=== PATIENT | female | born 1975 | race Caucasian/White ===

== ENCOUNTER 2016-06-14 20:30 | Emergency (ER) | payer OTHER ==
[~2016-06-14 20:30] MED LIST: DOCU10CA PO; DRIS50002 PO; MULTCAP PO; PERC5TAB6 PO
[2016-06-14] MEDS ORDERED: BACTRIM 160MG/800MG DS TAB As Ordered ONE (21:19)
--- NOTE | 2016-06-14 21:28 | EDDOCDS ---
Physician Documentation [facility] Name: Maria Alejandra Herr Age: 41 yrs Sex: Female : 1975 Arrival Date: 06/14/2016 Time: 20:30 Bed TR7 Private MD: Beverley Kulkarni NP Disposition: 06/14/16 21:19 Discharged to Home/Self Care. Impression: Cellulitis of right lower limb - right third toe . - Condition is Stable. - Discharge Instructions: Cellulitis, Wound Care, [id number]. - Prescriptions for Bactrim DS 800- 160 mg Oral Tablet - take 1 tablet by ORAL route every 12 hours for 10 days; 20 tablet. - Medication Reconciliation, Local Pharmacy Hours form. - Follow up: Beverley Kulkarni; When: 2 - 3 days; Reason: Recheck today's complaints, Continuance of care. - Problem is new. - Symptoms are unchanged. Historical: - Allergies: No known drug Allergies; - Home Meds: 1. ibuprofen 800 mg Oral tab 1 tab 3 times per day (Last dose: 06/14/2016 18:00) 2. Tylenol 500 mg Oral 2 tabs every 4-6 hours (Last dose: 06/14/2016 17:00) - PMHx: melenoma; - PSHx: Hysterectomy; Tonsillectomy; - Social history: Smoking status: Patient states former smoker of tobacco. No barriers to communication noted, The patient speaks fluent [place]an, Speaks appropriately for age. - Family history: Not pertinent. - : The pt / caregiver states he / she is not on anticoagulants. Home medication list is obtained from the patient. - Exposure Risk Screening:: None identified. 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 10 in. (177.80 cm); Pain 10/10; 20:34 Body Mass Index 37.31 (117.93 kg, 177.80 cm) dd6 MDM: 21:15 Trimethoprim-Sulfamethoxazole 160 mg-800 mg (DS) 1 tabs PO once ordered. mo1 21:[address] Ordered. EDMS Administered Medications: 21:25 Drug: Trimethoprim-Sulfamethoxazole 1 tabs [sulfamethoxazole 800 mg-trimethoprim 160 mg cz tablet (1 tabs)] Route: PO; Signatures: Dispatcher [employer] EDMS Ana Sandhu RN RN kmg1 Shilo Seals RN RN cz Bandar Kumar PA PA mo1 The chart was reviewed and I authenticate all verbal orders and agree with the evaluation and treatment provided.Corrections: (The following items were deleted from the chart) 21:18 21:16 Wound Culture & GS - Extremity+ATTILA ordered. EDMS EDMS MTDD
--- NOTE | 2016-06-14 21:29 | EDDOCDS ---
Nurse's Notes [facility] Name: Maria Alejandra Herr Age: 41 yrs Sex: Female : 1975 Arrival Date: 06/14/2016 Time: 20:30 Bed TR7 Private MD: Beverley Kulkarni NP Diagnosis: Cellulitis of right lower limb-right third toe Presentation: 06/14 20:38 Presenting complaint: Patient states: had a procedure to remove a suspicious area [place] [facility] [place] right foot. Foot is "turning black.". Adult Sepsis Screening: The patient does not have new or worsening altered mentation. Patient's respiratory rate is less than 22. Systolic blood pressure is greater than 100. Patient has a qSOFA score of 0- Negative Sepsis Screen. Suicide/Homicide risk assessment- the patient denies having any suicidal and/or homicidal ideations and does not present with any other emotional, behavioral or mental health complaints. Status: Patient is not a library services dean or dependent. Transition of care: patient was not received from another setting of care. 20:38 Acuity: ARJUN Level 4 [facility] [place]:38 Method Of Arrival: Walkin/Carried/Asstd km Triage Assessment: 20:43 General: Appears uncomfortable, Behavior is appropriate for age, cooperative, pleasant. [facility] Pain: Location: right foot Pain currently is 10 out of 10 on a pain scale. Quality of pain is described as stabbing, throbbing. Pt Declines HIV testing. 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 ibuprofen 800 mg Oral tab 1 tab 3 times per day (Last dose: 06/14/2016 18:00) 2. Tylenol 500 mg Oral 2 tabs every 4-6 hours (Last dose: 06/14/2016 17:00) - PMHx: melenoma; - PSHx: Hysterectomy; Tonsillectomy; - Social history: Smoking status: Patient states former smoker of tobacco. No barriers to communication noted, The patient speaks fluent Kyrgyz, Speaks appropriately for age. - Family history: Not pertinent. - : The pt / caregiver states he / she is not on anticoagulants. Home medication list is obtained from the patient. - Exposure Risk Screening:: None identified. Screenin:34 Infection Control. dd6 21:25 Screening information is obtained from the patient. Fall risk: No risks identified. cz Assistance ADL's: requires no assistance with activities of daily living. Abuse/DV Screen: The patient / caregiver reports he/she is: not in a situation that causes fear, pain or injury. Nutritional screening: No deficits noted. home support is adequate. Assessment: 21:25 General: alert female with right foot pain exam deferred. cz Vital Signs: 20:34 BP 138 / 61; Pulse 83; Resp 18; Temp 97.1; Pulse Ox 99% ; Weight 117.93 kg; Height 5 dd6 ft. 10 in. (177.80 cm); Pain 10/10; 20:34 Body Mass Index 37.31 (117.93 kg, 177.80 cm) dd6 Vitals: 20:34 Log In Time: June 14, 2016 at 20:34. dd6 ED Course: 20:33 Patient visited by Torin Bridges PCA. dd6 20:33 Beverley Kulkarni is Private Physician. dd6 20:33 Patient moved to Waiting dd6 20:36 Patient visited by Torin Bridges PCA. dd6 20:38 Patient moved to Pre RCE elp 20:41 Triage Initiated kmg1 21:00 Bandar Kumar PA is PHCP. mo1 21:00 Marin Sal DO is Attending Physician. mo1 21:00 Patient moved to Triage 1 cz 21:08 Patient visited by Bandar Kumar PA. mo1 21:18 Beverley Kulkarni is Referral Physician. mo1 21:22 W[address] GRAM [address] Sent. ar3 21:24 Patient moved to TR7 ar3 21:25 The patient / caregiver is instructed regarding the plan of care and ED course. cz 21:25 No IV's were initiated during this patient's visit. No procedures done that require cz assistance. Administered Medications: 21:25 Drug: Trimethoprim-Sulfamethoxazole 1 tabs [sulfamethoxazole 800 mg-trimethoprim 160 mg cz tablet (1 tabs)] Route: PO; Order Results: There are currently no results for this order. Outcome: 21:19 Discharge ordered by Provider. mo1 21:25 Discharge Assessment: Patient awake, alert and oriented x 3. No cognitive and/or cz functional deficits noted. Patient verbalized understanding of disposition instructions. patient administered narcotics - no. The following High Risk Discharge criteria are identified: None. Discharged to home ambulatory. Condition: stable. Discharge instructions given to patient, Instructed on discharge instructions, follow up and referral plans. medication usage, Demonstrated understanding of instructions, medications, Pt was receptive of discharge instructions/ teaching. Prescriptions given X 1. No special radiology studies were completed. Property :Personal belongings accompany Pt. 21:27 Patient left the ED. cz Signatures: Ana Sandhu RN RN kmg1 Shilo Seals RN RN cz Torin Bridges, AUTOMOTIVE MACHINIST AUTOMOTIVE MACHINIST dd6 Denise Schaefer, AUTOMOTIVE MACHINIST AUTOMOTIVE MACHINIST ar3 Bandar Kumar PA PA mo1 Mikki Bailey, AUTOMOTIVE MACHINIST AUTOMOTIVE MACHINIST elp MTDD
--- NOTE | 2016-06-16 22:28 | EDDOCDS ---
Physician Documentation [facility] Name: Maria Alejandra Herr Age: 41 yrs Sex: Female : 1975 Arrival Date: 06/14/2016 Time: 20:30 Bed TR7 Private MD: Beverley Kulkarni NP Disposition: 06/14/16 21:19 Discharged to Home/Self Care. Impression: Cellulitis of right lower limb - right third toe . - Condition is Stable. - Discharge Instructions: Cellulitis, Wound Care, [id number]. - Prescriptions for Bactrim DS 800- 160 mg Oral Tablet - take 1 tablet by ORAL route every 12 hours for 10 days; 20 tablet. - Medication Reconciliation, Local Pharmacy Hours form. - Follow up: Beverley Kulkarni; When: 2 - 3 days; Reason: Recheck today's complaints, Continuance of care. - Problem is new. - Symptoms are unchanged. Historical: - Allergies: No known drug Allergies; - Home Meds: 1. ibuprofen 800 mg Oral tab 1 tab 3 times per day (Last dose: 06/14/2016 18:00) 2. Tylenol 500 mg Oral 2 tabs every 4-6 hours (Last dose: 06/14/2016 17:00) - PMHx: melenoma; - PSHx: Hysterectomy; Tonsillectomy; - Social history: Smoking status: Patient states former smoker of tobacco. No barriers to communication noted, The patient speaks fluent Mozambican, Speaks appropriately for age. - Family history: Not pertinent. - : The pt / caregiver states he / she is not on anticoagulants. Home medication list is obtained from the patient. - Exposure Risk Screening:: None identified. 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 10 in. (177.80 cm); Pain 10/10; 20:34 Body Mass Index 37.31 (117.93 kg, 177.80 cm) dd6 MDM: 21:15 Trimethoprim-Sulfamethoxazole 160 mg-800 mg (DS) 1 tabs PO once ordered. mo1 21:[address] Ordered. EDMS 21:28 Financial registration complete. kf3 21:34 [facility] Payment Agreement was scanned into [employer] and attached to record. kf3 22:28 T-Sheet-- Draft Copy was scanned into [employer] and attached to record. klr Administered Medications: 21:25 Drug: Trimethoprim-Sulfamethoxazole 1 tabs [sulfamethoxazole 800 mg-trimethoprim 160 mg cz tablet (1 tabs)] Route: PO; Signatures: Dispatcher [employer] EDMS Ana Sandhu RN RN km Shilo Seals RN RN cz Jose Rondon, Reg Reg kf3 Bandar Kumar PA PA Candi Parmar The chart was reviewed and I authenticate all verbal orders and agree with the evaluation and treatment provided.Corrections: (The following items were deleted from the chart) 21:18 21:16 Wound Culture & GS - Extremity+ATTILA ordered. EDMS EDMS Attachments: 21:34 [facility] Payment Agreement kf3 22:28 T-Sheet-- Draft Copy klr Chart Complete MTDD
--- NOTE | 2016-06-16 22:28 | EDDOCDS ---
Physician Documentation Name: Maria Alejandra Herr Age: 41 yrs Sex: Female : 1975 Arrival Date: 06/14/2016 Time: 20:30 Bed TR7 Private MD: Beverley Kulkarni NP Disposition: 06/14/16 21:19 Discharged to Home/Self Care. Impression: Cellulitis of right lower limb - right third toe . - Condition is Stable. - Discharge Instructions: Cellulitis, Wound Care, [id number]. - Prescriptions for Bactrim DS 800- 160 mg Oral Tablet - take 1 tablet by ORAL route every 12 hours for 10 days; 20 tablet. - Medication Reconciliation, Local Pharmacy Hours form. - Follow up: Beverley Kulkarni; When: 2 - 3 days; Reason: Recheck today's complaints, Continuance of care. - Problem is new. - Symptoms are unchanged. Historical: - Allergies: No known drug Allergies; - Home Meds: 1. ibuprofen 800 mg Oral tab 1 tab 3 times per day (Last dose: 06/14/2016 18:00) 2. Tylenol 500 mg Oral 2 tabs every 4-6 hours (Last dose: 06/14/2016 17:00) - PMHx: melenoma; - PSHx: Hysterectomy; Tonsillectomy; - Social history: Smoking status: Patient states former smoker of tobacco. No barriers to communication noted, The patient speaks fluent Afghan, Speaks appropriately for age. - Family history: Not pertinent. - : The pt / caregiver states he / she is not on anticoagulants. Home medication list is obtained from the patient. - Exposure Risk Screening:: None identified. 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 10 in. (177.80 cm); Pain 10/10; 20:34 Body Mass Index 37.31 (117.93 kg, 177.80 cm) dd6 MDM: 21:15 Trimethoprim-Sulfamethoxazole 160 mg-800 mg (DS) 1 tabs PO once ordered. mo1 21:[address] Ordered. EDMS 21:28 Financial registration complete. kf3 21:34 [facility] Payment Agreement was scanned into [employer] and attached to record. kf3 22:28 T-Sheet-- Draft Copy was scanned into [employer] and attached to record. klr Administered Medications: 21:25 Drug: Trimethoprim-Sulfamethoxazole 1 tabs [sulfamethoxazole 800 mg-trimethoprim 160 mg cz tablet (1 tabs)] Route: PO; Signatures: Dispatcher [employer] EDMS Ana Sandhu RN RN km Shilo Seals RN RN cz Jose Rondon, Reg Reg kf3 Bandar Kumar PA PA Candi Parmar The chart was reviewed and I authenticate all verbal orders and agree with the evaluation and treatment provided.Corrections: (The following items were deleted from the chart) 21:18 21:16 Wound Culture & GS - Extremity+ATTILA ordered. EDMS EDMS Attachments: 21:34 [facility] Payment Agreement kf3 22:28 T-Sheet-- Draft Copy klr Chart Complete MTDD
--- NOTE | 2016-06-16 22:29 | EDDOCDS ---
Nurse's Notes [facility] Name: Maria Alejandra Herr Age: 41 yrs Sex: Female : 1975 Arrival Date: 06/14/2016 Time: 20:30 Bed TR7 Private MD: Beverley Kulkarni NP Diagnosis: Cellulitis of right lower limb-right third toe Presentation: 06/14 20:38 Presenting complaint: Patient states: had a procedure to remove a suspicious area from [facility] [place] between the toes of right foot. Foot is "turning black.". Adult Sepsis Screening: The patient does not have new or worsening altered mentation. Patient's respiratory rate is less than 22. Systolic blood pressure is greater than 100. Patient has a qSOFA score of 0- Negative Sepsis Screen. Suicide/Homicide risk assessment- the patient denies having any suicidal and/or homicidal ideations and does not present with any other emotional, behavioral or mental health complaints. Status: Patient is not a guest service agent or dependent. Transition of care: patient was not received from another setting of care. 20:38 Acuity: ARJUN Level 4 [facility] [place] 20:38 Method Of Arrival: Walkin/Carried/Asstd km Triage Assessment: 20:43 General: Appears uncomfortable, Behavior is appropriate for age, cooperative, pleasant. [facility] [place] Pain: Location: right foot Pain currently is 10 out of 10 on a pain scale. Quality of pain is described as stabbing, throbbing. Pt Declines HIV testing. 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 ibuprofen 800 mg Oral tab 1 tab 3 times per day (Last dose: 06/14/2016 18:00) 2. Tylenol 500 mg Oral 2 tabs every 4-6 hours (Last dose: 06/14/2016 17:00) - PMHx: melenoma; - PSHx: Hysterectomy; Tonsillectomy; - Social history: Smoking status: Patient states former smoker of tobacco. No barriers to communication noted, The patient speaks fluent Slovenian, Speaks appropriately for age. - Family history: Not pertinent. - : The pt / caregiver states he / she is not on anticoagulants. Home medication list is obtained from the patient. - Exposure Risk Screening:: None identified. Screenin:34 Infection Control. dd6 21:25 Screening information is obtained from the patient. Fall risk: No risks identified. cz Assistance ADL's: requires no assistance with activities of daily living. Abuse/DV Screen: The patient / caregiver reports he/she is: not in a situation that causes fear, pain or injury. Nutritional screening: No deficits noted. home support is adequate. Assessment: 21:25 General: alert female with right foot pain exam deferred. cz Vital Signs: 20:34 BP 138 / 61; Pulse 83; Resp 18; Temp 97.1; Pulse Ox 99% ; Weight 117.93 kg; Height 5 dd6 ft. 10 in. (177.80 cm); Pain 10/10; 20:34 Body Mass Index 37.31 (117.93 kg, 177.80 cm) dd6 Vitals: 20:34 Log In Time: June 14, 2016 at 20:34. dd6 ED Course: 20:33 Patient visited by Torin Bridges PCA. dd6 20:33 Beverley Kulkarni is Private Physician. dd6 20:33 Patient moved to Waiting dd6 20:36 Patient visited by Torin Bridges PCA. dd6 20:38 Patient moved to Pre RCE elp 20:41 Triage Initiated kmg1 21:00 Bandar Kumar PA is PHCP. mo1 21:00 Marin Sal DO is Attending Physician. mo1 21:00 Patient moved to Triage 1 cz 21:08 Patient visited by Bandar Kumar PA. mo1 21:18 Beverley Kulkarni is Referral Physician. mo1 21:22 W[address] GRAM [address] Sent. ar3 21:24 Patient moved to TR7 ar3 21:25 The patient / caregiver is instructed regarding the plan of care and ED course. cz 21:25 No IV's were initiated during this patient's visit. No procedures done that require cz assistance. 21:34 [facility] Payment Agreement was scanned into [employer] and attached to record. kf3 22:28 T-Sheet-- Draft Copy was scanned into [employer] and attached to record. klr Administered Medications: 21:25 Drug: Trimethoprim-Sulfamethoxazole 1 tabs [sulfamethoxazole 800 mg-trimethoprim 160 mg cz tablet (1 tabs)] Route: PO; Order Results: Lab Order: WOUND CULTURE AND GRAM ST; SPEC'M 06/14/16 21:22 Test: GRAM STAIN; Value: GRAM STAIN RESULT; Status: F Test: GRAM STAIN; Value: FEW WBCS; Status: F Test: GRAM STAIN; Value: FEW EPITHELIAL CELLS; Status: F Test: GRAM STAIN; Value: MODERATE GRAM POSITIVE COCCI IN CLUSTERS; Status: F Test: WOUND CULTURE; Value: ORGANISM 1: STAPHYLOCOCCUS AUREUS; Status: F Test: WOUND CULTURE; Value: STAPHYLOCOCCUS AUREUS; Status: F Test: WOUND CULTURE; Value: QUANTITY OF GROWTH HEAVY; Status: F Test: WOUND CULTURE; Value: GRAM POS SENSI - VITEK 67; Status: F Test: WOUND CULTURE; Value: Method: VIT2; Status: F Test: WOUND CULTURE; Value: TETRACYCLINE <=1 S; Status: F Test: WOUND CULTURE; Value: PENICILLIN G >=0.5 R; Status: F Test: WOUND CULTURE; Value: TRIMETHOPRIM/SULFAMETHOXAZOLE <=10 S; Status: F Test: WOUND CULTURE; Value: ERYTHROMYCIN <=0.25 S; Status: F Test: WOUND CULTURE; Value: GENTAMICIN <=0.5 S; Status: F Test: WOUND CULTURE; Value: CLINDAMYCIN <=0.25 S; Status: F Test: WOUND CULTURE; Value: OXACILLIN >=4 R; Status: F Test: WOUND CULTURE; Value: VANCOMYCIN 1 S; Status: F Test: WOUND CULTURE; Value: LINEZOLID (ZYVOX) 2 S; Status: F Outcome: 21:19 Discharge ordered by Provider. mo1 21:25 Discharge Assessment: Patient awake, alert and oriented x 3. No cognitive and/or cz functional deficits noted. Patient verbalized understanding of disposition instructions. patient administered narcotics - no. The following High Risk Discharge criteria are identified: None. Discharged to home ambulatory. Condition: stable. Discharge instructions given to patient, Instructed on discharge instructions, follow up and referral plans. medication usage, Demonstrated understanding of instructions, medications, Pt was receptive of discharge instructions/ teaching. Prescriptions given X 1. No special radiology studies were completed. Property :Personal belongings accompany Pt. 21:27 Patient left the ED. cz Signatures: Ana Sandhu RN RN kmg1 Shilo Seals RN RN cz Jose Rondon, Reg Reg kf3 Torin Bridges, BUILDING CONSTRUCTION IRONWORKER BUILDING CONSTRUCTION IRONWORKER dd6 Denise Schaefer, BUILDING CONSTRUCTION IRONWORKER BUILDING CONSTRUCTION IRONWORKER ar3 Bandar Kumar PA PA mo1 Mikki Bailey, BUILDING CONSTRUCTION IRONWORKER BUILDING CONSTRUCTION IRONWORKER elp Candi Conway Chart Complete MTDD
--- NOTE | 2016-06-17 08:10 | EDDOCDS ---
Physician Documentation [facility] Name: Maria Alejandra Herr Age: 41 yrs Sex: Female : 1975 Arrival Date: 06/14/2016 Time: 20:30 Bed TR7 Private MD: Beverley Kulkarni NP Disposition: 06/14/16 21:19 Discharged to Home/Self Care. Impression: Cellulitis of right lower limb - right third toe . - Condition is Stable. - Discharge Instructions: Cellulitis, Wound Care, [id number]. - Prescriptions for Bactrim DS 800- 160 mg Oral Tablet - take 1 tablet by ORAL route every 12 hours for 10 days; 20 tablet. - Medication Reconciliation, Local Pharmacy Hours form. - Follow up: Beverley Kulkarni; When: 2 - 3 days; Reason: Recheck today's complaints, Continuance of care. - Problem is new. - Symptoms are unchanged. Historical: - Allergies: No known drug Allergies; - Home Meds: 1. ibuprofen 800 mg Oral tab 1 tab 3 times per day (Last dose: 06/14/2016 18:00) 2. Tylenol 500 mg Oral 2 tabs every 4-6 hours (Last dose: 06/14/2016 17:00) - PMHx: melenoma; - PSHx: Hysterectomy; Tonsillectomy; - Social history: Smoking status: Patient states former smoker of tobacco. No barriers to communication noted, The patient speaks fluent [place], Speaks appropriately for age. - Family history: Not pertinent. - : The pt / caregiver states he / she is not on anticoagulants. Home medication list is obtained from the patient. - Exposure Risk Screening:: None identified. 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 10 in. (177.80 cm); Pain 10/10; 20:34 Body Mass Index 37.31 (117.93 kg, 177.80 cm) dd6 MDM: 21:15 Trimethoprim-Sulfamethoxazole 160 mg-800 mg (DS) 1 tabs PO once ordered. mo1 21:[address]AM [address] Ordered. EDMS 21:28 Financial registration complete. kf3 21:34 [facility] Payment Agreement was scanned into [employer] and attached to record. kf3 22:28 T-Sheet-- Draft Copy was scanned into [employer] and attached to record. klr Administered Medications: 21:25 Drug: Trimethoprim-Sulfamethoxazole 1 tabs [sulfamethoxazole 800 mg-trimethoprim 160 mg cz tablet (1 tabs)] Route: PO; Signatures: Dispatcher [employer] EDMS Ana Sandhu RN RN km Shilo Seals RN RN cz Jose Rondon, Reg Reg kf3 Bandar Kumar PA PA Candi Parmar The chart was reviewed and I authenticate all verbal orders and agree with the evaluation and treatment provided.Corrections: (The following items were deleted from the chart) 21:18 21:16 Wound Culture & GS - Extremity+ATTILA ordered. EDMS EDMS Attachments: 21:34 [facility] Payment Agreement kf3 22:28 T-Sheet-- Draft Copy klr MTDD
--- NOTE | 2016-06-17 08:10 | EDDOCDS ---
Physician Documentation [facility] Name: Maria Alejandra Herr Age: 41 yrs Sex: Female : 1975 Arrival Date: 06/14/2016 Time: 20:30 Bed TR7 Private MD: Beverley Kulkarni NP Disposition: 06/14/16 21:19 Discharged to Home/Self Care. Impression: Cellulitis of right lower limb - right third toe . - Condition is Stable. - Discharge Instructions: Cellulitis, Wound Care, [id number]. - Prescriptions for Bactrim DS 800- 160 mg Oral Tablet - take 1 tablet by ORAL route every 12 hours for 10 days; 20 tablet. - Medication Reconciliation, Local Pharmacy Hours form. - Follow up: Beverley Kulkarni; When: 2 - 3 days; Reason: Recheck today's complaints, Continuance of care. - Problem is new. - Symptoms are unchanged. Historical: - Allergies: No known drug Allergies; - Home Meds: 1. ibuprofen 800 mg Oral tab 1 tab 3 times per day (Last dose: 06/14/2016 18:00) 2. Tylenol 500 mg Oral 2 tabs every 4-6 hours (Last dose: 06/14/2016 17:00) - PMHx: melenoma; - PSHx: Hysterectomy; Tonsillectomy; - Social history: Smoking status: Patient states former smoker of tobacco. No barriers to communication noted, The patient speaks fluent Northern Irish, Speaks appropriately for age. - Family history: Not pertinent. - : The pt / caregiver states he / she is not on anticoagulants. Home medication list is obtained from the patient. - Exposure Risk Screening:: None identified. 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 10 in. (177.80 cm); Pain 10/10; 20:34 Body Mass Index 37.31 (117.93 kg, 177.80 cm) dd6 MDM: 21:15 Trimethoprim-Sulfamethoxazole 160 mg-800 mg (DS) 1 tabs PO once ordered. mo1 21:[address] Ordered. EDMS 21:28 Financial registration complete. kf3 21:34 [facility] Payment Agreement was scanned into [employer] and attached to record. kf3 22:28 T-Sheet-- Draft Copy was scanned into [employer] and attached to record. klr Administered Medications: 21:25 Drug: Trimethoprim-Sulfamethoxazole 1 tabs [sulfamethoxazole 800 mg-trimethoprim 160 mg cz tablet (1 tabs)] Route: PO; Signatures: Dispatcher [employer] EDMS Ana Sandhu RN RN km Shilo Seals RN RN cz Jose Rondon, Reg Reg kf3 Bandar Kumar PA PA Candi Parmar The chart was reviewed and I authenticate all verbal orders and agree with the evaluation and treatment provided.Corrections: (The following items were deleted from the chart) 21:18 21:16 Wound Culture & GS - Extremity+ATTILA ordered. EDMS EDMS Attachments: 21:34 [facility] Payment Agreement kf3 22:28 T-Sheet-- Draft Copy klr MTDD
--- NOTE | 2016-06-17 08:10 | EDDOCDS ---
Nurse's Notes [facility] Name: Maria Alejandra Herr Age: 41 yrs Sex: Female : 1975 Arrival Date: 06/14/2016 Time: 20:30 Bed TR7 Private MD: Beverley Kulkarni NP Diagnosis: Cellulitis of right lower limb-right third toe Presentation: 06/14 20:38 Presenting complaint: Patient states: had a procedure to remove a suspicious area from [facility] between the toes of right foot. Foot is "turning black.". Adult Sepsis Screening: The patient does not have new or worsening altered mentation. Patient's respiratory rate is less than 22. Systolic blood pressure is greater than 100. Patient has a qSOFA score of 0- Negative Sepsis Screen. Suicide/Homicide risk assessment- the patient denies having any suicidal and/or homicidal ideations and does not present with any other emotional, behavioral or mental health complaints. Status: Patient is not a office service coordinator or dependent. Transition of care: patient was not received from another setting of care. 20:38 Acuity: ARJUN Level 4 [facility] 20:38 Method Of Arrival: Walkin/Carried/Asstd km Triage Assessment: 20:43 General: Appears uncomfortable, Behavior is appropriate for age, cooperative, pleasant. [facility] Pain: Location: right foot Pain currently is 10 out of 10 on a pain scale. Quality of pain is described as stabbing, throbbing. Pt Declines HIV testing. 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 ibuprofen 800 mg Oral tab 1 tab 3 times per day (Last dose: 06/14/2016 18:00) 2. Tylenol 500 mg Oral 2 tabs every 4-6 hours (Last dose: 06/14/2016 17:00) - PMHx: melenoma; - PSHx: Hysterectomy; Tonsillectomy; - Social history: Smoking status: Patient states former smoker of tobacco. No barriers to communication noted, The patient speaks fluent Hungarian, Speaks appropriately for age. - Family history: Not pertinent. - : The pt / caregiver states he / she is not on anticoagulants. Home medication list is obtained from the patient. - Exposure Risk Screening:: None identified. Screenin:34 Infection Control. dd6 21:25 Screening information is obtained from the patient. Fall risk: No risks identified. cz Assistance ADL's: requires no assistance with activities of daily living. Abuse/DV Screen: The patient / caregiver reports he/she is: not in a situation that causes fear, pain or injury. Nutritional screening: No deficits noted. home support is adequate. Assessment: 21:25 General: alert female with right foot pain exam deferred. cz Vital Signs: 20:34 BP 138 / 61; Pulse 83; Resp 18; Temp 97.1; Pulse Ox 99% ; Weight 117.93 kg; Height 5 dd6 ft. 10 in. (177.80 cm); Pain 10/10; 20:34 Body Mass Index 37.31 (117.93 kg, 177.80 cm) dd6 Vitals: 20:34 Log In Time: June 14, 2016 at 20:34. dd6 ED Course: 20:33 Patient visited by Torin Bridges PCA. dd6 20:33 Beverley Kulkarni is Private Physician. dd6 20:33 Patient moved to Waiting dd6 20:36 Patient visited by Torin Bridges PCA. dd6 20:38 Patient moved to Pre RCE elp 20:41 Triage Initiated kmg1 21:00 Bandar Kumar PA is PHCP. mo1 21:00 Marin Sal DO is Attending Physician. mo1 21:00 Patient moved to Triage 1 cz 21:08 Patient visited by Bandar Kumar PA. mo1 21:18 Beverley Kulkarni is Referral Physician. mo1 21:22 W[address] C[address] GRAM [address] Sent. ar3 21:24 Patient moved to TR7 ar3 21:25 The patient / caregiver is instructed regarding the plan of care and ED course. cz 21:25 No IV's were initiated during this patient's visit. No procedures done that require cz assistance. 21:34 [facility] Payment Agreement was scanned into [employer] and attached to record. kf3 22:28 T-Sheet-- Draft Copy was scanned into [employer] and attached to record. klr Administered Medications: 21:25 Drug: Trimethoprim-Sulfamethoxazole 1 tabs [sulfamethoxazole 800 mg-trimethoprim 160 mg cz tablet (1 tabs)] Route: PO; Order Results: Lab Order: WOUND CULTURE AND GRAM ST; SPEC'M 06/14/16 21:22 Test: GRAM STAIN; Value: GRAM STAIN RESULT; Status: F Test: GRAM STAIN; Value: FEW WBCS; Status: F Test: GRAM STAIN; Value: FEW EPITHELIAL CELLS; Status: F Test: GRAM STAIN; Value: MODERATE GRAM POSITIVE COCCI IN CLUSTERS; Status: F Test: WOUND CULTURE; Value: ORGANISM 1: STAPHYLOCOCCUS AUREUS; Status: F Test: WOUND CULTURE; Value: STAPHYLOCOCCUS AUREUS; Status: F Test: WOUND CULTURE; Value: QUANTITY OF GROWTH HEAVY; Status: F Test: WOUND CULTURE; Value: GRAM POS SENSI - VITEK 67; Status: F Test: WOUND CULTURE; Value: Method: VIT2; Status: F Test: WOUND CULTURE; Value: TETRACYCLINE <=1 S; Status: F Test: WOUND CULTURE; Value: PENICILLIN G >=0.5 R; Status: F Test: WOUND CULTURE; Value: TRIMETHOPRIM/SULFAMETHOXAZOLE <=10 S; Status: F Test: WOUND CULTURE; Value: ERYTHROMYCIN <=0.25 S; Status: F Test: WOUND CULTURE; Value: GENTAMICIN <=0.5 S; Status: F Test: WOUND CULTURE; Value: CLINDAMYCIN <=0.25 S; Status: F Test: WOUND CULTURE; Value: OXACILLIN >=4 R; Status: F Test: WOUND CULTURE; Value: VANCOMYCIN 1 S; Status: F Test: WOUND CULTURE; Value: LINEZOLID (ZYVOX) 2 S; Status: F Outcome: 21:19 Discharge ordered by Provider. mo1 21:25 Discharge Assessment: Patient awake, alert and oriented x 3. No cognitive and/or cz functional deficits noted. Patient verbalized understanding of disposition instructions. patient administered narcotics - no. The following High Risk Discharge criteria are identified: None. Discharged to home ambulatory. Condition: stable. Discharge instructions given to patient, Instructed on discharge instructions, follow up and referral plans. medication usage, Demonstrated understanding of instructions, medications, Pt was receptive of discharge instructions/ teaching. Prescriptions given X 1. No special radiology studies were completed. Property :Personal belongings accompany Pt. 21:27 Patient left the ED. cz Addendum: 06/17/2016 08:09 Narrative: Wound culture results reviewed by Dr Lau and no changes made. [facility] Signatures: Ana Sandhu RN RN kmg1 Candice Hummel RN RN mcp Zecher, Shilo, SHAISTA RN cz Nela, Jose, Reg Reg kf3 Desphillip, Torin, EVENT MARKETING MANAGER EVENT MARKETING MANAGER dd6 Denise Schaefer, EVENT MARKETING MANAGER EVENT MARKETING MANAGER ar3 Bandar Kumar PA PA mo1 Mikki Bailey, EVENT MARKETING MANAGER EVENT MARKETING MANAGER elp Candi Conway MTDD
--- NOTE | 2016-06-17 08:11 | EDDOCDS ---
Physician Documentation [facility] Name: Maria Alejandra Herr Age: 41 yrs Sex: Female : 1975 Arrival Date: 06/14/2016 Time: 20:30 Bed TR7 Private MD: Beverley Kulkarni NP Disposition: 06/14/16 21:19 Discharged to Home/Self Care. Impression: Cellulitis of right lower limb - right third toe . - Condition is Stable. - Discharge Instructions: Cellulitis, Wound Care, [id number]. - Prescriptions for Bactrim DS 800- 160 mg Oral Tablet - take 1 tablet by ORAL route every 12 hours for 10 days; 20 tablet. - Medication Reconciliation, Local Pharmacy Hours form. - Follow up: Beverley Kulkarni; When: 2 - 3 days; Reason: Recheck today's complaints, Continuance of care. - Problem is new. - Symptoms are unchanged. Historical: - Allergies: No known drug Allergies; - Home Meds: 1. ibuprofen 800 mg Oral tab 1 tab 3 times per day (Last dose: 06/14/2016 18:00) 2. Tylenol 500 mg Oral 2 tabs every 4-6 hours (Last dose: 06/14/2016 17:00) - PMHx: melenoma; - PSHx: Hysterectomy; Tonsillectomy; - Social history: Smoking status: Patient states former smoker of tobacco. No barriers to communication noted, The patient speaks fluent Malagasy, Speaks appropriately for age. - Family history: Not pertinent. - : The pt / caregiver states he / she is not on anticoagulants. Home medication list is obtained from the patient. - Exposure Risk Screening:: None identified. 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 10 in. (177.80 cm); Pain 10/10; 20:34 Body Mass Index 37.31 (117.93 kg, 177.80 cm) dd6 MDM: 21:15 Trimethoprim-Sulfamethoxazole 160 mg-800 mg (DS) 1 tabs PO once ordered. mo1 21:22 W[address] GRAM ST Ordered. EDMS 21:28 Financial registration complete. kf3 21:34 [facility] Payment Agreement was scanned into [employer] and attached to record. kf3 22:28 T-Sheet-- Draft Copy was scanned into [employer] and attached to record. klr Administered Medications: 21:25 Drug: Trimethoprim-Sulfamethoxazole 1 tabs [sulfamethoxazole 800 mg-trimethoprim 160 mg cz tablet (1 tabs)] Route: PO; Signatures: Dispatcher MedHost EDMS Ana Sandhu RN RN km Shilo Seals RN RN cz Jose Rondon, Reg Reg kf3 Bandar Kumar PA PA Candi Parmar The chart was reviewed and I authenticate all verbal orders and agree with the evaluation and treatment provided.Corrections: (The following items were deleted from the chart) 21:18 21:16 Wound Culture & GS - Extremity+ATTILA ordered. EDMS EDMS Attachments: 21:34 [facility] Payment Agreement kf3 22:28 T-Sheet-- Draft Copy klr Chart Complete MTDD
--- NOTE | 2016-06-17 08:11 | EDDOCDS ---
Physician Documentation [facility] Name: Maria Alejandra Herr Age: 41 yrs Sex: Female : 1975 Arrival Date: 06/14/2016 Time: 20:30 Bed TR7 Private MD: Beverley Kulkarni NP Disposition: 06/14/16 21:19 Discharged to Home/Self Care. Impression: Cellulitis of right lower limb - right third toe . - Condition is Stable. - Discharge Instructions: Cellulitis, Wound Care, [id number]. - Prescriptions for Bactrim DS 800- 160 mg Oral Tablet - take 1 tablet by ORAL route every 12 hours for 10 days; 20 tablet. - Medication Reconciliation, Local Pharmacy Hours form. - Follow up: Beverley Kulkarni; When: 2 - 3 days; Reason: Recheck today's complaints, Continuance of care. - Problem is new. - Symptoms are unchanged. Historical: - Allergies: No known drug Allergies; - Home Meds: 1. ibuprofen 800 mg Oral tab 1 tab 3 times per day (Last dose: 06/14/2016 18:00) 2. Tylenol 500 mg Oral 2 tabs every 4-6 hours (Last dose: 06/14/2016 17:00) - PMHx: melenoma; - PSHx: Hysterectomy; Tonsillectomy; - Social history: Smoking status: Patient states former smoker of tobacco. No barriers to communication noted, The patient speaks fluent Thai, Speaks appropriately for age. - Family history: Not pertinent. - : The pt / caregiver states he / she is not on anticoagulants. Home medication list is obtained from the patient. - Exposure Risk Screening:: None identified. 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 10 in. (177.80 cm); Pain 10/10; 20:34 Body Mass Index 37.31 (117.93 kg, 177.80 cm) dd6 MDM: 21:15 Trimethoprim-Sulfamethoxazole 160 mg-800 mg (DS) 1 tabs PO once ordered. mo1 21:22 [address] GRAM [address] Ordered. EDMS 21:28 Financial registration complete. kf3 21:34 [facility] Payment Agreement was scanned into [employer] and attached to record. kf3 22:28 T-Sheet-- Draft Copy was scanned into [employer] and attached to record. klr Administered Medications: 21:25 Drug: Trimethoprim-Sulfamethoxazole 1 tabs [sulfamethoxazole 800 mg-trimethoprim 160 mg cz tablet (1 tabs)] Route: PO; Signatures: Dispatcher MedHost EDMS Ana Sandhu RN RN km Shilo Seals RN RN cz Jose Rondon, Reg Reg kf3 Bandar Kumar PA PA Candi Parmar The chart was reviewed and I authenticate all verbal orders and agree with the evaluation and treatment provided.Corrections: (The following items were deleted from the chart) 21:18 21:16 Wound Culture & GS - Extremity+ATTILA ordered. EDMS EDMS Attachments: 21:34 [facility] Payment Agreement kf3 22:28 T-Sheet-- Draft Copy klr Chart Complete MTDD
--- NOTE | 2016-06-17 08:12 | EDDOCDS ---
Nurse's Notes [facility] Name: Maria Alejandra Herr Age: 41 yrs Sex: Female : 1975 Arrival Date: 06/14/2016 Time: 20:30 Bed TR7 Private MD: Beverley Kulkarni NP Diagnosis: Cellulitis of right lower limb-right third toe Presentation: 06/14 20:38 Presenting complaint: Patient states: had a procedure to remove a suspicious area from [place] between the toes of right foot. Foot is "turning black.". Adult Sepsis Screening: The patient does not have new or worsening altered mentation. Patient's respiratory rate is less than 22. Systolic blood pressure is greater than 100. Patient has a qSOFA score of 0- Negative Sepsis Screen. Suicide/Homicide risk assessment- the patient denies having any suicidal and/or homicidal ideations and does not present with any other emotional, behavioral or mental health complaints. Status: Patient is not a cashier self service gasoline or dependent. Transition of care: patient was not received from another setting of care. 20:38 Acuity: ARJUN Level 4 [place] 20:38 Method Of Arrival: Walkin/Carried/Asstd km Triage Assessment: 20:43 General: Appears uncomfortable, Behavior is appropriate for age, cooperative, pleasant. [place] Pain: Location: right foot Pain currently is 10 out of 10 on a pain scale. Quality of pain is described as stabbing, throbbing. Pt Declines HIV testing. 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 ibuprofen 800 mg Oral tab 1 tab 3 times per day (Last dose: 06/14/2016 18:00) 2. Tylenol 500 mg Oral 2 tabs every 4-6 hours (Last dose: 06/14/2016 17:00) - PMHx: melenoma; - PSHx: Hysterectomy; Tonsillectomy; - Social history: Smoking status: Patient states former smoker of tobacco. No barriers to communication noted, The patient speaks fluent Malay, Speaks appropriately for age. - Family history: Not pertinent. - : The pt / caregiver states he / she is not on anticoagulants. Home medication list is obtained from the patient. - Exposure Risk Screening:: None identified. Screenin:34 Infection Control. dd6 21:25 Screening information is obtained from the patient. Fall risk: No risks identified. cz Assistance ADL's: requires no assistance with activities of daily living. Abuse/DV Screen: The patient / caregiver reports he/she is: not in a situation that causes fear, pain or injury. Nutritional screening: No deficits noted. home support is adequate. Assessment: 21:25 General: alert female with right foot pain exam deferred. cz Vital Signs: 20:34 BP 138 / 61; Pulse 83; Resp 18; Temp 97.1; Pulse Ox 99% ; Weight 117.93 kg; Height 5 dd6 ft. 10 in. (177.80 cm); Pain 10/10; 20:34 Body Mass Index 37.31 (117.93 kg, 177.80 cm) dd6 Vitals: 20:34 Log In Time: June 14, 2016 at 20:34. dd6 ED Course: 20:33 Patient visited by Torin Bridges PCA. dd6 20:33 Beverley Kulkarni is Private Physician. dd6 20:33 Patient moved to Waiting dd6 20:36 Patient visited by Torin Bridges PCA. dd6 20:38 Patient moved to Pre RCE elp 20:41 Triage Initiated kmg1 21:00 Bandar Kumar PA is PHCP. mo1 21:00 Marin Sal DO is Attending Physician. mo1 21:00 Patient moved to Triage 1 cz 21:08 Patient visited by Bandar Kumar PA. mo1 21:18 Beverley Kulkarni is Referral Physician. mo1 21:22 WOUND CULTURE [address] GRAM ST Sent. ar3 21:24 Patient moved to TR7 ar3 21:25 The patient / caregiver is instructed regarding the plan of care and ED course. cz 21:25 No IV's were initiated during this patient's visit. No procedures done that require cz assistance. 21:34 [facility] [place] Agreement was scanned into [employer] and attached to record. kf3 22:28 T-Sheet-- Draft Copy was scanned into [employer] and attached to record. klr Administered Medications: 21:25 Drug: Trimethoprim-Sulfamethoxazole 1 tabs [sulfamethoxazole 800 mg-trimethoprim 160 mg cz tablet (1 tabs)] Route: PO; Order Results: Lab Order: WOUND CULTURE AND GRAM ST; SPEC'M 06/14/16 21:22 Test: GRAM STAIN; Value: GRAM STAIN RESULT; Status: F Test: GRAM STAIN; Value: FEW WBCS; Status: F Test: GRAM STAIN; Value: FEW EPITHELIAL CELLS; Status: F Test: GRAM STAIN; Value: MODERATE GRAM POSITIVE COCCI IN CLUSTERS; Status: F Test: WOUND CULTURE; Value: ORGANISM 1: STAPHYLOCOCCUS AUREUS; Status: F Test: WOUND CULTURE; Value: STAPHYLOCOCCUS AUREUS; Status: F Test: WOUND CULTURE; Value: QUANTITY OF GROWTH HEAVY; Status: F Test: WOUND CULTURE; Value: GRAM POS SENSI - VITEK 67; Status: F Test: WOUND CULTURE; Value: Method: VIT2; Status: F Test: WOUND CULTURE; Value: TETRACYCLINE <=1 S; Status: F Test: WOUND CULTURE; Value: PENICILLIN G >=0.5 R; Status: F Test: WOUND CULTURE; Value: TRIMETHOPRIM/SULFAMETHOXAZOLE <=10 S; Status: F Test: WOUND CULTURE; Value: ERYTHROMYCIN <=0.25 S; Status: F Test: WOUND CULTURE; Value: GENTAMICIN <=0.5 S; Status: F Test: WOUND CULTURE; Value: CLINDAMYCIN <=0.25 S; Status: F Test: WOUND CULTURE; Value: OXACILLIN >=4 R; Status: F Test: WOUND CULTURE; Value: VANCOMYCIN 1 S; Status: F Test: WOUND CULTURE; Value: LINEZOLID (ZYVOX) 2 S; Status: F Outcome: 21:19 Discharge ordered by Provider. mo1 21:25 Discharge Assessment: Patient awake, alert and oriented x 3. No cognitive and/or cz functional deficits noted. Patient verbalized understanding of disposition instructions. patient administered narcotics - no. The following High Risk Discharge criteria are identified: None. Discharged to home ambulatory. Condition: stable. Discharge instructions given to patient, Instructed on discharge instructions, follow up and referral plans. medication usage, Demonstrated understanding of instructions, medications, Pt was receptive of discharge instructions/ teaching. Prescriptions given X 1. No special radiology studies were completed. Property :Personal belongings accompany Pt. 21:27 Patient left the ED. cz Addendum: 06/17/2016 08:09 Narrative: Wound culture results reviewed by Dr Lau and no changes made. [facility] Signatures: Ana Sandhu RN RN kmg1 Candice Hummel RN RN mcp Zecher, Shilo, SHAISTA RN cz Nela, Jose, Reg Reg kf3 Desphillip, Torin, POCKET CUTTER POCKET CUTTER dd6 Denise Schaefer, POCKET CUTTER POCKET CUTTER ar3 Bandar Kumar PA PA mo1 Mikki Bailey, POCKET CUTTER POCKET CUTTER elp Man, Candi charles Chart Complete MTDD
--- NOTE | 2016-06-17 09:28 | EDDOCDS ---
Physician Documentation [facility] Name: Maria Alejandra Herr Age: 41 yrs Sex: Female : 1975 Arrival Date: 06/14/2016 Time: 20:30 Bed TR7 Private MD: Beverley Kulkarni NP Disposition: 06/14/16 21:19 Discharged to Home/Self Care. Impression: Cellulitis of right lower limb - right third toe . - Condition is Stable. - Discharge Instructions: Cellulitis, Wound Care, [id number]. - Prescriptions for Bactrim DS 800- 160 mg Oral Tablet - take 1 tablet by ORAL route every 12 hours for 10 days; 20 tablet. - Medication Reconciliation, Local Pharmacy Hours form. - Follow up: Beverley Kulkarni; When: 2 - 3 days; Reason: Recheck today's complaints, Continuance of care. - Problem is new. - Symptoms are unchanged. Historical: - Allergies: No known drug Allergies; - Home Meds: 1. ibuprofen 800 mg Oral tab 1 tab 3 times per day (Last dose: 06/14/2016 18:00) 2. Tylenol 500 mg Oral 2 tabs every 4-6 hours (Last dose: 06/14/2016 17:00) - PMHx: melenoma; - PSHx: Hysterectomy; Tonsillectomy; - Social history: Smoking status: Patient states former smoker of tobacco. No barriers to communication noted, The patient speaks fluent [place], Speaks appropriately for age. - Family history: Not pertinent. - : The pt / caregiver states he / she is not on anticoagulants. Home medication list is obtained from the patient. - Exposure Risk Screening:: None identified. 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 10 in. (177.80 cm); Pain 10/10; 20:34 Body Mass Index 37.31 (117.93 kg, 177.80 cm) dd6 MDM: 21:15 Trimethoprim-Sulfamethoxazole 160 mg-800 mg (DS) 1 tabs PO once ordered. mo1 21:[address]AM [address] Ordered. EDMS 21:28 Financial registration complete. kf3 21:34 [facility] Payment Agreement was scanned into [employer] and attached to record. kf3 22:28 T-Sheet-- Draft Copy was scanned into [employer] and attached to record. klr Administered Medications: 21:25 Drug: Trimethoprim-Sulfamethoxazole 1 tabs [sulfamethoxazole 800 mg-trimethoprim 160 mg cz tablet (1 tabs)] Route: PO; Signatures: Dispatcher Med[employer] EDMS Ana Sandhu RN RN km Shilo Seals RN RN cz Jose Rondon, Reg Reg kf3 Bandar Kumar PA PA Candi Parmar The chart was reviewed and I authenticate all verbal orders and agree with the evaluation and treatment provided.Corrections: (The following items were deleted from the chart) 21:18 21:16 Wound Culture & GS - Extremity+ATTILA ordered. EDMS EDMS Attachments: 21:34 [facility] Payment Agreement kf3 22:28 T-Sheet-- Draft Copy klr Chart Complete MTDD
--- NOTE | 2016-06-17 09:28 | EDDOCDS ---
Physician Documentation [facility] Name: Maria Alejandra Herr Age: 41 yrs Sex: Female : 1975 Arrival Date: 06/14/2016 Time: 20:30 Bed TR7 Private MD: Beverley Kulkarni NP Disposition: 06/14/16 21:19 Discharged to Home/Self Care. Impression: Cellulitis of right lower limb - right third toe . - Condition is Stable. - Discharge Instructions: Cellulitis, Wound Care, [id number]. - Prescriptions for Bactrim DS 800- 160 mg Oral Tablet - take 1 tablet by ORAL route every 12 hours for 10 days; 20 tablet. - Medication Reconciliation, Local Pharmacy Hours form. - Follow up: Beverley Kulkarni; When: 2 - 3 days; Reason: Recheck today's complaints, Continuance of care. - Problem is new. - Symptoms are unchanged. Historical: - Allergies: No known drug Allergies; - Home Meds: 1. ibuprofen 800 mg Oral tab 1 tab 3 times per day (Last dose: 06/14/2016 18:00) 2. Tylenol 500 mg Oral 2 tabs every 4-6 hours (Last dose: 06/14/2016 17:00) - PMHx: melenoma; - PSHx: Hysterectomy; Tonsillectomy; - Social history: Smoking status: Patient states former smoker of tobacco. No barriers to communication noted, The patient speaks fluent Botswanan, Speaks appropriately for age. - Family history: Not pertinent. - : The pt / caregiver states he / she is not on anticoagulants. Home medication list is obtained from the patient. - Exposure Risk Screening:: None identified. 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 10 in. (177.80 cm); Pain 10/10; 20:34 Body Mass Index 37.31 (117.93 kg, 177.80 cm) dd6 MDM: 21:15 Trimethoprim-Sulfamethoxazole 160 mg-800 mg (DS) 1 tabs PO once ordered. mo1 21:[address] Ordered. EDMS 21:28 Financial registration complete. kf3 21:34 [facility] Payment Agreement was scanned into meets and attached to record. kf3 22:28 T-Sheet-- Draft Copy was scanned into meets and attached to record. klr Administered Medications: 21:25 Drug: Trimethoprim-Sulfamethoxazole 1 tabs [sulfamethoxazole 800 mg-trimethoprim 160 mg cz tablet (1 tabs)] Route: PO; Signatures: Dispatcher [employer] EDMS Ana Sandhu RN RN km Shilo Seals RN RN cz Jose Rondon, Reg Reg kf3 Bandar Kumar PA PA Candi Parmar The chart was reviewed and I authenticate all verbal orders and agree with the evaluation and treatment provided.Corrections: (The following items were deleted from the chart) 21:18 21:16 Wound Culture & GS - Extremity+ATTILA ordered. EDMS EDMS Attachments: 21:34 [facility] Payment Agreement kf3 22:28 T-Sheet-- Draft Copy klr Chart Complete MTDD
--- NOTE | 2016-06-17 09:28 | EDDOCDS ---
Nurse's Notes [facility] Name: Maria Alejandra Herr Age: 41 yrs Sex: Female : 1975 Arrival Date: 06/14/2016 Time: 20:30 Bed TR7 Private MD: Beverley Kulkarni NP Diagnosis: Cellulitis of right lower limb-right third toe Presentation: 06/14 20:38 Presenting complaint: Patient states: had a procedure to remove a suspicious area from [facility] between the toes of right foot. Foot is "turning black.". Adult Sepsis Screening: The patient does not have new or worsening altered mentation. Patient's respiratory rate is less than 22. Systolic blood pressure is greater than 100. Patient has a qSOFA score of 0- Negative Sepsis Screen. Suicide/Homicide risk assessment- the patient denies having any suicidal and/or homicidal ideations and does not present with any other emotional, behavioral or mental health complaints. Status: Patient is not a nursing services manager or dependent. Transition of care: patient was not received from another setting of care. 20:38 Acuity: ARJUN Level 4 [facility] 20:38 Method Of Arrival: Walkin/Carried/Asstd km Triage Assessment: 20:43 General: Appears uncomfortable, Behavior is appropriate for age, cooperative, pleasant. [facility] Pain: Location: right foot Pain currently is 10 out of 10 on a pain scale. Quality of pain is described as stabbing, throbbing. Pt Declines HIV testing. 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 ibuprofen 800 mg Oral tab 1 tab 3 times per day (Last dose: 06/14/2016 18:00) 2. Tylenol 500 mg Oral 2 tabs every 4-6 hours (Last dose: 06/14/2016 17:00) - PMHx: melenoma; - PSHx: Hysterectomy; Tonsillectomy; - Social history: Smoking status: Patient states former smoker of tobacco. No barriers to communication noted, The patient speaks fluent Tajik, Speaks appropriately for age. - Family history: Not pertinent. - : The pt / caregiver states he / she is not on anticoagulants. Home medication list is obtained from the patient. - Exposure Risk Screening:: None identified. Screenin:34 Infection Control. dd6 21:25 Screening information is obtained from the patient. Fall risk: No risks identified. cz Assistance ADL's: requires no assistance with activities of daily living. Abuse/DV Screen: The patient / caregiver reports he/she is: not in a situation that causes fear, pain or injury. Nutritional screening: No deficits noted. home support is adequate. Assessment: 21:25 General: alert female with right foot pain exam deferred. cz Vital Signs: 20:34 BP 138 / 61; Pulse 83; Resp 18; Temp 97.1; Pulse Ox 99% ; Weight 117.93 kg; Height 5 dd6 ft. 10 in. (177.80 cm); Pain 10/10; 20:34 Body Mass Index 37.31 (117.93 kg, 177.80 cm) dd6 Vitals: 20:34 Log In Time: June 14, 2016 at 20:34. dd6 ED Course: 20:33 Patient visited by Torin Bridges PCA. dd6 20:33 Beverley Kulkarni is Private Physician. dd6 20:33 Patient moved to Waiting dd6 20:36 Patient visited by Torin Bridges PCA. dd6 20:38 Patient moved to Pre RCE elp 20:41 Triage Initiated kmg1 21:00 Bandar Kumar PA is PHCP. mo1 21:00 Marin Sal DO is Attending Physician. mo1 21:00 Patient moved to Triage 1 cz 21:08 Patient visited by Bandar Kumar PA. mo1 21:18 Beverley Kulkarni is Referral Physician. mo1 21:22 W[address] GRAM [address] Sent. ar3 21:24 Patient moved to TR7 ar3 21:25 The patient / caregiver is instructed regarding the plan of care and ED course. cz 21:25 No IV's were initiated during this patient's visit. No procedures done that require cz assistance. 21:34 [facility] Payment Agreement was scanned into [employer] and attached to record. kf3 22:28 T-Sheet-- Draft Copy was scanned into [employer] and attached to record. klr Administered Medications: 21:25 Drug: Trimethoprim-Sulfamethoxazole 1 tabs [sulfamethoxazole 800 mg-trimethoprim 160 mg cz tablet (1 tabs)] Route: PO; Order Results: Lab Order: WOUND CULTURE AND GRAM ST; SPEC'M 06/14/16 21:22 Test: GRAM STAIN; Value: GRAM STAIN RESULT; Status: F Test: GRAM STAIN; Value: FEW WBCS; Status: F Test: GRAM STAIN; Value: FEW EPITHELIAL CELLS; Status: F Test: GRAM STAIN; Value: MODERATE GRAM POSITIVE COCCI IN CLUSTERS; Status: F Test: WOUND CULTURE; Value: ORGANISM 1: STAPHYLOCOCCUS AUREUS; Status: F Test: WOUND CULTURE; Value: STAPHYLOCOCCUS AUREUS; Status: F Test: WOUND CULTURE; Value: QUANTITY OF GROWTH HEAVY; Status: F Test: WOUND CULTURE; Value: GRAM POS SENSI - VITEK 67; Status: F Test: WOUND CULTURE; Value: Method: VIT2; Status: F Test: WOUND CULTURE; Value: TETRACYCLINE <=1 S; Status: F Test: WOUND CULTURE; Value: PENICILLIN G >=0.5 R; Status: F Test: WOUND CULTURE; Value: TRIMETHOPRIM/SULFAMETHOXAZOLE <=10 S; Status: F Test: WOUND CULTURE; Value: ERYTHROMYCIN <=0.25 S; Status: F Test: WOUND CULTURE; Value: GENTAMICIN <=0.5 S; Status: F Test: WOUND CULTURE; Value: CLINDAMYCIN <=0.25 S; Status: F Test: WOUND CULTURE; Value: OXACILLIN >=4 R; Status: F Test: WOUND CULTURE; Value: VANCOMYCIN 1 S; Status: F Test: WOUND CULTURE; Value: LINEZOLID (ZYVOX) 2 S; Status: F Outcome: 21:19 Discharge ordered by Provider. mo1 21:25 Discharge Assessment: Patient awake, alert and oriented x 3. No cognitive and/or cz functional deficits noted. Patient verbalized understanding of disposition instructions. patient administered narcotics - no. The following High Risk Discharge criteria are identified: None. Discharged to home ambulatory. Condition: stable. Discharge instructions given to patient, Instructed on discharge instructions, follow up and referral plans. medication usage, Demonstrated understanding of instructions, medications, Pt was receptive of discharge instructions/ teaching. Prescriptions given X 1. No special radiology studies were completed. Property :Personal belongings accompany Pt. 21:27 Patient left the ED. cz Addendum: 06/17/2016 08:09 Narrative: Wound culture results reviewed by Dr Lau and no changes made. [facility] Signatures: Ana Sandhu RN RN kmg1 Candice Hummel RN RN mcp Zecher, Shilo, SHAISTA RN cz Nela, Jose, Reg Reg kf3 Desphillip, Torin, CYLINDER WORKER CYLINDER WORKER dd6 Denise Schaefer, CYLINDER WORKER CYLINDER WORKER ar3 Bandar Kumar PA PA mo1 Mikki Bailey, CYLINDER WORKER CYLINDER WORKER elp Man, Candi charles Chart Complete MTDD
== END 2016-06-14 21:27 | disposition home or self-care (01) ==
LOC: M ED 20:30
DX: L03.031 Cellulitis of right toe (principal); Z85.820 Personal history of malignant melanoma of skin; Z87.891 Personal history of nicotine dependence

== ENCOUNTER → 2016-06-29 | Outpatient (REF) | payer OTHER | LOC: M SFHCWAGY 16:55 | PROVIDERS: ATTEND Nurse Practitioner Family | DX: Z11.3 Encounter for screening for infections with a predominantly sexual mode of transmission (principal) ==

== ENCOUNTER → 2016-07-14 | Outpatient (REF) | payer OTHER ==
[2016-07-14 18:07] LABS: BASO % 0.4 % (0.0-1.0); EOS # 0.3 K/mm3 (0.0-0.50); EOS % 4.1 % (0.0-3.0); LARGE UNSTAINED CELL # 0.1 K/mm3 (0.0-0.4); LARGE UNSTAINED CELL % 1.2 % (0.0-4.0); LYMPH % 28.6 % (24.0-44.0); MEAN CORPUSCULAR HEMOGLOBIN 29.8 pg (27.0-33.0); MEAN CORPUSCULAR HGB CONC 33.8 g/dl (32.0-36.5); MEAN CORPUSCULAR VOLUME 88.3 fl (80.0-96.0); MONO # 0.4 K/mm3 (0.0-0.8); MONO % 5.4 % (0.0-5.0); NEUTROPHILS % 60.2 % (36.0-66.0); PLATELET COUNT, AUTOMATED 264 k/mm3 (150-450); WHITE BLOOD COUNT 6.6 K/mm3 (4.0-10.0)
[2016-07-14 20:18] LABS: ALBUMIN/GLOBULIN RATIO 1.29 (1.00-1.93); ALKALINE PHOSPHATASE 85 U/L (45-117); ALT/SGPT 32 U/L (12-78); ANION GAP 8 MEQ/L (8-16); AST/SGOT 20 U/L (15-37); BILIRUBIN,TOTAL 0.5 MG/DL (0.2-1.0); BLOOD UREA NITROGEN 10 MG/DL (7-18); CALCIUM LEVEL 8.5 MG/DL (8.5-10.1); CARBON DIOXIDE LEVEL 27 MEQ/L (21-32); CHLORIDE LEVEL 105 MEQ/L (98-107); CREATININE FOR GFR 0.88 MG/DL (0.55-1.02); FREE T4 1.06 NG/DL (0.76-1.46); GLOMERULAR FILTRATION RATE > 60.0 (>60); GLUCOSE, FASTING 89 MG/DL (70-105); POTASSIUM SERUM 4.1 MEQ/L (3.5-5.1); SODIUM LEVEL 140 MEQ/L (136-145); TOTAL PROTEIN 7.1 GM/DL (6.4-8.2)
[2016-07-15 14:16] LABS: CONTROL LINE INT CTR LINE PRESENT; HIV SCRN NEGATIVE (NEGATIVE); HIV SCRN1 NEGATIVE (NEGATIVE)
== END ==
LOC: M SFHCPLAZ 14:56
PROVIDERS: ATTEND Nurse Practitioner Family
DX: L29.9 Pruritus, unspecified (principal); E55.9 Vitamin D deficiency, unspecified; Z11.3 Encounter for screening for infections with a predominantly sexual mode of transmission

== ENCOUNTER → 2016-10-05 | Outpatient (REF) | payer OTHER | LOC: M SFHCPLAZ 15:31 | PROVIDERS: ATTEND Nurse Practitioner Family | DX: E55.9 Vitamin D deficiency, unspecified (principal) ==

== ENCOUNTER → 2016-11-17 | Outpatient (REF) | LOC: M LAB REF 08:41 | PROVIDERS: ATTEND Physician Assistant | DX: Z00.00 Encounter for general adult medical examination without abnormal findings (principal) ==

== ENCOUNTER → 2016-11-26 | Outpatient (CLI) | payer OTHER ==
[~2016-11-26] MED LIST changes: +PERC5TAB12 PO; -PERC5TAB6 PO
[2016-11-26 13:27] LABS: MEAN CORPUSCULAR HEMOGLOBIN 31.3 pg (27.0-33.0); MEAN CORPUSCULAR HGB CONC 36.2 g/dl (32.0-36.5); MEAN CORPUSCULAR VOLUME 86.4 fl (80.0-96.0); RED CELL DISTRIBUTION WIDTH 12.9 % (11.5-14.5); WHITE BLOOD COUNT 6.6 K/mm3 (4.0-10.0)
--- NOTE | 2016-11-26 13:46 | REP ---
Clinical: Syncope . Comparison: 02/11/2016 . Technique: PA and lateral. Findings: The mediastinum and cardiac silhouette are normal. The lung whitfield are clear and without acute consolidation, effusion, or pneumothorax. The skeletal structures are intact and normal. Impression: 1. No acute cardiopulmonary process. Signed by Lucian Gardner MD 11/26/2016 01:39 P
[2016-11-26 14:13] LABS: ALBUMIN 3.9 GM/DL (3.2-5.2); ALBUMIN/GLOBULIN RATIO 1.15 (1.00-1.93); ALKALINE PHOSPHATASE 75 U/L (45-117); ALT/SGPT 31 U/L (12-78); ANION GAP 5 MEQ/L (8-16); AST/SGOT 15 U/L (15-37); BILIRUBIN,TOTAL 0.9 MG/DL (0.2-1.0); BLOOD UREA NITROGEN 10 MG/DL (7-18); CALCIUM LEVEL 9.1 MG/DL (8.5-10.1); CARBON DIOXIDE LEVEL 26 MEQ/L (21-32); CHLORIDE LEVEL 107 MEQ/L (98-107); CREATININE FOR GFR 0.91 MG/DL (0.55-1.02); GLOMERULAR FILTRATION RATE > 60.0 (>60); GLUCOSE, FASTING 136 MG/DL (70-105); POTASSIUM SERUM 3.7 MEQ/L (3.5-5.1); SODIUM LEVEL 138 MEQ/L (136-145); TOTAL PROTEIN 7.3 GM/DL (6.4-8.2)
== END ==
LOC: M LAB 12:43
PROVIDERS: ATTEND Nurse Practitioner Adult Health
DX: R55 Syncope and collapse (principal)

== ENCOUNTER → 2017-01-05 | Outpatient (CLI) | payer OTHER | LOC: M WHC 13:19 | PROVIDERS: ATTEND Nurse Practitioner Family | DX: Z11.3 Encounter for screening for infections with a predominantly sexual mode of transmission (principal) ==

== ENCOUNTER → 2017-03-06 | Outpatient (CLI) | payer OTHER ==
--- NOTE | 2017-03-07 11:39 | REP ---
REASON: Cough and chills. COMPARISON: 11/26/2016 Discoid opacities are seen, one in the right upper lobe and two in the left lower lobe representing a change from the prior exam. The pleural angles are sharp and the heart is not enlarged. IMPRESSION: Subsegmental atelectatic changes are suspected in the right upper and left lower lobes. This should be correlated clinically as I cannot rule out the possibility of developing pneumonia. Signed by Andrew House DO 03/07/2017 09:45 A
== END ==
LOC: M RAD 13:28
PROVIDERS: ATTEND Physician Assistant Surgical
DX: R05 Cough (principal)

== ENCOUNTER → 2017-06-08 | Outpatient (REF) | payer OTHER ==
[2017-06-08 12:16] LABS: HEMATOCRIT 41.3 % (36.0-47.0); MEAN CORPUSCULAR HEMOGLOBIN 29.8 pg (27.0-33.0); MEAN CORPUSCULAR HGB CONC 33.9 g/dl (32.0-36.5); MEAN CORPUSCULAR VOLUME 87.9 fl (80.0-96.0); PLATELET COUNT, AUTOMATED 290 10^3/uL (150-450); RED CELL DISTRIBUTION WIDTH 12.6 % (11.5-14.5); WHITE BLOOD COUNT 7.3 10^3/uL (4.0-10.0)
[2017-06-08 12:36] LABS: ALBUMIN/GLOBULIN RATIO 1.21 (1.00-1.93); ALKALINE PHOSPHATASE 73 U/L (45-117); ALT/SGPT 30 U/L (12-78); ANION GAP 6 MEQ/L (8-16); AST/SGOT 15 U/L (7-37); BILIRUBIN,TOTAL 0.5 MG/DL (0.2-1.0); BLOOD UREA NITROGEN 12 MG/DL (7-18); CALCIUM LEVEL 9.3 MG/DL (8.5-10.1); CARBON DIOXIDE LEVEL 27 MEQ/L (21-32); CHLORIDE LEVEL 108 MEQ/L (98-107); CREATININE FOR GFR 0.86 MG/DL (0.55-1.02); GLOMERULAR FILTRATION RATE > 60.0 (>58); GLUCOSE, FASTING 88 MG/DL (70-105); MAGNESIUM LEVEL 2.1 MG/DL (1.8-2.4); POTASSIUM SERUM 4.1 MEQ/L (3.5-5.1); SODIUM LEVEL 141 MEQ/L (136-145); TOTAL PROTEIN 7.3 GM/DL (6.4-8.2)
[2017-06-08 12:44] LABS: TOTAL 25(OH) VITAMIN D 46.8 NG/ML (30.0-100.0)
== END ==
LOC: M SFHCPLAZ 09:11
DX: J30.89 Other allergic rhinitis (principal); R10.13 Epigastric pain; E55.9 Vitamin D deficiency, unspecified
CPT/HCPCS: 82306

== ENCOUNTER 2017-10-30 21:00 | Emergency (ER) | payer OTHER ==
[2017-10-30 22:06] LABS: BASO % 0.3 % (0.0-1.0); EOS # 0.2 10^3/uL (0.0-0.50); EOS % 2.6 % (0.0-3.0); HEMATOCRIT 40.7 % (36.0-47.0); HEMOGLOBIN 13.9 g/dl (12.0-15.5); IMMATURE GRANULOCYTE % 0.3 % (0-3.0); LYMPH # 2.2 10^3/uL (1.5-4.5); MEAN CORPUSCULAR HEMOGLOBIN 29.8 pg (27.0-33.0); MEAN CORPUSCULAR HGB CONC 34.2 g/dl (32.0-36.5); MEAN CORPUSCULAR VOLUME 87.2 fl (80.0-96.0); MONO # 0.6 10^3/uL (0.0-0.8); MONO % 6.2 % (0.0-5.0); NEUTROPHILS # 6.2 10^3/uL (1.8-7.7); NEUTROPHILS % 66.6 % (36.0-66.0); PLATELET COUNT, AUTOMATED 288 10^3/uL (150-450); RED BLOOD COUNT 4.67 10^6/uL (4.00-5.40); RED CELL DISTRIBUTION WIDTH 12.7 % (11.5-14.5); WHITE BLOOD COUNT 9.2 10^3/uL (4.0-10.0)
[2017-10-30] MEDS: KETOROLAC 30 MG/ML VIAL (J1885) IV (22:07)
[2017-10-30] MEDS: NS 1,000 ML IV (22:07)
[2017-10-30 22:10] LABS: KETONE, URINE AUTO RFX NEGATIVE (NEGATIVE); LEUKOCYTE ESTERASE UR AUTO RFX NEGATIVE (NEGATIVE); NITRITE, URINE AUTO RFX NEGATIVE (NEGATIVE); RBC, URINE AUTO RFX 3 /HPF (0-3); SPECIFIC GRAVITY UR AUTO RFX 1.008 (1.002-1.035); SQUAM EPITHELIAL CELL UR AURFX 0 /HPF (0-6); WBC, URINE AUTO RFX 0 /HPF (0-3)
[2017-10-30 22:28] LABS: AMPHETAMINES LEVEL URINE NEGATIVE (NEGATIVE); BARBITURATES URINE NEGATIVE (NEGATIVE); BENZODIAZEPINES URINE NEGATIVE (NEGATIVE); CANNABINOIDS URINE NEGATIVE (NEGATIVE); COCAINE METABOLITE URINE NEGATIVE (NEGATIVE); METHADONE URINE NEGATIVE (NEGATIVE); OPIATES URINE NEGATIVE (NEGATIVE); PHENCYCLIDINE URINE NEGATIVE (NEGATIVE)
[2017-10-30 22:31] LABS: ALBUMIN 4.1 GM/DL (3.2-5.2); ALBUMIN/GLOBULIN RATIO 1.11 (1.00-1.93); ALKALINE PHOSPHATASE 80 U/L (45-117); ALT/SGPT 33 U/L (12-78); ANION GAP 7 MEQ/L (8-16); AST/SGOT 18 U/L (7-37); BILIRUBIN,DIRECT < 0.1 MG/DL (0.0-0.2); BILIRUBIN,TOTAL 0.4 MG/DL (0.2-1.0); BLOOD UREA NITROGEN 10 MG/DL (7-18); CALCIUM LEVEL 8.7 MG/DL (8.5-10.1); CARBON DIOXIDE LEVEL 25 MEQ/L (21-32); CHLORIDE LEVEL 108 MEQ/L (98-107); CPK CREATINE PHOSPHOKINASE 97 U/L (26-192); CREATININE FOR GFR 0.94 MG/DL (0.55-1.30); GLOMERULAR FILTRATION RATE > 60.0 (>58); GLUCOSE, FASTING 91 MG/DL (70-100); LIPASE 123 U/L (73-393); POTASSIUM SERUM 3.7 MEQ/L (3.5-5.1); SODIUM LEVEL 140 MEQ/L (136-145); TOTAL PROTEIN 7.8 GM/DL (6.4-8.2); TROPONIN I < 0.02 NG/ML (< 0.10)
[2017-10-30 22:33] LABS: CK-MB VALUE MASS 1.2 NG/ML (<3.6); MB/CK RELATIVE INDEX 1.23 (< OR =4)
[2017-10-30] MEDS ORDERED: ISOVUE-370 76% 100ML VIAL (Q9967) As Ordered (22:54)
== END 2017-10-31 00:32 | disposition home or self-care (01) ==
LOC: M ED 10-31 00:32
DX: N20.1 Calculus of ureter (principal); Z72.0 Tobacco use
CPT/HCPCS: J1885

== ENCOUNTER → 2017-11-09 | Outpatient (REF) | payer OTHER ==
[2017-11-09 15:50] LABS: ESTIMATED AVERAGE GLUCOSE 108 MG/DL (60-110); HEMOGLOBIN A1c 5.4 %; TOTAL 25(OH) VITAMIN D 20.7 NG/ML (30.0-100.0)
[2017-11-09 15:55] LABS: ALBUMIN 4.3 GM/DL (3.2-5.2); ALBUMIN/GLOBULIN RATIO 1.26 (1.00-1.93); ALKALINE PHOSPHATASE 79 U/L (45-117); ALT/SGPT 37 U/L (12-78); ANION GAP 9 MEQ/L (8-16); AST/SGOT 19 U/L (7-37); BILIRUBIN,TOTAL 0.5 MG/DL (0.2-1.0); BLOOD UREA NITROGEN 9 MG/DL (7-18); CALCIUM LEVEL 9.5 MG/DL (8.5-10.1); CARBON DIOXIDE LEVEL 24 MEQ/L (21-32); CHLORIDE LEVEL 107 MEQ/L (98-107); FREE T4 1.09 NG/DL (0.76-1.46); GLOMERULAR FILTRATION RATE > 60.0 (>58); GLUCOSE, FASTING 82 MG/DL (70-100); POTASSIUM SERUM 4.3 MEQ/L (3.5-5.1); SODIUM LEVEL 140 MEQ/L (136-145); TOTAL PROTEIN 7.7 GM/DL (6.4-8.2)
== END ==
LOC: M SFHCPLAZ 11:45
DX: F41.1 Generalized anxiety disorder (principal); R53.83 Other fatigue; E55.9 Vitamin D deficiency, unspecified; Z86.32 Personal history of gestational diabetes

== ENCOUNTER → 2018-04-05 | Outpatient (REF) | payer OTHER ==
[2018-04-05 13:21] LABS: ALBUMIN 3.6 GM/DL (3.2-5.2); ALBUMIN/GLOBULIN RATIO 1.06 (1.00-1.93); ALKALINE PHOSPHATASE 80 U/L (45-117); ALT/SGPT 37 U/L (12-78); ANION GAP 11 MEQ/L (8-16); AST/SGOT 20 U/L (7-37); BILIRUBIN,TOTAL 0.5 MG/DL (0.2-1.0); BLOOD UREA NITROGEN 9 MG/DL (7-18); CALCIUM LEVEL 8.9 MG/DL (8.5-10.1); CARBON DIOXIDE LEVEL 21 MEQ/L (21-32); CHLORIDE LEVEL 107 MEQ/L (98-107); CREATININE FOR GFR 0.88 MG/DL (0.55-1.30); FREE T4 0.94 NG/DL (0.76-1.46); GLOMERULAR FILTRATION RATE > 60.0 (>58); GLUCOSE, FASTING 93 MG/DL (70-100); POTASSIUM SERUM 4.4 MEQ/L (3.5-5.1); SODIUM LEVEL 139 MEQ/L (136-145); TOTAL 25(OH) VITAMIN D 19.3 NG/ML (30.0-100.0)
[2018-04-05 14:38] LABS: ESTIMATED AVERAGE GLUCOSE 105 MG/DL (60-110); HEMOGLOBIN A1c 5.3 %
== END ==
LOC: M SFHCPLAZ 09:22
DX: F41.1 Generalized anxiety disorder (principal); E66.9 Obesity, unspecified; E55.9 Vitamin D deficiency, unspecified

== ENCOUNTER → 2018-04-11 | Outpatient (REF) | payer OTHER ==
[2018-04-11 19:03] LABS: RHEUMATOID FACTOR QUANT < 10.0 IU/ML (<15.0)
[2018-04-11 19:14] LABS: VITAMIN B12 LEVEL 748 PG/ML (247-911)
[2018-04-11 20:08] LABS: HEMATOCRIT 40.3 % (36.0-47.0); HEMOGLOBIN 13.7 g/dl (12.0-15.5); MEAN CORPUSCULAR HEMOGLOBIN 30.3 pg (27.0-33.0); MEAN CORPUSCULAR VOLUME 89.2 fl (80.0-96.0); PLATELET COUNT, AUTOMATED 321 10^3/uL (150-450); RED BLOOD COUNT 4.52 10^6/uL (4.00-5.40); RED CELL DISTRIBUTION WIDTH 12.8 % (11.5-14.5); WHITE BLOOD COUNT 7.7 10^3/uL (4.0-10.0)
[2018-04-11 20:30] LABS: ERYTHROCYTE SEDIMENTATION RATE 19 mm/hr (0-20)
[2018-04-14 00:08] LABS: ANTINUCLEAR ANTIBODIES DIRECT Negative (Negative); Lyme Disease IgG/IgM Antibodie <0.91 ISR (0.00-0.90); Lyme Disease IgM Ab Quantitati <0.80 index (0.00-0.79)
[2018-04-14 00:08] LABS: CYCLIC CITRULLINATED PEPTIDE 6 units (0-19)
== END ==
LOC: M SFHCPLAZ 16:07
DX: M25.50 Pain in unspecified joint (principal); G62.9 Polyneuropathy, unspecified

== ENCOUNTER → 2018-08-09 | Outpatient (CLI) | payer OTHER ==
[~2018-08-09] MED LIST changes: -DRIS50002 PO; +DRIS50003 PO; +FLOM0.4C39 PO; +KETO10TAB PO; +ZOFR4TAB14 PO
--- NOTE | 2018-08-09 20:01 | REPMRS ---
Patient History The patient states she had a clinical breast exam in 08/16 Patient has history of melanoma at age 41. No known family history of cancer. Digital Woman Screen Mammo: August 09, 2018 - Exam #: [id number] Bilateral CC and MLO view(s) were taken. Technologist: Taylor Briceno, Technologist Prior study comparison: August 19, 2015, digital mammo diagnostic bilateral, performed at [facility]. FINDINGS: There are scattered fibroglandular densities. There has been no change in the appearance of the mammogram from the prior studies. There is a mild amount of residual fibroglandular tissue which is fairly symmetric. There is no interval development of dominant mass, architectural distortion, or clustered microcalcification suggestive of malignancy. Scattered lymph nodes are seen in the axillae. Large coarse benign appearing calcifications are present. 3-D tomosynthesis shows no additional findings. No significant changes when compared with prior studies. Assessment: BI-RADS/ACR category 2 mammogram. Benign Findings. Recommendation Routine screening mammogram in 1 year (for women over age 40). This mammogram was interpreted with the aid of an FDA-approved computer-aided dectection system. A. Negative x-ray reports should not delay biopsy if a dominant or clinically suspicious mass is present. B. Four to eight percent of cancers are not identified by mammography. C. Adenosis and dense breast may obscure an underlying neoplasm. Electronically Signed By: Bj Craft MD 08/09/181999
== END ==
LOC: M WHC 13:33
PROVIDERS: ATTEND Nurse Practitioner Family
DX: Z12.31 Encounter for screening mammogram for malignant neoplasm of breast (principal); Z85.820 Personal history of malignant melanoma of skin; R92.1 Mammographic calcification found on diagnostic imaging of breast

== ENCOUNTER → 2018-10-06 | Outpatient (REF) | payer OTHER ==
[2018-10-06 17:21] LABS: ALBUMIN 3.7 GM/DL (3.2-5.2); ALT/SGPT 29 U/L (12-78); BILIRUBIN,TOTAL 0.3 MG/DL (0.2-1.0); BLOOD UREA NITROGEN 9 MG/DL (7-18); CALCIUM LEVEL 8.6 MG/DL (8.5-10.1); CARBON DIOXIDE LEVEL 24 MEQ/L (21-32); CHLORIDE LEVEL 108 MEQ/L (98-107); CREATININE FOR GFR 0.73 MG/DL (0.55-1.30); GLOMERULAR FILTRATION RATE > 60.0 (>58); GLUCOSE, FASTING 108 MG/DL (70-100); MAGNESIUM LEVEL 1.9 MG/DL (1.8-2.4); POTASSIUM SERUM 3.9 MEQ/L (3.5-5.1); SODIUM LEVEL 140 MEQ/L (136-145); TOTAL PROTEIN 6.6 GM/DL (6.4-8.2)
== END ==
LOC: M SFHCPLAZ 14:45
PROVIDERS: ATTEND Nurse Practitioner Family
DX: G62.9 Polyneuropathy, unspecified (principal); E55.9 Vitamin D deficiency, unspecified

== ENCOUNTER → 2019-01-10 | Outpatient (REF) | payer OTHER ==
[2019-01-10 12:16] LABS: BLOOD UREA NITROGEN 12 MG/DL (7-18); CALCIUM LEVEL 9.2 MG/DL (8.5-10.1); CARBON DIOXIDE LEVEL 23 MEQ/L (21-32); CHLORIDE LEVEL 110 MEQ/L (98-107); CREATININE FOR GFR 0.85 MG/DL (0.55-1.30); GLOMERULAR FILTRATION RATE > 60.0 (>58); GLUCOSE, FASTING 116 MG/DL (70-100); POTASSIUM SERUM 4.2 MEQ/L (3.5-5.1); SODIUM LEVEL 141 MEQ/L (136-145); TOTAL 25(OH) VITAMIN D 40.3 NG/ML (30.0-100.0)
[2019-01-10 13:25] LABS: HEMOGLOBIN A1c 5.6 %
== END ==
LOC: M SFHCPLAZ 09:13
PROVIDERS: ATTEND Nurse Practitioner Family
DX: E66.01 Morbid (severe) obesity due to excess calories (principal); E55.9 Vitamin D deficiency, unspecified

== ENCOUNTER 2019-01-27 18:21 | Emergency (ER) | payer OTHER ==
[~2019-01-27] VITALS: Ht 177.8 cm; Wt 122.7 kg
[2019-01-27] MEDS ORDERED: NABU-119 (18:28)
[2019-01-27] MEDS ORDERED: VITA500045 (18:28)
[2019-01-27] MEDS ORDERED: ALL10TAB29 (18:28)
[2019-01-27] MEDS ORDERED: OMEP-218 (18:28)
[2019-01-27] MEDS ORDERED: GABA-843 (18:28)
[2019-01-27] MEDS ORDERED: NS 1,000 ML IV ONE (19:00)
[2019-01-27 19:38] LABS: ALBUMIN 4.2 GM/DL (3.2-5.2); ALT/SGPT 26 U/L (12-78); BASO # 0.1 10^3/uL (0.0-0.2); BASO % 0.6 % (0.0-1.0); BILIRUBIN,DIRECT 0.1 MG/DL (0.0-0.2); BILIRUBIN,TOTAL 0.6 MG/DL (0.2-1.0); BLOOD UREA NITROGEN 15 MG/DL (7-18); CALCIUM LEVEL 9.1 MG/DL (8.5-10.1); CARBON DIOXIDE LEVEL 25 MEQ/L (21-32); CHLORIDE LEVEL 109 MEQ/L (98-107); CREATININE FOR GFR 0.88 MG/DL (0.55-1.30); EOS # 0.2 10^3/uL (0.0-0.50); EOS % 2.4 % (0.0-3.0); GLOMERULAR FILTRATION RATE > 60.0 (>58); GLUCOSE, FASTING 96 MG/DL (70-100); HEMATOCRIT 43.4 % (36.0-47.0); HEMOGLOBIN 15.1 g/dl (12.0-15.5); LIPASE 124 U/L (73-393); LYMPH # 1.8 10^3/uL (1.5-4.5); LYMPH % 21.6 % (24.0-44.0); MEAN CORPUSCULAR HEMOGLOBIN 30.8 pg (27.0-33.0); MEAN CORPUSCULAR HGB CONC 34.8 g/dl (32.0-36.5); MEAN CORPUSCULAR VOLUME 88.6 fl (80.0-96.0); MONO # 0.7 10^3/uL (0.0-0.8); MONO % 8.2 % (0.0-5.0); NEUTROPHILS # 5.6 10^3/uL (1.8-7.7); NEUTROPHILS % 66.8 % (36.0-66.0); PLATELET COUNT, AUTOMATED 299 10^3/uL (150-450); SODIUM LEVEL 140 MEQ/L (136-145); TOTAL PROTEIN 7.4 GM/DL (6.4-8.2); WHITE BLOOD COUNT 8.3 10^3/uL (4.0-10.0)
[2019-01-27] MEDS ORDERED: KETOROLAC 30 MG/ML VIAL (J1885) IV ONE (19:45)
--- NOTE | 2019-01-27 19:51 | REPVR ---
EXAM: CT Abdomen and Pelvis Without Contrast EXAM DATE/TIME: 01/27/2019 7:06 PM CLINICAL HISTORY: 44 years old, female; Abdominal pain; Flank; Left; Additional info: Left flank pain HX kidney stones TECHNIQUE: Imaging protocol: Computed tomography of the abdomen and pelvis without contrast. Radiation optimization: All CT scans at this facility use at least one of these dose optimization techniques: automated exposure control; mA and/or kV adjustment per patient size (includes targeted exams where dose is matched to clinical indication); or iterative reconstruction. COMPARISON: CT ABD PELVIS W/O CONTRAST 10/30/2017 11:05 PM FINDINGS: Liver: The liver is low in density. The liver measures 16.7 cm in craniocaudal span. Gallbladder and bile ducts: Normal. No calcified stones. No ductal dilation. Pancreas: Normal. No ductal dilation. Spleen: The spleen measures 12.7 cm craniocaudal span.. Adrenals: Normal. No mass. Kidneys and ureters: 2.3 cm low density lesion in the lower pole of the right kidney laterally. 1 cm low density lesion in the midportion of the right kidney. No hydronephrosis in either kidney. No renal, ureteral or bladder calculi. Stomach and bowel: Normal. No obstruction. No mucosal thickening. Appendix: No evidence of appendicitis. Intraperitoneal space: Normal. No free air. No significant fluid collection. Vasculature: Normal. No abdominal aortic aneurysm. Lymph nodes: Normal. No enlarged lymph nodes. Bladder: Unremarkable as visualized. Reproductive: The uterus is absent. Bones/joints: No acute fracture. No dislocation. Soft tissues: Unremarkable. IMPRESSION: 1. No renal, ureteral or bladder calcifications. No hydronephrosis or hydroureter 2. Hepatic steatosis. 3. Low density lesions within the right kidney without change from previous are not characterized on this noncontrast examination. Ultrasound or enhanced CT or MR might be considered for definitive characterization. COMMENT: Consistent with the [employer] [employer]'s Incidental Findings Committee Report (J Am Edie Radiol 2010): Unless the patient's specific circumstances suggest otherwise, any liver lesion 0.5 cm or less, any cystic kidney lesion less than 1.0 cm, and/or any adrenal lesion 1.0 cm or less not otherwise characterized in this report as possessing suspicious or indeterminate imaging features is/are highly likely to be benign and do not require follow-up imaging or biopsy. Electronically signed by: Phylicia Koenig 01/27/2019 19:51:25 PM
[2019-01-27 20:27] LABS: HIV 1&2 SCREEN CENTAUR NEGATIVE (NEGATIVE)
[2019-01-27] MEDS ORDERED: METHOCARBAMOL 500 MG TAB PO ONE (21:00)
[2019-01-27] MEDS ORDERED: ACETAMINOPHEN 500 MG TAB PO ONE (21:00)
[2019-01-27] MEDS ORDERED: EXPOSURE KIT-ADULT 7 DAY SUPPLY PO ONE (23:00)
[2019-01-27 23:43] LABS: CHLAMYDIA DNA AMPLIFICATION NEGATIVE (NEGATIVE); GC DNA AMPLIFICATION NEGATIVE (NEGATIVE)
[2019-01-27] MEDS ORDERED: [UNRECOGNIZED DRUG - OTHER] IM ONE (23:45)
[2019-01-28] MEDS ORDERED: TRUVTAB PO (00:10)
[2019-01-28] MEDS ORDERED: RALT40TA PO (00:11)
[2019-01-28] MEDS ORDERED: METH1TAB40 PO (00:15)
[2019-01-28 00:51] VITALS: BP 142/81
[2019-02-01 13:03] LABS: HEPATITIS B CORE ANTIBODY IGM NEGATIVE (NEGATIVE); HEPATITIS C VIRUS ABY INDEX 0.2 INDEX (<0.8)
[2019-02-01 13:05] LABS: HEPATITIS A ANTIBODY IGM NEGATIVE (NEGATIVE)
[2019-02-01 13:07] LABS: HEPATITIS B SURFACE ANTIGEN NEGATIVE (NEGATIVE)
== END 2019-01-28 00:55 | disposition home or self-care (01) ==
LOC: M ED 18:21
DX: M62.838 Other muscle spasm (principal); Z23 Encounter for immunization; Z77.21 Contact with and (suspected) exposure to potentially hazardous body fluids; Z87.19 Personal history of other diseases of the digestive system; Z79.899 Other long term (current) drug therapy; F17.210 Nicotine dependence, cigarettes, uncomplicated; Z77.098 Contact with and (suspected) exposure to other hazardous, chiefly nonmedicinal, chemicals
CPT/HCPCS: 74176; 80048; 80076; 81001; 83690; 85025; 86705; 86709; 86803; 87340; 87389; 87491; 87591; 90471; 90746; 96374; 99284; J1885

== ENCOUNTER → 2019-06-07 | Outpatient (REF) | payer OTHER ==
[~2019-06-07] MED LIST changes: +ALL10TAB29; +GABA-843; +METH1TAB40 PO; +NABU-119; +OMEP-218; +RALT40TA PO; +TRUVTAB PO; +VITA500045
[2019-06-07 12:35] LABS: ALBUMIN 3.9 GM/DL (3.2-5.2); ALT/SGPT 26 U/L (12-78); BILIRUBIN,TOTAL 0.6 MG/DL (0.2-1.0); BLOOD UREA NITROGEN 6 MG/DL (7-18); CALCIUM LEVEL 8.8 MG/DL (8.5-10.1); CARBON DIOXIDE LEVEL 26 MEQ/L (21-32); CHLORIDE LEVEL 107 MEQ/L (98-107); CHOLESTEROL LEVEL 167 MG/DL (<200); CREATININE FOR GFR 0.85 MG/DL (0.55-1.30); FREE T4 1.17 NG/DL (0.76-1.46); GLOMERULAR FILTRATION RATE > 60.0 (>58); GLUCOSE, FASTING 94 MG/DL (70-100); HDL CHOLESTEROL 33 MG/DL (>40); LDL CHOLESTEROL 110 MG/DL (<100); NON-HDL-C 134 MG/DL; POTASSIUM SERUM 4.1 MEQ/L (3.5-5.1); SODIUM LEVEL 140 MEQ/L (136-145); TOTAL PROTEIN 7.2 GM/DL (6.4-8.2); TRIGLYCERIDES LEVEL 120 MG/DL (<150)
[2019-06-07 12:38] LABS: TOTAL 25(OH) VITAMIN D 42.2 NG/ML (30.0-100.0)
== END ==
LOC: M SFHCPLAZ 09:13
PROVIDERS: ATTEND Nurse Practitioner Family
DX: E66.01 Morbid (severe) obesity due to excess calories (principal); E55.9 Vitamin D deficiency, unspecified

== ENCOUNTER → 2019-08-15 | Outpatient (CLI) | payer OTHER ==
--- NOTE | 2019-08-15 14:52 | REP ---
BILATERAL MAMMOGRAM WITH 3D TOMOSYNTHESIS, LEFT BREAST ULTRASOUND: There is no family history of breast cancer. [facility] lifetime risk of breast cancer 8.6%. Comparison mammogram 08/09/2018 and 08/19/2015. Patient complains of left retroareolar pain. Bilateral mammogram performed in the MLO and CC projections with 3D tomosynthesis. There is mild scattered fibroglandular tissue diffusely bilaterally. No mass or architectural distortion is seen. No clustered microcalcifications are seen. There are a few coarse benign type calcifications seen bilaterally. Real-time sonographic evaluation of the left retroareolar region performed in the region of pain. In this region there is an oval hypoechoic nodule which appears solid, measuring approximately 8 x 8 x 4 mm. This is approximately 1.5 cm from the nipple. IMPRESSION: BIRADS 4: BI-RADS/ACR category 4 mammogram. Suspicious Abnormality - biopsy should be considered. No mammographic abnormality is seen bilaterally. However, by ultrasound, an oval hypoechoic nodule is seen in the left retroareolar region, at the site of pain. Maximum diameter is 8 mm. Ultrasound guided biopsy is recommended. This mammogram was interpreted with the aid of an FDA-approved computer-aided detection system. The patient states he/she had a clinical breast exam in 08/15/2019. The patient letter being requested is M4.
== END ==
LOC: M WHC 11:24
PROVIDERS: ATTEND Nurse Practitioner Family
DX: N64.4 Mastodynia (principal); R92.2 Inconclusive mammogram
CPT/HCPCS: 76642; 77066; G0279

== ENCOUNTER → 2019-09-28 | Outpatient (REF) | payer OTHER ==
[~2019-09-28] MED LIST changes: +ACET-683 PO; +ACET325C5 PO; -ALL10TAB29; +ALL10TAB29 PO; +AZEL1SPR3; +ESSETAB4 PO; +EVEN10003 PO; -GABA-843; +GABA-843 PO; +GNP250TA9 PO; +IBUP80TA PO; +MUCI600T31 PO; -OMEP-218; +OMEP-218 PO; +ULTR50TA8 PO; +VITA100T59 PO; +VITA50005 PO
[2019-09-28 14:09] LABS: HEMATOCRIT 42.3 % (36.0-47.0); HEMOGLOBIN 14.6 g/dl (12.0-15.5); MEAN CORPUSCULAR HEMOGLOBIN 30.6 pg (27.0-33.0); MEAN CORPUSCULAR HGB CONC 34.5 g/dl (32.0-36.5); MEAN CORPUSCULAR VOLUME 88.7 fl (80.0-96.0); PLATELET COUNT, AUTOMATED 301 10^3/uL (150-450); RED BLOOD COUNT 4.77 10^6/uL (4.00-5.40); WHITE BLOOD COUNT 7.1 10^3/uL (4.0-10.0)
[2019-09-28 14:16] LABS: ALT/SGPT 32 U/L (12-78); BILIRUBIN,TOTAL 0.5 MG/DL (0.2-1.0); BLOOD UREA NITROGEN 11 MG/DL (7-18); CARBON DIOXIDE LEVEL 24 MEQ/L (21-32); CHLORIDE LEVEL 108 MEQ/L (98-107); CREATININE FOR GFR 0.75 MG/DL (0.55-1.30); GLOMERULAR FILTRATION RATE > 60.0 (>58); GLUCOSE, FASTING 103 MG/DL (70-100); POTASSIUM SERUM 4.1 MEQ/L (3.5-5.1); SODIUM LEVEL 139 MEQ/L (136-145); TOTAL PROTEIN 7.4 GM/DL (6.4-8.2)
== END ==
LOC: M SFHCPLAZ 10:12
PROVIDERS: ATTEND Family Medicine
DX: Z01.818 Encounter for other preprocedural examination (principal)

== ENCOUNTER → 2019-09-28 | Outpatient (CLI) | payer OTHER ==
[~2019-09-28] MED LIST changes: -ULTR50TA8 PO
--- NOTE | 2019-09-29 00:50 | REPPI ---
Clinical: Preoperative assessment . Comparison: 03/06/2017 . Technique: PA and lateral. Findings: The mediastinum and cardiac silhouette are normal. The lung whitfield are clear and without acute consolidation, effusion, or pneumothorax. The skeletal structures are intact and normal. Impression: 1. No acute cardiopulmonary process. Electronically Signed by Lucian Gardner MD 09/29/2019 12:40 A
== END ==
LOC: M PLAIMG 10:56
PROVIDERS: ATTEND Family Medicine
DX: Z01.818 Encounter for other preprocedural examination (principal)

== ENCOUNTER → 2019-10-07 | Outpatient (CLI) | payer OTHER ==
[~2019-10-07] MED LIST changes: +ULTR50TA8 PO
== END ==
LOC: M LABSMTC 09:28
PROVIDERS: ATTEND Anesthesiology
DX: Z01.818 Encounter for other preprocedural examination (principal); Z11.59 Encounter for screening for other viral diseases

== ENCOUNTER 2019-10-10 06:17 | Day surgery (SDC) | payer OTHER ==
[~2019-10-10] VITALS: Ht 177.8 cm; Wt 132.0 kg
[~2019-10-10 06:17] MED LIST changes: -ULTR50TA8 PO
[2019-10-10] MEDS ORDERED: HEPARIN SOD (PORCINE) 5000UNITS/ML VIAL (J1644 PER 1000UNITS) SQ ONE (07:00)
[2019-10-10] MEDS ORDERED: ceFAZolin SOD 2 GM in IV 1 EA IV ONE (07:00)
[2019-10-10] MEDS ORDERED: LIDOCAINE 1% SDV 30ML VIAL As Ordered ONE (07:10)
[2019-10-10] MEDS ORDERED: BUPIVACAINE HCL 0.25% 30ML VIAL As Ordered ONE (07:11)
[2019-10-10] MEDS ORDERED: LR 1,000 ML IV ONE (07:30)
[2019-10-10] MEDS ORDERED: dexameTHASONE 4 MG/ML 1ML VIAL (J1100 PER 1MG) As Ordered ONE (08:14)
[2019-10-10] MEDS ORDERED: SUGAMMADEX SODIUM 500 MG/5 ML VIAL (BRIDION) As Ordered ONE (08:14)
[2019-10-10] MEDS ORDERED: ROCURONIUM BROMIDE 50 MG/5 ML VIAL As Ordered ONE (08:14)
[2019-10-10] MEDS ORDERED: MIDAZOLAM INJ 2MG/2ML VIAL (J2250 PER 1MG) As Ordered ONE (08:14)
[2019-10-10] MEDS ORDERED: ACETAMINOPHEN 1000MG 100ML IV BTL (OFIRMEV) (J0131 PER 10MG) As Ordered ONE (08:14)
[2019-10-10] MEDS ORDERED: ONDANSETRON 4MG/2ML VIAL As Ordered ONE (08:14)
[2019-10-10] MEDS ORDERED: LIDOCAINE 2% 100MG/5ML SDV (FOR ANES.) As Ordered ONE (08:14)
[2019-10-10] MEDS ORDERED: propofoL 200 MG/20 ML VIAL As Ordered ONE (08:14)
[2019-10-10] MEDS ORDERED: fentaNYL 250 MCG/5 ML INJECTION (J3010) As Ordered ONE (08:14)
[2019-10-10] MEDS ORDERED: ePHEDrine SULFATE 25 MG/5 ML(5MG/ML) SYRINGE As Ordered ONE (08:24)
[2019-10-10] MEDS ORDERED: ULTR50TA8 PO (09:12)
[2019-10-10] MEDS ORDERED: LR 1,000 ML IV SCH (09:30)
[2019-10-10] MEDS ORDERED: KETOROLAC 30 MG/ML 1ML VIAL IV PRN (09:30)
[2019-10-10] MEDS ORDERED: ONDANSETRON 4MG/2ML VIAL IV PRN (09:30)
[2019-10-10] MEDS ORDERED: fentaNYL 100 MCG/2 ML INJECTION (J3010) IV PRN (09:30)
[2019-10-10] MEDS ORDERED: METOCLOPRAMIDE INJ 10MG/2ML VIAL (J2765 PER 1) IV PRN (09:30)
[2019-10-10] MEDS ORDERED: PERCOCET 5MG/325MG TAB PO PRN (09:30)
--- NOTE | 2019-10-10 10:15 | REP ---
FOCUSED LEFT BREAST SONOGRAPHY: HISTORY: Sonographic guidance. Needle localization. FINDINGS: Sonographic guidance is provided to Dr. Barajas who performed ultrasound-guided needle wire localization procedure left breast. Electronically Signed by Antonio Gaines MD 10/10/2019 11:26 A
[2019-10-10 10:35] VITALS: BP 120/73
--- NOTE | 2019-10-10 20:32 | ROOPDOC ---
[facility] Report Of Operation Report of Operation DATE OF PROCEDURE: 10/10/19 PREPROCEDURE DIAGNOSES: Left breast intraductal papilloma. POSTPROCEDURE DIAGNOSES: Left breast intraductal papilloma. PROCEDURE: Left breast excisional biopsy with Intra-Op wire placement. SURGEON: Yuliana Judge SKID [address] MAN: ANESTHESIA: Gen. anesthetic was used. ESTIMATED BLOOD LOSS: Approximately 1 mL. COMPLICATIONS: none. REMARKS: The wire and the clip were seen in the specimen. DESCRIPTION OF PROCEDURE: INDICATIONS: Ms. Herr is a 44-year-old woman who was found to have an intraductal papilloma on the left breast biopsy. Excisional biopsy of the left breast intraductal papilloma was offered to the patient. She was medically cleared for surgery by her primary care doctor. Risks and possible complications of surgical procedure including bleeding, infection and injury to surrounding structures were explained to the patient and she wished to proceed. Consent was signed. My initials were placed on the operative site. Subcutaneous injection of 5000 units of heparin was done in Preop. DETAILS: Patient was taken to the operating room and placed on the operating room table. A sign in was called stating patients name, date of and the procedure to be done. Preoperative antibiotics were infused. Smooth induction of general anesthesia was done. Patients hands were extended on arm rests. Care was taken not to over extend the arms. Procedure was started with left breast intraop wire localization. Appropriate time out was done and patients name, date of , and the procedure to be done were confirmed. Left breast was cleaned by me. Intraoperative ultrasound was used again to confirm location of the Hydromark clip. Location of the clip was marked on the skin as well. 21 G Kopans Breast Lesion Localization Needle was used to place 25 cm wire through the lesion. The wire was placed next to the clip at the site of papilloma and the end of the wire was passed a distal to the lesion. The images were captured confirming adequate placement of the localizing wire. Adult Basic Education Instructor assisted with the wire placement. Next, patients left breast and axilla were prepped and draped in the usual fashion. Care was taken not to displace the wire. Appropriate time out was done again prior second part of the procedure. Patients name, date of , and the procedure to be done were confirmed. Next, local anesthetic using 1% lidocaine and 0.25 % Marcaine 50/50 mix was injected at the site of planned periareolar incision. The incision was made with the scalpel. Subcutaneous skin flaps were raised and the guide wire was carefully pulled into the wound. Dissection was carries along the wire until the previously marked on the skin area of target lesion location was encountered. At this point, wider excision of the tissue surrounding the wire was done. The Hydromark clip was identified in the tissue with intraoperative hockey stick ultrasound probe. The end of the wire was identified with palpation. The excisional biopsy specimen was carefully removed from the breast keeping its proper orientation and moved to the back table where margins were marked with the surgical inking kit following the standard colors recommendations. Specimen was then placed on the grid and placed in [employer] Specimen Imaging System. The image revealed the wire and the Hydromark in the specimen. The specimen was labeled with patients name and left excisional biopsy and sent to pathology. Next, the wound was irrigated thoroughly and adequate hemostasis was assured. Additional local anesthetic was injected into surrounding tissues. space was approximated with 3-0 Vicryl. The dermis was closed with 3-0 Monocryl and skin was closed with 4-0 Monocryl. Surgical glue was placed over the incision. Patient emerged from the anesthesia without any problems. Fluffs were placed over the operative site and patients chest was wrapped snuggly in the ARLETH wrap. Sponge and instrument counts were done and were correct. Patient tolerated procedure well and was taken to recovery unit in stable condition. YULIANA JUDGE DO October 10, 2019 20:32
--- NOTE | 2019-10-11 08:43 | REP ---
SPECIMEN RADIOGRAPHY LEFT BREAST: Single view. HISTORY: Intraductal papilloma. Comparison mammography September 13, 2019. FINDINGS: Specimen radiography demonstrates a needle wire localization device in the specimen. The previously placed needle biopsy marker clip is seen within the specimen and a nodular opacity adjacent to the wire. Electronically Signed by Antonio Gaines MD 10/11/2019 10:56 A
== END 2019-10-10 11:02 | disposition home or self-care (01) ==
LOC: M SDC 06:17
PROVIDERS: ATTEND Surgery
DX: D24.2 Benign neoplasm of left breast (principal); K21.9 Gastro-esophageal reflux disease without esophagitis; E66.9 Obesity, unspecified; F17.218 Nicotine dependence, cigarettes, with other nicotine-induced disorders; Z79.899 Other long term (current) drug therapy
CPT/HCPCS: 19125; 76942; 88305; J0131; J0690; J1100; J1644; J2250; J2405; J3010

== ENCOUNTER 2020-01-25 11:43 | Emergency (ER) | payer OTHER ==
[~2020-01-25] VITALS: Ht 180.3 cm; Wt 134.4 kg
[~2020-01-25 11:43] MED LIST changes: -ALL10TAB29 PO; +CETI-24 PO; -NABU-119; +NABU-53; +ULTR50TA8 PO
[2020-01-25] MEDS ORDERED: NABU-53 PO (11:52)
[2020-01-25] MEDS ORDERED: ACYC400T (11:52)
[2020-01-25] MEDS ORDERED: NS 1,000 ML IV ONE (12:30)
[2020-01-25] MEDS ORDERED: ISOVUE-370 76% 100ML VIAL As Ordered ONE (13:12)
[2020-01-25 13:28] LABS: BASO % 0.7 % (0.0-1.0); EOS # 0.3 10^3/uL (0.0-0.5); EOS % 4.5 % (0.0-3.0); HEMATOCRIT 40.8 % (36.0-47.0); HEMOGLOBIN 13.9 g/dl (12.0-15.5); LYMPH # 1.5 10^3/uL (1.5-5.0); MEAN CORPUSCULAR HEMOGLOBIN 30.5 pg (27.0-33.0); MEAN CORPUSCULAR HGB CONC 34.1 g/dl (32.0-36.5); MEAN CORPUSCULAR VOLUME 89.5 fl (80.0-96.0); MONO # 0.3 10^3/uL (0.0-0.8); MONO % 5.9 % (0.0-5.0); NEUTROPHILS # 3.7 10^3/uL (1.5-8.5); NEUTROPHILS % 63.6 % (36.0-66.0); PLATELET COUNT, AUTOMATED 283 10^3/uL (150-450); RED BLOOD COUNT 4.56 10^6/uL (4.00-5.40); WHITE BLOOD COUNT 5.8 10^3/uL (4.0-10.0)
[2020-01-25 13:45] LABS: ALBUMIN 3.7 GM/DL (3.2-5.2); BILIRUBIN,DIRECT 0.1 MG/DL (0.0-0.2); BILIRUBIN,TOTAL 0.5 MG/DL (0.2-1.0); TOTAL PROTEIN 6.8 GM/DL (6.4-8.2)
[2020-01-25 13:57] LABS: BILIRUBIN, URINE MANUAL NEGATIVE (NEGATIVE); GLUCOSE, URINE (UA) MANUAL NEGATIVE (NEGATIVE); KETONE, URINE MANUAL NEGATIVE (NEGATIVE); UROBILINOGEN, URINE MANUAL NORMAL (NORMAL)
--- NOTE | 2020-01-25 14:03 | REPVR ---
PROCEDURE INFORMATION: Exam: CT Abdomen And Pelvis With Contrast Exam date and time: 01/25/2020 12:17 PM Age: 45 years old Clinical indication: Nausea and other: Diarrhea; Abdominal pain; Additional info: Abd pain x2 weeks with nausea and diarrhea TECHNIQUE: Imaging protocol: Computed tomography of the abdomen and pelvis with intravenous contrast. Radiation optimization: All CT scans at this facility use at least one of these dose optimization techniques: automated exposure control; mA and/or kV adjustment per patient size (includes targeted exams where dose is matched to clinical indication); or iterative reconstruction. Contrast material: ISOVUE 370; Contrast volume: 100 ml; Contrast route: INTRAVENOUS (IV); COMPARISON: 1. CT ABD PELVIS W/O CONTRAST 01/27/2019 7:[address] ABD PELVIS W/O CONTRAST 10/30/2017 11:05:26 PM FINDINGS: Lungs: Included lung bases are clear. Liver: Minimal diffuse fatty liver change. Gallbladder and bile ducts: Gallbladder is relatively collapsed. No biliary ductal dilatation. Pancreas: Normal. No ductal dilation. Spleen: The spleen is enlarged, measuring 14 cm in greatest dimension. Adrenals: Normal. No mass. Kidneys and ureters: 2.5 cm simple cyst in the lower right kidney. 1.4 cm simple cyst in the posterior mid to lower right kidney. No hydronephrosis bilaterally. Stomach and bowel: There is no bowel dilatation to indicate obstruction. No pneumatosis. Appendix: Appendix is unremarkable. Intraperitoneal space: Unremarkable. No free air. No significant fluid collection. Vasculature: There is a left pelvic phlebolith. No abdominal aortic aneurysm. Lymph nodes: Unremarkable. No enlarged lymph nodes. Bladder: Unremarkable as visualized. Reproductive: Ovaries are grossly unremarkable. Uterus is not visualized, presumably surgically removed. Bones/joints: No acute osseous abnormality. There is degenerative change at the sacroiliac joints bilaterally. Small sclerotic lesions in the pelvis and proximal femurs, most likely bone islands in the absence of a known primary tumor. Minimal degenerative change in the lumbar spine. Soft tissues: Unremarkable. IMPRESSION: 1. Splenomegaly. 2. Minimal diffuse fatty liver change. 3. Two simple cysts in the right kidney. No further imaging follow-up is necessary for these simple cysts. COMMENTS: Consistent with the [employer] [employer]'s Incidental Findings Committee white paper (J Am Edie Radiol 2018): Any incidental renal lesion less than 1.0 cm or classified as too small to characterize, or any incidental cystic renal lesion characterized as simple-appearing, is likely benign. No follow-up imaging is recommended for these lesions per consensus recommendations based on imaging criteria. Electronically signed by: Cyndy Cordoba On 01/25/2020 14:02:51 PM
[2020-01-25 14:32] VITALS: BP 130/84
--- NOTE | 2020-01-29 15:36 | ED PDOC ---
Post-Departure Follow-Up christina greenwood faxed formal report of ct abd/pfor fu Renetta Farooq MD Jan 29, 2020 15:36
== END 2020-01-25 14:35 | disposition home or self-care (01) ==
LOC: M ED 11:43
DX: R19.7 Diarrhea, unspecified (principal); R10.9 Unspecified abdominal pain; F17.200 Nicotine dependence, unspecified, uncomplicated; K76.0 Fatty (change of) liver, not elsewhere classified; R16.1 Splenomegaly, not elsewhere classified; Z79.899 Other long term (current) drug therapy
CPT/HCPCS: 36415; 74177; 80047; 80076; 83690; 85025; 96360; 96361; 99284; Q9967

== ENCOUNTER → 2020-01-27 | Outpatient (REF) | payer OTHER ==
[~2020-01-27] MED LIST changes: +ACYC400T; +NABU-53 PO
== END ==
LOC: M LAB REF 12:02
PROVIDERS: ATTEND Nurse Practitioner Family
DX: R19.7 Diarrhea, unspecified (principal)

== ENCOUNTER → 2020-02-08 | Outpatient (CLI) | payer OTHER ==
[2020-02-08 09:11] LABS: ALBUMIN 3.4 GM/DL (3.2-5.2); ALT/SGPT 27 U/L (12-78); BILIRUBIN,TOTAL 0.5 MG/DL (0.2-1.0); BLOOD UREA NITROGEN 13 MG/DL (7-18); CALCIUM LEVEL 8.6 MG/DL (8.5-10.1); CARBON DIOXIDE LEVEL 23 MEQ/L (21-32); CHLORIDE LEVEL 111 MEQ/L (98-107); CHOLESTEROL LEVEL 180 MG/DL (<200); CHOLESTEROL RISK RATIO 5.806 (<5); CREATININE FOR GFR 0.79 MG/DL (0.55-1.30); GLOMERULAR FILTRATION RATE > 60.0 (>58); GLUCOSE, FASTING 100 MG/DL (70-100); HDL CHOLESTEROL 31 MG/DL (>40); LDL CHOLESTEROL 122 MG/DL (<100); NON-HDL-C 149 MG/DL; POTASSIUM SERUM 4.1 MEQ/L (3.5-5.1); SODIUM LEVEL 140 MEQ/L (136-145); TOTAL PROTEIN 6.6 GM/DL (6.4-8.2); TRIGLYCERIDES LEVEL 136 MG/DL (<150)
[2020-02-08 09:12] LABS: HEMOGLOBIN A1c 5.5 %
== END ==
LOC: M LAB 07:30
PROVIDERS: ATTEND Nurse Practitioner Family
DX: K76.9 Liver disease, unspecified (principal); R16.1 Splenomegaly, not elsewhere classified; E66.09 Other obesity due to excess calories; R19.7 Diarrhea, unspecified

== ENCOUNTER → 2020-03-04 | Outpatient (REF) | payer OTHER ==
[2020-03-04 18:27] LABS: ALBUMIN 3.7 GM/DL (3.2-5.2); ALT/SGPT 27 U/L (12-78); BILIRUBIN,TOTAL 0.4 MG/DL (0.2-1.0); BLOOD UREA NITROGEN 11 MG/DL (7-18); CALCIUM LEVEL 8.8 MG/DL (8.5-10.1); CARBON DIOXIDE LEVEL 23 MEQ/L (21-32); CHLORIDE LEVEL 111 MEQ/L (98-107); CHOLESTEROL LEVEL 179 MG/DL (<200); CHOLESTEROL RISK RATIO 5.424 (<5); CREATININE FOR GFR 0.81 MG/DL (0.55-1.30); FREE T4 1.15 NG/DL (0.76-1.46); GLOMERULAR FILTRATION RATE > 60.0 (>58); GLUCOSE, FASTING 117 MG/DL (70-100); HDL CHOLESTEROL 33 MG/DL (>40); LDL CHOLESTEROL 96 MG/DL (<100); NON-HDL-C 146 MG/DL; POTASSIUM SERUM 4.1 MEQ/L (3.5-5.1); SODIUM LEVEL 141 MEQ/L (136-145); THYROID STIMULATING HORMONE 0.932 uIU/ML (0.358-3.740); TRIGLYCERIDES LEVEL 250 MG/DL (<150)
[2020-03-04 18:59] LABS: HEPATITIS B SURFACE ANTIGEN NEGATIVE (NEGATIVE)
[2020-03-04 19:26] LABS: HEPATITIS C VIRUS ABY INDEX 0.3 INDEX (<0.8)
[2020-03-04 19:27] LABS: HIV 1&2 SCREEN CENTAUR NEGATIVE (NEGATIVE)
[2020-03-06 15:04] LABS: CHLAMYDIA DNA AMPLIFICATION NEGATIVE (NEGATIVE); GC DNA AMPLIFICATION NEGATIVE (NEGATIVE)
== END ==
LOC: M PLALAB 13:45
PROVIDERS: ATTEND Nurse Practitioner Family
DX: E78.2 Mixed hyperlipidemia (principal); E66.01 Morbid (severe) obesity due to excess calories; E55.9 Vitamin D deficiency, unspecified; Z11.3 Encounter for screening for infections with a predominantly sexual mode of transmission; Z11.4 Encounter for screening for human immunodeficiency virus [HIV]

== ENCOUNTER → 2020-03-05 | Outpatient (REF) | payer OTHER | LOC: M LAB REF 18:28 | PROVIDERS: ATTEND Physician Assistant | DX: D23.62 Other benign neoplasm of skin of left upper limb, including shoulder (principal) ==

== ENCOUNTER → 2020-04-08 | Outpatient (CLI) | payer OTHER | LOC: M SLEEP HO 11:27 | PROVIDERS: ATTEND Nurse Practitioner Adult Health | DX: G47.30 Sleep apnea, unspecified (principal) ==

== ENCOUNTER → 2020-07-30 | Outpatient (CLI) | payer OTHER ==
[~2020-07-30] MED LIST changes: +GABA-282 PO; -GABA-843 PO; +METH-1164 PO; -METH1TAB40 PO
--- NOTE | 2020-07-30 16:02 | REPPI ---
INDICATION: R10.12 LEFT UPPER QUADRANT ABDOMINAL PAIN COMPARISON: None. TECHNIQUE: Upright view of the chest with supine and upright views of the abdomen and pelvis. FINDINGS: Frontal upright view of the chest demonstrates no acute cardiopulmonary process or free air below the diaphragm to suspect pneumoperitoneum. Supine and upright views of the abdomen and pelvis demonstrate nonspecific bowel gas pattern without obstruction or perforation. Moderate fecal stasis cannot be excluded and should be correlated clinically. No organomegaly. No significant abnormal calcifications. Skeletal structures normal for age. IMPRESSION: Nonspecific bowel gas pattern. Cannot exclude moderate fecal stasis. <Electronically signed by Lucian Gardner > 07/30/20 [id number]
== END ==
LOC: M PLAIMG 14:45
PROVIDERS: ATTEND Nurse Practitioner Family
DX: R10.12 Left upper quadrant pain (principal)

== ENCOUNTER → 2020-07-30 | Outpatient (REF) | payer OTHER ==
[2020-07-30 17:56] LABS: BASO # 0.1 10^3/uL (0.0-0.2); BASO % 0.6 % (0.0-1.0); EOS # 0.2 10^3/uL (0.0-0.5); EOS % 2.5 % (0.0-3.0); HEMATOCRIT 42.8 % (36.0-47.0); HEMOGLOBIN 13.8 g/dl (12.0-15.5); LYMPH % 23.8 % (24.0-44.0); MEAN CORPUSCULAR HEMOGLOBIN 29.6 pg (27.0-33.0); MEAN CORPUSCULAR HGB CONC 32.2 g/dl (32.0-36.5); MEAN CORPUSCULAR VOLUME 91.8 fl (80.0-96.0); MONO # 0.5 10^3/uL (0.0-0.8); MONO % 6.2 % (2.0-8.0); NEUTROPHILS # 5.5 10^3/uL (1.5-8.5); NEUTROPHILS % 66.2 % (36.0-66.0); PLATELET COUNT, AUTOMATED 332 10^3/uL (150-450); RED BLOOD COUNT 4.66 10^6/uL (4.00-5.40); WHITE BLOOD COUNT 8.4 10^3/uL (4.0-10.0)
[2020-07-30 18:24] LABS: ALBUMIN 4.2 GM/DL (3.2-5.2); ALT/SGPT 36 U/L (12-78); BILIRUBIN,TOTAL 0.4 MG/DL (0.2-1.0); BLOOD UREA NITROGEN 14 MG/DL (7-18); CALCIUM LEVEL 9.4 MG/DL (8.5-10.1); CARBON DIOXIDE LEVEL 29 MEQ/L (21-32); CHLORIDE LEVEL 104 MEQ/L (98-107); GLOMERULAR FILTRATION RATE > 60.0 (>58); GLUCOSE, FASTING 94 MG/DL (70-100); POTASSIUM SERUM 4.3 MEQ/L (3.5-5.1); SODIUM LEVEL 139 MEQ/L (136-145); TOTAL 25(OH) VITAMIN D 42.4 NG/ML (30.0-100.0); TOTAL PROTEIN 7.4 GM/DL (6.4-8.2)
[2020-07-30 18:44] LABS: HEMOGLOBIN A1c 5.2 %
== END ==
LOC: M SFHCPLAZ 14:45
PROVIDERS: ATTEND Nurse Practitioner Family
DX: E88.81 Metabolic syndrome and other insulin resistance (principal); E55.9 Vitamin D deficiency, unspecified; K92.1 Melena

== ENCOUNTER → 2020-09-10 | Outpatient (REF) | payer OTHER ==
[~2020-09-10] MED LIST changes: +ACYC1TAB; -ACYC400T; -NABU-53; -NABU-53 PO; +NABU-73; +NABU-73 PO
[2020-09-10 16:43] LABS: CHLAMYDIA DNA AMPLIFICATION NEGATIVE (NEGATIVE); GC DNA AMPLIFICATION NEGATIVE (NEGATIVE)
== END ==
LOC: M SFHCWAGY 15:05
PROVIDERS: ATTEND Nurse Practitioner Women's Health
DX: Z11.3 Encounter for screening for infections with a predominantly sexual mode of transmission (principal)

== ENCOUNTER → 2020-09-10 | Outpatient (REF) | payer OTHER | LOC: M SFHCPLAZ 12:53 | PROVIDERS: ATTEND Family Medicine | DX: K12.1 Other forms of stomatitis (principal) ==

== ENCOUNTER → 2020-11-29 | Outpatient (REF) | payer OTHER ==
[~2020-11-29] MED LIST changes: +EMTR1TAB16 PO; +ERGO500029 PO; -TRUVTAB PO; -VITA50005 PO
== END ==
LOC: M SFHCPLAZ 09:59
PROVIDERS: ATTEND Nurse Practitioner Family
DX: Z11.3 Encounter for screening for infections with a predominantly sexual mode of transmission (principal)

== ENCOUNTER → 2020-12-11 | Outpatient (REF) | payer OTHER ==
[2020-12-11 19:03] LABS: GC DNA AMPLIFICATION NEGATIVE (NEGATIVE)
== END ==
LOC: M SFHCWAGY 16:50
PROVIDERS: ATTEND Nurse Practitioner Women's Health
DX: N76.0 Acute vaginitis (principal); Z11.3 Encounter for screening for infections with a predominantly sexual mode of transmission; B96.89 Other specified bacterial agents as the cause of diseases classified elsewhere

== ENCOUNTER → 2021-02-26 | Outpatient (CLI) | payer OTHER ==
--- NOTE | 2021-02-26 12:54 | REP ---
INDICATION: MASTODYNIA OF LEFT BREAST. COMPARISON: Multiple TECHNIQUE: Diagnostic bilateral mammography was carried out in the CC and MLO projections using both 2D and 3D modalities and compared to the prior exams had by history, the patient complains of pain in the upper outer quadrant of the left breast. In addition to the standard mammographic views diagnostic digital magnified spot compression views of the left breast over the region of clinical interest were obtained along with diagnostic ultrasonography using anatomical intelligence and shear wave elastography. FINDINGS: The breasts are unchanged in size and shape. Once again, scattered dense heterogenous fibroglandular elements are seen bilaterally in a stable appearing pattern. There are no kate soft tissue densities or spiculated masses. There is no internal architectural distortion. There is a small nodule seen in the central aspect of the left breast which has been stable for years. There are no suspicious calcifications. There is no skin thickening or nipple retraction. Diagnostic digital magnified spot compression views of the left breast over the clinical region of interest show no abnormalities. Diagnostic ultrasonography left breast over the clinical region of interest shows an anechoic structure at 1 o'clock which exhibits posterior wall enhancement and increased through transmission. This is a simple cyst. At the 3 o'clock position there is a 6 mm sized wider than tall nodule which is smoothly marginated. Shear wave elastography was performed on this showing very low KPA values. The Volpara volumetric breast density pattern is b. IMPRESSION: BIRADS/ACR category 3 ultrasound exam. There is a small left breast nodule at 3 o'clock seen ultrasonographically only as described above. This is probably benign. There is no mammographic evidence of malignant alteration. Six-month follow-up left breast ultrasound is recommended. Bryce Rojas 8.4 % This mammogram was interpreted with the aid of an FDA-approved computer-aided detection system. The patient states she had a clinical breast exam in January 2021. The patient letter being requested is M3. RECOMMENDATION: As above <Electronically signed by Andrew House > 02/26/21 [id number]
== END ==
LOC: M WHC 09:32
PROVIDERS: ATTEND Surgery
DX: N63.21 Unspecified lump in the left breast, upper outer quadrant (principal); N64.4 Mastodynia
CPT/HCPCS: 76642; 77066; G0279

== ENCOUNTER 2021-04-05 20:39 | Emergency (ER) | payer OTHER ==
[~2021-04-05] VITALS: Ht 177.8 cm; Wt 105.0 kg
--- OUTSIDE RECORDS SUMMARY | 2021-04-05 20:50 | CCD | Continuity of Care Document ---
Author Author Maria Alejandra BRITT MD Organization Unknown Address [address] [place] [address], [address] [place] [address] Phone [phone] Care Team Providers Care Senior Wind Energy Consultant Name Role Phone Beverley Kulkarni AUTGuy Unavailable Katty Britt MD AUTM [phone] Problems Active Problems Provider Date Anxiety Onset: H/O: depression Onset: Arthritis Onset: H/O Malignant melanoma Onset: Kidney stone Onset: Morbid obesity Katty Britt MD Onset: 01/08/2020 Hyperlipidemia Katty Britt MD Onset: 03/11/2020 Social History Type Date Description Comments Sex Unknown ETOH Use Denies alcohol use Tobacco Use Start: Unknown Light tobacco smoker (10 or fewe r cigarettes/day) Pt has now quit smoking in anticipation of surgery. Smoking Status Reviewed: 01/20/21 Light tobacco smoker (10 or fewer cigarettes/day) Pt has now quit smoking in anticipation of surgery. Allergies, Adverse Reactions, Alerts Description No Known Drug Allergies Medications Active Medications SIG Qnty Indications Ordering Provide r Date Oxycodone HCL 5mg Tablets take one tab every 6 hours needed for post op pain 12tabs G89.18 Katty Britt MD 09/26/2020 Gabapentin 300mg Capsules Take One Capsule By Mouth Three Times A Day Unknown Omeprazole 20mg Capsules DR take one capsule by mouth every day 30caps Katty Britt MD Vitamin D (Ergocalciferol) 1.25mg (11203 Ut) Capsules Take One Capsule By Mouth Every 2 Weeks With A Meal Unknown Biotin Maximum 52365cyp Tablets Di spers once daily Unknown Claritin 10mg Capsules take 1 capsule by mouth daily for allergy Unknown Famotidine 40mg Tablets Take One Tablet By Mouth Once A Day Unknown Azelastine HCL (Nasal) 0.1% Soluti on 1 spray in each nostril twice a day directed Un known Acyclovir 400mg Tablets Take One Tablet By Mouth Three Times A Day Needed For 5 Days Unk nown Immunizations Description No Information Available Vital Signs Date Vital Result Comment 01/20/2021 3:00pm Height 71.00 inches 5'11" Weight 238.00 lb BMI (Body Mass Index) 33.2 kg/m2 BP Systolic 107 mmHg BP Diastolic 65 mmHg Heart Rate 63 /min Body Temperature 97.0 F Body Temperature 36.1 C O2 % BldC Oximetry 98 % 10/21/2020 11:57am Height 71.00 inches 5'11" Weight 271.00 lb BMI (Body Mass Index) 37.8 kg/m2 BP Systolic 104 mmHg BP Diastolic 70 mmHg Heart Rate 92 /min Body Temperature 98.0 F Body Temperature 36.7 C O2 % BldC Oximetry 95 % Results Test Acquired Date Facility Test Result H/L Range Note CBCP 09/11/2020 [facility] [address] [place] [address] [phone] WBC. 7.05 x10E3/uL 4.2-12.0 RBC 4.71 x10E6/uL 3.9-5.4 HGB 14.4 g/dL 12.0-16.0 HCT 43.2 % 36-47 MCV 91.7 fL 80-98 MCH 30.7 pg 27-33 MCHC 33.5 g/dL 32-36 RDW 14.0 % 11.2-15.2 PLT 299 x10E3/uL 135-420 MPV 6.9 fL Low 7.0-12.3 BMP-Female 09/11/2020 [facility] [address] [place] [address] [phone] Glucose 89 mg/dL 74-106 1 BUN 13 mg/dL 6-20 Creatinine 0.8 mg/dL 0.5-1.3 Sodium 138 mmol/L 136-145 Potassium 4.3 mmol/L 3.5-5.3 Chloride 105 mmol/L 98-107 Co2 24 mEq/L 20-31 Anion Gap 9 mmol/L 7-16 eGFR-female 78 mL/m/1.73m - eGFR-Aa female 95 mL/m/1.73m - 2 Calcium 9.6 mg/dL 8.9-10.5 Laboratory test finding 09/11/2020 [facility] [address] [place] [address] [phone] Miscellaneous ok - 3 Venipuncture DONE - 4 Lacny T&S sent - 5 1 [place] Diabetes [employer] n (ADA) Recommended Range is 65-99 mg/dL 2 Normal Kidney Function or Mi ld Disease GFR >59 mL/min/1.73m2 Chronic Kidney Disease GFR 15-59 mL/min/1.73m2 Renal Failure GFR <15 mL/min/1.73m2 3 Type & Screen 4 Type & Screen 5 Type & Screen Procedures Date Code Description Status 01/20/2021 29184 Office/Outpatient Established Lo w MDM 20-29 Min Completed 09/16/2020 97063 Laparoscopy Surg Gas t Restrict Procedure Longitudinal Gastrectomy Completed 09/16/2020 12926 Laparoscopy Surg Gas t Restrict Procedure Longitudinal Gastrectomy Completed 09/11/2020 57015 Office/Outpatient Established Mo d MDM 30-39 Min Completed 09/11/2020 56501 Office/Outpatient Established Mi nimal Problem(S) Completed 08/20/2020 93625 Office/Outpatient Established Mo d MDM 30-39 Min Completed Medical Devices Description No Information Available Encounters Type Date Location Provider Dx Diagnosis Office Visit 01/20/2021 2:45p [facility] Surgical Services Katty Britt MD Z 98.84 Bariatric surgery status E66.01 Morbid (severe) obesity due to excess calories Office Visit 10/21/2020 11:30a [facility] Surgical Services DARON Peña Z09 Encntr for f/u exam aft trtmt for cond oth than malig neoplm E66.01 Morbid (severe) obesity due to excess calories Z98.84 Bariatric surgery status Z71.3 Dietary counseling and surve illance Office Visit 09/26/2020 1:30p [facility] Surgical Services DARON Peña G89.18 Other acute postprocedural pain E66.01 Morbid (severe) obesity due to excess calories Z98.84 Bariatric surgery status Z71.3 Dietary counseling and surve illance Z68.39 Body mass index [BMI] 39.0-3 9.9, adult Office Visit 09/17/2020 2:34a [facility] Surgical Services Katty Britt MD Office Visit 09/11/2020 11:15a [facility] Primary Care AT [facility] Covid-19 Testing Z20.822 Contact with and (suspected) exposure to Covid-19 Office Visit 09/11/2020 12:30p [facility] Surgical Services DARON Peña E66.01 Morbid (severe) obesity due to excess calories G47.33 Obstructive sleep apnea (kaye lt) (pediatric) E78.5 Hyperlipidemia, unspecified F41.9 Anxiety disorder, unspecifie d Z01.818 Encounter for other preproce dural examination Z01.812 Encounter for preprocedural laboratory examination Z99.89 Dependence on other enabling machines and devices Z68.41 Body mass index [BMI] 40.0-4 4.9, adult Office Visit 08/20/2020 11:00a [facility] Surgical Services DARON Peña E66.01 Morbid (severe) obesity due to excess calories E78.5 Hyperlipidemia, unspecified F41.9 Anxiety disorder, unspecifie d G47.33 Obstructive sleep apnea (kaye lt) (pediatric) Z68.41 Body mass index [BMI] 40.0-4 4.9, adult Assessments Date Code Description Provider 01/20/2021 Z98.84 Bariatric surgery status Katty Britt MD 01/20/2021 E66.01 Morbid (severe) obesity due to e xcess calories Katty Britt MD 10/21/2020 Z09 Postoperative visit DARON Peña 10/21/2020 E66.01 Morbid (severe) obesity due to e xcess calories DARON Peña 10/21/2020 Z98.84 Bariatric surgery status DARON Peña 10/21/2020 Z71.3 Dietary counseling and surveilla nce DARON Peña 09/26/2020 G89.18 Postoperative pain DARON Peña 09/26/2020 E66.01 Morbid (severe) obesity due to e xcess calories DARON Peña 09/26/2020 Z98.84 Bariatric surgery status DARON Peña 09/26/2020 Z71.3 Dietary counseling and surveilla nce DARON Peña 09/26/2020 Z68.39 Body mass index [BMI] 39.0-39.9, adult DARON Peña 09/16/2020 E66.01 Morbid (severe) obesity due to e xcess calories DARON Peña 09/16/2020 E78.5 Hyperlipidemia, unspecified Megan nda Elias PA 09/16/2020 G47.33 Obstructive sleep apnea (adult) (pediatric) DARON Peña 09/16/2020 Z68.41 Body mass index [BMI]40.0-44.9, adult DARON Peña 09/16/2020 E66.01 Morbid (severe) obesity due to e xcess calories Katty Britt MD 09/16/2020 E78.5 Hyperlipidemia, unspecified Carlee Britt MD 09/16/2020 G47.33 Obstructive sleep apnea (adult) (pediatric) Katty Britt MD 09/16/2020 Z68.41 Body mass index [BMI]40.0-44.9, adult Katty Britt MD 09/11/2020 Z20.822 Contact with and (suspected) exp osure to Covid-19 Yuval Bernal MD 09/11/2020 E66.01 Morbid (severe) obesity due to e xcess calories DARON Peña 09/11/2020 G47.33 Obstructive sleep apnea (adult) (pediatric) DARON Peña 09/11/2020 E78.5 Hyperlipidemia, unspecified Megan ndDARON Bonilla 09/11/2020 Z20.822 Contact with and (suspected) exp osure to Covid-19 Covid-19 Testing 09/11/2020 F41.9 Anxiety disorder, unspecified DARON Mahmood 09/11/2020 Z01.818 Encounter for other preprocedura l examination DARON Peña 09/11/2020 Z01.812 Encounter for preprocedural labo ratory examination DARON Peña 09/11/2020 Z99.89 Dependence on other enabling [employer] and devices DARON Peña 09/11/2020 Z68.41 Body mass index [BMI]40.0-44.9, adult DARON Peña 09/11/2020 E66.01 Morbid (severe) obesity due to e xcess calories [facility] 09/11/2020 G47.33 Obstructive sleep apnea (adult) (pediatric) [facility] 09/11/2020 Z01.812 Encounter for preprocedural labo ratory examination [facility] 08/20/2020 E66.01 Morbid (severe) obesity due to e xcess calories DARON Peña 08/20/2020 E78.5 Hyperlipidemia, unspecified Megan DARON Garcia 08/20/2020 F41.9 Anxiety disorder, unspecified Me DARON Haley 08/20/2020 G47.33 Obstructive sleep apnea (adult) (pediatric) DARON Peña 08/20/2020 Z68.41 Body mass index [BMI]40.0-44.9, adult DARON Peña Plan of Treatment 01/20/2021 - Katty Britt MD* Z98.84 Bariatric surgery status* Comments:* Patient doing well 6 months. I told the patient more than likely her small but of GI bleeding is related to hemorrhoidal disease. Certainly did not look like melena before she had. The amount of blood in the toilet was rather unimpressive. We'll refer her to GI in [place]. She will call us to give us the name of the GI doctors would like to get referred to for colonoscopy. Otherwise in terms of weight she is doing well. We will get her 6 month labs today. Follow-up in 3 months. * E66.01 Morbid (severe) obesity due to excess calories Functional Status Description No Information Available Mental Status Description No Information Available Referrals Refer to Reason for Referral Status Appt Date Deana Gao RD CDN nutritional consultation Closed [facility] [address] [facility] [facility], [address] [place] [address] [phone]
--- OUTSIDE RECORDS SUMMARY | 2021-04-05 20:50 | CCD | Continuity of Care Document ---
Author Author Maria Alejandra MOORE DO Organization Unknown Address [address] [place] [address] Phone [phone] Care Team Providers Care Manager Visual Name Role Phone Carine Barajas D.O. AUTM [phone] Beverley Kulkarni AUTM [phone] Problems Active Problems Provider Date Obstructive sleep apnea syndrome Aaliyah LoyaNGhazalPGhazal Onset: 05/21/2020 Sleep apnea Aaliyah LoyaNIsidoro Onset: 03/25/2020 Social History Type Date Description Comments Sex Female ETOH Use Denies alcohol use Recreational Drug Use Denies Drug Use Tobacco Use Start: 05/31/89 Occasional 6-7 socially Smoking Status Reviewed: 07/29/20 Occasional 6-7 socially Allergies and adverse reactions Description No Known Drug Allergies Medications Active Medications SIG Qnty Indications Ordering Provide r Date Autopap Device 4-20cm marilir G47.33 Aaliyah LoyaNGhazalPGhazal 05/21/2020 Gabapentin 300mg Capsules 1 cap by mouth every day 60caps Unknown Famotidine 40mg Tablets 1 tab by mouth every day 180tabs Beverley Kulkarni NP Vitamin D (Ergocalciferol) 1.25mg (09398 Ut) Capsules 1 cap by mouth every week 4caps Beverley Kulkarni NP Nabumetone 750mg Tablets Take One Tablet By Mouth Twice A Day as Needed Unknown 0 Cetirizine HCL 10mg Tablets Take One Tablet By Mouth Every Day Unknown Albuterol Sulfate HFA 108(90Base) mcg/Act Aerosol Lyndsey Sawyer RGhazalP.A.-C. 00/0 Immunizations Description No Information Available Vital Signs Date Vital Result Comment 03/19/2021 10:48am Body Temperature 96.5 F Height 68 inches 5'8" Weight 231.00 lb BMI (Body Mass Index) 35.1 kg/m2 [place] Body Weight 140 lb Weight 104.782 kg BSA (Body Surface Area) 2.17 m2 07/29/2020 1:01pm BP Systolic 122 mmHg BP Diastolic 76 mmHg Heart Rate 86 /min O2 % BldC Oximetry 96 % Body Temperature 96.6 F Height 68 inches 5'8" Weight 300.50 lb BMI (Body Mass Index) 45.7 kg/m2 Loami Body Weight 140 lb Weight 136.307 kg BSA (Body Surface Area) 2.43 m2 Results Description No Information Available Procedures Date Code Description Status 03/19/2021 26908 Office/Outpatient Established Lo w MDM 20-29 Min Completed Medical Devices Description No Information Available Encounters Type Date Location Provider Dx Diagnosis Office Visit 03/19/2021 11:00a [facility] Janey Moore DO N62 Hypertrophy of breast Z98.84 Bariatric surgery status Z68.35 Body mass index [BMI] 35.0-3 5.9, adult Assessments Date Code Description Provider 03/19/2021 N62 Hypertrophy of breast Janey calixto DO 03/19/2021 Z98.84 Bariatric surgery status Janey miranda DO 03/19/2021 Z68.35 Body mass index [BMI] 35.0-35.9, adult Janey Moore DO Plan of Treatment Future Appointment(s):* 06/23/2021 10:00 am - Janey Moore DO at [facility] Pl[facility] Surgery Functional Status Description No Information Available Mental Status Description No Information Available Referrals Refer to Reason for Referral Status Appt Date Janey Moore D.O. BREAST REDUCTION Scheduled 03/19/2021 [facility] [address] [facility], [place] [address] [phone] Cinthya Grimm A.N.P. YOLANDA Scheduled 11/13/2020 [facility] [address] [place], [place] [address] [phone]
--- OUTSIDE RECORDS SUMMARY | 2021-04-05 20:50 | CCD ---
Author Author [facility] Organization [facility] Address Unknown Phone Unavailable Care Team Providers Care Calenderer Name Role Phone Beverley Kulkarni Unavailable PROBLEMS Type Condition ICD9-CM Code FFU11-DC Code Onset Dates Condition S tatus W/U Status Risk SNOMED Code Notes Problem Vitamin D deficiency E55.9 Active confirmed 84713938 Problem Dyspepsia R10.13 Active confirmed 826669042 Problem Tobacco use disorder Z72.0 Active confirmed 30239155 Problem Malignant melanoma of right upper extremity including shoulder C43.61 Active confirmed 077930348 Problem Malignant melanoma of left lower extremity including hip C43.72 Active confirmed 786738284 Problem 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 Active confirm ed 82780938 Problem Obesity (BMI 30-39.9) E66.9 Active confirmed 629766758 Problem Gastroesophageal reflux disease without esophagitis K21.9 Active confirmed 287341279 Problem Anxiety state, unspecified F41.1 Active confirmed 004229001 Problem Fatty liver K76.0 Active confirmed 63645159 7 Problem Other allergic rhinitis J30.89 Active confirmed 04419477 Problem Bilateral low back pain without sciatica M54.5 Active confirmed 710236721 Problem Arthralgia of multiple joints M25.50 Active confirm ed 11156264 Problem Polyneuropathy G62.9 Active confirmed 07966 000 Problem Bilateral carpal tunnel syndrome G56.03 Active conf irmed 51284831 Problem Degenerative disc disease, lumbar M51.36 Active confirmed 16641668 Problem History of dysplastic nevus Z86.018 Active conf irmed 1617743698542 Problem Mixed hyperlipidemia E78.2 Active confirmed 393463336 Problem Elevated fasting glucose R73.01 Active confirmed 55017882 Problem Cigarette nicotine dependence without complication F17.210 Active confirmed 80701242 Problem Metabolic syndrome E88.81 Active confirmed 2 88430252 Problem Body mass index (BMI) 40.0-44.9, adult Z68.41 A ctive confirmed 833584549 Problem Morbid (severe) obesity due to excess calories E66 .01 Active confirmed 495336336 Problem History of malignant melanoma Z85.820 Active confir med 590682740 Problem Renal calculus, right N20.0 Active confirmed 95453773 Problem Obstructive sleep apnea (adult) (pediatric) G47.33 Active confirmed 92199397 Problem History of gestational diabetes Z86.32 Active confi rmed 273513693 Problem Cigarette nicotine dependence in remission F17.211 Active confirmed 287038900 Problem History of melanoma Z85.820 Active confirmed 410880454 Problem Hx of dysplastic nevus Z86.018 Active confirmed 7712901748227 Problem Status post bariatric surgery Z98.84 Active confirm ed 314906363 Problem BMI 39.0-39.9,adult Z68.39 Active confirmed 680094007 ALLERGIES No Known Allergies ENCOUNTERS from 1977 to 2021-01-23 Encounter Location Date Provider Diagnosis [address] [phone] [place] [address] Dec, Beverley Kulkarni IMMUNIZATIONS Vaccine Route Administration Date Status Influenza 6mo & up Fluzone Unknown Mar 23, 2017 Refus ed SOCIAL HISTORY Tobacco Use: Social History Observation Description Date Details (start date - stop date) Former Smoker Sex Assigned At : Social History Observation Description Sex Assigned At Unknown Education: Question Answer Notes Level of Education: Grade School Audit Question Answer Notes Total Score: 0 Interpretation: Alcohol Education Language: Question Answer Notes Languages spoken: Iranian Voodoo: Question Answer Notes Voodoo 08 Sikhism Sexual Hx: Question Answer Notes Had sex in the last 12 months (vaginal, oral, or anal)? Yes Have you ever had an STD? Yes with Men only Use protection? No Herpes? Yes Drug and Alcohol Question Answer Notes Total Score: 0 Interpretation: No problems reported Alcohol Screening: Question Answer Notes Did you have a drink containing alcohol in the past year? Ye s Points 1 Interpretation Negative How often did you have six or more drinks on one occas ion in the past year? Never (0 points) How many drinks did you have on a typica l day when you were drinking in the past year? 1 or 2 (0 points) How often did you have a drink containing alcohol in t he past year? Monthly or less (1 point) BMI Care Goal Follow-Up Question Answer Notes Above Normal BMI Follow-Up Giving encouragement to exercise Tobacco Use: Question Answer Notes Are you a: former smoker quit 08/2020 REASON FOR REFERRAL No Information VITAL SIGNS No information MEDICATIONS Medication SIG (Take, Route, Frequency, Duration) Notes Start Da te End Date Status Triamcinolone Acetonide 0.1 % 1 application Externally Twice a day to affected hands as needed for 14 days Oct, Not- Taking Azelastine HCl 0.1 % 1 puff in each nostril Nasally Daily for 30 days Active hydrOXYzine HCl 25 MG 1 tablet as needed Orally as needed TID for itching for 10 days Jul, Not-Taking Biotin 10 MG 1 tablet Orally Once a day for 30 day(s) Active Multi-Day Plus Minerals - 1 tab(s) Orally daily with food for 30 day( s) Active Albuterol Sulfate HFA 108 (90 Base) MCG/ACT 2 puffs as needed Inhalation every 6 hrs Nov, Active Vitamin D 50 MCG (2000 UT) 1 tablet Orally Once a day Active Acyclovir 400 MG 1 tablet Orally three times daily as needed for 5 da ys Active Fluconazole 150 MG 1 tablet Orally one today an d repeat in 3 days as needed for 7 day(s) Nov, Not-Taking Flonase 50 MCG/ACT 1 spray in each nostril Nasa lly once a day at bedtime for 30 days Not-Taking Triamcinolone Acetonide 0.1 % 1 application Externally Twice a day to scar for 14 days Mar, Not-Taking metroNIDAZOLE 0.75 % 1 applicatorful at bedtime Vaginal Once a day for 5 day(s) Nov, Not-Taking [facility] Saline Nasal [place] 0.65 % as directed Nasally Active Omeprazole 20 MG TAKE ONE CAPSULE BY MOUTH EVERY DAY Oral for 30 Active Cetirizine HCl 10 MG 1 tablet Orally Once a day for 30 days Active Drisdol 99705 UNIT 1 capsule Orally once every 2 weeks with meal for 30 Days Not-Taking Vitamin B-12 1000 MCG as directed Orally Active Triamcinolone Acetonide 0.1 % apply thin layer to affe cted areas on arms, legs and torso Externally BID as needed for 7 days Jul, Not-Taking PROCEDURES No Information RESULTS No Results REASON FOR VISIT 3rd no show MEDICAL (GENERAL) HISTORY Type Description Date Medical History allergic rhinitis Medical History Anxiety disorder Medical History obesity Medical History low back pain Medical History depression Medical History drug abuse Medical History Herpes simplex without mention of compli cation Medical History melanoma multiple excisions Medical History dyspepsia Medical History hyperlipidemia Medical History elevated fasting glucose - prior hx of g estational Diabetes Surgical History tonsillectomy Surgical History D&C Surgical History dental extraction - oral surgeon 07/15 Surgical History hysterectomy - robotic, lap assisted - D r Jolley 10/12 Surgical History melanoma excision 02-25-16 Surgical History Skin excision left upper leg 07/2017 Surgical History left breast biopsy intraductal paplloma 08/2019 Surgical History Left breast lesion 09/2019 Surgical History gastric sleeve surgery 09/18 Hospitalization History surgeries Goals Section No Information Health Concerns No Information MEDICAL EQUIPMENT No Information MENTAL STATUS No Information FUNCTIONAL STATUS No Information ASSESSMENTS No Information PLAN OF TREATMENT Next Appt Details Provider Name:Mikki Lane, 2021-02-19 03:45:00 PM, [address] [place] [address], , [place], [place], [facility], Insurance Providers Payer Name Payer Address Payer Phone Insured Name Patient Relati onship to Insured Coverage Start Date Coverage End Date [facility] [employer] [facility] [address] [facility] [phone] RECOR,JAY HAINES self
--- OUTSIDE RECORDS SUMMARY | 2021-04-05 20:50 | CCD ---
Author Author [facility] Organization [facility] Address Unknown Phone Unavailable Care Team Providers Care Brick Veneer Maker Name Role Phone Carine Barajas Unavailable PROBLEMS Type Condition ICD9-CM Code UHC67-EU Code Onset Dates Condition S tatus W/U Status Risk SNOMED Code Notes Problem Vitamin D deficiency E55.9 Active confirmed 46770485 Problem Dyspepsia R10.13 Active confirmed 634684281 Problem Tobacco use disorder Z72.0 Active confirmed 55515888 Problem Malignant melanoma of right upper extremity including shoulder C43.61 Active confirmed 695294076 Problem Malignant melanoma of left lower extremity including hip C43.72 Active confirmed 716490992 Problem 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 Active confirm ed 78870863 Problem Obesity (BMI 30-39.9) E66.9 Active confirmed 281196810 Problem Gastroesophageal reflux disease without esophagitis K21.9 Active confirmed 057071084 Problem Anxiety state, unspecified F41.1 Active confirmed 229137391 Problem Fatty liver K76.0 Active confirmed 19174976 7 Problem Other allergic rhinitis J30.89 Active confirmed 58737177 Problem Bilateral low back pain without sciatica M54.5 Active confirmed 978092091 Problem Arthralgia of multiple joints M25.50 Active confirm ed 81003179 Problem Polyneuropathy G62.9 Active confirmed 55209 000 Problem Bilateral carpal tunnel syndrome G56.03 Active conf irmed 13279618 Problem Degenerative disc disease, lumbar M51.36 Active confirmed 30522294 Problem History of dysplastic nevus Z86.018 Active conf irmed 2433967369201 Problem Mixed hyperlipidemia E78.2 Active confirmed 036548988 Problem Elevated fasting glucose R73.01 Active confirmed 41587600 Problem Cigarette nicotine dependence without complication F17.210 Active confirmed 47634027 Problem Metabolic syndrome E88.81 Active confirmed 2 35699752 Problem Body mass index (BMI) 40.0-44.9, adult Z68.41 A ctive confirmed 062532673 Problem Morbid (severe) obesity due to excess calories E66 .01 Active confirmed 443240426 Problem History of malignant melanoma Z85.820 Active confir med 587371430 Problem Renal calculus, right N20.0 Active confirmed 45070450 Problem Obstructive sleep apnea (adult) (pediatric) G47.33 Active confirmed 59639633 Problem History of gestational diabetes Z86.32 Active confi rmed 716134332 Problem Cigarette nicotine dependence in remission F17.211 Active confirmed 550395607 Problem History of melanoma Z85.820 Active confirmed 200511565 Problem Hx of dysplastic nevus Z86.018 Active confirmed 5259456088929 Problem Status post bariatric surgery Z98.84 Active confirm ed 093251785 Problem BMI 39.0-39.9,adult Z68.39 Active confirmed 461995365 ALLERGIES No Known Allergies ENCOUNTERS from 1977 to 2021-01-29 Encounter Location Date Provider Diagnosis [facility] [address] [place] [address] [place] [address] 20 Dec, 2020 Carine Dombrowska Mastodynia of left breast N6 4.4 ; Intraductal papilloma of left breast D24.2 ; Macromastia N62 and S/P gastric bypass Z98.84 IMMUNIZATIONS Vaccine Route Administration Date Status Influenza [...] Education Language: Question Answer Notes Languages spoken: Burundian Adventist: Question Answer Notes Adventist 08 Judaism Sexual Hx: Question Answer Notes Had sex [...] REASON FOR REFERRAL No Information VITAL SIGNS Weight 242 lbs Dec, Weight-kg 109.77 kg Dec, Height 69 in Dec, BMI 35.73 kg/m2 Dec, Heart Rate 66 /min Dec, Respiratory Rate 18 /min Dec, Temperature 97.1 degrees Fahrenheit Dec, Oximetry 95 Dec, Blood pressure systolic 110 mm Hg Dec, Blood pressure diastolic 70 mm Hg Dec, MEDICATIONS Medication SIG (Take, Route, Frequency, Duration) [...] 5 day(s) Nov, Not-Taking [facility] Saline Nasal [place] 0.65 % as directed Nasally Active Omeprazole 20 MG TAKE ONE CAPSULE BY MOUTH EVERY DAY Oral for 30 Active Cetirizine HCl 10 MG 1 tablet Orally Once a day for 30 days Active Drisdol 12284 UNIT 1 capsule Orally once every 2 weeks with meal for 30 Days Not-Taking Vitamin B-12 1000 MCG as directed Orally Active Triamcinolone Acetonide 0.1 % apply thin layer to affe cted areas on arms, legs and torso Externally BID as needed for 7 days Jul, Not-Taking PROCEDURES No Information RESULTS No Results REASON FOR VISIT left breast pain MEDICAL (GENERAL) HISTORY Type Description Date Medical [...] History hysterectomy - robotic, lap assisted - Taylor Jolley 10/12 Surgical History melanoma excision 02-25-16 Surgical History Skin excision left upper leg 07/2017 Surgical History left breast biopsy intraductal paplloma 08/2019 Surgical History Left breast lesion 09/2019 Surgical History gastric sleeve surgery 09/18 Hospitalization History surgeries Goals Section No Information Health Concerns No Information MEDICAL EQUIPMENT No Information MENTAL STATUS No Information FUNCTIONAL STATUS No Information ASSESSMENTS Encounter Date Diagnosis Assessment Notes Treatment Notes Treatm ent Clinical Notes Dec, Mastodynia of left breast (ICD-10 - N64.4) Patient previously reported left breast pain. No abnormalities were identified on exam. She was previously advised to wear a supportive sports bra. She presented again reporting lateral left breast pain which shoots up into the axilla. On my exam, her area of pain was significantly improved with OMT. I explained that her pain is likely due to musculoskeletal strain of the Pectoralis and Serratus anterior muscles and due to macromastia. I demonstrated the proper techniques to treat herself with OMT technique at home. I strongly encouraged her to wear supportive, non-wire bras. I also encouraged her to reach out to Dr. Funk to discuss timeline of her breast reduction in regards to her recent gastric sleeve. Patient is also due for her bilateral mammogram. I will order a diagnostic bilateral mammogram and call her with the results. She can follow up in the clinic on an as needed basis for pain. All questions were answered, patient agrees with the plan Dec, Intraductal papilloma of left breast (ICD-10 - D 24.2) S/p left excisional biopsy on 10/10/2019 with [facility] showed intraductal papilloma in several dilated ducts with mild atypia, completely excised Dec, Macromastia (ICD-10 - N62) Patient saw Dr. Funk for evaluation of a breast reduction. She recommended weight loss prior to surgery. I encouraged her to reach out to Dr. Funk again to establish timeline for her breast resuction after hr recent gastric sleeve surgery. Dec, S/P gastric bypass (ICD-10 - Z98.84) Patient reports she had gastric sleeve surgery in 08/2020, she has lost 66lbs. She notes that she is experiencing bloody stool and vomiting blood. I strongly encouraged her to reach out to her GI team and her PCP. Her PCP was made aware from my office as well Dec, Other I, Dr. Shirley freedman, reviewed the medical note prepared by the scribe and confirm the findings and the discussed plan. PLAN OF TREATMENT Treatment Notes Assessment Notes Clinical Notes Mastodynia of left breast Patient previously reported left breast pain. No abnormalities were identified on exam. She was previously advised to wear a supportive sports bra.She presented again reporting lateral left breast pain which shoots up into the axilla. On my exam, her area of pain was significantly improved with OMT. I explained that her pain is likely due to musculoskeletal strain of the Pectoralis and Serratus anterior muscles and due to macromastia. I demonstrated the proper techniques to treat herself with OMT technique at home. I strongly encouraged her to wear supportive, non-wire bras.I also encouraged her to reach out to Dr. Funk to discuss timeline of her breast reduction in regards to her recent gastric sleeve.Patient is also due for her bilateral mammogram. I will order a diagnostic bilateral mammogram and call her with the results. She can follow up in the clinic on an as needed basis for pain.All questions were answered, patient agrees with the plan Intraductal papilloma of left breast S/p left excision al biopsy on 10/10/2019 with [facility] showed intraductal papilloma in several dilated ducts with mild atypia, completely excised Macromastia Patient saw Dr. Funk for ev aluation of a breast reduction. She recommended weight loss prior to surgery. I encouraged her to reach out to Dr. Funk again to establish timeline for her breast resuction after hr recent gastric sleeve surgery. S/P gastric bypass Patient reports she had elysia carmen sleeve surgery in 08/2020, she has lost 66lbs.She notes that she is experiencing bloody stool and vomiting blood. I strongly encouraged her to reach out to her GI team and her PCP. Her PCP was made aware from my office as well Future Test Test Name Order Date [facility] Bilateral (Ultrasound if Indicate d) (3D Mammo) [id number] Next Appt Details F/U PRN Reason: Provider Name:Mikki Lane, 2021-02-19 03:45:00 PM, [address] [place] [address], , [place], [place], [facility], Insurance Providers Payer Name Payer Address Payer Phone Insured Name Patient Relati onship to Insured Coverage Start Date Coverage End Date [facility] [place] [place] [address] [facility] [id number] RECOR,JAY HAINES self
--- OUTSIDE RECORDS SUMMARY | 2021-04-05 20:50 | CCD | Continuity of Care Document ---
Author Author Maria Alejandra BRITT MD Organization Unknown Address [address] [place] [address], [address] [place] [address] Phone [phone] Care Team Providers Care [employer] Physical Education Teacher Name Role Phone Beverley Kulkarni AUTGuy Unavailable Katty Britt MD AUTM [phone] Problems Active Problems Provider Date Anxiety Onset: [...] Katty Britt MD Vitamin D (Ergocalciferol) 1.25mg (00579 Ut) Capsules Take One Capsule By Mouth Every 2 Weeks With A Meal Unknown Biotin Maximum 36079bzu Tablets Di spers once daily Unknown Claritin [...] Facility Test Result H/L Range Note CBCP 01/20/2021 [facility] [address] [place] [address] [phone] WBC. 9.12 x10E3/uL 4.2-12.0 RBC 4.88 x10E6/uL 3.9-5.4 HGB 15.6 g/dL 12.0-16.0 HCT 43.9 % 36-47 MCV 89.8 fL 80-98 MCH 31.9 pg 27-33 MCHC 35.6 g/dL 32-36 RDW 13.4 % 11.2-15.2 PLT 344 x10E3/uL 135-420 MPV 7.9 fL 7.0-12.3 CMP-Female 01/20/2021 [facility] [address] [place] [address] [phone] Glucose 85 mg/dL 74-106 1 BUN 8 mg/dL 6-20 Creatinine 0.8 mg/dL 0.5-1.3 Sodium 143 mmol/L 136-145 Potassium 4.4 mmol/L 3.5-5.3 Chloride 106 mmol/L 98-107 Co2 25 mEq/L 20-31 Anion Gap 12 mmol/L 7-16 eGFR-female 78 mL/m/1.73m - eGFR-Aa female 94 mL/m/1.73m - 2 Alk. Phos. 89 U/L 46-116 Alt 23 U/L 4-36 3 Ast 25 U/L 8-33 Total Bilirubin 0.6 mg/dL 0.3-1.2 Total Protein 7.3 g/dL 6.4-8.3 4 Albumin 4.6 g/dL 3.6-5.1 A/G Ratio 1.7 Ratio 1.0-2.0 Globulin 2.7 g/dL 1.9-3.7 Calcium 10.1 mg/dL 8.9-10.5 Laboratory test finding 01/20/2021 [facility] [address] [place] [address] [phone] B12 669 pg/mL 211-911 5 Vitamin D, 25(Oh). 41.19 ng/ml 30-100 6 Miscellaneous ok - 7 Folate 6.18 ng/ml 1.1-20.0 8 Ferritin 203 ng/ml 10.0-291.0 9 Vitamin B1 (Thiamine),Blood 134 nmol/L 78-185 10 Venipuncture DONE - 11 CBCP 09/11/2020 [facility] [address] [place], [place] [id number] [phone] WBC. 7.05 x10E3/uL 4.2-12.0 RBC 4.71 x10E6/uL 3.9-5.4 HGB 14.4 g/dL 12.0-16.0 HCT 43.2 % 36-47 MCV 91.7 fL 80-98 MCH 30.7 pg 27-33 MCHC 33.5 g/dL 32-36 RDW 14.0 % 11.2-15.2 PLT 299 x10E3/uL 135-420 MPV 6.9 fL Low 7.0-12.3 BMP-Female 09/11/2020 [facility] [address] [facility] [place] [address] [phone] Glucose 89 mg/dL 74-106 12 BUN 13 mg/dL 6-20 Creatinine 0.8 mg/dL 0.5-1.3 Sodium 138 mmol/L 136-145 Potassium 4.3 mmol/L 3.5-5.3 Chloride 105 mmol/L 98-107 Co2 24 mEq/L 20-31 Anion Gap 9 mmol/L 7-16 eGFR-female 78 mL/m/1.73m - eGFR-Aa female 95 mL/m/1.73m - 13 Calcium 9.6 mg/dL 8.9-10.5 Laboratory test finding 09/11/2020 [facility] [address] [place] [address] [phone] Miscellaneous ok - 14 Venipuncture DONE - 15 Lacny T&S sent - 16 1 [place] Diabetes Associatio n (ADA) Recommended Range is 65-99 mg/dL 2 Normal Kidney Function or Mi ld Disease GFR >59 mL/min/1.73m2 Chronic Kidney Disease GFR 15-59 mL/min/1.73m2 Renal Failure GFR <15 mL/min/1.73m2 3 Effective 11/28/2016: [employer] has indicated interference with the drugs sulfasalazine and sulfapyridine. They suggest collection should occur prior to drug administration due to falsely depressed results. 4 Results may reflect a potent ial interference in Total Protein results in patients receiving dextran as blood volume expanders. 5 Vit B1 / Thiamine 6 Recommended Levels for Circu lating 25-hydroxy Vitamin D: Vitamin D Status 25-OH Vitamin D Test Result Deficient <10ng/mL Insufficient 10-29ng/mL Sufficient 30-100ng/mL Potential Intoxication >100ng/mL A pediatric reference range has not been established using this method. 7 Vit B1 / Thiamine 8 Vit B1 / Thiamine 9 Vit B1 / Thiamine 10 Vitamin supplementation with in 24 hours prior to blood draw may affect the accuracy of the results. This test was developed and its analytical performance characteristics have been determined by [facility], [place]. It has not been cleared or approved by the U.S. Food and Drug Administration. This assay has been validated pursuant to the CLIA regulations and is used for clinical purposes. 11 Vit B1 / Thiamine 12 [place] Diabetes Associatio n (ADA) Recommended Range is 65-99 mg/dL 13 Normal Kidney Function or Mi ld Disease GFR >59 mL/min/1.73m2 Chronic Kidney Disease GFR 15-59 mL/min/1.73m2 Renal Failure GFR <15 mL/min/1.73m2 14 Type & Screen 15 Type & Screen 16 Type & Screen Procedures Date Code Description Status 01/20/2021 43674 Office/Outpatient Established Lo w MDM 20-29 Min Completed 09/16/2020 40532 Laparoscopy Surg Gas t Restrict Procedure Longitudinal Gastrectomy Completed 09/16/2020 36681 Laparoscopy Surg Gas t Restrict Procedure Longitudinal Gastrectomy Completed 09/11/2020 35832 Office/Outpatient Established Mo d MDM 30-39 Min Completed 09/11/2020 81013 Office/Outpatient Established Mi nimal Problem(S) Completed 08/20/2020 76028 Office/Outpatient Established Mo d MDM 30-39 Min Completed Medical Devices Description No Information Available Encounters Type Date Location Provider Dx Diagnosis Office Visit 01/20/2021 2:45p [facility] Surgical Services Katty Britt MD Z 98.84 Bariatric surgery status E66.9 Obesity, unspecified F32.9 Major depressive disorder, s ranjeet episode, unspecified Z68.32 Body mass index [BMI] 32.0-3 2.9, adult Office Visit 10/21/2020 11:30a [facility] Surgical Services DARON Peña Z09 Encntr for f/u exam aft trtmt for cond oth than malig neoplm E66.01 Morbid (severe) obesity due to excess calories Z98.84 Bariatric surgery status Z71.3 Dietary counseling and surve illance Office Visit 09/26/2020 1:30p [facility] Surgical Services DARON Peña G89.18 Other acute postprocedural pain E66.01 Morbid (severe) obesity due to excess calories Z98.84 Bariatric surgery status Z71.3 Dietary counseling and surve illance Z68.39 Body mass index [BMI] 39.0-3 9.9, adult Office Visit 09/17/2020 2:34a [facility] Surgical Services Katty Britt MD Office Visit 09/11/2020 11:15a [facility] Primary Care AT [facility] Covid-19 Testing Z20.822 Contact with and (suspected) exposure to Covid-19 Office Visit 09/11/2020 12:30p [facility] Surgical Services DARON Peña E66.01 Morbid (severe) obesity due to excess calories G47.33 Obstructive sleep apnea (kaye lt) (pediatric) E78.5 Hyperlipidemia, unspecified F41.9 Anxiety disorder, unspecifie d Z01.818 Encounter for other preproce dural examination Z01.812 Encounter for preprocedural laboratory examination Z99.89 Dependence on other enabling machines and devices Z68.41 Body mass index [BMI] 40.0-4 4.9, adult Office Visit 08/20/2020 11:00a [facility] Surgical Services DARON Peña E66.01 Morbid (severe) obesity due to excess calories E78.5 Hyperlipidemia, unspecified F41.9 Anxiety disorder, unspecifie d G47.33 Obstructive sleep apnea (kaye lt) (pediatric) Z68.41 Body mass index [BMI] 40.0-4 4.9, adult Assessments Date Code Description Provider 01/20/2021 Z98.84 Bariatric surgery status Katty Britt MD 01/20/2021 E66.9 Obesity, unspecified Katty Britt MD 01/20/2021 F32.9 Major depressive disorder, singl e episode, unspecified Katty Britt MD 01/20/2021 Z68.32 Body mass index [BMI] 32.0-32.9, adult Katty Britt MD 01/20/2021 E66.01 Morbid (severe) obesity due to e xcess calories [facility] 01/20/2021 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, unspec ified [facility] 01/20/2021 Z98.84 Bariatric surgery status [facility] 10/21/2020 Z09 Postoperative visit DARON Peña 10/21/2020 [...] Peña 09/16/2020 E78.5 Hyperlipidemia, unspecified Megan nda DARON Griffin 09/16/2020 G47.33 Obstructive sleep apnea (adult) (pediatric) [...] (severe) obesity due to e xcess calories [facility] 09/11/2020 G47.33 Obstructive sleep apnea (adult) (pediatric) [facility] 09/11/2020 Z01.812 Encounter for preprocedural labo ratory examination [facility] 08/20/2020 E66.01 Morbid (severe) obesity [...] labs today. Follow-up in 3 months. * E66.9 Obesity, unspecified * F32.9 Major depressive disorder, single episode, unspecified * Z68.32 Body mass index [BMI] 32.0-32.9, adult Functional Status Description No Information Available Mental Status Description No Information Available Referrals Refer to Reason for Referral Status Appt Date Deana Gao RD CDN nutritional consultation [facility] [address], [address] [place] [address] [phone]
--- OUTSIDE RECORDS SUMMARY | 2021-04-05 20:50 | CCD | Continuity of Care Document ---
Author Author Maria Alejandra BRITT MD Organization Unknown Address [address] [place] [address], [address] [place] [phone] Phone [phone] Care Team Providers Care Automotive Parts Clerk Name Role Phone Beverley Kulkarni AUTGuy Unavailable Katty Britt MD AUTM [phone] Problems Active Problems Provider Date Anxiety Onset: [...] Katty Britt MD Vitamin D (Ergocalciferol) 1.25mg (46747 Ut) Capsules Take One Capsule By Mouth Every 2 Weeks With A Meal Unknown Biotin Maximum 92581vgu Tablets Di spers once daily Unknown Claritin [...] Test Result H/L Range Note CBCP 09/11/2020 [facility] [address] [place] [address] [phone] WBC. 7.05 x10E3/uL 4.2-12.0 RBC 4.71 x10E6/uL 3.9-5.4 HGB 14.4 g/dL 12.0-16.0 HCT 43.2 % 36-47 MCV 91.7 fL 80-98 MCH 30.7 pg 27-33 MCHC 33.5 g/dL 32-36 RDW 14.0 % 11.2-15.2 PLT 299 x10E3/uL 135-420 MPV 6.9 fL Low 7.0-12.3 BMP-Female 09/11/2020 [facility] [address] [place] [address] [phone] Glucose 89 mg/dL 74-106 1 BUN 13 mg/dL 6-20 Creatinine 0.8 mg/dL 0.5-1.3 Sodium 138 mmol/L 136-145 Potassium 4.3 mmol/L 3.5-5.3 Chloride 105 mmol/L 98-107 Co2 24 mEq/L 20-31 Anion Gap 9 mmol/L 7-16 eGFR-female 78 mL/m/1.73m - eGFR-Aa female 95 mL/m/1.73m - 2 Calcium 9.6 mg/dL 8.9-10.5 Laboratory test finding 09/11/2020 [facility] [address] [place] [address] [phone] Miscellaneous ok - 3 Venipuncture DONE - 4 Lacny T&S sent - 5 1 [place] Diabetes Associatio n (ADA) Recommended Range is 65-99 mg/dL 2 Normal Kidney Function or Mi ld Disease GFR >59 mL/min/1.73m2 Chronic Kidney Disease GFR 15-59 mL/min/1.73m2 Renal Failure GFR <15 mL/min/1.73m2 3 Type & Screen 4 Type & Screen 5 Type & Screen Procedures Date Code Description Status 01/20/2021 46331 Office/Outpatient Established Lo w MDM 20-29 Min Completed 09/16/2020 22891 Laparoscopy Surg Gas t Restrict Procedure Longitudinal Gastrectomy Completed 09/16/2020 84936 Laparoscopy Surg Gas t Restrict Procedure Longitudinal Gastrectomy Completed 09/11/2020 15896 Office/Outpatient Established Mo d MDM 30-39 Min Completed 09/11/2020 86021 Office/Outpatient Established Mi nimal Problem(S) Completed 08/20/2020 95006 Office/Outpatient Established Mo d MDM 30-39 Min Completed Medical Devices Description No Information Available Encounters Type Date Location Provider Dx Diagnosis Office Visit 01/20/2021 2:45p [facility] Surgical Services Katty Britt MD Z 98.84 Bariatric surgery status E66.01 Morbid (severe) obesity due to excess calories Office Visit 10/21/2020 11:30a [facility] Surgical Services DARON Peña Z09 Encntr for f/u exam aft trtmt for cond oth than malig neoplm E66.01 Morbid (severe) obesity due to excess calories Z98.84 Bariatric surgery status Z71.3 Dietary counseling and surve illance Office Visit 09/26/2020 1:30p [facility] Surgical Services DARON Peña G89.18 Other acute postprocedural pain E66.01 Morbid (severe) obesity due to excess calories Z98.84 Bariatric surgery status Z71.3 Dietary counseling and surve illance Z68.39 Body mass index [BMI] 39.0-3 9.9, adult Office Visit 09/17/2020 2:34a [facility] Surgical Services Katty Britt MD Office Visit 09/11/2020 11:15a [facility] Primary Care AT [facility] Covid-19 Testing Z20.822 Contact with and (suspected) exposure to Covid-19 Office Visit 09/11/2020 12:30p [facility] Surgical Services DARON Peña E66.01 Morbid (severe) obesity due to excess calories G47.33 Obstructive sleep apnea (kaye lt) (pediatric) E78.5 Hyperlipidemia, unspecified F41.9 Anxiety disorder, unspecifie d Z01.818 Encounter for other preproce dural examination Z01.812 Encounter for preprocedural laboratory examination Z99.89 Dependence on other enabling machines and devices Z68.41 Body mass index [BMI] 40.0-4 4.9, adult Office Visit 08/20/2020 11:00a [facility] Surgical Services DARON Peña E66.01 Morbid [...] on other enabling [employer] DAORN Peña 09/11/2020 Z68.41 Body mass index [BMI]40.0-44.9, adult DARON Peña 09/11/2020 E66.01 Morbid (severe) obesity due to e xcess calories [facility] 09/11/2020 G47.33 Obstructive sleep apnea (adult) (pediatric) [facility] 09/11/2020 Z01.812 Encounter for preprocedural labo ratory examination [facility] 08/20/2020 E66.01 Morbid [...] Deana Gao RD CDN nutritional consultation [facility] [address], [address] [place] [address] [phone]
--- OUTSIDE RECORDS SUMMARY | 2021-04-05 20:50 | CCD | Continuity of Care Document ---
Author Author Maria Alejandra MOORE DO Organization Unknown Address [address] [place] [address] Phone [phone] Care Team Providers Care Tablet Machine Operator Name Role Phone Carine Barajas D.O. AUTM [phone] Beverley Kulkarni AUTM [phone] Problems Active Problems Provider Date Obstructive sleep apnea syndrome GABRIELA Loya Onset: 05/21/2020 Sleep apnea GABRIELA Loya Onset: 03/25/2020 Social History Type Date Description Comments Sex Female ETOH Use Denies alcohol use Recreational Drug Use Denies Drug Use Tobacco Use Start: 05/31/89 Occasional 6-7 socially Smoking Status Reviewed: 07/29/20 Occasional 6-7 socially Allergies and adverse reactions Description No Known Drug Allergies Medications Active Medications SIG Qnty Indications Ordering Provide r Date Autopap Device 4-20cm nain G47.33 GABRIELA Loya 05/21/2020 Gabapentin 300mg Capsules 1 cap by mouth every day 60caps Unknown Famotidine 40mg Tablets 1 tab by mouth every day 180tabs Beverley Kulkarni NP Vitamin D (Ergocalciferol) 1.25mg (69385 Ut) Capsules 1 cap by mouth every week 4caps Beverley Kulkarni NP Nabumetone 750mg Tablets Take One Tablet By Mouth Twice A Day as Needed Unknown 0 Cetirizine HCL 10mg Tablets Take One Tablet By Mouth Every Day Unknown Albuterol Sulfate HFA 108(90Base) mcg/Act Aerosol Lyndsey Sawyer RGhazalPDen-Anna 00/ Immunizations Description No Information Available Vital Signs Date Vital Result Comment 03/19/2021 10:48am Body Temperature 96.5 F Height 68 inches 5'8" Weight 231.00 lb BMI (Body Mass Index) 35.1 kg/m2 [place] Body Weight 140 lb Weight 104.782 kg BSA (Body Surface Area) 2.17 m2 07/29/2020 1:01pm BP Systolic 122 mmHg BP Diastolic 76 mmHg Heart Rate 86 /min O2 % BldC Oximetry 96 % Body Temperature 96.6 F Height 68 inches 5'8" Weight 300.50 lb BMI (Body Mass Index) 45.7 kg/m2 [place] Body Weight 140 lb Weight 136.307 kg BSA (Body Surface Area) 2.43 m2 Results Description No Information Available Procedures Description No Information Available Medical Devices Description No Information Available Encounters Description No Information Available Assessments Description No Information Available Plan of Treatment 07/29/2020 - GABRIELA Loya* G47.33 Obstructive sleep apnea (adult) (pediatric) * * Follow up:* Follow up in 3-4 months with compliance report for YOLANDA-30 Functional Status Description No Information Available Mental Status Description No Information Available Referrals Refer to Reason for Referral Status Appt Date Janey Moore D.O. BREAST REDUCTION Scheduled 03/19/2021 [facility] [address] [facility], [place] [address] [phone] Cinthya Grimm A.N.P. YOLANDA Scheduled 11/13/2020 [facility] [address] [place], [place] [address] [phone]
--- OUTSIDE RECORDS SUMMARY | 2021-04-05 20:50 | CCD ---
Author Author [facility] Organization [facility] Address Unknown Phone Unavailable Care Team Providers Care Nurse Case Management Name Role Phone KerenEdilma benitez Unavailable PROBLEMS Type Condition ICD9-CM Code [id number] Code Onset Dates Condition S tatus W/U Status Risk SNOMED Code Notes Problem Vitamin D deficiency E55.9 Active confirmed 85233338 Problem Dyspepsia R10.13 Active confirmed 629170141 Problem Tobacco use disorder Z72.0 Active confirmed 88613471 Problem Malignant melanoma of right upper extremity including shoulder C43.61 Active confirmed 945661840 Problem Malignant melanoma of left lower extremity including hip C43.72 Active confirmed 733564313 Problem 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 Active confirm ed 28659853 Problem Obesity (BMI 30-39.9) E66.9 Active confirmed 793905931 Problem Gastroesophageal reflux disease without esophagitis K21.9 Active confirmed 581102934 Problem Anxiety state, unspecified F41.1 Active confirmed 057067471 Problem Fatty liver K76.0 Active confirmed 49937888 7 Problem Other allergic rhinitis J30.89 Active confirmed 51485236 Problem Bilateral low back pain without sciatica M54.5 Active confirmed 705966895 Problem Arthralgia of multiple joints M25.50 Active confirm ed 37880937 Problem Polyneuropathy G62.9 Active confirmed 84174 000 Problem Bilateral carpal tunnel syndrome G56.03 Active conf irmed 23212547 Problem Degenerative disc disease, lumbar M51.36 Active confirmed 18233665 Problem History of dysplastic nevus Z86.018 Active conf irmed 2062023964858 Problem Mixed hyperlipidemia E78.2 Active confirmed 245856287 Problem Elevated fasting glucose R73.01 Active confirmed 04970139 Problem Cigarette nicotine dependence without complication F17.210 Active confirmed 10184788 Problem Metabolic syndrome E88.81 Active confirmed 2 73295334 Problem Body mass index (BMI) 40.0-44.9, adult Z68.41 A ctive confirmed 084108866 Problem Morbid (severe) obesity due to excess calories E66 .01 Active confirmed 241103611 Problem History of malignant melanoma Z85.820 Active confir med 901213371 Problem Renal calculus, right N20.0 Active confirmed 50577210 Problem Obstructive sleep apnea (adult) (pediatric) G47.33 Active confirmed 55882284 Problem History of gestational diabetes Z86.32 Active confi rmed 257129631 Problem Cigarette nicotine dependence in remission F17.211 Active confirmed 545053982 Problem History of melanoma Z85.820 Active confirmed 219333413 Problem Hx of dysplastic nevus Z86.018 Active confirmed 8903718456298 Problem Status post bariatric surgery Z98.84 Active confirm ed 580633248 Problem BMI 39.0-39.9,adult Z68.39 Active confirmed 068757314 ALLERGIES No Known Allergies ENCOUNTERS from 1975 to 2021-02-21 Encounter Location Date Provider Diagnosis [facility] [address] [facility] [phone] [place] [address] Jan, Edilma Veliz Herpes simplex vulvo vaginitis A60.04 and Acute vaginitis N76.0 IMMUNIZATIONS Vaccine Route Administration Date Status Influenza [...] Education Language: Question Answer Notes Languages spoken: Danish Jain: Question Answer Notes Jain 08 Mormon Sexual Hx: Question Answer Notes Had sex [...] needed for 14 days Oct, Not- Taking Vitamin D 50 MCG (2000 UT) 1 tablet Orally Once a day for 30 days Active hydrOXYzine HCl 25 MG 1 tablet as needed Orally as needed TID for itching for 10 days Jul, Not-Taking Triamcinolone Acetonide 0.1 % apply thin layer to affe cted areas on arms, legs and torso Externally BID as needed for 7 days Jul, Not-Taking Multi-Day Plus Minerals - 1 tab(s) Orally daily with food for 30 day( s) Active Biotin 10 MG 1 tablet Orally Once a day for 30 day(s) Active Albuterol Sulfate HFA 108 (90 Base) MCG/ACT 2 puffs as needed Inhalation every 6 hrs Nov, Active Vitamin B-12 1000 MCG as directed Orally Active Fluconazole 150 MG 1 tablet Orally one today an d repeat in 3 days as needed for 7 day(s) Nov, Not-Taking Omeprazole 20 MG TAKE ONE CAPSULE BY MOUTH EV MARGUERITE DAY Oral Once a day for 30 days Active Azelastine HCl 0.1 % 1 puff in each nostril Nasally Daily for 30 days Active Triamcinolone Acetonide 0.1 % 1 application Externally Twice a day to scar for 14 days Mar, Not-Taking Flonase 50 MCG/ACT 1 spray in each nostril Nasa lly once a day at bedtime for 30 days Active [facility] Saline Nasal [place] 0.65 % as directed Nasally Active Acyclovir 400 MG 1 tablet Orally three times daily as needed for 5 da ys Active Drisdol 84404 UNIT 1 capsule Orally once every 2 weeks with meal for 30 Days Not-Taking Cetirizine HCl 10 MG 1 tablet Orally Once a day for 30 days Active metroNIDAZOLE 0.75 % 1 applicatorful at bedtime Vaginal Once a day for 5 day(s) Nov, Active PROCEDURES No Information RESULTS No Results REASON FOR VISIT refill MEDICAL (GENERAL) HISTORY Type Description Date Medical [...] hysterectomy - robotic, lap assisted - D brennen Jolley 10/12 Surgical History melanoma excision 02-25-16 [...] Notes Treatment Notes Treatm ent Clinical Notes Jan, Herpes simplex vulvovaginitis (ICD-10 - A60.04) Jan, Acute vaginitis (ICD-10 - N76.0) PLAN OF TREATMENT Medication Medication Name Sig Start Date Stop Date Acyclovir 400 MG 1 tablet Orally three times daily as needed for 5 days Omeprazole 20 MG TAKE ONE CAPSULE BY MOUTH EV MARGUERITE DAY Oral Once a day for 30 days metroNIDAZOLE 0.75 % 1 applicatorful at bedtime Vaginal Once a day for 5 day(s) Nov, Flonase 50 MCG/ACT 1 spray in each nostril Nasa lly once a day at bedtime for 30 days Vitamin D 50 MCG (1999 UT) 1 tablet Orally Once a day for 30 day s Next Appt Details Provider Name:Mikki Lane, 2021-03-31 11:00:00 AM, [address] [facility], , [place], [place], [facility], Provider Name:Mihaela Fair, 2021-08-14 09:00:00 AM, [address] [facility], , [place], [address], Insurance Providers Payer Name Payer Address Payer Phone Insured Name Patient Relati onship to Insured Coverage Start Date Coverage End Date [facility] [employer] [facility] [address] [facility] [phone] RECOR,JAY HAINES self
--- OUTSIDE RECORDS SUMMARY | 2021-04-05 20:50 | CCD ---
Author Author [facility] Organization [facility] Address Unknown Phone Unavailable Care Team Providers Care Lace Roller Operator Name Role Phone Beverley Kulkarni Unavailable PROBLEMS Type Condition ICD9-CM Code [id number] Code Onset Dates Condition S tatus W/U Status Risk SNOMED Code Notes Problem Vitamin D deficiency E55.9 Active confirmed 80246537 Problem Dyspepsia R10.13 Active confirmed 433695390 Problem Tobacco use disorder Z72.0 Active confirmed 78533358 Problem Malignant melanoma of right upper extremity including shoulder C43.61 Active confirmed 008605422 Problem Malignant melanoma of left lower extremity including hip C43.72 Active confirmed 094672782 Problem 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 Active confirm ed 46011410 Problem Obesity (BMI 30-39.9) E66.9 Active confirmed 388618995 Problem Gastroesophageal reflux disease without esophagitis K21.9 Active confirmed 608184900 Problem Anxiety state, unspecified F41.1 Active confirmed 712229080 Problem Fatty liver K76.0 Active confirmed 15061323 7 Problem Other allergic rhinitis J30.89 Active confirmed 63377668 Problem Bilateral low back pain without sciatica M54.5 Active confirmed 642321904 Problem Arthralgia of multiple joints M25.50 Active confirm ed 44002931 Problem Polyneuropathy G62.9 Active confirmed 17831 000 Problem Bilateral carpal tunnel syndrome G56.03 Active conf irmed 40265867 Problem Degenerative disc disease, lumbar M51.36 Active confirmed 73132826 Problem History of dysplastic nevus Z86.018 Active conf irmed 5215452907469 Problem Mixed hyperlipidemia E78.2 Active confirmed 971285992 Problem Elevated fasting glucose R73.01 Active confirmed 36196706 Problem Cigarette nicotine dependence without complication F17.210 Active confirmed 32230458 Problem Metabolic syndrome E88.81 Active confirmed 2 53004018 Problem Body mass index (BMI) 40.0-44.9, adult Z68.41 A ctive confirmed 287914745 Problem Morbid (severe) obesity due to excess calories E66 .01 Active confirmed 921551439 Problem History of malignant melanoma Z85.820 Active confir med 838566049 Problem Renal calculus, right N20.0 Active confirmed 75771223 Problem Obstructive sleep apnea (adult) (pediatric) G47.33 Active confirmed 23134326 Problem History of gestational diabetes Z86.32 Active confi rmed 241764734 Problem Cigarette nicotine dependence in remission F17.211 Active confirmed 708060448 Problem History of melanoma Z85.820 Active confirmed 469654514 Problem Hx of dysplastic nevus Z86.018 Active confirmed 8364259162332 Problem Status post bariatric surgery Z98.84 Active confirm ed 178212715 Problem BMI 39.0-39.9,adult Z68.39 Active confirmed 981488194 ALLERGIES No Known Allergies ENCOUNTERS from 1975 to 2021-02-20 Encounter Location Date Provider Diagnosis [place] [address] [facility] [phone] [place] [address] Jan, Beverley Kulkarni Herpes simplex vulvovaginiti s A60.04 and Other allergic rhinitis J30.89 IMMUNIZATIONS Vaccine Route Administration Date Status Influenza [...] Education Language: Question Answer Notes Languages spoken: [place] Citizen Voodoo: Question Answer Notes Voodoo 08 Restorationism Sexual Hx: Question Answer Notes Had sex [...] for itching for 10 days Jul, Not-Taking [facility] Saline Nasal [place] 0.65 % as directed Nasally Active Multi-Day Plus Minerals - 1 tab(s) [...] as needed for 7 day(s) Nov, Not-Taking Azelastine HCl 0.1 % 1 puff in each nostril Nasally Daily for 30 days Active Triamcinolone Acetonide 0.1 % apply thin layer to affe cted areas on arms, legs and torso Externally BID as needed for 7 days Jul, Not-Taking Triamcinolone Acetonide 0.1 % 1 application Externally Twice a day to scar for 14 days Mar, Not-Taking Omeprazole 20 MG TAKE ONE CAPSULE BY MOUTH EV MARGUERITE DAY Oral Once a day for 30 days Active Acyclovir 400 MG 1 tablet Orally three times daily as needed for 5 da ys Active metroNIDAZOLE 0.75 % 1 applicatorful at bedtime Vaginal Once a day for 5 day(s) Nov, Active Drisdol 72163 UNIT 1 capsule Orally once every 2 weeks with meal for 30 Days Not-Taking Cetirizine HCl 10 MG 1 tablet Orally Once a day for 30 days Active Flonase 50 MCG/ACT 1 spray in each nostril Nasa lly once a day at bedtime for 30 days Active PROCEDURES No Information RESULTS No Results REASON FOR VISIT Medications refills MEDICAL (GENERAL) HISTORY Type Description Date Medical [...] Herpes simplex vulvovaginitis (ICD-10 - A60.04) Jan, Other allergic rhinitis (ICD-10 - J30.89) PLAN OF TREATMENT Medication Medication Name Sig Start Date Stop Date metroNIDAZOLE 0.75 % 1 applicatorful at bedtime Vaginal Once a day for 5 day(s) Nov, Acyclovir 400 MG 1 tablet Orally three times daily as needed for 5 days Flonase 50 MCG/ACT 1 spray in each nostril Nasa lly once a day at bedtime for 30 days Omeprazole 20 MG TAKE ONE CAPSULE BY MOUTH EV MARGUERITE DAY Oral Once a day for 30 days Vitamin D 50 MCG (2000 UT) 1 tablet Orally Once a day for 30 day s Next Appt Details Provider Name:Mikki Lane, 2021-03-31 11:00:00 AM, [address] [facility], , [place], [place], [facility], Provider Name:Mihaela Fair, 2021-08-14 09:00:00 AM, [address] [facility], , [place], [address], Insurance Providers Payer Name Payer Address Payer Phone Insured Name Patient Relati onship to Insured Coverage Start Date Coverage End Date [facility] [employer] [facility] [address] [facility] [phone] RECOR,JAY HAINES self
--- OUTSIDE RECORDS SUMMARY | 2021-04-05 20:50 | CCD ---
Continuity of Care Document (CCD) Created on: 01/28/2021 Maria Alejandra Herr External Reference #: [id number] : 1975 Sex: Female Author Author [facility] Blanca Tavares Organization Unknown Address [address] [address] Phone [phone] Care Team Providers Care Alumni Relations Manager Name Role Phone Beverley Kulkarni AUTGuy Unavailable Katty Britt MD AUT [phone] Problems Active Problems Provider Date Anxiety Onset: [...] Katty Britt MD Vitamin D (Ergocalciferol) 1.25mg (34454 Ut) Capsules Take One Capsule By Mouth Every 2 Weeks With A Meal Unknown Biotin Maximum 61079uva Tablets Di spers once daily Unknown Claritin [...] Test Result H/L Range Note CBCP 01/20/2021 [facility] [address] [place] [address] [phone] WBC. 9.12 x10E3/uL 4.2-12.0 RBC 4.88 x10E6/uL 3.9-5.4 HGB 15.6 g/dL 12.0-16.0 HCT 43.9 % 36-47 MCV 89.8 fL 80-98 MCH 31.9 pg 27-33 MCHC 35.6 g/dL 32-36 RDW 13.4 % 11.2-15.2 PLT 344 x10E3/uL 135-420 MPV 7.9 fL 7.0-12.3 CMP-Female 01/20/2021 [facility] [address] [place] [address] [phone] Glucose 85 mg/dL 74-106 1 BUN 8 [...] 10.1 mg/dL 8.9-10.5 Laboratory test finding 01/20/2021 [facility] [address] [facility] [address] [phone] B12 669 pg/mL 211-911 5 Vitamin D, 25(Oh). 41.19 ng/ml 30-100 6 Miscellaneous ok - 7 Folate 6.18 ng/ml 1.1-20.0 8 Ferritin 203 ng/ml 10.0-291.0 9 Vitamin B1 (Thiamine),Blood 134 nmol/L 78-185 10 Venipuncture DONE - 11 CBCP 09/11/2020 [facility] [address] [facility] [place] [address] [phone] WBC. 7.05 x10E3/uL 4.2-12.0 RBC 4.71 x10E6/uL 3.9-5.4 HGB 14.4 g/dL 12.0-16.0 HCT 43.2 % 36-47 MCV 91.7 fL 80-98 MCH 30.7 pg 27-33 MCHC 33.5 g/dL 32-36 RDW 14.0 % 11.2-15.2 PLT 299 x10E3/uL 135-420 MPV 6.9 fL Low 7.0-12.3 BMP-Female 09/11/2020 [facility] [address] [facility] [place] [address] [phone] Glucose 89 mg/dL 74-106 12 BUN 13 mg/dL 6-20 Creatinine 0.8 mg/dL 0.5-1.3 Sodium 138 mmol/L 136-145 Potassium 4.3 mmol/L 3.5-5.3 Chloride 105 mmol/L 98-107 Co2 24 mEq/L 20-31 Anion Gap 9 mmol/L 7-16 eGFR-female 78 mL/m/1.73m - eGFR-Aa female 95 mL/m/1.73m - 13 Calcium 9.6 mg/dL 8.9-10.5 Laboratory test finding 09/11/2020 [facility] [address] [place] [address] [phone] Miscellaneous ok - 14 Venipuncture DONE - 15 Lacny T&S sent - 16 1 [place] Diabetes Associatio n (ADA) Recommended Range is 65-99 mg/dL 2 Normal Kidney Function or Mi ld Disease GFR >59 mL/min/1.73m2 Chronic Kidney Disease GFR 15-59 mL/min/1.73m2 Renal Failure GFR <15 mL/min/1.73m2 3 Effective 11/28/2016: Compound Time has indicated interference with the drugs sulfasalazine [...] analytical performance characteristics have been determined by [facility] [place]. It has not been cleared or approved by the U.S. Food and Drug Administration. This assay has been validated pursuant to the CLIA regulations and is used for clinical purposes. 11 Vit B1 / Thiamine 12 [place] Diabetes Associatio n (ADA) Recommended Range is 65-99 mg/dL 13 Normal Kidney Function or Mi ld Disease GFR >59 mL/min/1.73m2 Chronic Kidney Disease GFR 15-59 mL/min/1.73m2 Renal Failure GFR <15 mL/min/1.73m2 14 Type & Screen 15 Type & Screen 16 Type & Screen Procedures Date Code Description Status 01/20/2021 72063 Office/Outpatient Established Lo w MDM 20-29 Min Completed 09/16/2020 40203 Laparoscopy Surg Gas t Restrict Procedure Longitudinal Gastrectomy Completed 09/16/2020 36545 Laparoscopy Surg Gas t Restrict Procedure Longitudinal Gastrectomy Completed 09/11/2020 38261 Office/Outpatient Established Mo d MDM 30-39 Min Completed 09/11/2020 22047 Office/Outpatient Established Mi nimal Problem(S) Completed 08/20/2020 20007 Office/Outpatient Established Mo d MDM 30-39 Min Completed Medical Devices Description No Information Available Encounters Type Date Location Provider Dx Diagnosis Office Visit 01/20/2021 2:45p [facility] Surgical Services Katty Britt MD Z 98.84 Bariatric surgery status E66.9 Obesity, unspecified F32.9 Major depressive disorder, s ranjeet episode, unspecified Z68.32 Body mass index [BMI] 32.0-3 2.9, adult Office Visit 10/21/2020 11:30a [facility] Surgical Services DARON Peña Z09 Encntr for f/u exam aft trtmt for cond oth than malig neoplm E66.01 Morbid (severe) obesity due to excess calories Z98.84 Bariatric surgery status Z71.3 Dietary counseling and surve illance Office Visit 09/26/2020 1:30p [facility] Surgical Services DARON Peña G89.18 Other acute postprocedural pain E66.01 Morbid (severe) obesity due to excess calories Z98.84 Bariatric surgery status Z71.3 Dietary counseling and surve illance Z68.39 Body mass index [BMI] 39.0-3 9.9, adult Office Visit 09/17/2020 2:34a [facility] Surgical Services Katty Britt MD Office Visit 09/11/2020 11:15a [facility] Covid-19 Testing Z20.822 Contact with and (suspected) exposure to Covid-19 Office Visit 09/11/2020 12:30p [facility] Surgical Services DARON Peña E66.01 Morbid (severe) obesity due to excess calories G47.33 Obstructive sleep apnea (kaye lt) (pediatric) E78.5 Hyperlipidemia, unspecified F41.9 Anxiety disorder, unspecifie d Z01.818 Encounter for other preproce dural examination Z01.812 Encounter for preprocedural laboratory examination Z99.89 Dependence on other enabling machines and devices Z68.41 Body mass index [BMI] 40.0-4 4.9, adult Office Visit 08/20/2020 11:00a [facility] Surgical Services DARON Peña E66.01 Morbid (severe) obesity due to excess calories E78.5 Hyperlipidemia, unspecified F41.9 Anxiety disorder, unspecifie d G47.33 Obstructive sleep apnea (kaye lt) (pediatric) Z68.41 Body mass index [BMI] 40.0-4 4.9, adult Assessments Date Code Description Provider 01/20/2021 E66.01 Morbid (severe) obesity due to e xcess calories [facility] 01/20/2021 Z98.84 Bariatric surgery status Katty Britt MD 01/20/2021 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, unspec ified [facility] 01/20/2021 E66.9 Obesity, unspecified Katty Britt MD 01/20/2021 Z98.84 Bariatric surgery status [facility] 01/20/2021 F32.9 Major depressive disorder, singl e episode, unspecified Katty Britt MD 01/20/2021 Z68.39 Body mass index [BMI] 39.0-39.9, adult [facility] 01/20/2021 Z68.32 Body mass index [BMI] 32.0-32.9, adult Katty Britt MD 10/21/2020 Z09 Postoperative visit [...] (severe) obesity due to e xcess calories Amna Griffin PA 09/16/2020 E78.5 Hyperlipidemia, unspecified Megan ndjasmina Griffin PA 09/16/2020 G47.33 Obstructive sleep apnea (adult) [...] (severe) obesity due to e xcess calories Amna Griffin PA 09/11/2020 G47.33 Obstructive sleep apnea (adult) (pediatric) [...] (severe) obesity due to e xcess calories [facility] 09/11/2020 G47.33 Obstructive sleep apnea (adult) (pediatric) [facility] 09/11/2020 Z01.812 Encounter for preprocedural labo [facility] 08/20/2020 E66.01 Morbid (severe) obesity due to e xcess calories DARON Peña 08/20/2020 E78.5 Hyperlipidemia, unspecified DARON Andujar 08/20/2020 F41.9 Anxiety disorder, unspecified Me DARON Haley 08/20/2020 G47.33 Obstructive sleep apnea (adult) (pediatric) DARON Peña 08/20/2020 Z68.41 Body mass index [BMI]40.0-44.9, adult DAORN Peña Plan of Treatment 01/20/2021 - Katty [...] Reason for Referral Status Appt Date Deana Gao, RD CDN nutritional consultation Closed [facility] [address], [address] [place] [address] [phone]
--- OUTSIDE RECORDS SUMMARY | 2021-04-05 20:50 | CCD ---
Author Author [facility] Organization [facility] Address Unknown Phone Unavailable Care Team Providers Care Harness Repairer Name Role Phone Beverley Kulkarni Unavailable PROBLEMS Type Condition ICD9-CM Code [id number] Code Onset Dates Condition S tatus W/U Status Risk SNOMED Code Notes Problem Vitamin D deficiency E55.9 Active confirmed 45653723 Problem Dyspepsia R10.13 Active confirmed 003054029 Problem Tobacco use disorder Z72.0 Active confirmed 32101524 Problem Malignant melanoma of right upper extremity including shoulder C43.61 Active confirmed 759206555 Problem Malignant melanoma of left lower extremity including hip C43.72 Active confirmed 434346563 Problem 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 Active confirm ed 55722936 Problem Obesity (BMI 30-39.9) E66.9 Active confirmed 910740119 Problem Gastroesophageal reflux disease without esophagitis K21.9 Active confirmed 914863029 Problem Anxiety state, unspecified F41.1 Active confirmed 813911275 Problem Fatty liver K76.0 Active confirmed 37827232 7 Problem Other allergic rhinitis J30.89 Active confirmed 20314948 Problem Bilateral low back pain without sciatica M54.5 Active confirmed 397437422 Problem Arthralgia of multiple joints M25.50 Active confirm ed 67454309 Problem Polyneuropathy G62.9 Active confirmed 23485 000 Problem Bilateral carpal tunnel syndrome G56.03 Active conf irmed 41252845 Problem Degenerative disc disease, lumbar M51.36 Active confirmed 37398692 Problem History of dysplastic nevus Z86.018 Active conf irmed 4089255501485 Problem Mixed hyperlipidemia E78.2 Active confirmed 409302429 Problem Elevated fasting glucose R73.01 Active confirmed 37918810 Problem Cigarette nicotine dependence without complication F17.210 Active confirmed 89161482 Problem Metabolic syndrome E88.81 Active confirmed 2 48609102 Problem Body mass index (BMI) 40.0-44.9, adult Z68.41 A ctive confirmed 941810274 Problem Morbid (severe) obesity due to excess calories E66 .01 Active confirmed 762418296 Problem History of malignant melanoma Z85.820 Active confir med 942404212 Problem Renal calculus, right N20.0 Active confirmed 87587454 Problem Obstructive sleep apnea (adult) (pediatric) G47.33 Active confirmed 52613269 Problem History of gestational diabetes Z86.32 Active confi rmed 223390596 Problem Cigarette nicotine dependence in remission F17.211 Active confirmed 561642196 Problem History of melanoma Z85.820 Active confirmed 631127382 Problem Hx of dysplastic nevus Z86.018 Active confirmed 7035490449115 Problem Status post bariatric surgery Z98.84 Active confirm ed 172539568 Problem BMI 39.0-39.9,adult Z68.39 Active confirmed 953272552 ALLERGIES No Known Allergies ENCOUNTERS from 1977 to 2021-03-11 Encounter Location Date Provider Diagnosis [place] [id number] [facility] [phone] [place] [address] 12 Feb, 2021 Beverley Kulkarni Hypertrophy of breast N62 IMMUNIZATIONS Vaccine Route Administration Date Status Influenza [...] Education Language: Question Answer Notes Languages spoken: Croatian Yazidism: Question Answer Notes Yazidism 08 Latter Day Sexual Hx: Question Answer Notes Had sex [...] former smoker quit 08/2020 REASON FOR REFERRAL from 1975 to 2021-03-11 Reason please eval and treat for pita tinsley with back pain Diagnosis 1 Hypertrophy of breast (N62) Referral Organization [facility] Renata Referring Provider First Name Beverley Referring Provider Last Name Shad Referring Provider Specialty Family Medicine Referred Provider Janey Funk Referred Provider Specialty Plastic and Reconstructive Surgery Referral Priority Routine General Notes AdrienCherie siddiqui 03/11/2021 1:39 :54 PM > faxedVicki Sifuentes 03/11/2021 2:24:25 PM > [facility] referral to Dr. Funk done ID# [id number], form faxed VITAL SIGNS No information MEDICATIONS Medication SIG [...] for 30 days Active [facility] Saline Nasal [place] 0.65 % as directed Nasally Active Acyclovir 400 MG 1 tablet Orally three times daily as needed for 5 da ys Active Drisdol 36546 UNIT 1 capsule Orally once every 2 weeks with meal for 30 Days Not-Taking Cetirizine HCl 10 MG 1 tablet Orally Once a day for 30 days Active metroNIDAZOLE 0.75 % 1 applicatorful at bedtime Vaginal Once a day for 5 day(s) Nov, Active PROCEDURES No Information RESULTS No Results REASON FOR VISIT [facility] referral Plastic MEDICAL (GENERAL) HISTORY Type Description Date Medical [...] Notes Treatment Notes Treatm ent Clinical Notes Feb, Hypertrophy of breast (ICD-10 - N62) PLAN OF TREATMENT Medication Medication Name Sig [...] for 30 days Vitamin D 50 MCG (1999) 1 tablet Orally Once a day for 30 day s Referrals Referral Date Details please eval and treat for pita tinsley with back pain, Janey Funk Next Appt Details Provider Name:Mikki See Domingo, 2021-03-31 11:00:00 AM, [address] [facility], , [place], [place], [facility], Provider Name:Mihaela Fair, 2021-08-14 09:00:00 AM, [address] [place] [address], , [place], [address], Provider Name:Edilma Veliz, 2021-09-05 01:00:00 PM, [address] [place] [address], , [place], [place], [facility] [phone] Insurance Providers Payer Name Payer Address Payer Phone Insured Name Patient Relati onship to Insured Coverage Start Date Coverage End Date [facility] PL[facility] [address] [facility] [address] [phone] RECOR,JAY HAINES self
--- OUTSIDE RECORDS SUMMARY | 2021-04-05 20:50 | CCD ---
Author Author [facility] Organization [facility] Address Unknown Phone Unavailable Care Team Providers Care Gas Line Installer Supervisor Name Role Phone Beverley Kulkarni Unavailable PROBLEMS Type Condition ICD9-CM Code QFU05-HX Code Onset Dates Condition S tatus W/U Status Risk SNOMED Code Notes Problem Vitamin D deficiency E55.9 Active confirmed 52047997 Problem Dyspepsia R10.13 Active confirmed 463259701 Problem Tobacco use disorder Z72.0 Active confirmed 84324382 Problem Malignant melanoma of right upper extremity including shoulder C43.61 Active confirmed 367671486 Problem Malignant melanoma of left lower extremity including hip C43.72 Active confirmed 488789534 Problem 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 Active confirm ed 48886094 Problem Obesity (BMI 30-39.9) E66.9 Active confirmed 398667217 Problem Gastroesophageal reflux disease without esophagitis K21.9 Active confirmed 171197535 Problem Anxiety state, unspecified F41.1 Active confirmed 241863654 Problem Fatty liver K76.0 Active confirmed 11284657 7 Problem Other allergic rhinitis J30.89 Active confirmed 36515710 Problem Bilateral low back pain without sciatica M54.5 Active confirmed 546740641 Problem Arthralgia of multiple joints M25.50 Active confirm ed 19733929 Problem Polyneuropathy G62.9 Active confirmed 75470 000 Problem Bilateral carpal tunnel syndrome G56.03 Active conf irmed 67935654 Problem Degenerative disc disease, lumbar M51.36 Active confirmed 32566065 Problem History of dysplastic nevus Z86.018 Active conf irmed 7277757715922 Problem Mixed hyperlipidemia E78.2 Active confirmed 364191030 Problem Elevated fasting glucose R73.01 Active confirmed 40292242 Problem Cigarette nicotine dependence without complication F17.210 Active confirmed 37901288 Problem Metabolic syndrome E88.81 Active confirmed 2 44818677 Problem Body mass index (BMI) 40.0-44.9, adult Z68.41 A ctive confirmed 239155591 Problem Morbid (severe) obesity due to excess calories E66 .01 Active confirmed 967205343 Problem History of malignant melanoma Z85.820 Active confir med 233058512 Problem Renal calculus, right N20.0 Active confirmed 53549452 Problem Obstructive sleep apnea (adult) (pediatric) G47.33 Active confirmed 66036237 Problem History of gestational diabetes Z86.32 Active confi rmed 761675304 Problem Cigarette nicotine dependence in remission F17.211 Active confirmed 243572974 Problem History of melanoma Z85.820 Active confirmed 293125627 Problem Hx of dysplastic nevus Z86.018 Active confirmed 1207274176508 Problem Status post bariatric surgery Z98.84 Active confirm ed 891715003 Problem BMI 39.0-39.9,adult Z68.39 Active confirmed 509341951 ALLERGIES No Known Allergies ENCOUNTERS from 1977 to 2021-03-11 Encounter Location Date Provider Diagnosis [place] [address] [facility] [phone] [place] [address] 12 Feb, 2021 Beverley Kulkarni IMMUNIZATIONS Vaccine Route Administration Date [...] Education Language: Question Answer Notes Languages spoken: Kosovan Episcopalian: Question Answer Notes Episcopalian 08 Scientologist Sexual Hx: Question Answer Notes Had sex [...] for 30 days Active [facility] Saline Nasal [place] 0.65 % as directed Nasally Active Acyclovir 400 MG 1 tablet Orally three times daily as needed for 5 da ys Active Drisdol 65634 UNIT 1 capsule Orally once every 2 weeks with meal for 30 Days Not-Taking Cetirizine HCl 10 MG 1 tablet Orally Once a day for 30 days Active metroNIDAZOLE 0.75 % 1 applicatorful at bedtime Vaginal Once a day for 5 day(s) Nov, Active PROCEDURES No Information RESULTS No Results REASON FOR VISIT referral MEDICAL (GENERAL) HISTORY Type Description Date Medical [...] Information ASSESSMENTS No Information PLAN OF TREATMENT Medication Medication Name Sig [...] Provider Name:Mikki Lane, 2021-03-31 11:00:00 AM, [address] [facility], , [place], [address], Provider Name:Mihaela Fair, 2021-08-14 09:00:00 AM, [address] [place] [address] , [place], [address], Provider Name:Edilma Veliz, 2021-09-05 01:00:00 PM, [address] [place] [address] , [place], [address], Insurance Providers Payer Name Payer Address Payer Phone Insured Name Patient Relati onship to Insured Coverage Start Date Coverage End Date [facility] PLAN [facility] [address] [facility] [address] RECOR,JAY HAINES self
--- OUTSIDE RECORDS SUMMARY | 2021-04-05 20:50 | CCD | Continuity of Care Document ---
Author Author Maria Alejandra BRITT MD Organization Unknown Address [address] [place] [address], [address] [place] [address] Phone [phone] Care Team Providers Care Security Assistant Name Role Phone Beverley Kulkarni AUTGuy Unavailable Katty Britt MD AUTM [phone] Problems Active Problems Provider Date Anxiety Onset: [...] Katty Britt MD Vitamin D (Ergocalciferol) 1.25mg (19245 Ut) Capsules Take One Capsule By Mouth Every 2 Weeks With A Meal Unknown Biotin Maximum 91945xof Tablets Di spers once daily Unknown Claritin [...] Test Result H/L Range Note CBCP 09/11/2020 [facility] [address] [place] [address] [phone] WBC. 7.05 x10E3/uL 4.2-12.0 RBC 4.71 x10E6/uL 3.9-5.4 HGB 14.4 g/dL 12.0-16.0 HCT 43.2 % 36-47 MCV 91.7 fL 80-98 MCH 30.7 pg 27-33 MCHC 33.5 g/dL 32-36 RDW 14.0 % 11.2-15.2 PLT 299 x10E3/uL 135-420 MPV 6.9 fL Low 7.0-12.3 BMP-Female 09/11/2020 [facility] [address] [place] [address] [phone] Glucose 89 mg/dL 74-106 1 BUN 13 mg/dL 6-20 Creatinine 0.8 mg/dL 0.5-1.3 Sodium 138 mmol/L 136-145 Potassium 4.3 mmol/L 3.5-5.3 Chloride 105 mmol/L 98-107 Co2 24 mEq/L 20-31 Anion Gap 9 mmol/L 7-16 eGFR-female 78 mL/m/1.73m - eGFR-Aa female 95 mL/m/1.73m - 2 Calcium 9.6 mg/dL 8.9-10.5 Laboratory test finding 09/11/2020 [facility] [address] [place] [address] [phone] Miscellaneous ok - 3 Venipuncture DONE - 4 Lacny T&S sent - 5 1 [place] Diabetes Associatio n (ADA) Recommended Range is 65-99 mg/dL 2 Normal Kidney Function or Mi ld Disease GFR >59 mL/min/1.73m2 Chronic Kidney Disease GFR 15-59 mL/min/1.73m2 Renal Failure GFR <15 mL/min/1.73m2 3 Type & Screen 4 Type & Screen 5 Type & Screen Procedures Date Code Description Status 01/20/2021 40030 Office/Outpatient Established Lo w MDM 20-29 Min Completed 09/16/2020 64706 Laparoscopy Surg Gas t Restrict Procedure Longitudinal Gastrectomy Completed 09/16/2020 33677 Laparoscopy Surg Gas t Restrict Procedure Longitudinal Gastrectomy Completed 09/11/2020 12741 Office/Outpatient Established Mo d MDM 30-39 Min Completed 09/11/2020 72148 Office/Outpatient Established Mi nimal Problem(S) Completed 08/20/2020 70106 Office/Outpatient Established Mo d MDM 30-39 Min Completed Medical Devices Description No Information Available Encounters Type Date Location Provider Dx Diagnosis Office Visit 01/20/2021 2:45p [facility] Surgical Services Katty Britt MD Z 98.84 Bariatric surgery status E66.01 Morbid (severe) obesity due to excess calories Office Visit 10/21/2020 11:30a [facility] Surgical Services DARON Peña Z09 Encntr for f/u exam aft trtmt for cond oth than malig neoplm E66.01 Morbid (severe) obesity due to excess calories Z98.84 Bariatric surgery status Z71.3 Dietary counseling and surve illance Office Visit 09/26/2020 1:30p [facility] Surgical Services DARON Peña G89.18 Other acute postprocedural pain E66.01 Morbid (severe) obesity due to excess calories Z98.84 Bariatric surgery status Z71.3 Dietary counseling and surve illance Z68.39 Body mass index [BMI] 39.0-3 9.9, adult Office Visit 09/17/2020 2:34a [facility] Surgical Services Katty Britt MD Office Visit 09/11/2020 11:15a [facility] Primary Care AT [facility] Covid-19 Testing Z20.822 Contact with and (suspected) exposure to Covid-19 Office Visit 09/11/2020 12:30p [facility] Surgical Services DARON Peña E66.01 Morbid (severe) obesity due to excess calories G47.33 Obstructive sleep apnea (kaye lt) (pediatric) E78.5 Hyperlipidemia, unspecified F41.9 Anxiety disorder, unspecifie d Z01.818 Encounter for other preproce dural examination Z01.812 Encounter for preprocedural laboratory examination Z99.89 Dependence on other enabling machines and devices Z68.41 Body mass index [BMI] 40.0-4 4.9, adult Office Visit 08/20/2020 11:00a [facility] Surgical Services DARON Peña E66.01 Morbid [...] obesity due to e xcess calories DARON ePña 09/11/2020 G47.33 Obstructive sleep apnea (adult) (pediatric) [...] (severe) obesity due to e xcess calories [facility] 09/11/2020 G47.33 Obstructive sleep apnea (adult) (pediatric) [facility] 09/11/2020 Z01.812 Encounter for preprocedural labo ratory examination [facility] 08/20/2020 E66.01 Morbid [...] Deana Gao RD CDN nutritional consultation Closed [facility] [address] [facility], [address] [place] [address] [phone]
--- OUTSIDE RECORDS SUMMARY | 2021-04-05 20:50 | CCD | Continuity of Care Document ---
Author Author Maria Alejandra BRITT MD Organization Unknown Address [address] [place] [address], [address] [place] [address] Phone [phone] Care Team Providers Care Industrial Chemicals Supervisor Name Role Phone Beverley Kulkarni AUTGuy Unavailable Katty Britt MD AUTM [phone] Problems Active Problems Provider Date Anxiety Onset: [...] Katty Britt MD Vitamin D (Ergocalciferol) 1.25mg (74201 Ut) Capsules Take One Capsule By Mouth Every 2 Weeks With A Meal Unknown Biotin Maximum 21604tfx Tablets Di spers once daily Unknown Claritin [...] Test Result H/L Range Note CBCP 09/11/2020 [facility] [address] [place] [address] [phone] WBC. 7.05 x10E3/uL 4.2-12.0 RBC 4.71 x10E6/uL 3.9-5.4 HGB 14.4 g/dL 12.0-16.0 HCT 43.2 % 36-47 MCV 91.7 fL 80-98 MCH 30.7 pg 27-33 MCHC 33.5 g/dL 32-36 RDW 14.0 % 11.2-15.2 PLT 299 x10E3/uL 135-420 MPV 6.9 fL Low 7.0-12.3 BMP-Female 09/11/2020 [facility] [address] [place] [address] [phone] Glucose 89 mg/dL 74-106 1 BUN 13 mg/dL 6-20 Creatinine 0.8 mg/dL 0.5-1.3 Sodium 138 mmol/L 136-145 Potassium 4.3 mmol/L 3.5-5.3 Chloride 105 mmol/L 98-107 Co2 24 mEq/L 20-31 Anion Gap 9 mmol/L 7-16 eGFR-female 78 mL/m/1.73m - eGFR-Aa female 95 mL/m/1.73m - 2 Calcium 9.6 mg/dL 8.9-10.5 Laboratory test finding 09/11/2020 [facility] [address] [place] [address] [phone] Miscellaneous ok - 3 Venipuncture DONE - 4 Lacny T&S sent - 5 1 [place] Diabetes Associatio n (ADA) Recommended Range is 65-99 mg/dL 2 Normal Kidney Function or Mi ld Disease GFR >59 mL/min/1.73m2 Chronic Kidney Disease GFR 15-59 mL/min/1.73m2 Renal Failure GFR <15 mL/min/1.73m2 3 Type & Screen 4 Type & Screen 5 Type & Screen Procedures Date Code Description Status 01/20/2021 62830 Office/Outpatient Established Lo w MDM 20-29 Min Completed 09/16/2020 41003 Laparoscopy Surg Gas t Restrict Procedure Longitudinal Gastrectomy Completed 09/16/2020 89428 Laparoscopy Surg Gas t Restrict Procedure Longitudinal Gastrectomy Completed 09/11/2020 49713 Office/Outpatient Established Mo d MDM 30-39 Min Completed 09/11/2020 19603 Office/Outpatient Established Mi nimal Problem(S) Completed 08/20/2020 46768 Office/Outpatient Established Mo d MDM 30-39 Min Completed Medical Devices Description No Information Available Encounters Type Date Location Provider Dx Diagnosis Office Visit 01/20/2021 2:45p [facility] Surgical Services Katty Britt MD Z 98.84 Bariatric surgery status E66.01 Morbid (severe) obesity due to excess calories Office Visit 10/21/2020 11:30a [facility] Surgical Services DARON Peña Z09 Encntr for f/u exam aft trtmt for cond oth than malig neoplm E66.01 Morbid (severe) obesity due to excess calories Z98.84 Bariatric surgery status Z71.3 Dietary counseling and surve illance Office Visit 09/26/2020 1:30p [facility] Surgical Services DARON Peña G89.18 Other acute postprocedural pain E66.01 Morbid (severe) obesity due to excess calories Z98.84 Bariatric surgery status Z71.3 Dietary counseling and surve illance Z68.39 Body mass index [BMI] 39.0-3 9.9, adult Office Visit 09/17/2020 2:34a [facility] Surgical Services Katty Britt MD Office Visit 09/11/2020 11:15a [facility] Primary Care AT [facility] Covid-19 Testing Z20.822 Contact with and (suspected) exposure to Covid-19 Office Visit 09/11/2020 12:30p [facility] Surgical Services DARON Peña E66.01 Morbid (severe) obesity due to excess calories G47.33 Obstructive sleep apnea (kaye lt) (pediatric) E78.5 Hyperlipidemia, unspecified F41.9 Anxiety disorder, unspecifie d Z01.818 Encounter for other preproce dural examination Z01.812 Encounter for preprocedural laboratory examination Z99.89 Dependence on other enabling machines and devices Z68.41 Body mass index [BMI] 40.0-4 4.9, adult Office Visit 08/20/2020 11:00a [facility] Surgical Services DARON Peña E66.01 Morbid [...] Peña 09/16/2020 E78.5 Hyperlipidemia, unspecified Megan nda Elisa PA 09/16/2020 G47.33 Obstructive sleep apnea (adult) [...] Peña 09/11/2020 E78.5 Hyperlipidemia, unspecified Megan ndDARON oBnilla 09/11/2020 Z20.822 Contact with and (suspected) exp [...] obesity due to e xcess calories [facility] 09/11/2020 G47.33 Obstructive sleep apnea (adult) (pediatric) [facility] 09/11/2020 Z01.812 Encounter for preprocedural labo ratory examination [facility] 08/20/2020 E66.01 Morbid [...] Deana Gao RD CDN nutritional consultation Closed [facility] [address] [facility], [address] [place] [address] [phone]
--- OUTSIDE RECORDS SUMMARY | 2021-04-05 20:51 | CCD | Continuity of Care Document ---
Author Author Maria Alejandra BRITT MD Organization Unknown Address [address] [place] [address], [address] [place] [address] Phone [phone] Care Team Providers Care Nurse Transitional Name Role Phone Beverley Kulkarni AUTGuy Unavailable Katty Britt MD AUTM [phone] Problems Active Problems Provider Date Anxiety Onset: [...] Katty Britt MD Vitamin D (Ergocalciferol) 1.25mg (25695 Ut) Capsules Take One Capsule By Mouth Every 2 Weeks With A Meal Unknown Biotin Maximum 84162gwl Tablets Di spers once daily Unknown Claritin [...] Test Result H/L Range Note CBCP 09/11/2020 [facility] [address] [place] [address] [phone] WBC. 7.05 x10E3/uL 4.2-12.0 RBC 4.71 x10E6/uL 3.9-5.4 HGB 14.4 g/dL 12.0-16.0 HCT 43.2 % 36-47 MCV 91.7 fL 80-98 MCH 30.7 pg 27-33 MCHC 33.5 g/dL 32-36 RDW 14.0 % 11.2-15.2 PLT 299 x10E3/uL 135-420 MPV 6.9 fL Low 7.0-12.3 BMP-Female 09/11/2020 [facility] [address] [place] [address] [phone] Glucose 89 mg/dL 74-106 1 BUN 13 mg/dL 6-20 Creatinine 0.8 mg/dL 0.5-1.3 Sodium 138 mmol/L 136-145 Potassium 4.3 mmol/L 3.5-5.3 Chloride 105 mmol/L 98-107 Co2 24 mEq/L 20-31 Anion Gap 9 mmol/L 7-16 eGFR-female 78 mL/m/1.73m - eGFR-Aa female 95 mL/m/1.73m - 2 Calcium 9.6 mg/dL 8.9-10.5 Laboratory test finding 09/11/2020 [facility] [address] [place] [address] [phone] Miscellaneous ok - 3 Venipuncture DONE - 4 Lacny T&S sent - 5 1 [employer] n (ADA) Recommended Range is 65-99 mg/dL 2 Normal Kidney Function or Mi ld Disease GFR >59 mL/min/1.73m2 Chronic Kidney Disease GFR 15-59 mL/min/1.73m2 Renal Failure GFR <15 mL/min/1.73m2 3 Type & Screen 4 Type & Screen 5 Type & Screen Procedures Date Code Description Status 01/20/2021 26677 Office/Outpatient Established Lo w MDM 20-29 Min Completed 09/16/2020 85133 Laparoscopy Surg Gas t Restrict Procedure Longitudinal Gastrectomy Completed 09/16/2020 88072 Laparoscopy Surg Gas t Restrict Procedure Longitudinal Gastrectomy Completed 09/11/2020 70646 Office/Outpatient Established Mo d MDM 30-39 Min Completed 09/11/2020 28813 Office/Outpatient Established Mi nimal Problem(S) Completed 08/20/2020 93027 Office/Outpatient Established Mo d MDM 30-39 Min Completed Medical Devices Description No Information Available Encounters Type Date Location Provider Dx Diagnosis Office Visit 01/20/2021 2:45p [facility] Surgical Services Katty Britt MD Z 98.84 Bariatric surgery status E66.01 Morbid (severe) obesity due to excess calories Office Visit 10/21/2020 11:30a [facility] Services DARON Peña Z09 Encntr for f/u exam aft trtmt for cond oth than malig neoplm E66.01 Morbid (severe) obesity due to excess calories Z98.84 Bariatric surgery status Z71.3 Dietary counseling and surve illance Office Visit 09/26/2020 1:30p [facility] Surgical Services DARON Peña G89.18 Other acute postprocedural pain E66.01 Morbid (severe) obesity due to excess calories Z98.84 Bariatric surgery status Z71.3 Dietary counseling and surve illance Z68.39 Body mass index [BMI] 39.0-3 9.9, adult Office Visit 09/17/2020 2:34a [facility] Surgical Services Katty Britt MD Office Visit 09/11/2020 11:15a [facility] Primary Care AT [facility] Covid-19 Testing Z20.822 Contact with and (suspected) exposure to Covid-19 Office Visit 09/11/2020 12:30p [facility] Surgical Services DARON Peña E66.01 Morbid (severe) obesity due to excess calories G47.33 Obstructive sleep apnea (kaye lt) (pediatric) E78.5 Hyperlipidemia, unspecified F41.9 Anxiety disorder, unspecifie d Z01.818 Encounter for other preproce dural examination Z01.812 Encounter for preprocedural laboratory examination Z99.89 Dependence on other enabling machines and devices Z68.41 Body mass index [BMI] 40.0-4 4.9, adult Office Visit 08/20/2020 11:00a [facility] Surgical Services DARON Peña E66.01 Morbid [...] other enabling [employer] DARON Pñea 09/11/2020 Z68.41 Body mass index [BMI]40.0-44.9, adult DARON Peña 09/11/2020 E66.01 Morbid (severe) obesity due to e xcess calories [facility] 09/11/2020 G47.33 Obstructive sleep apnea (adult) (pediatric) [facility] 09/11/2020 Z01.812 Encounter for preprocedural labo ratory examination [facility] 08/20/2020 E66.01 Morbid (severe) obesity [...] Deana Gao RD CDN nutritional consultation [facility] [address], [address] [place] [address] [phone]
--- OUTSIDE RECORDS SUMMARY | 2021-04-05 20:51 | CCD ---
Author Author [facility] Organization [facility] Address Unknown Phone Unavailable Care Team Providers Care Pre Press Proofer Name Role Phone Carine Barajas Unavailable PROBLEMS Type Condition ICD9-CM Code TXH53-IP Code Onset Dates Condition S tatus W/U Status Risk SNOMED Code Notes Problem Vitamin D deficiency E55.9 Active confirmed 25567038 Problem Dyspepsia R10.13 Active confirmed 808829537 Problem Tobacco use disorder Z72.0 Active confirmed 83861566 Problem Malignant melanoma of right upper extremity including shoulder C43.61 Active confirmed 564983950 Problem Malignant melanoma of left lower extremity including hip C43.72 Active confirmed 313514593 Problem 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 Active confirm ed 35893376 Problem Obesity (BMI 30-39.9) E66.9 Active confirmed 619885068 Problem Gastroesophageal reflux disease without esophagitis K21.9 Active confirmed 034216118 Problem Anxiety state, unspecified F41.1 Active confirmed 259371467 Problem Fatty liver K76.0 Active confirmed 31551166 7 Problem Other allergic rhinitis J30.89 Active confirmed 81495089 Problem Bilateral low back pain without sciatica M54.5 Active confirmed 558519668 Problem Arthralgia of multiple joints M25.50 Active confirm ed 86949903 Problem Polyneuropathy G62.9 Active confirmed 95760 000 Problem Bilateral carpal tunnel syndrome G56.03 Active conf irmed 79854245 Problem Degenerative disc disease, lumbar M51.36 Active confirmed 35429344 Problem History of dysplastic nevus Z86.018 Active conf irmed 7818762011292 Problem Mixed hyperlipidemia E78.2 Active confirmed 803310806 Problem Elevated fasting glucose R73.01 Active confirmed 40723919 Problem Cigarette nicotine dependence without complication F17.210 Active confirmed 54698306 Problem Metabolic syndrome E88.81 Active confirmed 2 85650644 Problem Body mass index (BMI) 40.0-44.9, adult Z68.41 A ctive confirmed 186216161 Problem Morbid (severe) obesity due to excess calories E66 .01 Active confirmed 373602461 Problem History of malignant melanoma Z85.820 Active confir med 101222940 Problem Renal calculus, right N20.0 Active confirmed 63658763 Problem Obstructive sleep apnea (adult) (pediatric) G47.33 Active confirmed 49252171 Problem History of gestational diabetes Z86.32 Active confi rmed 163598767 Problem Cigarette nicotine dependence in remission F17.211 Active confirmed 277243674 Problem History of melanoma Z85.820 Active confirmed 907196112 Problem Hx of dysplastic nevus Z86.018 Active confirmed 2938646714821 Problem Status post bariatric surgery Z98.84 Active confirm ed 852195166 Problem BMI 39.0-39.9,adult Z68.39 Active confirmed 720265338 ALLERGIES No Known Allergies ENCOUNTERS from 1977 to 2021-01-15 Encounter Location Date Provider Diagnosis [facility] [address] [place] [address] [place] [address] 18 Dec, 2020 Carine Barajas IMMUNIZATIONS Vaccine Route Administration Date Status Influenza [...] Education Language: Question Answer Notes Languages spoken: Occitan Mandaeism: Question Answer Notes Mandaeism 08 Amish Sexual Hx: Question Answer Notes Had sex [...] Notes Start Da te End Date Status metroNIDAZOLE 0.75 % 1 applicatorful at bedtime Vaginal Once a day for 5 day(s) Nov, Active Drisdol 66274 UNIT 1 capsule Orally once every 2 weeks with meal for 30 Days Active Triamcinolone Acetonide 0.1 % apply thin layer to affe cted areas on arms, legs and torso Externally BID as needed for 7 days Jul, Not-Taking Vitamin B-12 1000 MCG as directed Orally Active Multi-Day Plus Minerals - 1 tab(s) Orally daily with food for 30 day( s) Active Azelastine HCl 0.1 % 1 puff in each nostril Nasally Daily for 30 days Active hydrOXYzine HCl 25 MG 1 tablet as needed Orally as needed TID for itching for 10 days Jul, Not-Taking Omeprazole 20 MG TAKE ONE CAPSULE BY MOUTH EVERY DAY Oral for 30 Not-Taking Triamcinolone Acetonide 0.1 % 1 application Externally Twice a day to affected hands as needed for 14 days Oct, Not- Taking [facility] Saline Nasal [place] 0.65 % as directed Nasally Active Fluconazole 150 MG 1 tablet Orally one today an d repeat in 3 days as needed for 7 day(s) Nov, Active Flonase 50 MCG/ACT 1 spray in each nostril Nasa lly once a day at bedtime for 30 days Active Albuterol Sulfate HFA 108 (90 Base) MCG/ACT 2 puffs as needed Inhalation every 6 hrs Nov, Active Biotin 10 MG 1 tablet Orally Once a day for 30 day(s) Active Triamcinolone Acetonide 0.1 % 1 application Externally Twice a day to scar for 14 days Mar, Not-Taking Acyclovir 400 MG 1 tablet Orally three times daily as needed for 5 da ys Active Cetirizine HCl 10 MG 1 tablet Orally Once a day for 30 days Active PROCEDURES No Information RESULTS No Results REASON FOR VISIT questions/concerns MEDICAL (GENERAL) HISTORY Type Description Date Medical [...] Once a day for 5 day(s) Nov, Next Appt Details Provider Name:Carine Barajas, 19-01-20 09:30:00 AM, [address] [place] [address] , [place], [address], Provider Name:Beverley Kulkarni, 2021-01-22 08:4 5:00 AM, [address] [place] [address] , [place], [address], Provider Name:Mikki Lane, 2021-02-19 03:45:00 PM, [address] [facility], , [place], [address], Insurance Providers Payer Name Payer Address Payer Phone Insured Name Patient Relati onship to Insured Coverage Start Date Coverage End Date [facility] [employer] [facility] [address] [facility] [phone] RECOR,JAY HAINES self
--- OUTSIDE RECORDS SUMMARY | 2021-04-05 20:52 | CCD ---
Author Author [facility] Address Unknown Phone Unavailable Care Team Providers Care Keyboard Operator Name Role Phone Lindy Grimm NP Unavailable Unavailable Lindy Grimm NP Unavailable Unavailable Lindy Grimm NP Unavailable Unavailable Sirisha, L Cinthya INDUSTRIAL INSULATOR Unavailable Unavailable Sirisha, L Cinthya INDUSTRIAL INSULATOR Unavailable Unavailable Sirisha, L Cinthya INDUSTRIAL INSULATOR Unavailable Unavailable Sirisha, L Cinthya INDUSTRIAL INSULATOR Unavailable Unavailable Sirisha, L Cinthya INDUSTRIAL INSULATOR Unavailable Unavailable Sirisha, L Cinthya INDUSTRIAL INSULATOR Unavailable Unavailable Sirisha, L Cinthya INDUSTRIAL INSULATOR Unavailable Unavailable Sirisha, L Cinthya INDUSTRIAL INSULATOR Unavailable Unavailable Sirisha, L Cinthya INDUSTRIAL INSULATOR Unavailable Unavailable Sirisha, L Cinthya INDUSTRIAL INSULATOR Unavailable Unavailable Sirisha, L Cinthya INDUSTRIAL INSULATOR Unavailable Unavailable Sirisha, L Cinthya INDUSTRIAL INSULATOR Unavailable Unavailable Sirisha, L Cinthya INDUSTRIAL INSULATOR Unavailable Unavailable Sirisha, L Cinthya INDUSTRIAL INSULATOR Unavailable Unavailable Sirisha, L Cinthya INDUSTRIAL INSULATOR Unavailable Unavailable Sirisha, L Cinthya INDUSTRIAL INSULATOR Unavailable Unavailable Sirisha, L Cinthya INDUSTRIAL INSULATOR Unavailable Unavailable Sirisha, L Cinthya INDUSTRIAL INSULATOR Unavailable Unavailable Sirisha, L Cinthya INDUSTRIAL INSULATOR Unavailable Unavailable Sirisha, L Cinthya INDUSTRIAL INSULATOR Unavailable Unavailable Sirisha, L Cinthya INDUSTRIAL INSULATOR Unavailable Unavailable Sirisha, L Cinthya INDUSTRIAL INSULATOR Unavailable Unavailable Katty Britt MD Unavailable Unavailable Katty Britt MD Unavailable Unavailable Katty Britt MD Unavailable Unavailable Katty Britt MD Unavailable Unavailable Katty Britt MD Unavailable Unavailable Katty Britt MD Unavailable Unavailable Katty Britt MD Unavailable Unavailable Katty Britt MD Unavailable Unavailable Katty Britt MD Unavailable Unavailable Katty Britt MD Unavailable Unavailable Katty Britt MD Unavailable Unavailable Katty Britt MD Unavailable Unavailable Katty Britt MD Unavailable Unavailable Katty Britt MD Unavailable Unavailable Katty Britt MD Unavailable Unavailable Katty Britt MD Unavailable Unavailable Katty Britt MD Unavailable Unavailable Katty Britt MD Unavailable Unavailable Katty Britt MD Unavailable Unavailable Katty Britt MD Unavailable Unavailable Katty Britt MD Unavailable Unavailable Katty Britt MD Unavailable Unavailable Katty Britt MD Unavailable Unavailable Katty Britt MD Unavailable Unavailable Katty Britt MD Unavailable Unavailable Katty Britt MD Unavailable Unavailable Katty Britt MD Unavailable Unavailable Katty Britt MD Unavailable Unavailable Katty Britt MD Unavailable Unavailable Katty Britt MD Unavailable Unavailable Katty Britt MD Unavailable Unavailable Katty Britt MD Unavailable Unavailable Katty Britt MD Unavailable Unavailable Katty Britt MD Unavailable Unavailable Katty Britt MD Unavailable Unavailable Katty Britt MD Unavailable Unavailable Katty Britt MD Unavailable Unavailable Katty Britt MD Unavailable Unavailable Katty Britt MD Unavailable Unavailable Katty Britt MD Unavailable Unavailable Katty Britt MD Unavailable Unavailable Katty Britt MD Unavailable Unavailable Katty Britt MD Unavailable Unavailable Katty Britt MD Unavailable Unavailable Katty Britt MD Unavailable Unavailable Katty Britt MD Unavailable Unavailable Katty Britt MD Unavailable Unavailable Katty Britt MD Unavailable Unavailable Katty Britt MD Unavailable Unavailable Katty Britt MD Unavailable Unavailable Katty Britt MD Unavailable Unavailable Katty Britt MD Unavailable Unavailable Katty Britt MD Unavailable Unavailable Katty Britt MD Unavailable Unavailable Katty Britt MD Unavailable Unavailable Katty Britt MD Unavailable Unavailable Katty Britt MD Unavailable Unavailable Katty Britt MD Unavailable Unavailable Katty Britt MD Unavailable Unavailable Katty Britt MD Unavailable Unavailable Katty Britt MD Unavailable Unavailable Katty Birtt MD Unavailable Unavailable Katty Britt MD Unavailable Unavailable Katty Britt MD Unavailable Unavailable Katty Britt MD Unavailable Unavailable Katty Britt MD Unavailable Unavailable Katty Britt MD Unavailable Unavailable Katty Britt MD Unavailable Unavailable Katty Britt MD Unavailable Unavailable Katty Britt MD Unavailable Unavailable Katty Britt MD Unavailable Unavailable Katty Britt MD Unavailable Unavailable Katty Britt MD Unavailable Unavailable Katty Britt MD Unavailable Unavailable Katty Britt MD Unavailable Unavailable Katty Britt MD Unavailable Unavailable Katty Britt MD Unavailable Unavailable Katty Britt MD Unavailable Unavailable Katty Britt MD Unavailable Unavailable Katty Britt MD Unavailable Unavailable Katty Britt MD Unavailable Unavailable Katty Britt MD Unavailable Unavailable Katty Britt MD Unavailable Unavailable Katty Britt MD Unavailable Unavailable Katty Britt MD Unavailable Unavailable Katty Britt MD Unavailable Unavailable Katty Britt MD Unavailable Unavailable Katty Britt MD Unavailable Unavailable Katty Britt MD Unavailable Unavailable Katty Britt MD Unavailable Unavailable Katty Britt MD Unavailable Unavailable Katty Britt MD Unavailable Unavailable Katty Britt MD Unavailable Unavailable Katty Britt MD Unavailable Unavailable Katty Britt MD Unavailable Unavailable Katty Britt MD Unavailable Unavailable Katty Britt MD Unavailable Unavailable Katty Britt MD Unavailable Unavailable Katty Britt MD Unavailable Unavailable Katty Britt MD Unavailable Unavailable Katty Britt MD Unavailable Unavailable Katty Britt MD Unavailable Unavailable Katty Britt MD Unavailable Unavailable Katty Britt MD Unavailable Unavailable Katty Britt MD Unavailable Unavailable Katty Britt MD Unavailable Unavailable Katty Britt MD Unavailable Unavailable Katty Britt MD Unavailable Unavailable Katty Britt MD Unavailable Unavailable Katty Britt MD Unavailable Unavailable Katty Britt MD Unavailable Unavailable Katty Britt MD Unavailable Unavailable Katty Britt MD Unavailable Unavailable Katty Britt MD Unavailable Unavailable Katty Britt MD Unavailable Unavailable Katty Britt MD Unavailable Unavailable Katty Britt MD Unavailable Unavailable Katty Britt MD Unavailable Unavailable Katty Britt MD Unavailable Unavailable Katty Britt MD Unavailable Unavailable Katty Britt MD Unavailable Unavailable Katty Britt MD Unavailable Unavailable Katty Britt MD Unavailable Unavailable Katty Britt MD Unavailable Unavailable Katty Britt MD Unavailable Unavailable Katty Britt MD Unavailable Unavailable Katty Britt MD Unavailable Unavailable Katty Britt MD Unavailable Unavailable Katty Britt MD Unavailable Unavailable Katty Britt MD Unavailable Unavailable Katty Britt MD Unavailable Unavailable Katty Britt MD Unavailable Unavailable Katty Britt MD Unavailable Unavailable Katty Britt MD Unavailable Unavailable Katty Britt MD Unavailable Unavailable Katty Britt MD Unavailable Unavailable Katty Britt MD Unavailable Unavailable Katty Britt MD Unavailable Unavailable Katty Britt MD Unavailable Unavailable Katty Britt MD Unavailable Unavailable Katty Britt MD Unavailable Unavailable Katty Britt MD Unavailable Unavailable Katty Britt MD Unavailable Unavailable Katty Britt MD Unavailable Unavailable Katty Britt MD Unavailable Unavailable Katty Britt MD Unavailable Unavailable Katty Britt MD Unavailable Unavailable Katty Britt MD Unavailable Unavailable Katty Britt MD Unavailable Unavailable Katty Britt MD Unavailable Unavailable Katty Britt MD Unavailable Unavailable Katty Britt MD Unavailable Unavailable Katty Britt MD Unavailable Unavailable Katty Britt MD Unavailable Unavailable Katty Britt MD Unavailable Unavailable Katty Britt MD Unavailable Unavailable Katty Britt MD Unavailable Unavailable Katty Britt MD Unavailable Unavailable Katty Britt MD Unavailable Unavailable Katty Britt MD Unavailable Unavailable Katty Britt MD Unavailable Unavailable Katty Britt MD Unavailable Unavailable Katty Britt MD Unavailable Unavailable Katty Britt MD Unavailable Unavailable Katty Britt MD Unavailable Unavailable Katty Britt MD Unavailable Unavailable Katty Britt MD Unavailable Unavailable Katty Britt MD Unavailable Unavailable Katty Britt MD Unavailable Unavailable Katty Britt MD Unavailable Unavailable Katty Britt MD Unavailable Unavailable Katty Britt MD Unavailable Unavailable Katty Britt MD Unavailable Unavailable Katty Britt MD Unavailable Unavailable Katty Britt MD Unavailable Unavailable Katty Britt MD Unavailable Unavailable Katty Britt MD Unavailable Unavailable Katty Britt MD Unavailable Unavailable Katty Britt MD Unavailable Unavailable Katty Britt MD Unavailable Unavailable Katty Britt MD Unavailable Unavailable Katty Britt MD Unavailable Unavailable Katty Britt MD Unavailable Unavailable Katty Britt MD Unavailable Unavailable Katty Britt MD Unavailable Unavailable Katty Britt MD Unavailable Unavailable Katty Britt MD Unavailable Unavailable Katty Britt MD Unavailable Unavailable Katty Britt MD Unavailable Unavailable Katty Britt MD Unavailable Unavailable Katty Britt MD Unavailable Unavailable Katty Britt MD Unavailable Unavailable Katty Britt MD Unavailable Unavailable Katty Britt MD Unavailable Unavailable Katty Britt MD Unavailable Unavailable Katty Britt MD Unavailable Unavailable Katty Britt MD Unavailable Unavailable Katty Britt MD Unavailable Unavailable Katty Britt MD Unavailable Unavailable Katty Britt MD Unavailable Unavailable Katty Britt MD Unavailable Unavailable Katty Britt MD Unavailable Unavailable Katty Britt MD Unavailable Unavailable Katty Britt MD Unavailable Unavailable Katty Britt MD Unavailable Unavailable Katty Britt MD Unavailable Unavailable Katty Britt MD Unavailable Unavailable Katty Britt MD Unavailable Unavailable Katty Britt MD Unavailable Unavailable Katty Britt MD Unavailable Unavailable Katty Britt MD Unavailable Unavailable Katty Britt MD Unavailable Unavailable Katty Britt MD Unavailable Unavailable Katty Britt MD Unavailable Unavailable Katty Britt MD Unavailable Unavailable Katty Britt MD Unavailable Unavailable Katty Britt MD Unavailable Unavailable Katty Britt MD Unavailable Unavailable Katty Britt MD Unavailable Unavailable Katty Britt MD Unavailable Unavailable Katty Britt MD Unavailable Unavailable Katty Britt MD Unavailable Unavailable Katty Britt MD Unavailable Unavailable Katty Britt MD Unavailable Unavailable Katty Britt MD Unavailable Unavailable Katty Britt MD Unavailable Unavailable Katty Britt MD Unavailable Unavailable Katty Britt MD Unavailable Unavailable Katty Britt MD Unavailable Unavailable Katty Britt MD Unavailable Unavailable Katty Britt MD Unavailable Unavailable Katty Britt MD Unavailable Unavailable Katty Britt MD Unavailable Unavailable Katty Britt MD Unavailable Unavailable Katty Britt MD Unavailable Unavailable Katty Britt MD Unavailable Unavailable Katty Britt MD Unavailable Unavailable Katty Britt MD Unavailable Unavailable Katty Britt MD Unavailable Unavailable Katty Britt MD Unavailable Unavailable Katty Britt MD Unavailable Unavailable Katty Britt MD Unavailable Unavailable Katty Britt MD Unavailable Unavailable Katty Britt MD Unavailable Unavailable Katty Britt MD Unavailable Unavailable Katty Britt MD Unavailable Unavailable BRADLEY, H STEVAN INDUSTRIAL INSULATOR Unavailable Unavailable BRADLEY, H STEVAN INDUSTRIAL INSULATOR Unavailable Unavailable BRADLEY, H STEVAN INDUSTRIAL INSULATOR Unavailable Unavailable BRADLEY, H STEVAN INDUSTRIAL INSULATOR Unavailable Unavailable BRADLEY, H STEVAN INDUSTRIAL INSULATOR Unavailable Unavailable BRADLEY, H STEVAN INDUSTRIAL INSULATOR Unavailable Unavailable BRADLEY, H STEVAN INDUSTRIAL INSULATOR Unavailable Unavailable BRADLEY, H STEVAN INDUSTRIAL INSULATOR Unavailable Unavailable BRADLEY, H STEVAN INDUSTRIAL INSULATOR Unavailable Unavailable BRADLEY, H STEVAN INDUSTRIAL INSULATOR Unavailable Unavailable BRADLEY, H STEVAN INDUSTRIAL INSULATOR Unavailable Unavailable BRADLEY, H STEVAN INDUSTRIAL INSULATOR Unavailable Unavailable BRADLEY, H STEVAN INDUSTRIAL INSULATOR Unavailable Unavailable BRADLEY, H STEVAN INDUSTRIAL INSULATOR Unavailable Unavailable BRADLEY, H STEVAN INDUSTRIAL INSULATOR Unavailable Unavailable BRADLEY, H STEVAN INDUSTRIAL INSULATOR Unavailable Unavailable BRADLEY, H STEVAN INDUSTRIAL INSULATOR Unavailable Unavailable BRADLEY, H STEVAN INDUSTRIAL INSULATOR Unavailable Unavailable BRADLEY, H STEVAN INDUSTRIAL INSULATOR Unavailable Unavailable BRADLEY, H STEVAN INDUSTRIAL INSULATOR Unavailable Unavailable BRADLEY, H STEVAN INDUSTRIAL INSULATOR Unavailable Unavailable BRADLEY, H STEVAN INDUSTRIAL INSULATOR Unavailable Unavailable BRADLEY, H STEVAN INDUSTRIAL INSULATOR Unavailable Unavailable BRADLEY, H STEVAN INDUSTRIAL INSULATOR Unavailable Unavailable BRADLEY, H STEVAN INDUSTRIAL INSULATOR Unavailable Unavailable BRADLEY, H STEVAN INDUSTRIAL INSULATOR Unavailable Unavailable BRADLEY, H STEVAN INDUSTRIAL INSULATOR Unavailable Unavailable BRADLEY, H STEVAN INDUSTRIAL INSULATOR Unavailable Unavailable BRADLEY, H STEVAN INDUSTRIAL INSULATOR Unavailable Unavailable BRADLEY, H STEVAN INDUSTRIAL INSULATOR Unavailable Unavailable BRADLEY, H STEVAN INDUSTRIAL INSULATOR Unavailable Unavailable BRADLEY, H STEVAN INDUSTRIAL INSULATOR Unavailable Unavailable BRADLEY, H STEVAN INDUSTRIAL INSULATOR Unavailable Unavailable BRADLEY, H STEVAN INDUSTRIAL INSULATOR Unavailable Unavailable BRADLEY, H STEVAN INDUSTRIAL INSULATOR Unavailable Unavailable BRADLEY, H STEVAN INDUSTRIAL INSULATOR Unavailable Unavailable BRADLEY, H STEVAN INDUSTRIAL INSULATOR Unavailable Unavailable BRADLEY, H STEVAN INDUSTRIAL INSULATOR Unavailable Unavailable BRADLEY, H STEVAN INDUSTRIAL INSULATOR Unavailable Unavailable BRADLEY, H STEVAN INDUSTRIAL INSULATOR Unavailable Unavailable BRADLEY, H STEVAN INDUSTRIAL INSULATOR Unavailable Unavailable BRADLEY, H STEVAN INDUSTRIAL INSULATOR Unavailable Unavailable BRADLEY, H STEVAN INDUSTRIAL INSULATOR Unavailable Unavailable BRADLEY, H STEVAN INDUSTRIAL INSULATOR Unavailable Unavailable BRADLEY, H STEVAN INDUSTRIAL INSULATOR Unavailable Unavailable BRADLEY, H STEVAN INDUSTRIAL INSULATOR Unavailable Unavailable BRADLEY, H STEVAN INDUSTRIAL INSULATOR Unavailable Unavailable BRADLEY, H STEVAN INDUSTRIAL INSULATOR Unavailable Unavailable BRADLEY, H STEVAN INDUSTRIAL INSULATOR Unavailable Unavailable BRADLEY, H STEVAN INDUSTRIAL INSULATOR Unavailable Unavailable BRADLEY, H STEVAN INDUSTRIAL INSULATOR Unavailable Unavailable BRADLEY, H STEVAN INDUSTRIAL INSULATOR Unavailable Unavailable BRADLEY, H STEVAN INDUSTRIAL INSULATOR Unavailable Unavailable BRADLEY, H STEVAN INDUSTRIAL INSULATOR Unavailable Unavailable BRADLEY, H STEVAN INDUSTRIAL INSULATOR Unavailable Unavailable BRADLEY, H STEVAN INDUSTRIAL INSULATOR Unavailable Unavailable Griffin, M Amna PA Unavailable Unavailable Griffin, M Amna PA Unavailable Unavailable Griffin, M Amna PA Unavailable Unavailable Griffin, M Amna PA Unavailable Unavailable Griffin, M Amna PA Unavailable Unavailable Griffin, M Amna PA Unavailable Unavailable Griffin, M Amna PA Unavailable Unavailable Griffin, M Amna PA Unavailable Unavailable Griffin, M Amna PA Unavailable Unavailable Griffin, M Amna PA Unavailable Unavailable Griffin, M Amna PA Unavailable Unavailable Griffin, M Amna PA Unavailable Unavailable Griffin, M Amna PA Unavailable Unavailable Griffin, M Amna PA Unavailable Unavailable Griffin, M Amna PA Unavailable Unavailable Griffin, M Amna PA Unavailable Unavailable Griffin, M Amna PA Unavailable Unavailable Griffin, M Amna PA Unavailable Unavailable Griffin, M Amna PA Unavailable Unavailable Griffin, M Amna PA Unavailable Unavailable Griffin, M Amna PA Unavailable Unavailable Griffin, M Amna PA Unavailable Unavailable Griffin, M Amna PA Unavailable Unavailable Griffin, M Amna PA Unavailable Unavailable Griffin, M Amna PA Unavailable Unavailable Griffin, M Amna PA Unavailable Unavailable Griffin, M Amna PA Unavailable Unavailable Griffin, M Amna PA Unavailable Unavailable MEDENT_[id number], NA Unavailable [phone] TERESA, E ALE DO Unavailable Unavailable TERESA, E ALE DO Unavailable Unavailable TERESA, E ALE DO Unavailable Unavailable TERESA, E ALE DO Unavailable Unavailable TERESA, E ALE DO Unavailable Unavailable TERESA, E ALE DO Unavailable Unavailable TERESA, E ALE DO Unavailable Unavailable TERESA, E ALE DO Unavailable Unavailable TERESA, E ALE DO Unavailable Unavailable TERESA, E ALE DO Unavailable Unavailable TERESA, E ALE DO Unavailable Unavailable TERESA, E ALE DO Unavailable Unavailable TERESA, E ALE DO Unavailable Unavailable TERESA, E ALE DO Unavailable Unavailable TERESA, E ALE DO Unavailable Unavailable TERESA, E ALE DO Unavailable Unavailable TERESA, E ALE DO Unavailable Unavailable TERESA, E ALE DO Unavailable Unavailable TERESA, E ALE DO Unavailable Unavailable TERESA, E ALE DO Unavailable Unavailable TERESA, E ALE DO Unavailable Unavailable TERESA, E ALE DO Unavailable Unavailable Re-disclosure Warning The records that you are about to access may contain information from federally-assisted alcohol or drug abuse programs. If such information is present, then the following federally mandated warning applies: This information has been disclosed to you from records protected by federal confidentiality rules (42 CFR part 2). The federal rules prohibit you from making any further disclosure of this information unless further disclosure is expressly permitted by the written consent of the person to whom it pertains or as otherwise permitted by 42 CFR part 2. A general authorization for the release of medical or other information is NOT sufficient for this purpose. The Federal rules restrict any use of the information to criminally investigate or prosecute any alcohol or drug abuse patient.The records that you are about to access may contain highly sensitive health information, the redisclosure of which is protected by Article 27-F of the [facility] Public Health law. If you continue you may have access to information: Regarding HIV / AIDS; Provided by facilities licensed or operated by the [facility] Office of Mental Health; or Provided by the [facility] Office for People With Developmental Disabilities. If such information is present, then the following [facility] mandated warning applies: This information has been disclosed to you from confidential records which are protected by state law. State law prohibits you from making any further disclosure of this information without the specific written consent of the person to whom it pertains, or as otherwise permitted by law. Any unauthorized further disclosure in violation of state law may result in a fine or correction sentence or both. A general authorization for the release of medical or other information is NOT sufficient authorization for further disc losure. Encounters Encounter Providers Location Date Indications Data Source(s ) Outpatient Attender: ALE [place] ac 03/19/2021 11:00:00 AM EDT [facility] ([facility] [place] [address] [facility] [address] 03/11/2021 12:00:00 AM EDT [facility]CW1 ([facility]) [place] [address] [facility] [address] 03/11/2021 12:00:00 AM EDT eCW1 ([facility]) [place] [address] [facility] [address] 02/20/2021 12:00:00 AM EDT eCW1 ([facility]) [place] [address] [facility] [address] 02/20/2021 12:00:00 AM EDT [facility] [place] [address] [facility] [address] 01/22/2021 12:00:00 AM EDT eCW1 ([facility]) Outpatient Attender: Katty Britt MD [facility] Internal Med at [facility] 01/20/2021 02:45:00 PM EDT [facility] ([facility]) [place] [address] [facility] [address] 01/17/2021 12:00:00 AM EDT eCW1 ([facility]) [place] [address] [facility] [address] 01/15/2021 12:00:00 AM EDT [facility] [place] [address] [facility] [address] 12/12/2020 12:00:00 AM EDT eCW1 ([facility]) [place] [address] [facility] [address] 12/11/2020 12:00:00 AM EDT eCW1 ([facility]) [place] [address] [facility] [address] 12/11/2020 12:00:00 AM EDT eCW1 ([facility]) [place] [address] [facility] [address] 12/11/2020 12:00:00 AM EDT eCW1 ([facility]) [place] [address] [facility] [address] 12/09/2020 12:00:00 AM EDT eCW1 ([facility]) [place] [address] [facility] [address] 12/03/2020 12:00:00 AM EDT eCW1 ([facility]) [place] [address] [facility] [address] 11/29/2020 12:00:00 AM EDT eCW1 ([facility]) [place] [address] [facility] [address] 11/19/2020 12:00:00 AM EDT eCW1 ([facility]) [place] [address] [facility] [address] 11/08/2020 12:00:00 AM EDT eCW1 ([facility]) [place] [address] [facility] [address] 11/07/2020 12:00:00 AM EDT eCW1 ([facility]) [place] [address] [facility] [address] 11/07/2020 12:00:00 AM EDT eCW1 ([facility]) [place] [address] [facility] [address] 10/23/2020 12:00:00 AM EDT eCW1 ([facility]) Office Visit Attender: Amna NERI CMP Internal Med at [place] [facility] 10/21/2020 11:30:00 AM EDT [facility] ([facility]) [place] [address] [facility] [address] 10/04/2020 12:00:00 AM EDT eCW1 ([facility]) Office Visit Attender: Amna NERI CMP Internal Med at [place] [facility] 09/26/2020 01:30:00 PM EDT [facility] ([facility]) Office Visit Attender: Katty Britt MD CMP Internal Med at [facility] 09/17/2020 02:34:00 AM EDT [facility] ([facility]) ( in Healthcare facility) Attender: Katty Britt MD 09/16/2020 10:22:00 AM EDT - 09/18/2020 07:34:00 PM EDT [facility] Inpatient Attender: Katty Britt MDAdmitter: Katty Britt MD 09/16/2020 10:22:00 AM EDT - 09/18/2020 07:34:00 PM EDT MORBID OBESITY E66.01 [facility] MORBID OBESITY E66.01 Patient discharged. [place] [address] [facility] [address] 09/13/2020 12:00:00 AM EDT eCW1 ([facility]) Inpatient Attender: Katty Britt MD 09/12/2020 01:05:21 PM EDT [facility] Outpatient Attender: Katty Britt MD 09/11/2020 04:15:23 PM EDT [facility] Outpatient Attender: Katty Britt MD 09/11/2020 03:06:00 PM EDT TYPE AND SCREEN [facility] TYPE AND SCREEN Outpatient Attender: Amna NERI CMP Internal Med at [facility] 09/11/2020 12:30:00 PM EDT [facility] ([facility]) Outpatient Attender: NA [id number] CMP Internal Med at [facility] 09/11/2020 11:15:00 AM EDT [facility] ([facility]) [place] [address] [facility] [address] 09/10/2020 12:00:00 AM EDT eCW1 ([facility]) [place] [address] [facility] [address] 09/10/2020 12:00:00 AM EDT eCW1 ([facility]) [place] [address] [facility] [address] 09/06/2020 12:00:00 AM EDT eCW1 ([facility]) [place] [address] [facility] [address] 08/29/2020 12:00:00 AM EDT eCW1 ([facility]) Outpatient [address] [facility] [place] [address] 08/28/2020 12:00:00 AM EDT [facility]1 ([facility] [facility] [address] [facility] [address] 08/28/2020 12:00:00 AM EDT [facility]CW[facility] Outpatient Attender: Amna NERI CMP Internal Med at [facility] 08/20/2020 11:00:00 AM EDT MED[facility] ([facility] Unknown [address] [facility] [place] [address] 08/02/2020 12:00:00 AM EST eCW1 [facility] Unknown [address] [facility] [place] [address] 07/31/2020 12:00:00 AM EST eCW1 [facility] Outpatient [address] [facility] [place] [address] 07/30/2020 12:00:00 AM EST [facility] Out[facility] Attender: Cinthya Ponce/[place]/Jose/Reindl 07/29/2020 12:00:00 PM EST [facility] [place] [address] [facility] [address] 07/29/2020 12:00:00 AM EST eCW1 [facility] Unknown [address] [facility] [place] [address] 07/29/2020 12:00:00 AM EST eCW1 ([facility] Unknown [address] [facility] [place] [address] 07/29/2020 12:00:00 AM EST eCW1 [facility] Outpatient Attender: Katty Britt MD CMP Internal Med at [facility] 07/22/2020 01:00:00 PM EST MEDENT ([facility]) Outpatient [address] [facility] [address] 07/09/2020 12:00:00 AM EST eCW1 ([facility], [facility]) Outpatient Attender: Amna NERI CMP Internal Med at [facility] 06/18/2020 01:15:00 PM EST [facility]ENT ([facility]) Outpatient Attender: Cinthya Ponce/[place]/Jose/Reindl 05/21/2020 10:00:00 AM EST MEDENT ([facility] Outpatient Attender: Amna NERI CMP Internal Med at [facility] 05/13/2020 01:00:00 PM EST MED[facility] ([facility]) Unknown [address] [facility] [address] 04/24/2020 12:00:00 AM EST eCW1 ([facility], [facility]) Attender: Katty Britt MD 03/26/2020 08:12:57 PM EDT [facility] Outpatient Attender: Cinthya Ponce/[place]/Jose/Reindl 03/25/2020 10:00:00 AM EDT MEDENT ([facility] [place] [facility] facility) Attender: Marsha Britt MDAdmitter: Katty Britt MDConsultant: STEVAN BRADLEY NP 03/22/2020 06:39:00 AM EDT - 03/22/2020 05:42:00 PM EDT [facility] Outpatient Attender: Katty Britt MDAdmitter: Katty Britt MD 03/22/2020 06:39:00 AM EDT - 03/22/2020 05:42:00 PM EDT MORBID OBESITY E66.01 [facility] MORBID OBESITY E66.01 Patient discharged. Outpatient Attender: Katyt Britt MD CMP Internal Med at [facility] 03/11/2020 01:00:00 PM EDT MEDENT ([facility]) [place]patient [address] [facility] [address] 03/06/2020 12:00:00 AM EDT eCW1 ([facility], [facility]) [place]patient [address] [facility] [address] 03/05/2020 12:00:00 AM EDT eCW1 ([facility], [facility]) Office Visit, Est Pt., Level 3 PC [address] [place] [address] 03/04/2020 12:00:00 AM EDT eCW1 ([facility]) [facility] [address] [facility] [address] 03/04/2020 12:00:00 AM EDT eCW1 ([facility], [facility]) Unknown [address] [facility] [address] 02/29/2020 12:00:00 AM EDT eCW1 ([facility]) Medications Medication Brand Name Start Date Product Form Dose Route Admi nistrative Instructions Pharmacy Instructions Status Indications Reaction Description Data Source(s) 150 mg 03/24/2021 12:00:00 AM EDT tablet 2 TAKE ONE TABLET BY MOUTH NOW AND THE SECOND TABLET IN 48 HOURS TAKE ONE TABLET BY MOUTH NOW AND THE SEC OND TABLET IN 48 HOURS SOLD: 03/24/2021 [facility] Acyclovir 400 MG Oral Tablet ACYCLOVIR 02/24/2021 12:00:00 AM EDT tabl et 15 TAKE ONE TABLET BY MOUTH THREE TIMES A DAY NEEDED FOR 5 DAYS TAKE ONE TABLET BY MOUTH THREE TIMES A DAY NEEDED FOR 5 DAYS SOLD: 03/06/2021 [facility] 20 mg 02/23/2021 12:00:00 AM EDT capsule,delayed release (DR/EC) 30 TAKE ONE CAPSULE BY MOUTH EVERY DAY TAKE ONE CAPSULE BY MOUTH EVERY DAY SOLD: 03/06/2021 [facility] Fluticasone propionate 0.05 MG/ACTUAT Metered Dose [place] 50 mcg/actuation FLUTICASONE PROPIONATE 02/23/2021 12:00:00 AM EDT spray,suspension 16 SPRAY 1 SPRAY IN EACH NOSTRIL ONCE A DAY AT BEDTIME SPRAY 1 SPRAY IN EACH NOSTRIL ONCE A DAY AT BEDTIME SOLD: 04/03/2021 [facility] Fluticasone propionate 0.05 MG/ACTUAT Metered Dose [place] 50 mcg/actuation FLUTICASONE PROPIONATE 02/23/2021 12:00:00 AM EDT spray,suspension 16 SPRAY 1 SPRAY IN EACH NOSTRIL ONCE A DAY AT BEDTIME SPRAY 1 SPRAY IN EACH NOSTRIL ONCE A DAY AT BEDTIME SOLD: 03/06/2021 [facility] 0.75 % 02/21/2021 12:00:00 AM EDT gel 70 INSERT 1 APPLICATORFUL VAGINALLY AT BEDTIME FOR 5 NIGHTS INSERT 1 APPLICATORFUL VAGINALLY AT BEDTIME FOR 5 NIGH TS SOLD: 02/21/2021 [facility] 50 mcg (2,000 unit) 02/20/2021 12:00:00 AM EDT tablet 30 TAKE ONE TABLET BY MOUTH EVERY DAY TAKE ONE TABLET BY MOUTH EVERY DAY SOLD: 02/20/2021 [facility] Acyclovir 400 MG Oral Tablet ACYCLOVIR 02/20/2021 12:00:00 AM EDT tabl et 15 TAKE ONE TABLET BY MOUTH THREE TIMES A DAY NEEDED FOR 5 DAYS TAKE ONE TABLET BY MOUTH THREE TIMES A DAY NEEDED FOR 5 DAYS SOLD: 02/20/2021 [facility] 150 mg 02/13/2021 12:00:00 AM EDT tablet 2 TAKE 1 TABLET BY MOUTH ONCE TODAY, THEN REPEAT IN 48 HOURS TAKE 1 TABLET BY MOUTH ONCE TODAY, THEN REPEAT IN 48 HOURS SOLD: 02/13/2021 [facility] 300 mg 02/11/2021 12:00:00 AM EDT capsule 20 TAKE ONE CAPSULE BY MOUTH TWICE A DAY FOR 10 DAYS TAKE ONE CAPSULE BY MOUTH TWICE A DAY FOR 10 DAYS SOLD : 02/11/2021 [facility] Metronidazole 0.0075 MG/MG Vaginal Gel metroNIDAZOLE 0 .75 % metroNIDAZOLE 0.75 % 12/11/2020 12:00:00 AM EDT active metroNIDAZOLE 0.75 % eCW1 ([facility]) Metronidazole 0.0075 MG/MG Vaginal Gel metroNIDAZOLE 0 .75 % metroNIDAZOLE 0.75 % 12/11/2020 12:00:00 AM EDT suspended metroNIDAZOLE 0.75 % eCW1 ([facility]) Metronidazole 0.0075 MG/MG Vaginal Gel metroNIDAZOLE 0 .75 % metroNIDAZOLE 0.75 % 12/11/2020 12:00:00 AM EDT active metroNIDAZOLE 0.75 % eCW1 ([facility]) Metronidazole 0.0075 MG/MG Vaginal Gel metroNIDAZOLE 0 .75 % metroNIDAZOLE 0.75 % 12/11/2020 12:00:00 AM EDT active metroNIDAZOLE 0.75 % eCW1 ([facility]) Metronidazole 0.0075 MG/MG Vaginal Gel metroNIDAZOLE 0 .75 % metroNIDAZOLE 0.75 % 12/11/2020 12:00:00 AM EDT active metroNIDAZOLE 0.75 % eCW1 ([facility]) Metronidazole 0.0075 MG/MG Vaginal Gel metroNIDAZOLE 0 .75 % metroNIDAZOLE 0.75 % 12/11/2020 12:00:00 AM EDT suspended metroNIDAZOLE 0.75 % eCW1 ([facility]) Metronidazole 0.0075 MG/MG Vaginal Gel metroNIDAZOLE 0 .75 % metroNIDAZOLE 0.75 % 12/11/2020 12:00:00 AM EDT active metroNIDAZOLE 0.75 % eCW1 ([facility]) Metronidazole 0.0075 MG/MG Vaginal Gel metroNIDAZOLE 0 .75 % metroNIDAZOLE 0.75 % 12/11/2020 12:00:00 AM EDT active metroNIDAZOLE 0.75 % eCW1 ([facility]) 0.75 % 12/11/2020 12:00:00 AM EDT gel 70 INSERT 1 APPLICATORFUL VAGINALLY AT BEDTIME FOR 5 NIGHTS INSERT 1 APPLICATORFUL VAGINALLY AT BEDTIME FOR 5 NIGH TS SOLD: 12/11/2020 [facility] Metronidazole 0.0075 MG/MG Vaginal Gel metroNIDAZOLE 0 .75 % metroNIDAZOLE 0.75 % 12/11/2020 12:00:00 AM EDT active metroNIDAZOLE 0.75 % eCW1 ([facility]) Metronidazole 0.0075 MG/MG Vaginal Gel metroNIDAZOLE 0 .75 % metroNIDAZOLE 0.75 % 12/11/2020 12:00:00 AM EDT active metroNIDAZOLE 0.75 % eCW1 ([facility]) Metronidazole 0.0075 MG/MG Vaginal Gel metroNIDAZOLE 0 .75 % metroNIDAZOLE 0.75 % 12/11/2020 12:00:00 AM EDT active metroNIDAZOLE 0.75 % eCW1 ([facility]) Metronidazole 0.0075 MG/MG Vaginal Gel metroNIDAZOLE 0 .75 % metroNIDAZOLE 0.75 % 12/11/2020 12:00:00 AM EDT active metroNIDAZOLE 0.75 % eCW1 ([facility]) Acyclovir 400 MG Oral Tablet ACYCLOVIR 11/30/2020 12:00:00 AM EDT tabl et 15 TAKE ONE TABLET BY MOUTH THREE TIMES A DAY NEEDED TAKE ONE TABLET BY MOUTH THREE TIMES A DAY NEEDED SOLD: 12/20/2020 [facility] 150 mg 11/30/2020 12:00:00 AM EDT tablet 2 TAKE ONE TABLET BY MOUTH TODAY AND REPEAT IN 3 DAYS NEEDED TAKE ONE TABLET BY MOUTH TODAY AND REPEA T IN 3 DAYS NEEDED SOLD: 12/01/2020 [facility] Acyclovir 400 MG Oral Tablet ACYCLOVIR 11/30/2020 12:00:00 AM EDT tabl et 15 TAKE ONE TABLET BY MOUTH THREE TIMES A DAY NEEDED TAKE ONE TABLET BY MOUTH THREE TIMES A DAY NEEDED SOLD: 12/01/2020 [facility] Fluconazole 150 MG Oral Tablet Fluconazole 150 MG 11/29/2020 12:00: 00 AM EDT 1.0 {tablet} suspended Fluconazole 150 M G eCW1 ([facility]) Fluconazole 150 MG Oral Tablet Fluconazole 150 MG 11/29/2020 12:00: 00 AM EDT 1.0 {tablet} suspended Fluconazole 150 M G eCW1 ([facility]) Fluconazole 150 MG Oral Tablet Fluconazole 150 MG 11/29/2020 12:00: 00 AM EDT 1.0 {tablet} active Fluconazole 150 MG eCW1 ([facility]) Fluconazole 150 MG Oral Tablet Fluconazole 150 MG 11/29/2020 12:00: 00 AM EDT 1.0 {tablet} suspended Fluconazole 150 M G eCW1 ([facility]) Fluconazole 150 MG Oral Tablet Fluconazole 150 MG 11/29/2020 12:00: 00 AM EDT 1.0 {tablet} active Fluconazole 150 MG eCW1 ([facility]) Fluconazole 150 MG Oral Tablet Fluconazole 150 MG 11/29/2020 12:00: 00 AM EDT 1.0 {tablet} suspended Fluconazole 150 M G eCW1 ([facility]) Fluconazole 150 MG Oral Tablet Fluconazole 150 MG 11/29/2020 12:00: 00 AM EDT 1.0 {tablet} active Fluconazole 150 MG eCW1 ([facility]) Fluconazole 150 MG Oral Tablet Fluconazole 150 MG 11/29/2020 12:00: 00 AM EDT 1.0 {tablet} active Fluconazole 150 MG eCW1 ([facility]) Fluconazole 150 MG Oral Tablet Fluconazole 150 MG 11/29/2020 12:00: 00 AM EDT 1.0 {tablet} active Fluconazole 150 MG eCW1 ([facility]) Fluconazole 150 MG Oral Tablet Fluconazole 150 MG 11/29/2020 12:00: 00 AM EDT 1.0 {tablet} active Fluconazole 150 MG eCW1 ([facility]) Fluconazole 150 MG Oral Tablet Fluconazole 150 MG 11/29/2020 12:00: 00 AM EDT 1.0 {tablet} suspended Fluconazole 150 M G eCW1 ([facility]) Fluconazole 150 MG Oral Tablet Fluconazole 150 MG 11/29/2020 12:00: 00 AM EDT 1.0 {tablet} active Fluconazole 150 MG eCW1 ([facility]) Fluconazole 150 MG Oral Tablet Fluconazole 150 MG 11/29/2020 12:00: 00 AM EDT 1.0 {tablet} active Fluconazole 150 MG eCW1 ([facility]) Fluconazole 150 MG Oral Tablet Fluconazole 150 MG 11/29/2020 12:00: 00 AM EDT 1.0 {tablet} active Fluconazole 150 MG eCW1 ([facility]) Fluconazole 150 MG Oral Tablet Fluconazole 150 MG 11/29/2020 12:00: 00 AM EDT 1.0 {tablet} suspended Fluconazole 150 M G eCW1 ([facility]) Triamcinolone Acetonide 1 MG/ML Topical Cream Triamcin olone Acetonide 0.1 % Triamcinolone Acetonide 0.1 % 11/19/2020 12:00:00 AM EDT 1.0 {appli cation} suspended Triamcinolone Acetonide 0 .1 % eCW1 ([facility]) Triamcinolone Acetonide 1 MG/ML Topical Cream Triamcin olone Acetonide 0.1 % Triamcinolone Acetonide 0.1 % 11/19/2020 12:00:00 AM EDT 1.0 {appli cation} suspended Triamcinolone Acetonide 0 .1 % eCW1 ([facility]) Triamcinolone Acetonide 1 MG/ML Topical Cream Triamcin olone Acetonide 0.1 % Triamcinolone Acetonide 0.1 % 11/19/2020 12:00:00 AM EDT 1.0 {appli cation} suspended Triamcinolone Acetonide 0 .1 % eCW1 ([facility]) Triamcinolone Acetonide 1 MG/ML Topical Cream Triamcin olone Acetonide 0.1 % Triamcinolone Acetonide 0.1 % 11/19/2020 12:00:00 AM EDT 1.0 {appli cation} suspended Triamcinolone Acetonide 0 .1 % eCW1 ([facility]) 0.1 % 11/19/2020 12:00:00 AM EDT cream 15 APPLY TO AFFECTED AREA(S) ON HANDS NEEDED TWICE A DAY FOR 14 DAYS APPLY TO AFFECTED AREA(S) ON HANDS NE EDED TWICE A DAY FOR 14 DAYS SOLD: 11/19/2020 [facility] Triamcinolone Acetonide 1 MG/ML Topical Cream Triamcin olone Acetonide 0.1 % Triamcinolone Acetonide 0.1 % 11/19/2020 12:00:00 AM EDT 1.0 {appli cation} suspended Triamcinolone Acetonide 0 .1 % eCW1 ([facility]) Triamcinolone Acetonide 1 MG/ML Topical Cream Triamcin olone Acetonide 0.1 % Triamcinolone Acetonide 0.1 % 11/19/2020 12:00:00 AM EDT 1.0 {appli cation} suspended Triamcinolone Acetonide 0 .1 % eCW1 ([facility]) Triamcinolone Acetonide 1 MG/ML Topical Cream Triamcin olone Acetonide 0.1 % Triamcinolone Acetonide 0.1 % 11/19/2020 12:00:00 AM EDT 1.0 {appli cation} suspended Triamcinolone Acetonide 0 .1 % eCW1 ([facility]) Triamcinolone Acetonide 1 MG/ML Topical Cream Triamcin olone Acetonide 0.1 % Triamcinolone Acetonide 0.1 % 11/19/2020 12:00:00 AM EDT 1.0 {appli cation} suspended Triamcinolone Acetonide 0 .1 % eCW1 ([facility]) Triamcinolone Acetonide 1 MG/ML Topical Cream Triamcin olone Acetonide 0.1 % Triamcinolone Acetonide 0.1 % 11/19/2020 12:00:00 AM EDT 1.0 {appli cation} suspended Triamcinolone Acetonide 0 .1 % eCW1 ([facility]) Triamcinolone Acetonide 1 MG/ML Topical Cream Triamcin olone Acetonide 0.1 % Triamcinolone Acetonide 0.1 % 11/19/2020 12:00:00 AM EDT 1.0 {appli cation} suspended Triamcinolone Acetonide 0 .1 % eCW1 ([facility]) Triamcinolone Acetonide 1 MG/ML Topical Cream Triamcin olone Acetonide 0.1 % Triamcinolone Acetonide 0.1 % 11/19/2020 12:00:00 AM EDT 1.0 {appli cation} suspended Triamcinolone Acetonide 0 .1 % eCW1 ([facility]) Triamcinolone Acetonide 1 MG/ML Topical Cream Triamcin olone Acetonide 0.1 % Triamcinolone Acetonide 0.1 % 11/19/2020 12:00:00 AM EDT 1.0 {appli cation} suspended Triamcinolone Acetonide 0 .1 % eCW1 ([facility]) Triamcinolone Acetonide 1 MG/ML Topical Cream Triamcin olone Acetonide 0.1 % Triamcinolone Acetonide 0.1 % 11/19/2020 12:00:00 AM EDT 1.0 {appli cation} suspended Triamcinolone Acetonide 0 .1 % eCW1 ([facility]) Triamcinolone Acetonide 1 MG/ML Topical Cream Triamcin olone Acetonide 0.1 % Triamcinolone Acetonide 0.1 % 11/19/2020 12:00:00 AM EDT 1.0 {appli cation} suspended Triamcinolone Acetonide 0 .1 % eCW1 ([facility]) Triamcinolone Acetonide 1 MG/ML Topical Cream Triamcin olone Acetonide 0.1 % Triamcinolone Acetonide 0.1 % 11/19/2020 12:00:00 AM EDT 1.0 {appli cation} suspended Triamcinolone Acetonide 0 .1 % eCW1 ([facility]) 1,250 mcg (50,000 unit) 10/23/2020 12:00:00 AM EDT capsule 2 TAKE ONE CAPSULE BY MOUTH EVERY 2 WEEKS WITH MEAL TAKE ONE CAPSULE BY MOUTH EVERY 2 WEEKS WITH MEAL SOLD: 10/30/2020 [facility] Acyclovir 400 MG Oral Tablet ACYCLOVIR 10/23/2020 12:00:00 AM EDT tabl et 15 TAKE ONE TABLET BY MOUTH THREE TIMES A DAY NEEDED TAKE ONE TABLET BY MOUTH THREE TIMES A DAY NEEDED SOLD: 10/30/2020 [facility] 10 mg 10/23/2020 12:00:00 AM EDT tablet 30 TAKE ONE TABLET BY MOUTH EVERY DAY TAKE ONE TABLET BY MOUTH EVERY DAY SOLD: 12/20/2020 [facility] 1,250 mcg (50,000 unit) 10/23/2020 12:00:00 AM EDT capsule 2 TAKE ONE CAPSULE BY MOUTH EVERY 2 WEEKS WITH MEAL TAKE ONE CAPSULE BY MOUTH EVERY 2 WEEKS WITH MEAL SOLD: 01/29/2021 [facility] 1,250 mcg (50,000 unit) 10/23/2020 12:00:00 AM EDT capsule 2 TAKE ONE CAPSULE BY MOUTH EVERY 2 WEEKS WITH MEAL TAKE ONE CAPSULE BY MOUTH EVERY 2 WEEKS WITH MEAL SOLD: 12/20/2020 [facility] 50 mcg/actuation 10/23/2020 12:00:00 AM EDT spray,suspension 16 SPRAY ONE SPRAY IN EACH NOSTRIL ONCE DAILY AT BEDTIME SPRAY ONE SPRAY IN EACH NOSTRIL ONCE DAILY AT BEDTIME SOLD: 10/30/2020 [facility] 10 mg 10/23/2020 12:00:00 AM EDT tablet 30 TAKE ONE TABLET BY MOUTH EVERY DAY TAKE ONE TABLET BY MOUTH EVERY DAY SOLD: 10/30/2020 [facility] Fluticasone propionate 0.05 MG/ACTUAT Metered Dose [place] 50 mcg/actuation FLUTICASONE PROPIONATE 10/23/2020 12:00:00 AM EDT spray,suspension 16 SPRAY ONE SPRAY IN EACH NOSTRIL ONCE DAILY AT BEDTIME SPRAY ONE SPRAY IN EACH NOSTRIL ONCE DAILY AT BEDTIME SOLD: 01/29/2021 [facility] 50 mcg/actuation 10/23/2020 12:00:00 AM EDT spray,suspension 16 SPRAY ONE SPRAY IN EACH NOSTRIL ONCE DAILY AT BEDTIME SPRAY ONE SPRAY IN EACH NOSTRIL ONCE DAILY AT BEDTIME SOLD: 12/20/2020 [facility] Acyclovir 400 MG Oral Tablet ACYCLOVIR 10/23/2020 12:00:00 AM EDT tabl et 15 TAKE ONE TABLET BY MOUTH THREE TIMES A DAY NEEDED TAKE ONE TABLET BY MOUTH THREE TIMES A DAY NEEDED SOLD: 01/05/2021 [facility] 20 mg 09/27/2020 12:00:00 AM EDT capsule,delayed release (DR/EC) 30 TAKE ONE CAPSULE BY MOUTH EVERY DAY TAKE ONE CAPSULE BY MOUTH EVERY DAY SOLD: 01/29/2021 [facility] 20 mg 09/27/2020 12:00:00 AM EDT capsule,delayed release (DR/EC) 30 TAKE ONE CAPSULE BY MOUTH EVERY DAY TAKE ONE CAPSULE BY MOUTH EVERY DAY SOLD: 12/20/2020 [facility] 20 mg 09/27/2020 12:00:00 AM EDT capsule,delayed release (DR/EC) 30 TAKE ONE CAPSULE BY MOUTH EVERY DAY TAKE ONE CAPSULE BY MOUTH EVERY DAY SOLD: 09/28/2020 [facility] 5 mg 09/26/2020 12:00:00 AM EDT tablet 12 TAKE ONE TABLET BY MOUTH EVERY 6 HOURS NEEDED FOR POST OP PAIN MAXIMUM DAILY DOSE = 4 TABLETS TAKE ONE TABLET BY MOUTH EVERY 6 HOURS NEEDED FOR POST OP PAIN MAXIMUM DAILY DOSE = 4 TABLETS SOLD: 09/26/2020 [facility] Oxycodone Hydrochloride 5 MG Oral Tablet Oxycodone HCL 09/26/2020 12:00:00 AM EDT active MEDENT ([facility]) 150 mg 09/10/2020 12:00:00 AM EDT tablet 2 TAKE ONE TABLET BY MOUTH NOW REPEAT IN 7 DAYS IF NEEDED TAKE ONE TABLET BY MOUTH NOW REPEAT IN 7 DAYS IF NEEDED SOLD: 09/10/2020 [facility] Fluconazole 150 MG Oral Tablet [Diflucan] Diflucan 150 MG Di flucan 150 MG 09/10/2020 12:00:00 AM EDT 1.0 {tablet} active Diflucan 150 MG eCW1 ([facility]) Acyclovir 400 MG Oral Tablet ACYCLOVIR 09/10/2020 12:00:00 AM EDT tabl et 15 TAKE ONE TABLET BY MOUTH THREE TIMES A DAY NEEDED FOR 5 DAYS TAKE ONE TABLET BY MOUTH THREE TIMES A DAY NEEDED FOR 5 DAYS SOLD: 09/10/2020 [facility] Fluconazole 150 MG Oral Tablet [Diflucan] Diflucan 150 MG Di flucan 150 MG 09/10/2020 12:00:00 AM EDT 1.0 {tablet} active Diflucan 150 MG eCW1 ([facility]) Fluconazole 150 MG Oral Tablet [Diflucan] Diflucan 150 MG Di flucan 150 MG 09/10/2020 12:00:00 AM EDT 1.0 {tablet} active Diflucan 150 MG eCW1 ([facility]) Fluconazole 150 MG Oral Tablet [Diflucan] Diflucan 150 MG Di flucan 150 MG 09/10/2020 12:00:00 AM EDT 1.0 {tablet} active Diflucan 150 MG eCW1 ([facility]) 1,250 mcg (50,000 unit) 09/04/2020 12:00:00 AM EDT capsule 2 TAKE ONE CAPSULE BY MOUTH ONCE EVERY 2 WEEKS WITH A MEAL TAKE ONE CAPSULE BY MOUTH ONCE EVERY 2 WEEKS WITH A MEAL SOLD: 09/10/2020 [facility] Triamcinolone Acetonide 1 MG/ML Topical Cream Triamcin olone Acetonide 0.1 % Triamcinolone Acetonide 0.1 % 08/28/2020 12:00:00 AM EDT suspended Triamcinolone Acetonide 0.1 % eCW1 ([facility]) Hydroxyzine Hydrochloride 25 MG Oral Tablet HydrOXYzin e HCl 25 MG HydrOXYzine HCl 25 MG 08/28/2020 12:00:00 AM EDT 1.0 {tablet_as_needed} active HydrOXYzine HCl 25 MG eCW1 ([facility]) Hydroxyzine Hydrochloride 25 MG Oral Tablet HydrOXYzin e HCl 25 MG HydrOXYzine HCl 25 MG 08/28/2020 12:00:00 AM EDT 1.0 {tablet_as_needed} active HydrOXYzine HCl 25 MG eCW1 ([facility]) Hydroxyzine Hydrochloride 25 MG Oral Tablet hydrOXYzin e HCl 25 MG hydrOXYzine HCl 25 MG 08/28/2020 12:00:00 AM EDT 1.0 {tablet_as_needed} suspended hydrOXYzine HCl 25 MG eCW1 ([facility]) Hydroxyzine Hydrochloride 25 MG Oral Tablet hydrOXYzin e HCl 25 MG hydrOXYzine HCl 25 MG 08/28/2020 12:00:00 AM EDT 1.0 {tablet_as_needed} suspended hydrOXYzine HCl 25 MG eCW1 ([facility]) Triamcinolone Acetonide 1 MG/ML Topical Cream Triamcin olone Acetonide 0.1 % Triamcinolone Acetonide 0.1 % 08/28/2020 12:00:00 AM EDT suspended Triamcinolone Acetonide 0.1 % eCW1 ([facility]) Triamcinolone Acetonide 1 MG/ML Topical Cream Triamcin olone Acetonide 0.1 % Triamcinolone Acetonide 0.1 % 08/28/2020 12:00:00 AM EDT active Triamcinolone Acetonide 0.1 % eCW1 ([facility]) Hydroxyzine Hydrochloride 25 MG Oral Tablet hydrOXYzin e HCl 25 MG hydrOXYzine HCl 25 MG 08/28/2020 12:00:00 AM EDT 1.0 {tablet_as_needed} suspended hydrOXYzine HCl 25 MG eCW1 ([facility]) Permethrin 50 MG/ML Topical Cream [Elimite] Elimite 5 % [place] ite 5 % 08/28/2020 12:00:00 AM EDT active Elimite 5 % eCW1 ([facility]) Triamcinolone Acetonide 1 MG/ML Topical Cream Triamcin olone Acetonide 0.1 % Triamcinolone Acetonide 0.1 % 08/28/2020 12:00:00 AM EDT active Triamcinolone Acetonide 0.1 % eCW1 ([facility]) Hydroxyzine Hydrochloride 25 MG Oral Tablet hydrOXYzin e HCl 25 MG hydrOXYzine HCl 25 MG 08/28/2020 12:00:00 AM EDT 1.0 {tablet_as_needed} suspended hydrOXYzine HCl 25 MG eCW1 ([facility]) Triamcinolone Acetonide 1 MG/ML Topical Cream Triamcin olone Acetonide 0.1 % Triamcinolone Acetonide 0.1 % 08/28/2020 12:00:00 AM EDT active Triamcinolone Acetonide 0.1 % eCW1 ([facility]) Permethrin 50 MG/ML Topical Cream [Elimite] Elimite 5 % [place] it[place] 5 % 08/28/2020 12:00:00 AM EDT active Elimite 5 % eCW1 ([facility]) Triamcinolone Acetonide 1 MG/ML Topical Cream Triamcin olone Acetonide 0.1 % Triamcinolone Acetonide 0.1 % 08/28/2020 12:00:00 AM EDT active Triamcinolone Acetonide 0.1 % eCW1 ([facility]) Triamcinolone Acetonide 1 MG/ML Topical Cream Triamcin olone Acetonide 0.1 % Triamcinolone Acetonide 0.1 % 08/28/2020 12:00:00 AM EDT suspended Triamcinolone Acetonide 0.1 % eCW1 ([facility]) Triamcinolone Acetonide 1 MG/ML Topical Cream Triamcin olone Acetonide 0.1 % Triamcinolone Acetonide 0.1 % 08/28/2020 12:00:00 AM EDT active Triamcinolone Acetonide 0.1 % eCW1 ([facility]) Triamcinolone Acetonide 1 MG/ML Topical Cream Triamcin olone Acetonide 0.1 % Triamcinolone Acetonide 0.1 % 08/28/2020 12:00:00 AM EDT suspended Triamcinolone Acetonide 0.1 % eCW1 ([facility]) Triamcinolone Acetonide 1 MG/ML Topical Cream Triamcin olone Acetonide 0.1 % Triamcinolone Acetonide 0.1 % 08/28/2020 12:00:00 AM EDT suspended Triamcinolone Acetonide 0.1 % eCW1 ([facility]) Hydroxyzine Hydrochloride 25 MG Oral Tablet hydrOXYzin e HCl 25 MG hydrOXYzine HCl 25 MG 08/28/2020 12:00:00 AM EDT 1.0 {tablet_as_needed} suspended hydrOXYzine HCl 25 MG eCW1 ([facility], 1928–1983) Triamcinolone Acetonide 1 MG/ML Topical Cream Triamcin olone Acetonide 0.1 % Triamcinolone Acetonide 0.1 % 08/28/2020 12:00:00 AM EDT suspended Triamcinolone Acetonide 0.1 % eCW1 ([facility]) Triamcinolone Acetonide 1 MG/ML Topical Cream Triamcin olone Acetonide 0.1 % Triamcinolone Acetonide 0.1 % 08/28/2020 12:00:00 AM EDT suspended Triamcinolone Acetonide 0.1 % eCW1 ([facility]) 5 % 08/28/2020 12:00:00 AM EDT cream 60 APPLY FROM NECK TO TOES, LEAVE ON FOR 10-14 HOURS THEN RINSE. MAY REPEAT AFRER 14 DAYS IF NEEDED. APPLY FROM NECK TO TOES, LEAVE ON FOR 10-14 HOURS THEN RINSE. MAY REPEAT AFRER 14 DAYS IF NEEDED. SOLD: 08/28/2020 [facility] Triamcinolone Acetonide 1 MG/ML Topical Cream Triamcin olone Acetonide 0.1 % Triamcinolone Acetonide 0.1 % 08/28/2020 12:00:00 AM EDT active Triamcinolone Acetonide 0.1 % eCW1 ([facility]) Hydroxyzine Hydrochloride 25 MG Oral Tablet hydrOXYzin e HCl 25 MG hydrOXYzine HCl 25 MG 08/28/2020 12:00:00 AM EDT 1.0 {tablet_as_needed} suspended hydrOXYzine HCl 25 MG eCW1 (Formerly [facility], 1928–1983) Triamcinolone Acetonide 1 MG/ML Topical Cream Triamcin olone Acetonide 0.1 % Triamcinolone Acetonide 0.1 % 08/28/2020 12:00:00 AM EDT active Triamcinolone Acetonide 0.1 % eCW1 ([facility]) Hydroxyzine Hydrochloride 25 MG Oral Tablet HydrOXYzin e HCl 25 MG HydrOXYzine HCl 25 MG 08/28/2020 12:00:00 AM EDT 1.0 {tablet_as_needed} active HydrOXYzine HCl 25 MG eCW1 ([facility]) 0.1 % 08/28/2020 12:00:00 AM EDT cream 15 APPLY THIN LAYER TO AFFECTED AREAS ON ARMS, LEGS, AND TORSO TWO TIMES A DAY NEEDED FOR 7 DAYS APPLY THIN LAYER TO AFFECTED AREAS ON ARMS, LEGS, AND TORSO TWO TIMES A DAY NEEDED FOR 7 DAYS SOLD: 08/28/2020 [facility] Hydroxyzine Hydrochloride 25 MG Oral Tablet hydrOXYzin e HCl 25 MG hydrOXYzine HCl 25 MG 08/28/2020 12:00:00 AM EDT 1.0 {tablet_as_needed} suspended hydrOXYzine HCl 25 MG eCW1 (Formerly [facility], 1928–1983) Triamcinolone Acetonide 1 MG/ML Topical Cream Triamcin olone Acetonide 0.1 % Triamcinolone Acetonide 0.1 % 08/28/2020 12:00:00 AM EDT active Triamcinolone Acetonide 0.1 % eCW1 ([facility]) Permethrin 50 MG/ML Topical Cream [Elimite] Elimite 5 % [place] [facility] 5 % 08/28/2020 12:00:00 AM EDT active Elimite 5 % eCW1 ([facility]) Triamcinolone Acetonide 1 MG/ML Topical Cream Triamcin olone Acetonide 0.1 % Triamcinolone Acetonide 0.1 % 08/28/2020 12:00:00 AM EDT suspended Triamcinolone Acetonide 0.1 % eCW1 ([facility]) Hydroxyzine Hydrochloride 25 MG Oral Tablet hydrOXYzin e HCl 25 MG hydrOXYzine HCl 25 MG 08/28/2020 12:00:00 AM EDT 1.0 {tablet_as_needed} suspended hydrOXYzine HCl 25 MG eCW1 (Formerly [facility], 1928–1983) Hydroxyzine Hydrochloride 25 MG Oral Tablet HydrOXYzin e HCl 25 MG HydrOXYzine HCl 25 MG 08/28/2020 12:00:00 AM EDT 1.0 {tablet_as_needed} active HydrOXYzine HCl 25 MG eCW1 ([facility]) Hydroxyzine Hydrochloride 25 MG Oral Tablet HydrOXYzin e HCl 25 MG HydrOXYzine HCl 25 MG 08/28/2020 12:00:00 AM EDT 1.0 {tablet_as_needed} active HydrOXYzine HCl 25 MG eCW1 ([facility]) Hydroxyzine Hydrochloride 25 MG Oral Tablet hydrOXYzin e HCl 25 MG hydrOXYzine HCl 25 MG 08/28/2020 12:00:00 AM EDT 1.0 {tablet_as_needed} active hydrOXYzine HCl 25 MG eCW1 ([facility]) Permethrin 50 MG/ML Topical Cream [Elimite] Elimite 5 % [place] [facility] 5 % 08/28/2020 12:00:00 AM EDT active Elimite 5 % eCW1 ([facility]) Permethrin 50 MG/ML Topical Cream [Elimite] Elimite 5 % [place] [facility] 5 % 08/28/2020 12:00:00 AM EDT active Elimite 5 % eCW1 ([facility]) Permethrin 50 MG/ML Topical Cream [Elimite] Elimite 5 % [place] [facility] 5 % 08/28/2020 12:00:00 AM EDT active Elimite 5 % eCW1 ([facility]) Permethrin 50 MG/ML Topical Cream [Elimite] Elimite 5 % [place] [facility] 5 % 08/28/2020 12:00:00 AM EDT active Elimite 5 % eCW1 ([facility]) Triamcinolone Acetonide 1 MG/ML Topical Cream Triamcin olone Acetonide 0.1 % Triamcinolone Acetonide 0.1 % 08/28/2020 12:00:00 AM EDT suspended Triamcinolone Acetonide 0.1 % eCW1 ([facility]) Triamcinolone Acetonide 1 MG/ML Topical Cream Triamcin olone Acetonide 0.1 % Triamcinolone Acetonide 0.1 % 08/28/2020 12:00:00 AM EDT active Triamcinolone Acetonide 0.1 % eCW1 ([facility]) Hydroxyzine Hydrochloride 25 MG Oral Tablet HydrOXYzin e HCl 25 MG HydrOXYzine HCl 25 MG 08/28/2020 12:00:00 AM EDT 1.0 {tablet_as_needed} active HydrOXYzine HCl 25 MG eCW1 ([facility]) Hydroxyzine Hydrochloride 25 MG Oral Tablet hydrOXYzin e HCl 25 MG hydrOXYzine HCl 25 MG 08/28/2020 12:00:00 AM EDT 1.0 {tablet_as_needed} suspended hydrOXYzine HCl 25 MG eCW1 (Formerly [facility], 1928–1983) Hydroxyzine Hydrochloride 25 MG Oral Tablet hydrOXYzin e HCl 25 MG hydrOXYzine HCl 25 MG 08/28/2020 12:00:00 AM EDT 1.0 {tablet_as_needed} active hydrOXYzine HCl 25 MG eCW1 ([facility]) Triamcinolone Acetonide 1 MG/ML Topical Cream Triamcin olone Acetonide 0.1 % Triamcinolone Acetonide 0.1 % 08/28/2020 12:00:00 AM EDT suspended Triamcinolone Acetonide 0.1 % eCW1 ([facility]) 25 mg 08/28/2020 12:00:00 AM EDT tablet 30 TAKE ONE TABLET BY MOUTH THREE TIMES A DAY NEEDED FOR ITCHING FOR 10 DAYS TAKE ONE TABLET BY MOUTH THREE TIMES A DAY NEEDED FOR ITCHING FOR 10 DAYS SOLD: 08/28/2020 [facility] Triamcinolone Acetonide 1 MG/ML Topical Cream Triamcin olone Acetonide 0.1 % Triamcinolone Acetonide 0.1 % 08/28/2020 12:00:00 AM EDT active Triamcinolone Acetonide 0.1 % eCW1 ([facility]) Hydroxyzine Hydrochloride 25 MG Oral Tablet hydrOXYzin e HCl 25 MG hydrOXYzine HCl 25 MG 08/28/2020 12:00:00 AM EDT 1.0 {tablet_as_needed} suspended hydrOXYzine HCl 25 MG eCW1 (Formerly [facility], 1928[facility]1983) Hydroxyzine Hydrochloride 25 MG Oral Tablet hydrOXYzin e HCl 25 MG hydrOXYzine HCl 25 MG 08/28/2020 12:00:00 AM EDT 1.0 {tablet_as_needed} suspended hydrOXYzine HCl 25 MG eCW1 (Formerly [facility], 1928[facility]1983) Triamcinolone Acetonide 1 MG/ML Topical Cream Triamcin olone Acetonide 0.1 % Triamcinolone Acetonide 0.1 % 08/28/2020 12:00:00 AM EDT active Triamcinolone Acetonide 0.1 % eCW1 ([facility]) Hydroxyzine Hydrochloride 25 MG Oral Tablet hydrOXYzin e HCl 25 MG hydrOXYzine HCl 25 MG 08/28/2020 12:00:00 AM EDT 1.0 {tablet_as_needed} suspended hydrOXYzine HCl 25 MG eCW1 (Formerly [facility], [facility]) Hydroxyzine Hydrochloride 25 MG Oral Tablet HydrOXYzin e HCl 25 MG HydrOXYzine HCl 25 MG 08/28/2020 12:00:00 AM EDT 1.0 {tablet_as_needed} active HydrOXYzine HCl 25 MG eCW1 ([facility]) Triamcinolone Acetonide 1 MG/ML Topical Cream Triamcin olone Acetonide 0.1 % Triamcinolone Acetonide 0.1 % 08/28/2020 12:00:00 AM EDT suspended Triamcinolone Acetonide 0.1 % eCW1 ([facility]) Hydroxyzine Hydrochloride 25 MG Oral Tablet hydrOXYzin e HCl 25 MG hydrOXYzine HCl 25 MG 08/28/2020 12:00:00 AM EDT 1.0 {tablet_as_needed} active hydrOXYzine HCl 25 MG eCW1 ([facility]) Hydroxyzine Hydrochloride 25 MG Oral Tablet HydrOXYzin e HCl 25 MG HydrOXYzine HCl 25 MG 08/28/2020 12:00:00 AM EDT 1.0 {tablet_as_needed} active HydrOXYzine HCl 25 MG eCW1 ([facility]) Hydroxyzine Hydrochloride 25 MG Oral Tablet HydrOXYzin e HCl 25 MG HydrOXYzine HCl 25 MG 08/28/2020 12:00:00 AM EDT 1.0 {tablet_as_needed} active HydrOXYzine HCl 25 MG eCW1 ([facility]) Hydroxyzine Hydrochloride 25 MG Oral Tablet hydrOXYzin e HCl 25 MG hydrOXYzine HCl 25 MG 08/28/2020 12:00:00 AM EDT 1.0 {tablet_as_needed} suspended hydrOXYzine HCl 25 MG eCW1 (Formerly [facility], [facility]) Hydroxyzine Hydrochloride 25 MG Oral Tablet hydrOXYzin e HCl 25 MG hydrOXYzine HCl 25 MG 08/28/2020 12:00:00 AM EDT 1.0 {tablet_as_needed} suspended hydrOXYzine HCl 25 MG eCW1 (Formerly [facility], [facility]1983) Triamcinolone Acetonide 1 MG/ML Topical Cream Triamcin olone Acetonide 0.1 % Triamcinolone Acetonide 0.1 % 08/28/2020 12:00:00 AM EDT active Triamcinolone Acetonide 0.1 % eCW1 ([facility]) Hydroxyzine Hydrochloride 25 MG Oral Tablet hydrOXYzin e HCl 25 MG hydrOXYzine HCl 25 MG 08/28/2020 12:00:00 AM EDT 1.0 {tablet_as_needed} suspended hydrOXYzine HCl 25 MG eCW1 ([facility], [facility]) Triamcinolone Acetonide 1 MG/ML Topical Cream Triamcin olone Acetonide 0.1 % Triamcinolone Acetonide 0.1 % 08/28/2020 12:00:00 AM EDT suspended Triamcinolone Acetonide 0.1 % eCW1 ([facility]) Triamcinolone Acetonide 1 MG/ML Topical Cream Triamcin olone Acetonide 0.1 % Triamcinolone Acetonide 0.1 % 08/28/2020 12:00:00 AM EDT suspended Triamcinolone Acetonide 0.1 % eCW1 ([facility]) Triamcinolone Acetonide 1 MG/ML Topical Cream Triamcin olone Acetonide 0.1 % Triamcinolone Acetonide 0.1 % 08/28/2020 12:00:00 AM EDT suspended Triamcinolone Acetonide 0.1 % eCW1 ([facility]) Triamcinolone Acetonide 1 MG/ML Topical Cream Triamcin olone Acetonide 0.1 % Triamcinolone Acetonide 0.1 % 08/28/2020 12:00:00 AM EDT suspended Triamcinolone Acetonide 0.1 % eCW1 ([facility]) Permethrin 50 MG/ML Topical Cream [Elimite] Elimite 5 % [place] [facility] 5 % 08/28/2020 12:00:00 AM EDT active Elimite 5 % eCW1 ([facility]) Famotidine 40 MG Oral Tablet FAMOTIDINE 08/03/2020 12:00:00 AM EST tab let 60 TAKE ONE TABLET BY MOUTH AT BEDTIME TWO TIMES A DAY TAKE ONE TABLET BY MOUTH AT BEDTIME TWO TIMES A DAY SOLD: 08/05/2020 [facility] 750 mg 08/03/2020 12:00:00 AM EST tablet 60 TAKE ONE TABLET BY MOUTH TWICE A DAY NEEDED TAKE ONE TABLET BY MOUTH TWICE A DAY NEEDED SOLD: [facility] 137 mcg (0.1 %) 08/03/2020 12:00:00 AM EST aerosol,spray 30 SPRAY ONE SPRAY IN EACH NOSTRIL DAILY SPRAY ONE SPRAY IN EACH NOSTRIL DAILY SOLD: 08/05/2020 [facility] 300 mg 08/03/2020 12:00:00 AM EST capsule 90 TAKE ONE CAPSULE BY MOUTH THREE TIMES A DAY TAKE ONE CAPSULE BY MOUTH THREE TIMES A DAY SOLD: 09/28/2020 [facility] 300 mg 08/03/2020 12:00:00 AM EST capsule 90 TAKE ONE CAPSULE BY MOUTH THREE TIMES A DAY TAKE ONE CAPSULE BY MOUTH THREE TIMES A DAY SOLD: 08/05/2020 [facility] 137 mcg (0.1 %) 08/03/2020 12:00:00 AM EST aerosol,spray 30 SPRAY ONE SPRAY IN EACH NOSTRIL DAILY SPRAY ONE SPRAY IN EACH NOSTRIL DAILY SOLD: 09/28/2020 [facility] Famotidine 40 MG Oral Tablet FAMOTIDINE 08/03/2020 12:00:00 AM EST tab let 60 TAKE ONE TABLET BY MOUTH AT BEDTIME TWO TIMES A DAY TAKE ONE TABLET BY MOUTH AT BEDTIME TWO TIMES A DAY SOLD: 09/28/2020 [facility] 10 mg 08/03/2020 12:00:00 AM EST tablet 30 TAKE ONE TABLET BY MOUTH EVERY DAY TAKE ONE TABLET BY MOUTH EVERY DAY SOLD: 09/28/2020 [facility] 10 mg 08/03/2020 12:00:00 AM EST tablet 30 TAKE ONE TABLET BY MOUTH EVERY DAY TAKE ONE TABLET BY MOUTH EVERY DAY SOLD: 08/05/2020 [facility] 10 mg 08/03/2020 12:00:00 AM EST tablet 30 TAKE ONE TABLET BY MOUTH EVERY DAY TAKE ONE TABLET BY MOUTH EVERY DAY SOLD: 04/03/2021 [facility] 300 mg 08/03/2020 12:00:00 AM EST capsule 90 TAKE ONE CAPSULE BY MOUTH THREE TIMES A DAY TAKE ONE CAPSULE BY MOUTH THREE TIMES A DAY SOLD: 01/29/2021 [facility] 137 mcg (0.1 %) 08/03/2020 12:00:00 AM EST aerosol,spray 30 SPRAY ONE SPRAY IN EACH NOSTRIL DAILY SPRAY ONE SPRAY IN EACH NOSTRIL DAILY SOLD: 12/20/2020 [facility] 300 mg 08/03/2020 12:00:00 AM EST capsule 90 TAKE ONE CAPSULE BY MOUTH THREE TIMES A DAY TAKE ONE CAPSULE BY MOUTH THREE TIMES A DAY SOLD: 12/20/2020 [facility] 50 mcg/actuation 08/02/2020 12:00:00 AM EST spray,suspension 16 SPRAY 1 SPRAY IN EACH NOSTRIL ONCE A DAY AT BEDTIME SPRAY 1 SPRAY IN EACH NOSTRIL ONCE A DAY AT BEDTIME SOLD: 09/28/2020 [facility] 50 mcg/actuation 08/02/2020 12:00:00 AM EST spray,suspension 16 SPRAY 1 SPRAY IN EACH NOSTRIL ONCE A DAY AT BEDTIME SPRAY 1 SPRAY IN EACH NOSTRIL ONCE A DAY AT BEDTIME SOLD: 08/05/2020 [facility] 875-125 mg 05/29/2020 12:00:00 AM EST tablet 14 TAKE ONE TABLET BY MOUTH TWICE A DAY FOR 7 DAYS TAKE ONE TABLET BY MOUTH TWICE A DAY FOR 7 DAYS SOLD: 05/29/2020 [facility] 150 mg 05/29/2020 12:00:00 AM EST tablet 2 TAKE ONE TABLET BY MOUTH, TAKE SECOND TABLET IN 48 HOURS TAKE ONE TABLET BY MOUTH, TAKE SECOND TA BLET IN 48 HOURS SOLD: 05/29/2020 [facility] [employer] 05/21/2020 12:00:00 AM EST active MEDENT ([facility], ) Triamcinolone Acetonide 1 MG/ML Topical Cream Triamcin olone Acetonide 0.1 % Triamcinolone Acetonide 0.1 % 04/29/2020 12:00:00 AM EST 1.0 {appli cation} active Triamcinolone Acetonide 0 .1 % eCW1 ([facility]) 0.1 % 04/29/2020 12:00:00 AM EST cream 15 APPLY TO SCAR TWO TIMES A DAY APPLY TO SCAR TWO TIMES A DAY SOLD: 05/02/2020 [facility] Triamcinolone Acetonide 1 MG/ML Topical Cream Triamcin olone Acetonide 0.1 % Triamcinolone Acetonide 0.1 % 04/29/2020 12:00:00 AM EST 1.0 {appli cation} suspended Triamcinolone Acetonide 0 .1 % eCW1 ([facility]) Triamcinolone Acetonide 1 MG/ML Topical Cream Triamcin olone Acetonide 0.1 % Triamcinolone Acetonide 0.1 % 04/29/2020 12:00:00 AM EST 1.0 {appli cation} active Triamcinolone Acetonide 0 .1 % eCW1 ([facility]) Triamcinolone Acetonide 1 MG/ML Topical Cream Triamcin olone Acetonide 0.1 % Triamcinolone Acetonide 0.1 % 04/29/2020 12:00:00 AM EST 1.0 {appli cation} suspended Triamcinolone Acetonide 0 .1 % eCW1 ([facility]) Triamcinolone Acetonide 1 MG/ML Topical Cream Triamcin olone Acetonide 0.1 % Triamcinolone Acetonide 0.1 % 04/29/2020 12:00:00 AM EST 1.0 {appli cation} suspended Triamcinolone Acetonide 0 .1 % eCW1 ([facility]) Triamcinolone Acetonide 1 MG/ML Topical Cream Triamcin olone Acetonide 0.1 % Triamcinolone Acetonide 0.1 % 04/29/2020 12:00:00 AM EST 1.0 {appli cation} suspended Triamcinolone Acetonide 0 .1 % eCW1 ([facility]) Triamcinolone Acetonide 1 MG/ML Topical Cream Triamcin olone Acetonide 0.1 % Triamcinolone Acetonide 0.1 % 04/29/2020 12:00:00 AM EST 1.0 {appli cation} active Triamcinolone Acetonide 0 .1 % eCW1 ([facility]) Triamcinolone Acetonide 1 MG/ML Topical Cream Triamcin olone Acetonide 0.1 % Triamcinolone Acetonide 0.1 % 04/29/2020 12:00:00 AM EST 1.0 {appli cation} active Triamcinolone Acetonide 0 .1 % eCW1 ([facility]) Triamcinolone Acetonide 1 MG/ML Topical Cream Triamcin olone Acetonide 0.1 % Triamcinolone Acetonide 0.1 % 04/29/2020 12:00:00 AM EST 1.0 {appli cation} suspended Triamcinolone Acetonide 0 .1 % eCW1 ([facility]) Triamcinolone Acetonide 1 MG/ML Topical Cream Triamcin olone Acetonide 0.1 % Triamcinolone Acetonide 0.1 % 04/29/2020 12:00:00 AM EST 1.0 {appli cation} suspended Triamcinolone Acetonide 0 .1 % eCW1 ([facility]) Triamcinolone Acetonide 1 MG/ML Topical Cream Triamcin olone Acetonide 0.1 % Triamcinolone Acetonide 0.1 % 04/29/2020 12:00:00 AM EST 1.0 {appli cation} suspended Triamcinolone Acetonide 0 .1 % eCW1 ([facility]) Triamcinolone Acetonide 1 MG/ML Topical Cream Triamcin olone Acetonide 0.1 % Triamcinolone Acetonide 0.1 % 04/29/2020 12:00:00 AM EST 1.0 {appli cation} suspended Triamcinolone Acetonide 0 .1 % eCW1 ([facility]) Triamcinolone Acetonide 1 MG/ML Topical Cream Triamcin olone Acetonide 0.1 % Triamcinolone Acetonide 0.1 % 04/29/2020 12:00:00 AM EST 1.0 {appli cation} suspended Triamcinolone Acetonide 0 .1 % eCW1 ([facility]) Triamcinolone Acetonide 1 MG/ML Topical Cream Triamcin olone Acetonide 0.1 % Triamcinolone Acetonide 0.1 % 04/29/2020 12:00:00 AM EST 1.0 {appli cation} active Triamcinolone Acetonide 0 .1 % eCW1 ([facility]) Triamcinolone Acetonide 1 MG/ML Topical Cream Triamcin olone Acetonide 0.1 % Triamcinolone Acetonide 0.1 % 04/29/2020 12:00:00 AM EST 1.0 {appli cation} active Triamcinolone Acetonide 0 .1 % eCW1 ([facility]) Triamcinolone Acetonide 1 MG/ML Topical Cream Triamcin olone Acetonide 0.1 % Triamcinolone Acetonide 0.1 % 04/29/2020 12:00:00 AM EST 1.0 {appli cation} suspended Triamcinolone Acetonide 0 .1 % eCW1 ([facility]) Triamcinolone Acetonide 1 MG/ML Topical Cream Triamcin olone Acetonide 0.1 % Triamcinolone Acetonide 0.1 % 04/29/2020 12:00:00 AM EST 1.0 {appli cation} suspended Triamcinolone Acetonide 0 .1 % eCW1 ([facility]) Triamcinolone Acetonide 1 MG/ML Topical Cream Triamcin olone Acetonide 0.1 % Triamcinolone Acetonide 0.1 % 04/29/2020 12:00:00 AM EST 1.0 {appli cation} active Triamcinolone Acetonide 0 .1 % eCW1 ([facility]) Triamcinolone Acetonide 1 MG/ML Topical Cream Triamcin olone Acetonide 0.1 % Triamcinolone Acetonide 0.1 % 04/29/2020 12:00:00 AM EST 1.0 {appli cation} suspended Triamcinolone Acetonide 0 .1 % eCW1 ([facility]) Triamcinolone Acetonide 1 MG/ML Topical Cream Triamcin olone Acetonide 0.1 % Triamcinolone Acetonide 0.1 % 04/29/2020 12:00:00 AM EST 1.0 {appli cation} suspended Triamcinolone Acetonide 0 .1 % eCW1 ([facility]) Triamcinolone Acetonide 1 MG/ML Topical Cream Triamcin olone Acetonide 0.1 % Triamcinolone Acetonide 0.1 % 04/29/2020 12:00:00 AM EST 1.0 {appli cation} suspended Triamcinolone Acetonide 0 .1 % eCW1 ([facility]) Triamcinolone Acetonide 1 MG/ML Topical Cream Triamcin olone Acetonide 0.1 % Triamcinolone Acetonide 0.1 % 04/29/2020 12:00:00 AM EST 1.0 {appli cation} suspended Triamcinolone Acetonide 0 .1 % eCW1 ([facility]) Triamcinolone Acetonide 1 MG/ML Topical Cream Triamcin olone Acetonide 0.1 % Triamcinolone Acetonide 0.1 % 04/29/2020 12:00:00 AM EST 1.0 {appli cation} active Triamcinolone Acetonide 0 .1 % eCW1 ([facility]) Triamcinolone Acetonide 1 MG/ML Topical Cream Triamcin olone Acetonide 0.1 % Triamcinolone Acetonide 0.1 % 04/29/2020 12:00:00 AM EST 1.0 {appli cation} active Triamcinolone Acetonide 0 .1 % eCW1 ([facility]) Triamcinolone Acetonide 1 MG/ML Topical Cream Triamcin olone Acetonide 0.1 % Triamcinolone Acetonide 0.1 % 04/29/2020 12:00:00 AM EST 1.0 {appli cation} suspended Triamcinolone Acetonide 0 .1 % eCW1 ([facility]) Triamcinolone Acetonide 1 MG/ML Topical Cream Triamcin olone Acetonide 0.1 % Triamcinolone Acetonide 0.1 % 04/29/2020 12:00:00 AM EST 1.0 {appli cation} active Triamcinolone Acetonide 0 .1 % eCW1 ([facility]) Triamcinolone Acetonide 1 MG/ML Topical Cream Triamcin olone Acetonide 0.1 % Triamcinolone Acetonide 0.1 % 04/29/2020 12:00:00 AM EST 1.0 {appli cation} suspended Triamcinolone Acetonide 0 .1 % eCW1 ([facility]) Triamcinolone Acetonide 1 MG/ML Topical Cream Triamcin olone Acetonide 0.1 % Triamcinolone Acetonide 0.1 % 04/29/2020 12:00:00 AM EST 1.0 {appli cation} active Triamcinolone Acetonide 0 .1 % eCW1 ([facility]) Triamcinolone Acetonide 1 MG/ML Topical Cream Triamcin olone Acetonide 0.1 % Triamcinolone Acetonide 0.1 % 04/29/2020 12:00:00 AM EST 1.0 {appli cation} suspended Triamcinolone Acetonide 0 .1 % eCW1 ([facility]) Triamcinolone Acetonide 1 MG/ML Topical Cream Triamcin olone Acetonide 0.1 % Triamcinolone Acetonide 0.1 % 04/29/2020 12:00:00 AM EST 1.0 {appli cation} active Triamcinolone Acetonide 0 .1 % eCW1 ([facility]) Triamcinolone Acetonide 1 MG/ML Topical Cream Triamcin olone Acetonide 0.1 % Triamcinolone Acetonide 0.1 % 04/29/2020 12:00:00 AM EST 1.0 {appli cation} active Triamcinolone Acetonide 0 .1 % eCW1 ([facility]) Triamcinolone Acetonide 1 MG/ML Topical Cream Triamcin olone Acetonide 0.1 % Triamcinolone Acetonide 0.1 % 04/29/2020 12:00:00 AM EST 1.0 {appli cation} active Triamcinolone Acetonide 0 .1 % eCW1 ([facility]) Triamcinolone Acetonide 1 MG/ML Topical Cream Triamcin olone Acetonide 0.1 % Triamcinolone Acetonide 0.1 % 04/29/2020 12:00:00 AM EST 1.0 {appli cation} active Triamcinolone Acetonide 0 .1 % eCW1 ([facility]) Triamcinolone Acetonide 1 MG/ML Topical Cream Triamcin olone Acetonide 0.1 % Triamcinolone Acetonide 0.1 % 04/29/2020 12:00:00 AM EST 1.0 {appli cation} active Triamcinolone Acetonide 0 .1 % eCW1 ([facility]) Triamcinolone Acetonide 1 MG/ML Topical Cream Triamcin olone Acetonide 0.1 % Triamcinolone Acetonide 0.1 % 04/29/2020 12:00:00 AM EST 1.0 {appli cation} active Triamcinolone Acetonide 0 .1 % eCW1 ([facility]) Triamcinolone Acetonide 1 MG/ML Topical Cream Triamcin olone Acetonide 0.1 % Triamcinolone Acetonide 0.1 % 04/29/2020 12:00:00 AM EST 1.0 {appli cation} suspended Triamcinolone Acetonide 0 .1 % eCW1 ([facility]) 100 mg 04/17/2020 12:00:00 AM EST capsule 14 TAKE ONE CAPSULE BY MOUTH TWICE A DAY FOR 7 DAYS TAKE ONE CAPSULE BY MOUTH TWICE A DAY FOR 7 DAYS SOLD: 04/17/2020 [facility] 1,250 mcg (50,000 unit) 03/07/2020 12:00:00 AM EDT capsule 13 TAKE 1 CAPSULE BY MOUTH ONCE A WEEK WITH A MEAL TAKE 1 CAPSULE BY MOUTH ONCE A WEEK WITH A MEAL SOLD: 03/10/2020 [facility] 1,250 mcg (50,000 unit) 03/07/2020 12:00:00 AM EDT capsule 13 TAKE 1 CAPSULE BY MOUTH ONCE A WEEK WITH A MEAL TAKE 1 CAPSULE BY MOUTH ONCE A WEEK WITH A MEAL SOLD: 06/20/2020 [facility] 300 mg 03/02/2020 12:00:00 AM EDT capsule 90 TAKE ONE CAPSULE BY MOUTH THREE TIMES A DAY TAKE ONE CAPSULE BY MOUTH THREE TIMES A DAY SOLD: 03/04/2020 [facility] 300 mg 03/02/2020 12:00:00 AM EDT capsule 90 TAKE ONE CAPSULE BY MOUTH THREE TIMES A DAY TAKE ONE CAPSULE BY MOUTH THREE TIMES A DAY SOLD: 04/15/2020 [facility] 300 mg 03/02/2020 12:00:00 AM EDT capsule 90 TAKE ONE CAPSULE BY MOUTH THREE TIMES A DAY TAKE ONE CAPSULE BY MOUTH THREE TIMES A DAY SOLD: 06/20/2020 [facility] Famotidine 40 MG Oral Tablet Famotidine 40 MG 02/29/2020 12:00:00 A M EDT 1.0 {tablet_at_bedtime} active Famotidine 4 0 MG eCW1 ([facility]) Famotidine 40 MG Oral Tablet Famotidine 40 MG 02/29/2020 12:00:00 A M EDT 1.0 {tablet_at_bedtime} active Famotidine 4 0 MG eCW1 ([facility]) Famotidine 40 MG Oral Tablet Famotidine 40 MG 02/29/2020 12:00:00 A M EDT 1.0 {tablet_at_bedtime} active Famotidine 4 0 MG eCW1 ([facility]) Famotidine 40 MG Oral Tablet Famotidine 40 MG 02/29/2020 12:00:00 A M EDT 1.0 {tablet_at_bedtime} active Famotidine 4 0 MG eCW1 ([facility]) Famotidine 40 MG Oral Tablet Famotidine 40 MG 02/29/2020 12:00:00 A M EDT 1.0 {tablet_at_bedtime} active Famotidine 4 0 MG eCW1 ([facility]) Famotidine 40 MG Oral Tablet Famotidine 40 MG 02/29/2020 12:00:00 A M EDT 1.0 {tablet_at_bedtime} active Famotidine 4 0 MG eCW1 ([facility] [place]) Famotidine 40 MG Oral Tablet Famotidine 40 MG 02/29/2020 12:00:00 A M EDT 1.0 {tablet_at_bedtime} active Famotidine 4 0 MG eCW1 ([facility] [place]) Famotidine 40 MG Oral Tablet Famotidine 40 MG 02/29/2020 12:00:00 A M EDT 1.0 {tablet_at_bedtime} active Famotidine 4 0 MG eCW1 ([facility] [place]) Famotidine 40 MG Oral Tablet Famotidine 40 MG 02/29/2020 12:00:00 A M EDT 1.0 {tablet_at_bedtime} active Famotidine 4 0 MG eCW1 ([facility] [place]) Famotidine 40 MG Oral Tablet Famotidine 40 MG 02/29/2020 12:00:00 A M EDT 1.0 {tablet_at_bedtime} active Famotidine 4 0 MG eCW1 ([facility] [place]) Famotidine 40 MG Oral Tablet Famotidine 40 MG 02/29/2020 12:00:00 A M EDT 1.0 {tablet_at_bedtime} active Famotidine 4 0 MG eCW1 ([facility] [place]) Famotidine 40 MG Oral Tablet Famotidine 40 MG 02/29/2020 12:00:00 A M EDT 1.0 {tablet_at_bedtime} active Famotidine 4 0 MG eCW1 ([facility] [place]) Famotidine 40 MG Oral Tablet Famotidine 40 MG 02/29/2020 12:00:00 A M EDT 1.0 {tablet_at_bedtime} active Famotidine 4 0 MG eCW1 ([facility]) Famotidine 40 MG Oral Tablet Famotidine 40 MG 02/29/2020 12:00:00 A M EDT 1.0 {tablet_at_bedtime} active Famotidine 4 0 MG eCW1 ([facility]) Famotidine 40 MG Oral Tablet Famotidine 40 MG 02/29/2020 12:00:00 A M EDT 1.0 {tablet_at_bedtime} active Famotidine 4 0 MG eCW1 ([facility]) Famotidine 40 MG Oral Tablet Famotidine 40 MG 02/29/2020 12:00:00 A M EDT 1.0 {tablet_at_bedtime} active Famotidine 4 0 MG eCW1 ([facility]) Famotidine 40 MG Oral Tablet Famotidine 40 MG 02/29/2020 12:00:00 A M EDT 1.0 {tablet_at_bedtime} active Famotidine 4 0 MG eCW1 ([facility]) Famotidine 40 MG Oral Tablet Famotidine 40 MG 02/29/2020 12:00:00 A M EDT 1.0 {tablet_at_bedtime} active Famotidine 4 0 MG eCW1 ([facility]) Famotidine 40 MG Oral Tablet Famotidine 40 MG 02/29/2020 12:00:00 A M EDT 1.0 {tablet_at_bedtime} active Famotidine 4 0 MG eCW1 ([facility]) Famotidine 40 MG Oral Tablet Famotidine 40 MG 02/29/2020 12:00:00 A M EDT 1.0 {tablet_at_bedtime} active Famotidine 4 0 MG eCW1 ([facility]) Famotidine 40 MG Oral Tablet Famotidine 40 MG 02/29/2020 12:00:00 A M EDT 1.0 {tablet_at_bedtime} active Famotidine 4 0 MG eCW1 ([facility]) 90 mcg/actuation 02/13/2020 12:00:00 AM EDT HFA aerosol inha ler 18 INHALE 2 PUFFS BY MOUTH THREE TIMES A DAY FOR 10 DAYS INHALE 2 PUFFS BY MOUTH THREE TIMES A DAY FOR 10 DAYS SOLD: 02/13/2020 [facility] 875-125 mg 02/13/2020 12:00:00 AM EDT tablet 20 TAKE ONE TABLET BY MOUTH TWICE A DAY FOR 10 DAYS TAKE ONE TABLET BY MOUTH TWICE A DAY FOR 10 DAYS SOLD: 02/13/2020 [facility] 40 mg 02/01/2020 12:00:00 AM EDT tablet 30 TAKE ONE TABLET BY MOUTH ONCE A DAY TAKE ONE TABLET BY MOUTH ONCE A DAY SOLD: 04/15/2020 [facility] 40 mg 02/01/2020 12:00:00 AM EDT tablet 30 TAKE ONE TABLET BY MOUTH ONCE A DAY TAKE ONE TABLET BY MOUTH ONCE A DAY SOLD: 03/04/2020 [facility] Famotidine 40 MG Oral Tablet FAMOTIDINE 02/01/2020 12:00:00 AM EDT tab let 30 TAKE ONE TABLET BY MOUTH ONCE A DAY TAKE ONE TABLET BY MOUTH ONCE A DAY SOLD: 06/20/2020 [facility] 40 mg 02/01/2020 12:00:00 AM EDT tablet 30 TAKE ONE TABLET BY MOUTH ONCE A DAY TAKE ONE TABLET BY MOUTH ONCE A DAY SOLD: 02/05/2020 [facility] 10 mg 09/12/2019 12:00:00 AM EDT tablet 30 TAKE ONE TABLET BY MOUTH EVERY DAY TAKE ONE TABLET BY MOUTH EVERY DAY SOLD: 03/04/2020 [facility] 10 mg 09/12/2019 12:00:00 AM EDT tablet 30 TAKE ONE TABLET BY MOUTH EVERY DAY TAKE ONE TABLET BY MOUTH EVERY DAY SOLD: 04/15/2020 [facility] 10 mg 09/12/2019 12:00:00 AM EDT tablet 30 TAKE ONE TABLET BY MOUTH EVERY DAY TAKE ONE TABLET BY MOUTH EVERY DAY SOLD: 06/20/2020 [facility] 1,250 mcg (50,000 unit) 06/08/2019 12:00:00 AM EST capsule 2 TAKE 1 CAPSULE BY MOUTH EVERY 2 WEEKS WITH A MEAL TAKE 1 CAPSULE BY MOUTH EVERY 2 WEEKS WI TH A MEAL SOLD: 02/05/2020 [facility] 20 mg 06/07/2019 12:00:00 AM EST capsule,delayed release (DR/EC) 30 TAKE ONE CAPSULE BY MOUTH EVERY DAY TAKE ONE CAPSULE BY MOUTH EVERY DAY SOLD: 03/04/2020 [facility] Insurance Providers Payer name Policy type / Coverage type Policy ID Covered libertarian ID Covered libertarian's relationship to tillman Policy Tillman Plan Information [facility] [place] [id number] SP [id number] MEDICAID GME [id number] S [id number] [facility] HEA [id number] S [id number] [facility](MCAID) O [id number] S [id number] [facility]-Medicaid [id number] [facility]-Medicaid [id number] [facility]-Medicaid [id number] [facility]-Medicaid [id number] [facility] [id number] [facility] [id number] [facility] [id number] [facility] [id number] ANSI-Medicaid [id number] ANSI-Medicaid [id number] [facility] PLAN [facility] [place] [id number] SP [id number] [facility] [place] [id number] SP [id number] MEDICAID [id number] SP [id number] [facility] [id number] SP [id number] Problems, Conditions, and Diagnoses Code Display Name Description Problem Type Effective Dates Data Source(s) G47.33 [id number] Obstructive sleep apnea (adult) (pediatri c) Problem 11/08/2020 12:00:00 AM EDT eCW1 ([facility]) Z68.39 [id number] BMI 39.0-39.9,adult Problem 10/23/2020 12:00 :00 AM EDT eCW1 ([facility]) Z98.84 [id number] Status post bariatric surgery Problem 10/23/2020 12:00:00 AM EDT eCW1 ([facility]) Z85.820 [id number] History of malignant melanoma Problem 10/07/2020 12:00:00 AM EDT eCW1 ([facility]) G47.33 Obstructive sleep apnea syndrome Obstructive sle ep apnea syndrome Problem 05/21/2020 12:00:00 AM EST MEDENT ([facility] ) G47.30 Sleep apnea Sleep apnea Problem 03/25/2020 12:00:00 AM EDT MEDENT ([facility], ) E78.5 Hyperlipidemia Hyperlipidemia Problem 03/11/2020 12:00: 00 AM EDT MEDENT ([facility]) K21.9 [id number] Gastroesophageal reflux disease without e sophagitis Problem 03/06/2020 12:00:00 AM EDT eCW1 ([facility]) E88.81 [id number] Metabolic syndrome Problem 03/06/2020 12:00: 00 AM EDT eCW1 ([facility]) F17.210 [id number] Cigarette nicotine dependence without com plication Problem 03/06/2020 12:00:00 AM EDT eCW1 ([facility]) R73.01 [id number] Elevated fasting glucose Problem 03/06/2020 12:00:00 AM EDT eCW1 ([facility]) K76.0 [id number] Fatty liver Problem 03/06/2020 12:00:00 AM E DT eCW1 ([facility]) Z86.018 [id number] Hx of dysplastic nevus Problem 03/05/2020 12:00:00 AM EDT eCW1 ([facility]) Z85.820 [id number] History of melanoma Problem 03/05/2020 12:00 :00 AM EDT eCW1 ([facility]) Surgeries/Procedures Procedure Description Date Indications Data Source(s) OFFICE OUTPATIENT VISIT 15 MINUTES 03/19/2021 12:00:00 AM EDT MEDENT ([facility], ) OFFICE OUTPATIENT VISIT 15 MINUTES 01/20/2021 12:00:00 AM EDT MEDENT ([facility]) LAPS GSTRC RSTRICTIV PX LONGITUDINAL GASTRECTOMY 09/16 12:00:00 AM EDT MEDENT ([facility]) LAPS GSTRC RSTRICTIV PX LONGITUDINAL GASTRECTOMY 09/16 12:00:00 AM EDT MEDENT ([facility]) OFFICE OUTPATIENT VISIT 5 MINUTES 09/11/2020 12:00:00 AM EDT MEDENT ([facility]) OFFICE OUTPATIENT VISIT 25 MINUTES 09/11/2020 12:00:00 AM EDT MEDENT ([facility]) OFFICE OUTPATIENT VISIT 25 MINUTES 08/20/2020 12:00:00 AM EDT MEDENT ([facility]) UPPER NDSC BIOPSY SINGLE/MULTIPLE 03/22/2020 12:00:00 AM EDT MEDENT ([facility]) Results ID Date Data Source [id number] 02/11/2021 12:00:00 AM EDT [facility] Name Value Range Interpretation Code Description Data Tasneem rce(s) Supporting Document(s) SARS-CoV2 Rapid [facility]igen [facility] This lab was ordered by [facility] and reported by [facility]. ID Date Data Source [id number] 01/20/2021 03:31:00 PM EDT MEDENT ([facility]) Name Value Range Interpretation Code Description Data Tasneem rce(s) Supporting Document(s) Cobalamin (Vitamin B12) [Mass/volume] in Serum or Plasma 669 pg/mL 2 11-911 MED[facility] ([facility]) Vit B1 / Thiamine Vitamin D+Metabolites [Mass/volume] in Serum or Plasma 41.19 ng/mL 30 -100 MEDENT ([facility]) <content>Recommended Levels for Circulat ing 25-hydroxy Vitamin D:</content>
<content>Vitamin D Status 25-OH Vitamin D Test Result</content>
<content>Deficient <10ng/mL</content>
<content>Insufficient 10- 29ng/mL</content>
<content>Sufficient 30-100ng/mL</content>
<content>Potential Intoxication >100ng/mL</content>
<content>A pediatric reference range has not been established using this method.</content>
<content></content> Miscellaneous Laboratory test result MED ENT ([facility]) Vit B1 / Thiamine Folate [Mass/volume] in Serum or Plasma 6.18 ng/mL 1.1-20.0 MEDENT ([facility]) Vit B1 / Thiamine Ferritin [Mass/volume] in Serum or Plasma 203 ng/mL 10.0-291.0 MED[facility] ([facility]) Vit B1 / Thiamine Thiamine [Mass/volume] in Blood 134 nmol/L 78-185 MEDENT ([facility]) Vitamin supplementation within 24 hours prior to blood draw may affect the accuracy of the results. This test was developed and its analytical performance characteristics have been determined by [facility] [place], [place]. It has not been cleared or approved by the U.S. Food and Drug Administration. This assay has been validated pursuant to the CLIA regulations and is used for clinical purposes. Venipuncture Laboratory test result MEDE NT ([facility]) Vit B1 / Thiamine ID Date Data Source [id number] 01/20/2021 03:31:00 PM EDT MED[facility] ([facility]) Name Value Range Interpretation Code Description Data Tasneem rce(s) Supporting Document(s) Glucose [Mass/volume] in Serum or Plasma 85 mg/dL 74-106 MEDENT ([facility]) [place] Diabetes [employer] (ADA) Recommended Range is 65-99 mg/dL Urea nitrogen [Moles/volume] in Serum or Plasma 8 mg/dL 6-20 MED[facility] ([facility]) Creatinine [Mass/volume] in Serum or Plasma 0.8 mg/dL 0.5-1.3 MED[facility] ([facility]) Potassium [Moles/volume] in Serum or Plasma 4.4 mmol/L 3.5-5.3 MED[facility] ([facility]) Chloride [Moles/volume] in Serum or Plasma 106 mmol/L 98-107 MED[facility] ([facility]) Sodium [Moles/volume] in Serum or Plasma 143 mmol/L 136-145 MED[facility] ([facility]) Anion Gap 12 mmol/L 7-16 [facility]) Carbon dioxide, total [Moles/volume] in Serum or Plasma 25 meq/L 20 -31 MED[facility] ([facility]) eGFR-female 78 mL/m/1.73m MEDENT ([facility]) eGFR-Aa female 94 mL/m/1.73m MEDENT ([facility]) <content>Normal Kidney Function or Mild Disease GFR >59 mL/min/1.73m2</content>
<content>Chronic Kidney Disease GFR 15-59 mL/min/1.73m2</content>
<content>Renal Failure GFR <15 mL/min/1.73m2</content>
<content></content> Alkaline phosphatase [Enzymatic activity/volume] in Serum or Plasma 89 U/L 46-116 MEDENT ([facility]) Alanine aminotransferase [Enzymatic activity/volume] in Seru m or Plasma 23 U/L 4-36 MEDENT ([facility]) Effective 11/28/2016: [employer] has indicated interference with the drugs sulfasalazine and sulfapyridine. They suggest collection should occur prior to drug administration due to falsely depressed results. Aspartate aminotransferase [Enzymatic activity/volume] in Serum or Plasma 25 U/L 8-33 [facility] Bilirubin.total [Mass/volume] in Serum or Plasma 0.6 mg/dL 0.3-1.2 MED[facility] ([facility]) Albumin [Mass/volume] in Serum or Plasma 4.6 g/dL 3.6-5.1 MED[facility] ([facility]) Protein [Mass/volume] in Serum or Plasma 7.3 g/dL 6.4-8.3 [facility] Results may reflect a potential interfer ence in Total Protein results in patients receiving dextran as blood volume expanders. Calcium [Mass/volume] in Serum or Plasma 10.1 mg/dL 8.9-10.5 MED[facility] ([facility]) Albumin/Globulin [Mass Ratio] in Serum or Plasma 1.7 Ratio 1.0-2.0 [facility] Globulin [Mass/volume] in Serum by calculation 2.7 g/dL 1.9-3.7 [facility]) ID Date Data Source [id number] 01/20/2021 03:31:00 PM EDT MEDENT ([facility]) Name Value Range Interpretation Code Description Data Tasneem rce(s) Supporting Document(s) Erythrocytes [#/volume] in Blood by Automated count 4.88 x10E6/uL 3.9 -5.4 MED[facility] ([facility]) WBC. 9.12 x10E3/uL 4.2-12.0 [facility] Hemoglobin [Mass/volume] in Blood 15.6 g/dL 12.0-16.0 [facility] ([facility]) MCV 89.8 fL 80-98 [facility]) Hematocrit [Volume Fraction] of Blood by Automated count 43.9 % 3 6-47 [facility] ([facility]) MCHC 35.6 g/dL 32-36 [facility]) MCH 31.9 pg 27-33 [facility] ([facility]) RDW 13.4 % 11.2-15.2 [facility] ([facility]) MPV 7.9 fL 7.0-12.3 [facility] ([facility]) Platelets [#/volume] in Blood by Automated count 344 x10E3/uL 135-420 MED[facility] ([facility]) ID Date Data Source [id number] 01/25/2021 02:16:00 PM EDT [facility] Received: 01/21/2021 at 03:55:00 AMD : [facility], [address], [place], [address], Bj Becerra M.D.,PhD Name Value Range Interpretation Code Description Data Tasneem rce(s) Supporting Document(s) Thiamine [Moles/volume] in Blood 134 nmol/L 78-185 [facility] Vitamin supplementation within 24 hours prior toblood draw may affect the accuracy of the results.This test was developed and its analytical performancecharacteristics have been determined by [facility] [place], [place]. It hasnot been cleared or approved by the U.S. Food and DrugAdministration. This assay has been validated pursuantto the CLIA regulations and is used for clinicalpurposes. ID Date Data Source [id number] 09/18/2020 12:55:46 PM EDT [facility] Name Value Range Interpretation Code Description Data Tasneem rce(s) Supporting Document(s) WBC 10.7 10*3/uL (4.1-11.0) [facility] RBC 4.45 10*6/uL (4.00-5.40) [facility] HGB 13.7 g/dL (12.0-16.0) [facility] HCT 39.8 % (36.0-47.0) [facility] MCV 89.2 fL (80.0-95.0) [facility] MCH 30.8 pg (27.0-32.0) [facility] MCHC 34.5 g/dL (32.0-36.0) [facility] RDW 13.3 % (10.5-14.5) [facility] PLT 309 10*3/uL (150-450) [facility] MPV 8.0 fL (7.1-10.7) [facility] ID Date Data Source [id number] 09/17/2020 10:29:08 AM EDT [facility] Name Value Range Interpretation Code Description Data Tasneem rce(s) Supporting Document(s) MAGNESIUM 2.0 mg/dL (1.7-2.4) [facility] ID Date Data Source [id number] 09/17/2020 10:29:08 AM EDT [facility] Name Value Range Interpretation Code Description Data Tasneem rce(s) Supporting Document(s) SODIUM 139 mmol/L (136-145) [facility] POTASSIUM 4.4 mmol/L (3.6-5.2) [facility] CHLORIDE 106 mmol/L (100-108) [facility] CO2 26 mmol/L (22-31) [facility] ANION GAP 7 mmol/L (7-16) [facility] UREA NITROGEN 10 mg/dL (7-24) [facility] CREATININE 0.82 mg/dL (0.60-1.00) [facility] BUN/CREAT RATIO 12.2 RATIO (10.0-20.0) [facility] GLUCOSE 107 mg/dL (70-99) H [facility] CALCIUM 8.7 mg/dL (8.4-10.2) [facility] GFR >60 ml/min/1.73m2 (>59) [facility] GFR ( AMER) >60 ml/min/1.73m2 (>59) [facility] GFR INTERPRETATION [facility] --NORMAL KIDNEY FUNCTION OR MILD DISEASE - GFR >OR= 60CHRONIC KIDNEY DISEASE - GFR 15 - 59RENAL FAILURE - GFR <15 Est. GFR calculation based on the MDRDstudy equation, which assumes a steadystate for creatinine. Est. GFR should notbe used for medication dosing. ID Date Data Source [id number] 09/17/2020 09:59:28 AM EDT [facility] Name Value Range Interpretation Code Description Data Tasneem rce(s) Supporting Document(s) WBC 13.7 10*3/uL (4.1-11.0) H [facility] RBC 4.36 10*6/uL (4.00-5.40) [facility] HGB 13.3 g/dL (12.0-16.0) [facility] HCT 39.3 % (36.0-47.0) [facility] MCV 90.2 fL (80.0-95.0) [facility] MCH 30.6 pg (27.0-32.0) [facility] MCHC 33.9 g/dL (32.0-36.0) [facility] RDW 13.3 % (10.5-14.5) [facility] PLT 315 10*3/uL (150-450) [facility] MPV 8.0 fL (7.1-10.7) [facility] ID Date Data Source [id number] 09/23/2020 03:06:00 PM EDT [id number] [id number] NAME: RECOR, VICTORIADATE OF : 1975REPORT: OPERATIONPATIENT NUMBER: [id number] STATUS: IPMEDICAL RECORD NUMBER: [id number] OF ADMISSION: 1DATE OF DISCHARGE:ROOM: 02DATE OF PROCEDURE: 1PREOPERATIVE DIAGNOSIS: Morbid obesity.POSTOPERATIVE DIAGNOSIS: Morbid obesity.OPERATIVE PROCEDURE: Laparoscopic sleeve gastrectomy.SURGEON: ARABELLA GuevaraURGICAL DOG OBEDIENCE INSTRUCTOR: DARON Peña. Please note there were noqualified surgical residents for this case. DARON Peña is firstassist.SURGERY RESIDENT: ALVA WebberTHESIA: General.INDICATION: The patient is a 45-year-old female with past medical historysignificant for kidney stones who has had longstanding morbid obesity. Shehas tried numerous diets in the past without any long-term success. Afterundergoing both medical and psychological evaluation in our [facility], she has been deemed appropriate candidate for a sleeve gastrectomy.Her BMI is 42.DESCRIPTION OF PROCEDURE: After consent was obtained, the patient wastaken to the OR and placed in a supine position. After general anesthesiawas achieved, the patient's abdomen was prepped and draped in the usualmanner. Also, an OG tube was used to decompress the stomach andsubsequently removed.The surgery began with the insertion of a 15 mm trocar in the left midabdomen under direct Optiview laparoscopic visualization. Once this portwas placed into the peritoneum, pneumoperitoneum was instilled andmaint ained. Four other trocars were placed - a 12 mm port in the right midabdomen, a 12 mm port in the periumbilical area, a 5 mm port in the leftflank and a 5 mm port in the right upper abdomen. In addition, a 5 mmincision was made in the left epigastrium to allow for the insertion of aNathanson liver retractor which was used to retract the liver superiorlyand laterally to expose the angle of His.We began by placing a abbie on the greater curvature (using a sterilesurgical marker) 5 cm proximal to the pylorus. From this point, we used aHarmonic scalpel to divide the attachments to the greater curvature -initially, the gastrocolic ligament and, as we proceeded more superiorly,the short gastrics. Once the stomach was totally mobilized (we couldappreciate the anterior border of the left matty), we began our staplefirings. Prior to the staple firings, a 42-Kyrgyz bougie was passedtransorally into stomach and duodenum so that we could not transect thestomach.The first staple firing began at the 5 cm abbie proximal to the pylorus. Itwas directed towards the lesser sac with the bougie in place. This was agreen staple cartridge with Seamguard reinforcement. Subsequent staplefirings were also green cartridges with Seamguard hugging the bougie. Thebougie was moved back and forth prior to each staple firing. After thecompletion of the partial gastric resection, the specimen was removedthrough the 15 mm port site. The fascia at this site was subsequentlyclosed with a number 1 Vicryl stitch. The remaining stomach staple linewas inspected - it appeared well.All the ports were then removed and the port sites inoculated with 20 mL of0.25 percent Marcaine. The incisions were closed with 4-0 Vicryl stitchesin a subcuticular fashion and reinforced with Steri-Strips. Steriledressings were applied.Blood loss was minimal.DICTATED BY: LUCI Guevaraictated: 09/16/2020 18:02DT: 09/16/2020 18:05Job #: [id number]: [facility] computer generated reports are not confirmed orauthenticated unless they are signed by the providerElectronically Authenticated by:KATTY BRITT MD On 09/23/2020 03:06 PM EDT Name Value Range Interpretation Code Description Data Tasneem rce(s) Supporting Document(s) ID Date Data Source [id number] 09/18/2020 02:42:16 PM EDT [facility] [place], [place] [address]Bkm# SURGICAL PATHOLOGY REPORTPatient Name:GERALDKelvin JAYDOB:1975Received:09/17/2020ccession #:[id number](s) Received: A: Portion of stomachClinical Diagnosis and History: Morbid obesity. DIAGNOSIS:PORTION OF STOMACH WITH NO SIGNIFICANT PATHOLOGIC CHANGES. GROSS DESCRIPTION: Specimen received in formalin labeled "portion of stomach" is a 23.0 x4.6 x 2.2 cm portion of stomach with prominent stapled resection line. The serosa is smooth, glistening, pink-ceron with focal adherent yellowadipose tissue. The lumen of the specimen is filled with blood tingedcontents. The mucosal surface is glistening, red-cano to with thepatient's name and mildly congested and hyperemic with preservation ofnormal rugal folds. The wall thickness measures up to 0.6 cm. Thespecimen is sectioned and sections are submitted for microscopicexamination as designated: A1 margins; A2 random sections. (2 blocks) [id number]/[id number]: 09/18/2020Electronically Signed Out By Harpreet Suresh M.D. [facility] [place], [place] [address]Technical component performed at [facility], Histopathology, [address] [place] [address], [facility], [facility].Reported at [facility], [address] [place] [address], [facility].This report may include immunohistochemical or in-situ hybridizationresults. Testing was developed and the performance characteristicsdetermined by [facility], as required byCLIA '88. The FDA has determined that approval for specific use is notnecessary for clinical use. The quality of Hematoxylin and Eosin stainsand as applicable, for all immunohistochemical and/or special stains,including positive and negative controls, were reviewed and consideredappropriate.ICD codes: E66.01CPT4 codes: A: 79696P Name Value Range Interpretation Code Description Data Tasneem rce(s) Supporting Document(s) ID Date Data Source [id number] 09/11/2020 12:25:00 PM EDT MEDENT ([facility]) Name Value Range Interpretation Code Description Data Tasneem rce(s) Supporting Document(s) Miscellaneous Laboratory test result MED ENT ([facility]) <content>Type & Screen</content>
<co ntent></content>
<content></content> Venipuncture Laboratory test result MEDE NT ([facility]) <content>Type & Screen</content>
<co ntent></content>
<content></content> Blood type and Indirect antibody screen panel - Blood Laboratory test result MED[facility] ([facility]) <content>Type & Screen</content>
<co ntent></content>
<content></content> ID Date Data Source [id number] 09/11/2020 12:25:00 PM EDT [facility] ([facility]) Name Value Range Interpretation Code Description Data Tasneem rce(s) Supporting Document(s) Glucose [Mass/volume] in Serum or Plasma 89 mg/dL 74-106 [facility] Practice) [employer] (ADA) Recommended Range is 65-99 mg/dL Urea nitrogen [Moles/volume] in Serum or Plasma 13 mg/dL 6-20 [facility] ([facility]) Creatinine [Mass/volume] in Serum or Plasma 0.8 mg/dL 0.5-1.3 [facility] ([facility]) Potassium [Moles/volume] in Serum or Plasma 4.3 mmol/L 3.5-5.3 [facility] ([facility]) Sodium [Moles/volume] in Serum or Plasma 138 mmol/L 136-145 [facility] ([facility]) Anion Gap 9 mmol/L 7-16 [facility] ([facility]) Carbon dioxide, total [Moles/volume] in Serum or Plasma 24 meq/L 20 -31 [facility] ([facility]) Chloride [Moles/volume] in Serum or Plasma 105 mmol/L 98-107 [facility] ([facility]) eGFR-female 78 mL/m/1.73m [facility] ([facility]) eGFR-Aa female 95 mL/m/1.73m [facility] ([facility]) <content>Normal Kidney Function or Mild Disease GFR >59 mL/min/1.73m2</content>
<content>Chronic Kidney Disease GFR 15-59 mL/min/1.73m2</content>
<content>Renal Failure GFR <15 mL/min/1.73m2</content>
<content></content> Calcium [Mass/volume] in Serum or Plasma 9.6 mg/dL 8.9-10.5 [facility] ([facility]) ID Date Data Source [id number] 09/11/2020 04:33:09 PM EDT [facility] SPEC EXP DATE 09/19/2020ATI ENT ABO/Rh AB POSITIVEANTIBODY SCREEN NEGATIVETESTING SITE PERFORMED AT [address] [place] [address] Name Value Range Interpretation Code Description Data Tasneem rce(s) Supporting Document(s) TYPE AND SCREEN [facility] PATIENT ABO/Rh AB POSITIVE ID Date Data Source [id number] 09/11/2020 12:25:00 PM EDT [facility] ([facility]) Name Value Range Interpretation Code Description Data Tasneem rce(s) Supporting Document(s) WBC. 7.05 x10E3/uL 4.2-12.0 [facility] ([facility]) Erythrocytes [#/volume] in Blood by Automated count 4.71 x10E6/uL 3.9 -5.4 [facility] ([facility]) Hemoglobin [Mass/volume] in Blood 14.4 g/dL 12.0-16.0 [facility] ([facility]) Hematocrit [Volume Fraction] of Blood by Automated count 43.2 % 3 6-47 [facility] ([facility]) MCV 91.7 fL 80-98 [facility] ([facility]) MCH 30.7 pg 27-33 [facility] ([facility]) MCHC 33.5 g/dL 32-36 [facility] ([facility]) Platelets [#/volume] in Blood by Automated count 299 x10E3/uL 135-420 [facility] ([facility]) RDW 14.0 % 11.2-15.2 [facility] ([facility]) MPV 6.9 fL 7.0-12.3 Below low normal [facility] ([facility]) ID Date Data Source [id number] 09/11/2020 06:00:00 AM EDT [facility] Name Value Range Interpretation Code Description Data Tasneem rce(s) Supporting Document(s) SARS coronavirus 2 RNA [Presence] in Res piratory specimen by MARY with probe detection NOT DETECTED [facility] This lab was reported by [facility]. ID Date Data Source [id number] 09/12/2020 01:05:20 PM EDT [facility] Name Value Range Interpretation Code Description Data Tasneem rce(s) Supporting Document(s) SPECIMEN DESCRIPTION [facility] COVID 19 RESULT (NDET) [facility] NEGATIVE COVID-19 RESULTS DONOT PRECLUDE COVID-2019 INFECTION ANDSHOULD NOT BE USED THE SOLE BASISFOR PATIENT MANAGEMENT DECISIONS. COMMENT [facility] THE U.[place]. FDA HAS MADE THIS TEST AVAILABL EUNDER AN EMERGENCY USE AUTHORIZATION(EUA) FOR THE DETECTION AND/OR DIAGNOSISOF THE VIRUS THAT CAUSES COVID-19.THIS ASSAY AMPLIFIES AND DETECTS TARGETDNA USING PICKER- MEDIATEDAMPLIFICATIONTESTING PERFORMED ON [facility] FIRST TEST [facility] EMPLOYED IN HLTHCARE [facility] SYMPTOMATIC [facility] Y DATE OF SYMPT ONSET [facility] HOS[facility]ITAL[facility]ED [facility] ICU [facility] ID Date Data Source CHLAMYDIA & GC DNA AMPLIFICAT 09/10/2020 12:00:00 AM EDT eCW 1 ([facility]) Name Value Range Interpretation Code Description Data Tasneem rce(s) Supporting Document(s) NEGATIVE NEGATIVE CHLAMYDIA DNA AMPLIFICATI ON eCW1 ([facility]) CHLAMYDIA DNA AMPLIFICATION NEGATIVE NEGATIVE GC DNA AMPLIFICATION eCW1 ([facility]) GC DNA AMPLIFICATION Chlamydia trachomatis rRNA [Presence] in Unspecified specimen by Probe and target amplification method NEGATIVE NEGATIVE CHLAMYDIA DNA AMPLIFICATION eCW1 ([facility]) ID Date Data Source PLZ ABDOMEN FLAT/UPRIGHT, PA CHEST 07/30/2020 12:00:00 AM ES T eCW1 ([facility]) Name Value Range Interpretation Code Description Data Tasneem rce(s) Supporting Document(s) PLZ ABDOMEN FLAT/UPRIGHT, PA CHEST eCW1 ([facility]) ID Date Data Source VITAMIN D 25-HYDROXY 07/30/2020 12:00:00 AM EST eCW1 ([facility]) Name Value Range Interpretation Code Description Data Tasneem rce(s) Supporting Document(s) 42.4 30.0-100.0 TOTAL 25(OH) VITAMIN D eC W1 ([facility]) TOTAL 25(OH) VITAMIN D ID Date Data Source [id number] 07/30/2020 12:00:00 AM EST eCW1 ([facility]) Name Value Range Interpretation Code Description Data Tasneem rce(s) Supporting Document(s) Hemoglobin A1c/Hemoglobin.total in Blood 5.2 HEMOGLOBIN A1c eCW1 ([facility]) ID Date Data Source Comprehensive Metabolic Profile (CMP) 07/30/2020 12:00:00 AM EST eCW1 ([facility]) Name Value Range Interpretation Code Description Data Tasneem rce(s) Supporting Document(s) 94 70-100 GLUCOSE, FASTING eCW1 ([facility]) 0.90 0.55-1.30 CREATININE FOR GFR eCW1 ([facility]) 14 7-18 BLOOD UREA NITROGEN eCW1 ([facility]) 139 136-145 SODIUM LEVEL eCW1 ([facility]) 4.3 3.5-5.1 POTASSIUM SERUM eCW1 ([facility]) > 60.0 >58 GLOMERULAR FILTRATION RATE eCW 1 ([facility]) 9.4 8.5-10.1 CALCIUM LEVEL eCW1 ([facility]) 104 98-107 CHLORIDE LEVEL eCW1 ([facility]) 29 21-32 CARBON DIOXIDE LEVEL eCW1 ([facility]) 95 45-117 ALKALINE PHOSPHATASE eCW1 ([facility]) 0.4 0.2-1.0 BILIRUBIN,TOTAL eCW1 ([facility]) 36 12-78 ALT/SGPT eCW1 ([facility]) 15 7-37 AST/SGOT eCW1 ([facility]) 7.4 6.4-8.2 TOTAL PROTEIN eCW1 ([facility]) 1.3 1.2-2.2 ALBUMIN/GLOBULIN RATIO eCW1 ([facility]) 4.2 3.2-5.2 ALBUMIN eCW1 ([facility]) ID Date Data Source CBC with Differential 07/30/2020 12:00:00 AM EST eCW1 ([facility]) Name Value Range Interpretation Code Description Data Tasneem rce(s) Supporting Document(s) 8.4 4.0-10.0 WHITE BLOOD COUNT eCW1 ([facility]) 13.8 12.0-15.5 HEMOGLOBIN eCW1 ([facility]) 4.66 4.00-5.40 RED BLOOD COUNT eCW1 ([facility]) 91.8 80.0-96.0 MEAN CORPUSCULAR VOLUME e CW1 ([facility]) 42.8 36.0-47.0 HEMATOCRIT eCW1 ([facility]) 29.6 27.0-33.0 MEAN CORPUSCULAR HEMOGLOB IN eCW1 ([facility]) 32.2 32.0-36.5 MEAN CORPUSCULAR HGB CONC eCW1 ([facility]) 12.9 11.5-14.5 RED CELL DISTRIBUTION WID TH eCW1 ([facility]) 66.2 36.0-66.0 NEUTROPHILS % eCW1 ([facility]) 332 150-450 PLATELET COUNT, AUTOMATED eCW1 ([facility]) 6.2 2.0-8.0 MONO % eCW1 ([facility]) 0.6 0.0-1.0 BASO % eCW1 ([facility]) 2.5 0.0-3.0 EOS % eCW1 ([facility]) 23.8 24.0-44.0 LYMPH % eCW1 ([facility]) 5.5 1.5-8.5 NEUTROPHILS # eCW1 ([facility]) 0.5 0.0-0.8 MONO # eCW1 ([facility]) 2.0 1.5-5.0 LYMPH # eCW1 ([facility]) 0.1 0.0-0.2 BASO # eCW1 ([facility]) 0.2 0.0-0.5 EOS # eCW1 ([facility]) ID Date Data Source [id number] 05/29/2020 12:00:00 AM EST [facility] Name Value Range Interpretation Code Description Data Tasneem rce(s) Supporting Document(s) SARS coronavirus 2 RNA [facility] This lab was ordered by [facility] and rep orted by [facility]. ID Date Data Source [id number] 04/17/2020 12:00:00 PM EST [facility] Name Value Range Interpretation Code Description Data Tasneem rce(s) Supporting Document(s) SARS coronavirus 2 RNA [facility] This lab was ordered by [facility] [facility] and rep orted by [facility]. ID Date Data Source [id number] 03/26/2020 08:12:56 PM EDT [facility] OF [address] [id number]# SURGICAL PATHOLOGY REPORTPatient Name:JAY HATFIELDDOB:1975Received:03/22/2020Accession #:[id number](s) Received: A: Duodenal bxB: Bx GE junctionClinical Diagnosis and History: {Not Provided}DIAGNOSIS:A) DUODENUM, BIOPSY FRAGMENT OF DUODENAL MUCOSA WITH NO VILLOUS ABNORMALITY AND NO INCREASE IN INTRAEPITHELIAL LYMPHOCYTES; THERE ARE NO FEATURES OF GLUTEN SENSITIVE ENTEROPATHY OR ANY OTHER PATHOLOGIC ABNORMALITY. B) GE JUNCTION, BIOPSY NO DIAGNOSIS RENDERED; THERE IS NO TISSUEPRESENT. GROSS DESCRIPTION: Specimen A received in formalin labeled "biopsy duodenum" is a 0.4 cmyellow-pink nodular fragment of soft tissue which is submitted in toto formicroscopic examination. (1 block) Specimen B received in formalin labeled "biopsy GE junction" areapproximately 40 cc of clear formalin in which no tissue is identified. The formalin is filtered and no tissue recovered. No sections aresubmitted. [email or web address]: 03/26/2020Electronically Signed Out By Niesha Whitley D.O. [facility] [place], [place] [address]Technical component performed at [facility], Histopathology, [address] [place] [address], [address].Reported at [facility], [address] [place] [address], [facility].This report may include immunohistochemical or in-situ hybridizationresults. Testing was developed and the performance characteristicsdetermined by [facility], as required byCLIA '88. The FDA has determined that approval for specific use is notnecessary for clinical use. The quality of Hematoxylin and Eosin stainsand as applicable, for all immunohistochemical and/or special stains,including positive and negative controls, were reviewed and consideredappropriate.ICD codes:CPT4 codes: A: 48710Y Name Value Range Interpretation Code Description Data Tasneem rce(s) Supporting Document(s) ID Date Data Source [id number] 03/25/2020 10:20:00 AM EDT [place], [place] [address]PATIENT NAME: JAY HATFIELDDATE OF : 1975REPORT: OPERATIONPATIENT NUMBER: [id number] STATUS: SDMEDICAL RECORD NUMBER: [id number] OF ADMISSION: 03/22/2020DATE OF DISCHARGE:DATE OF PROCEDURE: 03/22/2020PREOPERATIVE DIAGNOSES: Morbid obesity and reflux.POSTOPERATIVE DIAGNOSES: Morbid obesity and reflux.OPERATIVE PROCEDURE: Upper endoscopy.SURGEON: Katty Britt MDANESTHESIA: UNIQUE.INDICATIONS: The patient is a 45-year-old female who is being worked upfor possible bariatric surgery. This is a preoperative evaluation as wellas for some mild reflux symptoms.PROCEDURE: After consent was obtained, the patient was taken to the OR andplaced in supine position. After consent was reviewed, the patient wasplaced in a modified left lateral decubitus position and a bite block wasplaced. After IV sedation was achieved, the endoscope was advancedtransorally until the proximal esophagus was visualized. The scope wasthen advanced throughout the esophagus. There were no strictures or otherlesions noted. There was no sign of any esophagitis. The Z-line was notedto be at 34 cm. We entered the stomach and advanced towards the pylorus. There was no evidence of any antritis or pathology at the antrum. Theduodenal bulb was then cannulated and careful inspection was done. Nolesions were noted and subsequently the scope was advanced towards thethird portion of the duodenum. No obvious pathology was noted here either.Biopsies were made of the duodenum and the scope was then withdrawn. Complete inspection of the stomach was then performed includingretroflexion. There was no evidence of any hiatal hernia. No otherpathology was noted in the stomach and after decompressing the stomach, thescope was withdrawn and biopsies were made of the GE junction. Uponwithdrawal, the esophagus was inspected once again and no obvious pathologywas noted. The patient tolerated the procedure well. Blood loss wasminimal.DICTATED BY: Katty Britt MDDictated: 03/22/2020 9:31DT: 03/22/2020 9:42Job #: [id number]: [facility] computer generated reports are not confirmed orauthenticated unless they are signed by the providerElectronically Authenticated by:KATTY BRITT MD On 03/25/2020 10:20 AM EDT Name Value Range Interpretation Code Description Data Tasneem rce(s) Supporting Document(s) ID Date Data Source [id number] 03/18/2020 12:00:00 AM EDT [facility] Name Value Range Interpretation Code Description Data Tasneem rce(s) Supporting Document(s) SARS coronavirus 2 RNA [facility] This lab was ordered by [employer] and rep orted by [facility]. ID Date Data Source LIPID PANEL (CARDIAC RISK) 03/06/2020 08:42:40 AM EDT eCW1 ( [facility]) Name Value Range Interpretation Code Description Data Tasneem rce(s) Supporting Document(s) Triglyceride [Mass/volume] in Serum or Plasma by calculation 250 TRIGLYCERIDES LEVEL eCW1 ([facility]) 146 NON-HDL-C eCW1 ([facility]) Cholesterol in HDL [Moles/volume] in Serum or Plasma 33 HDL CHOLESTEROL eCW1 ([facility]) Cholesterol in LDL [Mass/volume] in Serum or Plasma by calculation 96 LDL CHOLESTEROL eCW1 ([facility]) Cholesterol [Moles/volume] in Serum or Plasma 179 CHOLESTEROL LEVEL eCW1 ([facility]) 5.424 CHOLESTEROL RISK RATIO eCW1 ([facility]) ID Date Data Source FREE T4 & TSH PANEL 03/06/2020 08:42:40 AM EDT eCW1 ([facility]) Name Value Range Interpretation Code Description Data Tasneem rce(s) Supporting Document(s) 0.932 THYROID STIMULATING HORMONE eC W1 ([facility]) THYROID STIMULATING HORMONE 1.15 FREE T4 eCW1 ([facility]) FREE T4 ID Date Data Source HEPATITIS B SURFACE ANTIGEN 03/06/2020 05:19:23 AM EDT eCW1 ([facility]) Name Value Range Interpretation Code Description Data Tasneem rce(s) Supporting Document(s) NEGATIVE eCW1 ([facility]) ID Date Data Source HEPATITIS C ANTIBODY INDEX 03/06/2020 03:48:58 AM EDT eCW1 ( [facility]) Name Value Range Interpretation Code Description Data Tasneem rce(s) Supporting Document(s) 0.3 eCW1 ([facility]) ID Date Data Source [id number] 03/06/2020 03:48:47 AM EDT eCW1 ([facility]) Name Value Range Interpretation Code Description Data Tasneem rce(s) Supporting Document(s) eCW1 ([facility]) ID Date Data Source SYPHILIS ANTIBODY (RPR SCREEN) 03/06/2020 03:48:36 AM EDT eC W1 ([facility]) Name Value Range Interpretation Code Description Data Tasneem rce(s) Supporting Document(s) NONREACTIVE eCW1 ([facility]) Procedure Social History Code Duration Value Status Description Data Source(s ) Smoking 01/22/2021 12:00:00 AM EDT Former Smoker completed Former Smoker eCW1 ([facility]) Smoking 01/22/2021 12:00:00 AM EDT Former Smoker completed Former Smoker eCW1 ([facility]) Smoking 01/22/2021 12:00:00 AM EDT Former Smoker completed Former Smoker eCW1 ([facility]) Smoking 01/22/2021 12:00:00 AM EDT Former Smoker completed Former Smoker eCW1 ([facility]) Smoking 01/22/2021 12:00:00 AM EDT Former Smoker completed Former Smoker eCW1 ([facility]) Smoking 01/22/2021 12:00:00 AM EDT Former Smoker completed Former Smoker eCW1 ([facility]) Smoking 12/11/2020 12:00:00 AM EDT Former Smoker completed Former Smoker eCW1 ([facility]) Smoking 12/11/2020 12:00:00 AM EDT Former Smoker completed Former Smoker eCW1 ([facility]) Smoking 12/11/2020 12:00:00 AM EDT Former Smoker completed Former Smoker eCW1 ([facility]) Smoking 12/11/2020 12:00:00 AM EDT Former Smoker completed Former Smoker eCW1 ([facility]) Smoking 12/11/2020 12:00:00 AM EDT Former Smoker completed Former Smoker eCW1 ([facility]) Smoking 12/11/2020 12:00:00 AM EDT Former Smoker completed Former Smoker eCW1 ([facility]) Smoking 12/06/2020 12:00:00 AM EDT Former Smoker completed Former Smoker eCW1 ([facility]) Smoking 11/29/2020 12:00:00 AM EDT Former Smoker completed Former Smoker eCW1 ([facility]) Smoking 11/29/2020 12:00:00 AM EDT Former Smoker completed Former Smoker eCW1 ([facility]) Smoking 10/23/2020 12:00:00 AM EDT Former Smoker completed Former Smoker eCW1 ([facility]) Smoking 10/23/2020 12:00:00 AM EDT Former Smoker completed Former Smoker eCW1 ([facility]) Smoking 10/23/2020 12:00:00 AM EDT Former Smoker completed Former Smoker eCW1 ([facility]) Smoking 10/23/2020 12:00:00 AM EDT Former Smoker completed Former Smoker eCW1 ([facility]) Smoking 09/13/2020 03:23:00 PM EDT Occasional Smoker completed Occasional Smoker [facility] Smoking 09/10/2020 12:00:00 AM EDT Current Smoker completed Curre nt Smoker eCW1 ([facility]) Smoking 09/10/2020 12:00:00 AM EDT Current Smoker completed Curre nt Smoker eCW1 ([facility]) Smoking 09/10/2020 12:00:00 AM EDT Current Smoker completed Curre nt Smoker eCW1 ([facility]) Smoking 09/10/2020 12:00:00 AM EDT Current Smoker completed Curre nt Smoker eCW1 ([facility]) Smoking 08/28/2020 12:00:00 AM EDT Current Smoker completed Curre nt Smoker eCW1 ([facility]) Smoking 08/28/2020 12:00:00 AM EDT Current Smoker completed Curre nt Smoker eCW1 ([facility]) Smoking 08/28/2020 12:00:00 AM EDT Current Smoker completed Curre nt Smoker eCW1 ([facility]) Smoking 08/28/2020 12:00:00 AM EDT Current Smoker completed Curre nt Smoker eCW1 ([facility]) Smoking 07/30/2020 12:00:00 AM EST Current Smoker completed Curre nt Smoker eCW1 ([facility]) Smoking 07/30/2020 12:00:00 AM EST Current Smoker completed Curre nt Smoker eCW1 ([facility]) Smoking 07/30/2020 12:00:00 AM EST Current Smoker completed Curre nt Smoker eCW1 ([facility]) Smoking 07/30/2020 12:00:00 AM EST Current Smoker completed Curre nt Smoker eCW1 ([facility]) Smoking 07/30/2020 12:00:00 AM EST Current Smoker completed Curre nt Smoker eCW1 ([facility]) Smoking 07/30/2020 12:00:00 AM EST Current Smoker completed Curre nt Smoker eCW1 ([facility]) Smoking 07/09/2020 12:00:00 AM EST Current Smoker completed Curre nt Smoker eCW1 ([facility]) Smoking 03/06/2020 12:00:00 AM EDT Current Smoker completed Curre nt Smoker eCW1 ([facility]) Smoking 03/06/2020 12:00:00 AM EDT Current Smoker completed Curre nt Smoker eCW1 ([facility]) Smoking 03/06/2020 12:00:00 AM EDT Current Smoker completed Curre nt Smoker eCW1 ([facility]) Smoking 03/06/2020 12:00:00 AM EDT Current Smoker completed Curre nt Smoker eCW1 ([facility]) Smoking 03/06/2020 12:00:00 AM EDT Current Smoker completed Curre nt Smoker eCW1 ([facility]) Vital Signs ID Date Data Source UNK Name Value Range Interpretation Code Description Data Source(s) Body temperature 96.5 [degF] 96.5 [degF] [facility] ([facility]) Body weight 231.00 [lb_av] 231.00 [lb_av] MED[facility] T ([facility]) Body height 68 [in_i] 68 [in_i] [facility] ([facility]) 5'8" Body mass index (BMI) [Ratio] 35.1 kg/m2 35.1 k g/m2 [facility] ([facility]) [place] body weight 140 [lb_av] 140 [facility]lb_av[facility] Body surface area Derived from formula 2.[address] [facility] ([facility]) Body weight 104.[address] [facility] ([facility]) Body height 71.00 [in_i] 71.00 [in_i] [facility] ([facility]) 5'11" Body weight 238.00 [lb_av] 238.00 [lb_av] MEDEN T ([facility]) Body mass index (BMI) [Ratio] 33.2 kg/m2 33.2 k g/m2 [facility] ([facility]) Systolic blood pressure 107 mm[Hg] 107 mm[Hg] M EDENT ([facility]) Diastolic blood pressure 65 mm[Hg] 65 mm[Hg] [facility] ([facility]) Heart rate 63 /min 63 /min [facility] ([facility]) Body temperature 97.0 [degF] 97.0 [degF] [facility] ([facility]) Oxygen saturation in Arterial blood by Pulse oximetry 98 % 98 % [facility] ([facility]) Body temperature 36.1 Neda 36.1 Neda [facility] ( [facility]) Body temperature 97.1 [degF] 97.1 [degF] eCW1 ( [facility]) Body weight 242 [lb_av] 242 [lb_av] eCW1 ([facility]) Systolic blood pressure 110 mm[Hg] 110 mm[Hg] e CW1 ([facility]) Body weight 109.77 kg 109.77 kg eCW1 ([facility]) Body height 69 [in_i] 69 [in_i] eCW1 ([facility]) Body mass index (BMI) [Ratio] 35.73 kg/m2 35.73 kg/m2 eCW1 ([facility]) Heart rate 66 /min 66 /min eCW1 ([facility]) Diastolic blood pressure 70 mm[Hg] 70 mm[Hg] eCW1 ([facility]) Respiratory rate 18 /min 18 /min eCW1 ([facility]) Body weight 253.4 [lb_av] 253.4 [lb_av] eCW1 ([facility]) Body height 69 [in_i] 69 [in_i] eCW1 ([facility]) Body mass index (BMI) [Ratio] 37.42 kg/m2 37.42 kg/m2 eCW1 ([facility]) Systolic blood pressure 110 mm[Hg] 110 mm[Hg] e CW1 ([facility]) Diastolic blood pressure 80 mm[Hg] 80 mm[Hg] eCW1 ([facility]) Body weight 254.4 [lb_av] 254.4 [lb_av] eCW1 ([facility]) Body height 69 [in_i] 69 [in_i] eCW1 ([facility]) Body mass index (BMI) [Ratio] 37.56 kg/m2 37.56 kg/m2 eCW1 ([facility]) Heart rate 86 /min 86 /min eCW1 ([facility]) Respiratory rate 18 /min 18 /min eCW1 ([facility]) Body temperature 98.8 [degF] 98.8 [degF] eCW1 ( [facility]) Systolic blood pressure 110 mm[Hg] 110 mm[Hg] e CW1 ([facility]) Diastolic blood pressure 88 mm[Hg] 88 mm[Hg] eCW1 ([facility]) Body weight 260 [lb_av] 260 [lb_av] [facility]CW1 ([facility] [facility] Body height 69 [in_i] 69 [in_i] eCW1 ([facility]) Body mass index (BMI) [Ratio] 38.39 kg/m2 38.39 kg/m2 eCW1 ([facility]) Systolic blood pressure 122 mm[Hg] 122 mm[Hg] e CW1 ([facility]) Diastolic blood pressure 78 mm[Hg] 78 mm[Hg] eCW1 ([facility]) Systolic blood pressure 120 mm[Hg] 120 mm[Hg] e CW1 ([facility]) Body weight 269 [lb_av] 269 [lb_av] eCW1 ([facility]) Body height 69 [in_i] 69 [in_i] eCW1 ([facility]) Body mass index (BMI) [Ratio] 39.72 kg/m2 39.72 kg/m2 eCW1 ([facility]) Heart rate 84 /min 84 /min eCW1 ([facility]) Respiratory rate 20 /min 20 /min eCW1 ([facility]) Body temperature 97 [degF] 97 [degF] eCW1 ([facility]) Diastolic blood pressure 80 mm[Hg] 80 mm[Hg] eCW1 ([facility]) Body temperature 98.0 [degF] 98.0 [degF] MEDENT ([facility]) Diastolic blood pressure 70 mm[Hg] 70 mm[Hg] MED[facility] ([facility]) Heart rate 92 /min 92 /min MEDENT ([facility]) Body weight 271.00 [lb_av] 271.00 [lb_av] MEDEN T ([facility]) Body height 71.00 [in_i] 71.00 [in_i] [facility] ([facility]) 5'11" Body mass index (BMI) [Ratio] 37.8 kg/m2 37.8 k g/m2 MEDENT ([facility]) Body temperature 36.7 Neda 36.7 Neda MEDENT ( [facility]) Systolic blood pressure 104 mm[Hg] 104 mm[Hg] [facility] ([facility]) Oxygen saturation in Arterial blood by Pulse oximetry 95 % 95 % [facility] Body height 71.00 [in_i] 71.00 [in_i] [facility] ([facility]) 5'11" Body weight 281.38 [lb_av] 281.38 [lb_av] MEDEN T ([facility]) Body mass index (BMI) [Ratio] 39.2 kg/m2 39.2 k g/m2 MED[facility] ([facility]) Systolic blood pressure 124 mm[Hg] 124 mm[Hg] M EDENT ([facility]) Diastolic blood pressure 82 mm[Hg] 82 mm[Hg] [facility] ([facility]) Heart rate 86 /min 86 /min [facility] Body temperature 98.4 [degF] 98.4 [degF] [facility] ([facility]) Body temperature 36.9 Neda 36.9 Neda [facility] ( [facility]) Oxygen saturation in Arterial blood by Pulse oximetry 96 % 96 % [facility] ([facility]) Deprecated Oxygen saturation in Capillary blood by Oximetry 96 % Normal (applies to non-numeric results) 96 % [facility] Diastolic blood pressure 84 mm[Hg] Normal (applies to non-numeric results) 84 mm[Hg] [facility] Heart rate 108 min Normal (applies to non-numeric resul ts) 108 min [facility] Respiratory rate 20 min Normal (applies to non-numeric results) 20 min [facility] Body temperature 36.7 neda Normal (applies to non-numeric results) 36.7 neda [facility] Systolic blood pressure 141 mm[Hg] Normal (applies t o non-numeric results) 141 mm[Hg] [facility] Body mass index (BMI) [Ratio] 42.13 kg/m2 No rmal (applies to non-numeric results) 42.13 kg/m2 [facility] Body height 176.784 cm Normal (applies to non-numeric resu lts) 176.784 cm [facility] Body weight Measured 133.2 kg Normal (applies to n on-numeric results) 133.2 kg [facility] Inhaled oxygen concentration 21 % Normal (appl ies to non-numeric results) 21 % [facility] Body mass index (BMI) [Ratio] 41.7 kg/m2 41.7 k g/m2 [facility] ([facility]) Heart rate 75 /min 75 /min [facility] ([facility]) Body temperature 97.0 [degF] 97.0 [degF] [facility] ([facility]) Body temperature 36.1 Neda 36.1 Neda [facility] ( [facility]) Body height 71.00 [in_i] 71.00 [in_i] [facility] ([facility] 5'11" Body weight 299.38 [lb_av] 299.38 [lb_av] MEDEN T ([facility]) Systolic blood pressure 127 mm[Hg] 127 mm[Hg] M EDENT ([facility]) Diastolic blood pressure 87 mm[Hg] 87 mm[Hg] [facility] ([facility]) Oxygen saturation in Arterial blood by Pulse oximetry 99 % 99 % [facility] ([facility]) Body weight 301 [lb_av] 301 [lb_av] eCW1 ([facility]) Body weight 136.53 kg 136.53 kg W1 ([facility]) Body height 69 [in_i] 69 [in_i] eCW1 ([facility]) Body mass index (BMI) [Ratio] 44.45 kg/m2 44.45 kg/m2 W1 ([facility]) Systolic blood pressure 122 mm[Hg] 122 mm[Hg] e CW1 ([facility]) Diastolic blood pressure 78 mm[Hg] 78 mm[Hg] eCW1 ([facility]) Body weight 301.2 [lb_av] 301.2 [lb_av] eCW1 ([facility]) Body height 69 [in_i] 69 [in_i] eCW1 ([facility]) Body mass index (BMI) [Ratio] 44.47 kg/m2 44.47 kg/m2 eCW1 ([facility]) Heart rate 89 /min 89 /min eCW1 ([facility]) Respiratory rate 18 /min 18 /min eCW1 ([facility]) Body temperature 97.5 [degF] 97.5 [degF] eCW1 ( [facility]) Systolic blood pressure 132 mm[Hg] 132 mm[Hg] e CW1 ([facility]) Diastolic blood pressure 84 mm[Hg] 84 mm[Hg] eCW1 ([facility]) Body weight 301 [lb_av] 301 [lb_av] eCW1 ([facility]) Body height 69 [in_i] 69 [in_i] eCW1 ([facility]) Body mass index (BMI) [Ratio] 44.45 kg/m2 44.45 kg/m2 eCW1 ([facility]) Heart rate 90 /min 90 /min eCW1 ([facility]) Respiratory rate 18 /min 18 /min eCW1 ([facility]) Body temperature 97.3 [degF] 97.3 [degF] eCW1 ( [facility]) Body temperature 97 [degF] 97 [degF] eCW1 ([facility]) Body weight 298 [lb_av] 298 [lb_av] eCW1 ([facility]) Body height 69 [in_i] 69 [in_i] eCW1 ([facility]) Body mass index (BMI) [Ratio] 44.00 kg/m2 44.00 kg/m2 eCW1 ([facility]) Heart rate 84 /min 84 /min eCW1 ([facility]) Respiratory rate 20 /min 20 /min eCW1 ([facility]) Systolic blood pressure 130 mm[Hg] 130 mm[Hg] e CW1 ([facility]) Diastolic blood pressure 80 mm[Hg] 80 mm[Hg] eCW1 ([facility]) Body height 68 [in_i] 68 [in_i] [facility] 5'8" Body temperature 96.6 [degF] 96.6 [degF] [facility] ([facility]) Body weight 300.50 [lb_av] 300.50 [lb_av] MEDEN T ([facility]) Oxygen saturation in Arterial blood by Pulse oximetry 96 % 96 % [facility] ([facility]) Systolic blood pressure 122 mm[Hg] 122 mm[Hg] M EDENT ([facility]) Body mass index (BMI) [Ratio] 45.7 kg/m2 45.7 k g/m2 [facility] ([facility]) [place] body weight 140 [lb_av] 140 [lb_av] MEDEN T ([facility]) Body weight 136.[address] [facility] ([facility]) Body surface area Derived from formula 2.[address] [facility] ([facility]) Heart rate 86 /min 86 /min [facility] ([facility]) Diastolic blood pressure 76 mm[Hg] 76 mm[Hg] [facility] ([facility]) Body temperature 96.6 [degF] 96.6 [degF] [facility] ([facility]) Body height 68 [in_i] 68 [in_i] [facility] ([facility]) 5'8" Oxygen saturation in Arterial blood by Pulse oximetry 96 % 96 % [facility] ([facility]) [place] body weight 140 [lb_av] 140 [lb_av] MED[facility] T ([facility]) Body weight 300.50 [lb_av] 300.50 [lb_av] MED[facility] T ([facility]) Body surface area Derived from formula 2.[address] [facility] ([facility]) Body weight 136.[address] [facility] ([facility]) Body mass index (BMI) [Ratio] 45.7 kg/m2 45.7 k g/m2 [facility] ([facility]) Body weight 303.8 [lb_av] 303.8 [lb_av] eCW1 ([facility]) Body height 69 [in_i] 69 [in_i] eCW1 ([facility]) Body mass index (BMI) [Ratio] 44.86 kg/m2 44.86 kg/m2 eCW1 ([facility]) Systolic blood pressure 118 mm[Hg] 118 mm[Hg] e CW1 ([facility]) Diastolic blood pressure 82 mm[Hg] 82 mm[Hg] eCW1 ([facility]) Systolic blood pressure 118 mm[Hg] 118 mm[Hg] M EDENT ([facility]) Body temperature 96.7 [degF] 96.7 [degF] [facility] ([facility]) Heart rate 71 /min 71 /min [facility] ([facility]) Oxygen saturation in Arterial blood by Pulse oximetry 98 % 98 % [facility] ([facility]) Body weight 297.00 [lb_av] 297.00 [lb_av] MEDEN T ([facility]) Body mass index (BMI) [Ratio] 45.2 kg/m2 45.2 k g/m2 [facility] ([facility]) Body weight 134.[address] [facility] ([facility]) Diastolic blood pressure 72 mm[Hg] 72 mm[Hg] [facility] ([facility]) [place] body weight 140 [lb_av] 140 [lb_av] MEDEN T ([facility]) Body surface area Derived from formula 2.[address] [facility] ([facility]) Body height 68 [in_i] 68 [in_i] [facility] ([facility]) 5'8" Body weight 289.50 [lb_av] 289.50 [lb_av] MEDEN T ([facility]) Body mass index (BMI) [Ratio] 40.4 kg/m2 40.4 k g/m2 [facility] ([facility]) Systolic blood pressure 145 mm[Hg] 145 mm[facility]Hg[facility] Body height 71.00 [in_i] 71.00 [in_i] [facility] ([facility]) 5'11" Diastolic blood pressure 86 mm[Hg] 86 mm[Hg] [facility] ([facility]) Heart rate 74 /min 74 /min [facility] Body temperature 97.0 [degF] 97.0 [degF] [facility] ([facility]) Body temperature 36.[address] [facility] ( [facility]) Oxygen saturation in Arterial blood by Pulse oximetry 97 % 97 % [facility] ([facility]) Systolic blood pressure 120 mm[Hg] 120 mm[Hg] [facility] ([facility], ) Diastolic blood pressure 80 mm[Hg] 80 mm[Hg] [facility] ([facility]) Heart rate 79 /min 79 /min [facility] ([facility], ) Oxygen saturation in Arterial blood by Pulse oximetry 97 % 97 % [facility] ([facility]) Body temperature 97.1 [degF] 97.1 [degF] [facility] ([facility]) Body height 68 [in_i] 68 [in_i] [facility] ([facility]) 5'8" Body weight 290.00 [lb_av] 290.00 [lb_av] [facility] Body mass index (BMI) [Ratio] 44.1 kg/m2 44.1 k g/m2 [facility] ([facility]) [place] body weight 140 [lb_av] 140 [lb_av] MEDEN T ([facility]) Body weight 131.[address] [facility] ([facility]) Body surface area Derived from formula 2.[address] [facility] ([facility], ) Heart rate 83 /min 83 /min [facility] ([facility]) Body temperature 97.8 [degF] 97.8 [degF] [facility] ([facility]) Systolic blood pressure 122 mm[Hg] 122 mm[Hg] M EDENT ([facility]) Body height 71.00 [in_i] 71.00 [in_i] [facility] ([facility] 5'11" Body weight 290.50 [lb_av] 290.50 [lb_av] MEDEN T ([facility]) Body mass index (BMI) [Ratio] 40.5 kg/m2 40.5 k g/m2 [facility] ([facility]) Diastolic blood pressure 78 mm[Hg] 78 mm[Hg] [facility] ([facility]) Body temperature 36.6 Neda 36.6 Neda [facility] ( [facility]) Oxygen saturation in Arterial blood by Pulse oximetry 94 % 94 % [facility] ([facility]) Body weight 295.4 [lb_av] 295.4 [lb_av] eCW1 ([facility]) Body temperature 97.3 [degF] 97.3 [degF] eCW1 ( [facility]) Systolic blood pressure 126 mm[Hg] 126 mm[Hg] e CW1 ([facility]) Diastolic blood pressure 76 mm[Hg] 76 mm[Hg] eCW1 ([facility]) Body height 69 [in_i] 69 [in_i] eCW1 ([facility]) Body mass index (BMI) [Ratio] 43.62 kg/m2 43.62 kg/m2 eCW1 ([facility]) Heart rate 90 /min 90 /min eCW1 ([facility]) Respiratory rate 18 /min 18 /min eCW1 ([facility]) Body weight 296.6 [lb_av] 296.6 [lb_av] eCW1 ([facility]) Body height 69 [in_i] 69 [in_i] eCW1 ([facility]) Body mass index (BMI) [Ratio] 43.80 kg/m2 43.80 kg/m2 eCW1 ([facility]) Systolic blood pressure 126 mm[Hg] 126 mm[Hg] e CW1 ([facility]) Diastolic blood pressure 74 mm[Hg] 74 mm[Hg] eCW1 ([facility]) Body weight 296 [lb_av] 296 [lb_av] eCW1 ([facility]) Body height 69 [in_i] 69 [in_i] eCW1 ([facility]) Body mass index (BMI) [Ratio] 43.71 kg/m2 43.71 kg/m2 eCW1 ([facility]) Patient Treatment Plan of Care Planned Activity Planned Date Details Description Data Source (s) Metronidazole 0.0075 MG/MG Vaginal Gel 12/11/2020 12:00:00 AM EDT eCW1 ([facility]) Metronidazole 0.0075 MG/MG Vaginal Gel 12/11/2020 12:00:00 AM EDT eCW1 ([facility]) Metronidazole 0.0075 MG/MG Vaginal Gel 12/11/2020 12:00:00 AM EDT eCW1 ([facility]) Metronidazole 0.0075 MG/MG Vaginal Gel 12/11/2020 12:00:00 AM EDT eCW1 ([facility]) Metronidazole 0.0075 MG/MG Vaginal Gel 12/11/2020 12:00:00 AM EDT eCW1 ([facility]) Metronidazole 0.0075 MG/MG Vaginal Gel 12/11/2020 12:00:00 AM EDT eCW1 ([facility]) Metronidazole 0.0075 MG/MG Vaginal Gel 12/11/2020 12:00:00 AM EDT eCW1 ([facility]) Metronidazole 0.0075 MG/MG Vaginal Gel 12/11/2020 12:00:00 AM EDT eCW1 ([facility]) Metronidazole 0.0075 MG/MG Vaginal Gel 12/11/2020 12:00:00 AM EDT eCW1 ([facility]) Metronidazole 0.0075 MG/MG Vaginal Gel 12/11/2020 12:00:00 AM EDT eCW1 ([facility]) Fluconazole 150 MG Oral Tablet 11/29/2020 12:00:00 AM EDT eCW1 ([facility]) Fluconazole 150 MG Oral Tablet 11/29/2020 12:00:00 AM EDT eCW1 ([facility]) Fluconazole 150 MG Oral Tablet 11/29/2020 12:00:00 AM EDT eCW1 ([facility]) Fluconazole 150 MG Oral Tablet [Diflucan] 09/10/2020 12:00:00 AM ED T eCW1 ([facility]) Fluconazole 150 MG Oral Tablet [Diflucan] 09/10/2020 12:00:00 AM ED T eCW1 ([facility]) Fluconazole 150 MG Oral Tablet [Diflucan] 09/10/2020 12:00:00 AM ED T eCW1 ([facility]) Fluconazole 150 MG Oral Tablet [Diflucan] 09/10/2020 12:00:00 AM ED T eCW1 ([facility]) Hydroxyzine Hydrochloride 25 MG Oral Tablet 08/28/2020 12:00:00 AM EDT eCW1 ([facility]) Triamcinolone Acetonide 1 MG/ML Topical Cream 08/28/2020 12:00:00 A M EDT eCW1 ([facility]) Permethrin 50 MG/ML Topical Cream [Elimite] 08/28/2020 12:00:00 AM EDT eCW1 ([facility]) Hydroxyzine Hydrochloride 25 MG Oral Tablet 08/28/2020 12:00:00 AM EDT eCW1 ([facility]) Triamcinolone Acetonide 1 MG/ML Topical Cream 08/28/2020 12:00:00 A M EDT eCW1 ([facility]) Permethrin 50 MG/ML Topical Cream [Elimite] 08/28/2020 12:00:00 AM EDT eCW1 ([facility]) Hydroxyzine Hydrochloride 25 MG Oral Tablet 08/28/2020 12:00:00 AM EDT eCW1 ([facility]) Triamcinolone Acetonide 1 MG/ML Topical Cream 08/28/2020 12:00:00 A M EDT eCW1 ([facility]) Permethrin 50 MG/ML Topical Cream [Elimite] 08/28/2020 12:00:00 AM EDT eCW1 ([facility]) Hydroxyzine Hydrochloride 25 MG Oral Tablet 08/28/2020 12:00:00 AM EDT eCW1 ([facility]) Triamcinolone Acetonide 1 MG/ML Topical Cream 08/28/2020 12:00:00 A M EDT eCW1 ([facility]) Permethrin 50 MG/ML Topical Cream [Elimite] 08/28/2020 12:00:00 AM EDT eCW1 ([facility]) Triamcinolone Acetonide 1 MG/ML Topical Cream 04/29/2020 12:00:00 A M EST eCW1 ([facility]) Triamcinolone Acetonide 1 MG/ML Topical Cream 04/29/2020 12:00:00 A M EST eCW1 ([facility]) Famotidine 40 MG Oral Tablet 02/29/2020 12:00:00 AM EDT eCW1 ([facility]) Famotidine 40 MG Oral Tablet 02/29/2020 12:00:00 AM EDT eCW1 ([facility]) Famotidine 40 MG Oral Tablet 02/29/2020 12:00:00 AM EDT eCW1 ([facility]) Famotidine 40 MG Oral Tablet 02/29/2020 12:00:00 AM EDT eCW1 ([facility]) Famotidine 40 MG Oral Tablet 02/29/2020 12:00:00 AM EDT eCW1 ([facility]) Famotidine 40 MG Oral Tablet 02/29/2020 12:00:00 AM EDT eCW1 ([facility]) Famotidine 40 MG Oral Tablet 02/29/2020 12:00:00 AM EDT eCW1 ([facility]) Famotidine 40 MG Oral Tablet 02/29/2020 12:00:00 AM EDT eCW1 ([facility]) Famotidine 40 MG Oral Tablet 02/29/2020 12:00:00 AM EDT eCW1 ([facility]) Famotidine 40 MG Oral Tablet 02/29/2020 12:00:00 AM EDT eCW1 ([facility])
[2021-04-05] MEDS ORDERED: BISACODYL 10 MG SUPP PR ONE (23:25)
--- OUTSIDE RECORDS SUMMARY | 2021-04-05 23:40 | CCD ---
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 Name Role Phone Lindy Grimm NP Unavailable Unavailable Lindy Grimm NP Unavailable Unavailable Lindy Grimm NP Unavailable Unavailable Sirisha, L Cinthya CORING MACHINE OPERATOR Unavailable Unavailable Sirisha, L Cinthya CORING MACHINE OPERATOR Unavailable Unavailable Sirisha, L Cinthya CORING MACHINE OPERATOR Unavailable Unavailable Sirisha, L Cinthya CORING MACHINE OPERATOR Unavailable Unavailable Sirisha, L Cinthya CORING MACHINE OPERATOR Unavailable Unavailable Sirisha, L Cinthya CORING MACHINE OPERATOR Unavailable Unavailable Sirisha, L Cinthya CORING MACHINE OPERATOR Unavailable Unavailable Sirisha, L Cinthya CORING MACHINE OPERATOR Unavailable Unavailable Sirisha, L Cinthya CORING MACHINE OPERATOR Unavailable Unavailable Sirisha, L Cinthya CORING MACHINE OPERATOR Unavailable Unavailable Sirisha, L Cinthya CORING MACHINE OPERATOR Unavailable Unavailable Sirisha, L Cinthya CORING MACHINE OPERATOR Unavailable Unavailable Sirisha, L Cinthya CORING MACHINE OPERATOR Unavailable Unavailable Sirisha, L Cinthya CORING MACHINE OPERATOR Unavailable Unavailable Sirisha, L Cinthya CORING MACHINE OPERATOR Unavailable Unavailable Sirisha, L Cinthya CORING MACHINE OPERATOR Unavailable Unavailable Sirisha, L Cinthya CORING MACHINE OPERATOR Unavailable Unavailable Sirisha, L Cinthya CORING MACHINE OPERATOR Unavailable Unavailable Sirisha, L Cinthya CORING MACHINE OPERATOR Unavailable Unavailable Sirisha, L Cinthya CORING MACHINE OPERATOR Unavailable Unavailable Sirisha, L Cinthya CORING MACHINE OPERATOR Unavailable Unavailable Sirisha, L Cinthya CORING MACHINE OPERATOR Unavailable Unavailable Katty Britt MD Unavailable Unavailable [...] Britt MD Unavailable Unavailable BRADLEY, H STEVAN CORING MACHINE OPERATOR Unavailable Unavailable BRADLEY, H STEVAN CORING MACHINE OPERATOR Unavailable Unavailable BRADLEY, H STEVAN CORING MACHINE OPERATOR Unavailable Unavailable BRADLEY, H STEVAN CORING MACHINE OPERATOR Unavailable Unavailable BRADLEY, H STEVAN CORING MACHINE OPERATOR Unavailable Unavailable BRADLEY, H STEVAN CORING MACHINE OPERATOR Unavailable Unavailable BRADLEY, H STEVAN CORING MACHINE OPERATOR Unavailable Unavailable BRADLEY, H STEVAN CORING MACHINE OPERATOR Unavailable Unavailable BRADLEY, H STEVAN CORING MACHINE OPERATOR Unavailable Unavailable BRADLEY, H STEVAN CORING MACHINE OPERATOR Unavailable Unavailable BARDLEY, H STEVAN CORING MACHINE OPERATOR Unavailable Unavailable BRADLEY, H STEVAN CORING MACHINE OPERATOR Unavailable Unavailable BRADLEY, H STEVAN CORING MACHINE OPERATOR Unavailable Unavailable BRADLEY, H STEVAN CORING MACHINE OPERATOR Unavailable Unavailable BRADLEY, H STEVAN CORING MACHINE OPERATOR Unavailable Unavailable BRADLEY, H STEVAN CORING MACHINE OPERATOR Unavailable Unavailable BRADLEY, H STEVAN CORING MACHINE OPERATOR Unavailable Unavailable BRADLEY, H STEVAN CORING MACHINE OPERATOR Unavailable Unavailable BRADLEY, H STEVAN CORING MACHINE OPERATOR Unavailable Unavailable BRADLEY, H STEVAN CORING MACHINE OPERATOR Unavailable Unavailable BRADLEY, H STEVAN CORING MACHINE OPERATOR Unavailable Unavailable BRADLEY, H STEVAN CORING MACHINE OPERATOR Unavailable Unavailable BRADLEY, H STEVAN CORING MACHINE OPERATOR Unavailable Unavailable BRADLEY, H STEVAN CORING MACHINE OPERATOR Unavailable Unavailable BRADLEY, H STEVAN CORING MACHINE OPERATOR Unavailable Unavailable BRADLEY, H STEVAN CORING MACHINE OPERATOR Unavailable Unavailable BRADLEY, H STEVAN CORING MACHINE OPERATOR Unavailable Unavailable BRADLEY, H STEVAN CORING MACHINE OPERATOR Unavailable Unavailable BRADLEY, H STEVAN CORING MACHINE OPERATOR Unavailable Unavailable BRADLEY, H STEVAN CORING MACHINE OPERATOR Unavailable Unavailable BRADLEY, H STEVAN CORING MACHINE OPERATOR Unavailable Unavailable BRADLEY, H STEVAN CORING MACHINE OPERATOR Unavailable Unavailable BRADLEY, H STEVAN CORING MACHINE OPERATOR Unavailable Unavailable BRADLEY, H STEVAN CORING MACHINE OPERATOR Unavailable Unavailable BRADLEY, H STEVAN CORING MACHINE OPERATOR Unavailable Unavailable BRADLEY, H STEVAN CORING MACHINE OPERATOR Unavailable Unavailable BRADLEY, H STEVAN CORING MACHINE OPERATOR Unavailable Unavailable BRADLEY, H STEVAN CORING MACHINE OPERATOR Unavailable Unavailable BRADLEY, H STEVAN CORING MACHINE OPERATOR Unavailable Unavailable BRADLEY, H STEVAN CORING MACHINE OPERATOR Unavailable Unavailable BRADLEY, H STEVAN CORING MACHINE OPERATOR Unavailable Unavailable BRADLEY, H STEVAN CORING MACHINE OPERATOR Unavailable Unavailable BRADLEY, H STEVAN CORING MACHINE OPERATOR Unavailable Unavailable BRADLEY, H STEVAN CORING MACHINE OPERATOR Unavailable Unavailable BRADLEY, H STEVAN CORING MACHINE OPERATOR Unavailable Unavailable BRADLEY, H STEVAN CORING MACHINE OPERATOR Unavailable Unavailable BRADLEY, H STEVAN CORING MACHINE OPERATOR Unavailable Unavailable BRADLEY, H STEVAN CORING MACHINE OPERATOR Unavailable Unavailable BRADLEY, H STEVAN CORING MACHINE OPERATOR Unavailable Unavailable BRADLEY, H STEVAN CORING MACHINE OPERATOR Unavailable Unavailable BRADLEY, H STEVAN CORING MACHINE OPERATOR Unavailable Unavailable BRADLEY, H STEVAN CORING MACHINE OPERATOR Unavailable Unavailable BRADLEY, H STEVAN CORING MACHINE OPERATOR Unavailable Unavailable BRADLEY, H STEVAN CORING MACHINE OPERATOR Unavailable Unavailable BRADLEY, H STEVAN CORING MACHINE OPERATOR Unavailable Unavailable BRADLEY, H STEVAN CORING MACHINE OPERATOR Unavailable Unavailable Griffin, M Amna PA Unavailable [...] Amna PA Unavailable Unavailable MEDENT_[id number], NA Unavailable [phone] TERESA, E ALE DO Unavailable Unavailable TERESA, [...] E ALE DO Unavailable Unavailable TERESA, E AEL DO Unavailable Unavailable TERESA, E ALE DO [...] of the [facility] Public Health law. If you continue you may have access to information: Regarding HIV / AIDS; Provided by facilities licensed or operated by the [facility] Office of Mental Health; or Provided by the [facility] Office for People With Developmental Disabilities. If such information is present, then the following [facility] mandated warning applies: This information has been [...] law may result in a fine or alf sentence or both. A general authorization for the release of medical or other information is NOT sufficient authorization for further disc losure. Encounters Encounter Providers Location Date Indications Data Source(s ) Outpatient Attender: ALE [place] ac 03/19/2021 11:00:00 AM EDT [facility] ([facility] [place] [address] [facility] [address] 03/11/2021 12:00:00 AM EDT eCW1 ([facility] [place] [address] [facility] [address] 03/11/2021 12:00:00 AM EDT eCW1 ([facility]) [place] [address] [facility] [address] 02/20/2021 12:00:00 AM EDT eCW1 ([facility]) [place] [address] [facility] [address] 02/20/2021 12:00:00 AM EDT [facility] [place] [address] [facility] [address] 01/22/2021 12:00:00 AM EDT [facility]CW1 [facility]) Outpatient Attender: Katty Britt MD [facility] Internal Med at [facility] 01/20/2021 02:45:00 PM EDT [facility] ([facility] [place] [address] [facility] [address] 01/17/2021 12:00:00 AM EDT eCW1 ([facility] [place] [address] [facility] [address] 01/15/2021 12:00:00 AM EDT [facility] [place] [address] [facility] [address] 12/12/2020 12:00:00 AM EDT eCW1 ([facility]) [place] [address] [facility] [address] 12/11/2020 12:00:00 AM EDT eCW1 ([facility]) [place] [address] [facility] [address] 12/11/2020 12:00:00 AM EDT eCW1 ([facility]) [place] [address] [facility] [address] 12/11/2020 12:00:00 AM EDT eCW1 ([facility]) [place] [address] [facility] [address] 12/09/2020 12:00:00 AM EDT eCW1 ([facility]) [place] [address] [facility] [address] 12/03/2020 12:00:00 AM EDT eCW1 ([facility]) Out[place] [address] [facility] [address] 11/29/2020 12:00:00 AM EDT eCW1 ([facility]) [place] [address] [facility] [address] 11/19/2020 12:00:00 AM EDT eCW1 ([facility]) [place] [address] [facility] [address] 11/08/2020 12:00:00 AM EDT eCW1 ([facility]) [place] [address] [facility] [address] 11/07/2020 12:00:00 AM EDT eCW1 ([facility]) [place] [address] [facility] [address] 11/07/2020 12:00:00 AM EDT eCW1 ([facility]) [place] [address] [facility] [address] 10/23/2020 12:00:00 AM EDT eCW1 ([facility]) Office Visit Attender: Amna NERI CMP Internal Med at [facility] 10/21/2020 11:30:00 AM EDT [facility] ([facility]) [place] [address] [facility] [address] 10/04/2020 12:00:00 AM EDT eCW1 ([facility]) Office Visit Attender: Amna NERI CMP Internal Med at [place] [facility] 09/26/2020 01:30:00 PM EDT MEDENT ([facility]) Office Visit Attender: Katty Britt MD CMP Internal Med at [facility] 09/17/2020 02:34:00 AM EDT MEDENT ([facility]) ( in Healthcare facility) Attender: Katty Britt MD 09/16/2020 10:22:00 AM EDT - 09/18/2020 07:34:00 PM EDT [facility] Inpatient Attender: Katty Britt MDAdmitter: Katty Britt MD 09/16/2020 10:22:00 AM EDT - 09/18/2020 07:34:00 PM EDT MORBID OBESITY E66.01 [facility] MORBID OBESITY E66.01 Patient discharged. [place] [address] [facility] [address] 09/13/2020 12:00:00 AM EDT eCW1 ([facility]) Inpatient Attender: Katty Britt MD 09/12/2020 01:05:21 PM EDT [facility] Outpatient Attender: Katty Britt MD 09/11/2020 04:15:23 PM EDT [facility] Outpatient Attender: Ktaty Britt MD 09/11/2020 03:06:00 PM EDT TYPE AND SCREEN [facility] TYPE AND SCREEN Outpatient Attender: Amna NERI CMP Internal Med at [facility] 09/11/2020 12:30:00 PM EDT MED[facility] ([facility]) Outpatient Attender: NA [email or web address] CMP Internal Med at [facility] 09/11/2020 11:15:00 AM EDT [facility] ([facility]) [place] [address] [facility] [address] 09/10/2020 12:00:00 AM EDT eCW1 ([facility]) [place] [address] [facility] [address] 09/10/2020 12:00:00 AM EDT eCW1 ([facility]) Unknown [address] [facility] [address] 09/06/2020 12:00:00 AM EDT eCW1 ([facility]) [place] [address] [facility] [address] 08/29/2020 12:00:00 AM EDT eCW1 ([facility]) Outpatient [address] [facility] [place] [address] 08/28/2020 12:00:00 AM EDT eCW1 ([facility]) Unknown [address] [facility] [address] 08/28/2020 12:00:00 AM EDT [facility]CW1 [facility] Outpatient Attender: Amna NERI CMP Internal Med at [facility] 08/20/2020 11:00:00 AM EDT [facility] ([facility]) Unknown [address] [facility] [place] [address] 08/02/2020 12:00:00 AM EST eCW1 [facility] [place] [address] [facility] [place] [address] 07/31/2020 12:00:00 AM EST [facility]CW1 [facility] Outpatient [address] [facility] [place] [address] 07/30/2020 12:00:00 AM EST [facility]CW[facility] Outpatient Attender: Cinthya Ponce/Estrella/Jose/Reindl 07/29/2020 12:00:00 PM EST [facility] ([facility]) [place] [address] [facility] [address] 07/29/2020 12:00:00 AM EST eCW1 [facility] Unknown [address] [facility] [place] [address] 07/29/2020 12:00:00 AM EST eCW1 ([facility] Unknown [address] [facility] [place] [address] 07/29/2020 12:00:00 AM EST eCW1 [facility] Outpatient Attender: Katty Britt MD CMP Internal Med at [facility] 07/22/2020 01:00:00 PM EST [facility] ([facility]) Outpatient [address] [facility] [address] 07/09/2020 12:00:00 AM EST eCW1 ([facility]) Outpatient Attender: Amna NERI CMP Internal Med at [facility] 06/18/2020 01:15:00 PM EST [facility] ([facility]) Outpatient Attender: Cinthya Ponce/[place]/Jose/Reindl 05/21/2020 10:00:00 AM EST [facility] ([facility]) Outpatient Attender: Amna NERI CMP Internal Med at [facility] 05/13/2020 01:00:00 PM EST [facility] ([facility]) Unknown [address] [facility] [address] 04/24/2020 12:00:00 AM EST eCW1 ([facility]) Attender: Katty Britt MD 03/26/2020 08:12:57 PM EDT [facility] Outpatient Attender: Cinthya Ponce/[place]/Jose/Reindl 03/25/2020 10:00:00 AM EDT MED[facility] ([facility]) [place] ( in Healthcare facility) Attender: Marsha Britt MDAdmitter: Katty Britt MDConsultant: STEVAN BRADLEY NP 03/22/2020 06:39:00 AM EDT - 03/22/2020 05:42:00 PM EDT [facility] Outpatient Attender: Katty Britt MDAdmitter: Katty Britt MD 03/22/2020 06:39:00 AM EDT - 03/22/2020 05:42:00 PM EDT MORBID OBESITY E66.01 [facility] MORBID OBESITY E66.01 Patient discharged. Outpatient Attender: Katty Britt MD CMP Internal Med at [facility] 03/11/2020 01:00:00 PM EDT [facility] ([facility]) [place]patient [address] [facility] [address] 03/06/2020 12:00:00 AM EDT eCW1 ([facility]) Outpatient [address] [facility] [address] 03/05/2020 12:00:00 AM EDT eCW1 ([facility]) Office Visit, Est Pt., Level 3 PC [address] [place] [address] 03/04/2020 12:00:00 AM EDT eCW1 [facility] [address] [facility] [address] 03/04/2020 12:00:00 AM EDT eCW1 ([facility]) Unknown [address] [facility] [address] 02/29/2020 12:00:00 AM EDT eCW1 ([facility]) Medications Medication Brand Name Start Date Product [...] propionate 0.05 MG/ACTUAT Metered Dose [place] 50 mcg/actuation FLUTICASONE PROPIONATE 02/23/2021 12:00:00 AM EDT spray,suspension 16 SPRAY 1 SPRAY IN EACH NOSTRIL ONCE A DAY AT BEDTIME SPRAY 1 SPRAY IN EACH NOSTRIL ONCE A DAY AT BEDTIME SOLD: 04/03/2021 [facility] Fluticasone propionate 0.05 MG/ACTUAT Metered Dose [place] 50 mcg/actuation FLUTICASONE PROPIONATE 02/23/2021 12:00:00 AM [...] AM EDT active metroNIDAZOLE 0.75 % eCW1 ([facility]) Metronidazole 0.0075 MG/MG Vaginal Gel metroNIDAZOLE 0 .75 % metroNIDAZOLE 0.75 % 12/11/2020 12:00:00 AM EDT suspended metroNIDAZOLE 0.75 % eCW1 ([facility]) Metronidazole 0.0075 MG/MG Vaginal Gel metroNIDAZOLE 0 .75 % metroNIDAZOLE 0.75 % 12/11/2020 12:00:00 AM EDT active metroNIDAZOLE 0.75 % eCW1 ([facility]) Metronidazole 0.0075 MG/MG Vaginal Gel metroNIDAZOLE 0 .75 % metroNIDAZOLE 0.75 % 12/11/2020 12:00:00 AM EDT active metroNIDAZOLE 0.75 % eCW1 ([facility]) Metronidazole 0.0075 MG/MG Vaginal Gel metroNIDAZOLE 0 .75 % metroNIDAZOLE 0.75 % 12/11/2020 12:00:00 AM EDT active metroNIDAZOLE 0.75 % eCW1 ([facility]) Metronidazole 0.0075 MG/MG Vaginal Gel metroNIDAZOLE 0 .75 % metroNIDAZOLE 0.75 % 12/11/2020 12:00:00 AM EDT suspended metroNIDAZOLE 0.75 % eCW1 ([facility]) Metronidazole 0.0075 MG/MG Vaginal Gel metroNIDAZOLE 0 .75 % metroNIDAZOLE 0.75 % 12/11/2020 12:00:00 AM EDT active metroNIDAZOLE 0.75 % eCW1 ([facility]) Metronidazole 0.0075 MG/MG Vaginal Gel metroNIDAZOLE 0 .75 % metroNIDAZOLE 0.75 % 12/11/2020 12:00:00 AM EDT active metroNIDAZOLE 0.75 % eCW1 ([facility]) 0.75 % 12/11/2020 12:00:00 AM EDT gel 70 INSERT 1 APPLICATORFUL VAGINALLY AT BEDTIME FOR 5 NIGHTS INSERT 1 APPLICATORFUL VAGINALLY AT BEDTIME FOR 5 NIGH TS SOLD: 12/11/2020 [facility] Metronidazole 0.0075 MG/MG Vaginal Gel metroNIDAZOLE 0 .75 % metroNIDAZOLE 0.75 % 12/11/2020 12:00:00 AM EDT active metroNIDAZOLE 0.75 % eCW1 ([facility]) Metronidazole 0.0075 MG/MG Vaginal Gel metroNIDAZOLE 0 .75 % metroNIDAZOLE 0.75 % 12/11/2020 12:00:00 AM EDT active metroNIDAZOLE 0.75 % eCW1 ([facility]) Metronidazole 0.0075 MG/MG Vaginal Gel metroNIDAZOLE 0 .75 % metroNIDAZOLE 0.75 % 12/11/2020 12:00:00 AM EDT active metroNIDAZOLE 0.75 % eCW1 ([facility]) Metronidazole 0.0075 MG/MG Vaginal Gel metroNIDAZOLE 0 .75 % metroNIDAZOLE 0.75 % 12/11/2020 12:00:00 AM EDT active metroNIDAZOLE 0.75 % eCW1 ([facility]) Acyclovir 400 MG Oral Tablet ACYCLOVIR 11/30/2020 [...] {tablet} suspended Fluconazole 150 M G eCW1 ([facility]) Fluconazole 150 MG Oral Tablet Fluconazole 150 MG 11/29/2020 12:00: 00 AM EDT 1.0 {tablet} suspended Fluconazole 150 M G eCW1 ([facility]) Fluconazole 150 MG Oral Tablet Fluconazole 150 MG 11/29/2020 12:00: 00 AM EDT 1.0 {tablet} active Fluconazole 150 MG eCW1 ([facility]) Fluconazole 150 MG Oral Tablet Fluconazole 150 MG 11/29/2020 12:00: 00 AM EDT 1.0 {tablet} suspended Fluconazole 150 M G eCW1 ([facility]) Fluconazole 150 MG Oral Tablet Fluconazole 150 MG 11/29/2020 12:00: 00 AM EDT 1.0 {tablet} active Fluconazole 150 MG eCW1 ([facility]) Fluconazole 150 MG Oral Tablet Fluconazole 150 MG 11/29/2020 12:00: 00 AM EDT 1.0 {tablet} suspended Fluconazole 150 M G eCW1 ([facility]) Fluconazole 150 MG Oral Tablet Fluconazole 150 MG 11/29/2020 12:00: 00 AM EDT 1.0 {tablet} active Fluconazole 150 MG eCW1 ([facility]) Fluconazole 150 MG Oral Tablet Fluconazole 150 MG 11/29/2020 12:00: 00 AM EDT 1.0 {tablet} active Fluconazole 150 MG eCW1 ([facility]) Fluconazole 150 MG Oral Tablet Fluconazole 150 MG 11/29/2020 12:00: 00 AM EDT 1.0 {tablet} active Fluconazole 150 MG eCW1 ([facility]) Fluconazole 150 MG Oral Tablet Fluconazole 150 MG 11/29/2020 12:00: 00 AM EDT 1.0 {tablet} active Fluconazole 150 MG eCW1 ([facility]) Fluconazole 150 MG Oral Tablet Fluconazole 150 MG 11/29/2020 12:00: 00 AM EDT 1.0 {tablet} suspended Fluconazole 150 M G eCW1 ([facility]) Fluconazole 150 MG Oral Tablet Fluconazole 150 MG 11/29/2020 12:00: 00 AM EDT 1.0 {tablet} active Fluconazole 150 MG eCW1 ([facility]) Fluconazole 150 MG Oral Tablet Fluconazole 150 MG 11/29/2020 12:00: 00 AM EDT 1.0 {tablet} active Fluconazole 150 MG eCW1 ([facility]) Fluconazole 150 MG Oral Tablet Fluconazole 150 MG 11/29/2020 12:00: 00 AM EDT 1.0 {tablet} active Fluconazole 150 MG eCW1 ([facility]) Fluconazole 150 MG Oral Tablet Fluconazole 150 MG 11/29/2020 12:00: 00 AM EDT 1.0 {tablet} suspended Fluconazole 150 M G eCW1 ([facility]) Triamcinolone Acetonide 1 MG/ML Topical Cream Triamcin olone Acetonide 0.1 % Triamcinolone Acetonide 0.1 % 11/19/2020 12:00:00 AM EDT 1.0 {appli cation} suspended Triamcinolone Acetonide 0 .1 % eCW1 ([facility]) Triamcinolone Acetonide 1 MG/ML Topical Cream Triamcin olone Acetonide 0.1 % Triamcinolone Acetonide 0.1 % 11/19/2020 12:00:00 AM EDT 1.0 {appli cation} suspended Triamcinolone Acetonide 0 .1 % eCW1 ([facility]) Triamcinolone Acetonide 1 MG/ML Topical Cream Triamcin olone Acetonide 0.1 % Triamcinolone Acetonide 0.1 % 11/19/2020 12:00:00 AM EDT 1.0 {appli cation} suspended Triamcinolone Acetonide 0 .1 % eCW1 ([facility]) Triamcinolone Acetonide 1 MG/ML Topical Cream Triamcin olone Acetonide 0.1 % Triamcinolone Acetonide 0.1 % 11/19/2020 12:00:00 AM EDT 1.0 {appli cation} suspended Triamcinolone Acetonide 0 .1 % eCW1 ([facility]) 0.1 % 11/19/2020 12:00:00 AM EDT cream [...] suspended Triamcinolone Acetonide 0 .1 % eCW1 ([facility]) Triamcinolone Acetonide 1 MG/ML Topical Cream Triamcin olone Acetonide 0.1 % Triamcinolone Acetonide 0.1 % 11/19/2020 12:00:00 AM EDT 1.0 {appli cation} suspended Triamcinolone Acetonide 0 .1 % eCW1 ([facility]) Triamcinolone Acetonide 1 MG/ML Topical Cream Triamcin olone Acetonide 0.1 % Triamcinolone Acetonide 0.1 % 11/19/2020 12:00:00 AM EDT 1.0 {appli cation} suspended Triamcinolone Acetonide 0 .1 % eCW1 ([facility]) Triamcinolone Acetonide 1 MG/ML Topical Cream Triamcin olone Acetonide 0.1 % Triamcinolone Acetonide 0.1 % 11/19/2020 12:00:00 AM EDT 1.0 {appli cation} suspended Triamcinolone Acetonide 0 .1 % eCW1 ([facility]) Triamcinolone Acetonide 1 MG/ML Topical Cream Triamcin olone Acetonide 0.1 % Triamcinolone Acetonide 0.1 % 11/19/2020 12:00:00 AM EDT 1.0 {appli cation} suspended Triamcinolone Acetonide 0 .1 % eCW1 ([facility]) Triamcinolone Acetonide 1 MG/ML Topical Cream Triamcin olone Acetonide 0.1 % Triamcinolone Acetonide 0.1 % 11/19/2020 12:00:00 AM EDT 1.0 {appli cation} suspended Triamcinolone Acetonide 0 .1 % eCW1 ([facility]) Triamcinolone Acetonide 1 MG/ML Topical Cream Triamcin olone Acetonide 0.1 % Triamcinolone Acetonide 0.1 % 11/19/2020 12:00:00 AM EDT 1.0 {appli cation} suspended Triamcinolone Acetonide 0 .1 % eCW1 ([facility]) Triamcinolone Acetonide 1 MG/ML Topical Cream Triamcin olone Acetonide 0.1 % Triamcinolone Acetonide 0.1 % 11/19/2020 12:00:00 AM EDT 1.0 {appli cation} suspended Triamcinolone Acetonide 0 .1 % eCW1 ([facility]) Triamcinolone Acetonide 1 MG/ML Topical Cream Triamcin olone Acetonide 0.1 % Triamcinolone Acetonide 0.1 % 11/19/2020 12:00:00 AM EDT 1.0 {appli cation} suspended Triamcinolone Acetonide 0 .1 % eCW1 ([facility]) Triamcinolone Acetonide 1 MG/ML Topical Cream Triamcin olone Acetonide 0.1 % Triamcinolone Acetonide 0.1 % 11/19/2020 12:00:00 AM EDT 1.0 {appli cation} suspended Triamcinolone Acetonide 0 .1 % eCW1 ([facility]) Triamcinolone Acetonide 1 MG/ML Topical Cream Triamcin olone Acetonide 0.1 % Triamcinolone Acetonide 0.1 % 11/19/2020 12:00:00 AM EDT 1.0 {appli cation} suspended Triamcinolone Acetonide 0 .1 % eCW1 ([facility]) 1,250 mcg (50,000 unit) 10/23/2020 12:00:00 AM [...] propionate 0.05 MG/ACTUAT Metered Dose [place] 50 mcg/actuation FLUTICASONE PROPIONATE 10/23/2020 12:00:00 AM [...] HCL 09/26/2020 12:00:00 AM EDT active MEDENT ([facility]) 150 mg 09/10/2020 12:00:00 AM EDT tablet 2 TAKE ONE TABLET BY MOUTH NOW REPEAT IN 7 DAYS IF NEEDED TAKE ONE TABLET BY MOUTH NOW REPEAT IN 7 DAYS IF NEEDED SOLD: 09/10/2020 [facility] Fluconazole 150 MG Oral Tablet [Diflucan] Diflucan 150 MG Di flucan 150 MG 09/10/2020 12:00:00 AM EDT 1.0 {tablet} active Diflucan 150 MG eCW1 ([facility]) Acyclovir 400 MG Oral Tablet ACYCLOVIR 09/10/2020 [...] 1.0 {tablet} active Diflucan 150 MG eCW1 ([facility]) Fluconazole 150 MG Oral Tablet [Diflucan] Diflucan 150 MG Di flucan 150 MG 09/10/2020 12:00:00 AM EDT 1.0 {tablet} active Diflucan 150 MG eCW1 ([facility]) Fluconazole 150 MG Oral Tablet [Diflucan] Diflucan 150 MG Di flucan 150 MG 09/10/2020 12:00:00 AM EDT 1.0 {tablet} active Diflucan 150 MG eCW1 ([facility]) 1,250 mcg (50,000 unit) 09/04/2020 12:00:00 AM EDT capsule 2 TAKE ONE CAPSULE BY MOUTH ONCE EVERY 2 WEEKS WITH A MEAL TAKE ONE CAPSULE BY MOUTH ONCE EVERY 2 WEEKS WITH A MEAL SOLD: 09/10/2020 [facility] Triamcinolone Acetonide 1 MG/ML Topical Cream Triamcin olone Acetonide 0.1 % Triamcinolone Acetonide 0.1 % 08/28/2020 12:00:00 AM EDT suspended Triamcinolone Acetonide 0.1 % eCW1 ([facility]) Hydroxyzine Hydrochloride 25 MG Oral Tablet HydrOXYzin e HCl 25 MG HydrOXYzine HCl 25 MG 08/28/2020 12:00:00 AM EDT 1.0 {tablet_as_needed} active HydrOXYzine HCl 25 MG eCW1 ([facility]) Hydroxyzine Hydrochloride 25 MG Oral Tablet HydrOXYzin e HCl 25 MG HydrOXYzine HCl 25 MG 08/28/2020 12:00:00 AM EDT 1.0 {tablet_as_needed} active HydrOXYzine HCl 25 MG eCW1 ([facility]) Hydroxyzine Hydrochloride 25 MG Oral Tablet hydrOXYzin e HCl 25 MG hydrOXYzine HCl 25 MG 08/28/2020 12:00:00 AM EDT 1.0 {tablet_as_needed} suspended hydrOXYzine HCl 25 MG eCW1 ([facility]) Hydroxyzine Hydrochloride 25 MG Oral Tablet hydrOXYzin e HCl 25 MG hydrOXYzine HCl 25 MG 08/28/2020 12:00:00 AM EDT 1.0 {tablet_as_needed} suspended hydrOXYzine HCl 25 MG eCW1 ([facility]) Triamcinolone Acetonide 1 MG/ML Topical Cream Triamcin olone Acetonide 0.1 % Triamcinolone Acetonide 0.1 % 08/28/2020 12:00:00 AM EDT suspended Triamcinolone Acetonide 0.1 % eCW1 ([facility]) Triamcinolone Acetonide 1 MG/ML Topical Cream Triamcin olone Acetonide 0.1 % Triamcinolone Acetonide 0.1 % 08/28/2020 12:00:00 AM EDT active Triamcinolone Acetonide 0.1 % eCW1 ([facility]) Hydroxyzine Hydrochloride 25 MG Oral Tablet hydrOXYzin e HCl 25 MG hydrOXYzine HCl 25 MG 08/28/2020 12:00:00 AM EDT 1.0 {tablet_as_needed} suspended hydrOXYzine HCl 25 MG eCW1 ([facility]) Permethrin 50 MG/ML Topical Cream [Elimite] Elimite 5 % [place] ite 5 % 08/28/2020 12:00:00 AM EDT active Elimite 5 % eCW1 ([facility]) Triamcinolone Acetonide 1 MG/ML Topical Cream Triamcin olone Acetonide 0.1 % Triamcinolone Acetonide 0.1 % 08/28/2020 12:00:00 AM EDT active Triamcinolone Acetonide 0.1 % eCW1 ([facility]) Hydroxyzine Hydrochloride 25 MG Oral Tablet hydrOXYzin e HCl 25 MG hydrOXYzine HCl 25 MG 08/28/2020 12:00:00 AM EDT 1.0 {tablet_as_needed} suspended hydrOXYzine HCl 25 MG eCW1 ([facility]) Triamcinolone Acetonide 1 MG/ML Topical Cream Triamcin olone Acetonide 0.1 % Triamcinolone Acetonide 0.1 % 08/28/2020 12:00:00 AM EDT active Triamcinolone Acetonide 0.1 % eCW1 ([facility]) Permethrin 50 MG/ML Topical Cream [Elimite] Elimite 5 % [place] it[place] 5 % 08/28/2020 12:00:00 AM EDT active Elimite 5 % eCW1 ([facility]) Triamcinolone Acetonide 1 MG/ML Topical Cream Triamcin olone Acetonide 0.1 % Triamcinolone Acetonide 0.1 % 08/28/2020 12:00:00 AM EDT active Triamcinolone Acetonide 0.1 % eCW1 ([facility]) Triamcinolone Acetonide 1 MG/ML Topical Cream Triamcin olone Acetonide 0.1 % Triamcinolone Acetonide 0.1 % 08/28/2020 12:00:00 AM EDT suspended Triamcinolone Acetonide 0.1 % eCW1 ([facility]) Triamcinolone Acetonide 1 MG/ML Topical Cream Triamcin olone Acetonide 0.1 % Triamcinolone Acetonide 0.1 % 08/28/2020 12:00:00 AM EDT active Triamcinolone Acetonide 0.1 % eCW1 ([facility]) Triamcinolone Acetonide 1 MG/ML Topical Cream Triamcin olone Acetonide 0.1 % Triamcinolone Acetonide 0.1 % 08/28/2020 12:00:00 AM EDT suspended Triamcinolone Acetonide 0.1 % eCW1 ([facility]) Triamcinolone Acetonide 1 MG/ML Topical Cream Triamcin olone Acetonide 0.1 % Triamcinolone Acetonide 0.1 % 08/28/2020 12:00:00 AM EDT suspended Triamcinolone Acetonide 0.1 % eCW1 ([facility]) Hydroxyzine Hydrochloride 25 MG Oral Tablet hydrOXYzin e HCl 25 MG hydrOXYzine HCl 25 MG 08/28/2020 12:00:00 AM EDT 1.0 {tablet_as_needed} suspended hydrOXYzine HCl 25 MG eCW1 ([facility]) Triamcinolone Acetonide 1 MG/ML Topical Cream Triamcin olone Acetonide 0.1 % Triamcinolone Acetonide 0.1 % 08/28/2020 12:00:00 AM EDT suspended Triamcinolone Acetonide 0.1 % eCW1 ([facility]) Triamcinolone Acetonide 1 MG/ML Topical Cream Triamcin olone Acetonide 0.1 % Triamcinolone Acetonide 0.1 % 08/28/2020 12:00:00 AM EDT suspended Triamcinolone Acetonide 0.1 % eCW1 ([facility]) 5 % 08/28/2020 12:00:00 AM EDT cream [...] EDT active Triamcinolone Acetonide 0.1 % eCW1 ([facility]) Hydroxyzine Hydrochloride 25 MG Oral Tablet hydrOXYzin e HCl 25 MG hydrOXYzine HCl 25 MG 08/28/2020 12:00:00 AM EDT 1.0 {tablet_as_needed} suspended hydrOXYzine HCl 25 MG eCW1 ([facility]) Triamcinolone Acetonide 1 MG/ML Topical Cream Triamcin olone Acetonide 0.1 % Triamcinolone Acetonide 0.1 % 08/28/2020 12:00:00 AM EDT active Triamcinolone Acetonide 0.1 % eCW1 ([facility]) Hydroxyzine Hydrochloride 25 MG Oral Tablet HydrOXYzin e HCl 25 MG HydrOXYzine HCl 25 MG 08/28/2020 12:00:00 AM EDT 1.0 {tablet_as_needed} active HydrOXYzine HCl 25 MG eCW1 ([facility]) 0.1 % 08/28/2020 12:00:00 AM EDT cream [...] suspended hydrOXYzine HCl 25 MG eCW1 ([facility]) Triamcinolone Acetonide 1 MG/ML Topical Cream Triamcin olone Acetonide 0.1 % Triamcinolone Acetonide 0.1 % 08/28/2020 12:00:00 AM EDT active Triamcinolone Acetonide 0.1 % eCW1 ([facility]) Permethrin 50 MG/ML Topical Cream [Elimite] Elimite 5 % [place] it[place] 5 % 08/28/2020 12:00:00 AM EDT active Elimite 5 % eCW1 ([facility]) Triamcinolone Acetonide 1 MG/ML Topical Cream Triamcin olone Acetonide 0.1 % Triamcinolone Acetonide 0.1 % 08/28/2020 12:00:00 AM EDT suspended Triamcinolone Acetonide 0.1 % eCW1 ([facility]) Hydroxyzine Hydrochloride 25 MG Oral Tablet hydrOXYzin e HCl 25 MG hydrOXYzine HCl 25 MG 08/28/2020 12:00:00 AM EDT 1.0 {tablet_as_needed} suspended hydrOXYzine HCl 25 MG eCW1 ([facility]) Hydroxyzine Hydrochloride 25 MG Oral Tablet HydrOXYzin e HCl 25 MG HydrOXYzine HCl 25 MG 08/28/2020 12:00:00 AM EDT 1.0 {tablet_as_needed} active HydrOXYzine HCl 25 MG eCW1 ([facility]) Hydroxyzine Hydrochloride 25 MG Oral Tablet HydrOXYzin e HCl 25 MG HydrOXYzine HCl 25 MG 08/28/2020 12:00:00 AM EDT 1.0 {tablet_as_needed} active HydrOXYzine HCl 25 MG eCW1 ([facility]) Hydroxyzine Hydrochloride 25 MG Oral Tablet hydrOXYzin e HCl 25 MG hydrOXYzine HCl 25 MG 08/28/2020 12:00:00 AM EDT 1.0 {tablet_as_needed} active hydrOXYzine HCl 25 MG eCW1 ([facility]) Permethrin 50 MG/ML Topical Cream [Elimite] Elimite 5 % [place] it[place] 5 % 08/28/2020 12:00:00 AM EDT active Elimite 5 % eCW1 ([facility]) Permethrin 50 MG/ML Topical Cream [Elimite] Elimite 5 % [place] it[place] 5 % 08/28/2020 12:00:00 AM EDT active Elimite 5 % eCW1 ([facility]) Permethrin 50 MG/ML Topical Cream [Elimite] Elimite 5 % [place] it[place] 5 % 08/28/2020 12:00:00 AM EDT active Elimite 5 % eCW1 ([facility]) Permethrin 50 MG/ML Topical Cream [Elimite] Elimite 5 % [place] 5 % 08/28/2020 12:00:00 AM EDT active Elimite 5 % eCW1 ([facility]) Triamcinolone Acetonide 1 MG/ML Topical Cream Triamcin olone Acetonide 0.1 % Triamcinolone Acetonide 0.1 % 08/28/2020 12:00:00 AM EDT suspended Triamcinolone Acetonide 0.1 % eCW1 ([facility]) Triamcinolone Acetonide 1 MG/ML Topical Cream Triamcin olone Acetonide 0.1 % Triamcinolone Acetonide 0.1 % 08/28/2020 12:00:00 AM EDT active Triamcinolone Acetonide 0.1 % eCW1 ([facility]) Hydroxyzine Hydrochloride 25 MG Oral Tablet HydrOXYzin e HCl 25 MG HydrOXYzine HCl 25 MG 08/28/2020 12:00:00 AM EDT 1.0 {tablet_as_needed} active HydrOXYzine HCl 25 MG eCW1 ([facility]) Hydroxyzine Hydrochloride 25 MG Oral Tablet hydrOXYzin e HCl 25 MG hydrOXYzine HCl 25 MG 08/28/2020 12:00:00 AM EDT 1.0 {tablet_as_needed} suspended hydrOXYzine HCl 25 MG eCW1 ([facility]) Hydroxyzine Hydrochloride 25 MG Oral Tablet hydrOXYzin e HCl 25 MG hydrOXYzine HCl 25 MG 08/28/2020 12:00:00 AM EDT 1.0 {tablet_as_needed} active hydrOXYzine HCl 25 MG eCW1 ([facility]) Triamcinolone Acetonide 1 MG/ML Topical Cream Triamcin olone Acetonide 0.1 % Triamcinolone Acetonide 0.1 % 08/28/2020 12:00:00 AM EDT suspended Triamcinolone Acetonide 0.1 % eCW1 ([facility]) 25 mg 08/28/2020 12:00:00 AM EDT tablet [...] EDT active Triamcinolone Acetonide 0.1 % eCW1 ([facility]) Hydroxyzine Hydrochloride 25 MG Oral Tablet hydrOXYzin e HCl 25 MG hydrOXYzine HCl 25 MG 08/28/2020 12:00:00 AM EDT 1.0 {tablet_as_needed} suspended hydrOXYzine HCl 25 MG eCW1 ([facility]) Hydroxyzine Hydrochloride 25 MG Oral Tablet hydrOXYzin e HCl 25 MG hydrOXYzine HCl 25 MG 08/28/2020 12:00:00 AM EDT 1.0 {tablet_as_needed} suspended hydrOXYzine HCl 25 MG eCW1 ([facility]) Triamcinolone Acetonide 1 MG/ML Topical Cream Triamcin olone Acetonide 0.1 % Triamcinolone Acetonide 0.1 % 08/28/2020 12:00:00 AM EDT active Triamcinolone Acetonide 0.1 % eCW1 ([facility]) Hydroxyzine Hydrochloride 25 MG Oral Tablet hydrOXYzin e HCl 25 MG hydrOXYzine HCl 25 MG 08/28/2020 12:00:00 AM EDT 1.0 {tablet_as_needed} suspended hydrOXYzine HCl 25 MG eCW1 ([facility]) Hydroxyzine Hydrochloride 25 MG Oral Tablet HydrOXYzin e HCl 25 MG HydrOXYzine HCl 25 MG 08/28/2020 12:00:00 AM EDT 1.0 {tablet_as_needed} active HydrOXYzine HCl 25 MG eCW1 ([facility]) Triamcinolone Acetonide 1 MG/ML Topical Cream Triamcin olone Acetonide 0.1 % Triamcinolone Acetonide 0.1 % 08/28/2020 12:00:00 AM EDT suspended Triamcinolone Acetonide 0.1 % eCW1 ([facility]) Hydroxyzine Hydrochloride 25 MG Oral Tablet hydrOXYzin e HCl 25 MG hydrOXYzine HCl 25 MG 08/28/2020 12:00:00 AM EDT 1.0 {tablet_as_needed} active hydrOXYzine HCl 25 MG eCW1 ([facility]) Hydroxyzine Hydrochloride 25 MG Oral Tablet HydrOXYzin e HCl 25 MG HydrOXYzine HCl 25 MG 08/28/2020 12:00:00 AM EDT 1.0 {tablet_as_needed} active HydrOXYzine HCl 25 MG eCW1 ([facility]) Hydroxyzine Hydrochloride 25 MG Oral Tablet HydrOXYzin e HCl 25 MG HydrOXYzine HCl 25 MG 08/28/2020 12:00:00 AM EDT 1.0 {tablet_as_needed} active HydrOXYzine HCl 25 MG eCW1 ([facility]) Hydroxyzine Hydrochloride 25 MG Oral Tablet hydrOXYzin e HCl 25 MG hydrOXYzine HCl 25 MG 08/28/2020 12:00:00 AM EDT 1.0 {tablet_as_needed} suspended hydrOXYzine HCl 25 MG eCW1 ([facility]) Hydroxyzine Hydrochloride 25 MG Oral Tablet hydrOXYzin e HCl 25 MG hydrOXYzine HCl 25 MG 08/28/2020 12:00:00 AM EDT 1.0 {tablet_as_needed} suspended hydrOXYzine HCl 25 MG eCW1 ([facility]) Triamcinolone Acetonide 1 MG/ML Topical Cream Triamcin olone Acetonide 0.1 % Triamcinolone Acetonide 0.1 % 08/28/2020 12:00:00 AM EDT active Triamcinolone Acetonide 0.1 % eCW1 ([facility]) Hydroxyzine Hydrochloride 25 MG Oral Tablet hydrOXYzin e HCl 25 MG hydrOXYzine HCl 25 MG 08/28/2020 12:00:00 AM EDT 1.0 {tablet_as_needed} suspended hydrOXYzine HCl 25 MG eCW1 ([facility]) Triamcinolone Acetonide 1 MG/ML Topical Cream Triamcin olone Acetonide 0.1 % Triamcinolone Acetonide 0.1 % 08/28/2020 12:00:00 AM EDT suspended Triamcinolone Acetonide 0.1 % eCW1 ([facility]) Triamcinolone Acetonide 1 MG/ML Topical Cream Triamcin olone Acetonide 0.1 % Triamcinolone Acetonide 0.1 % 08/28/2020 12:00:00 AM EDT suspended Triamcinolone Acetonide 0.1 % eCW1 ([facility]) Triamcinolone Acetonide 1 MG/ML Topical Cream Triamcin olone Acetonide 0.1 % Triamcinolone Acetonide 0.1 % 08/28/2020 12:00:00 AM EDT suspended Triamcinolone Acetonide 0.1 % eCW1 ([facility]) Triamcinolone Acetonide 1 MG/ML Topical Cream Triamcin olone Acetonide 0.1 % Triamcinolone Acetonide 0.1 % 08/28/2020 12:00:00 AM EDT suspended Triamcinolone Acetonide 0.1 % eCW1 ([facility]) Permethrin 50 MG/ML Topical Cream [Elimite] Elimite 5 % [place] 5 % 08/28/2020 12:00:00 AM EDT active Elimite 5 % eCW1 ([facility]) Famotidine 40 MG Oral Tablet FAMOTIDINE 08/03/2020 [...] [employer] 05/21/2020 12:00:00 AM EST active MEDENT ([facility], ) Triamcinolone Acetonide 1 MG/ML Topical Cream Triamcin olone Acetonide 0.1 % Triamcinolone Acetonide 0.1 % 04/29/2020 12:00:00 AM EST 1.0 {appli cation} active Triamcinolone Acetonide 0 .1 % eCW1 ([facility]) 0.1 % 04/29/2020 12:00:00 AM EST cream 15 APPLY TO SCAR TWO TIMES A DAY APPLY TO SCAR TWO TIMES A DAY SOLD: 05/02/2020 [facility] Triamcinolone Acetonide 1 MG/ML Topical Cream Triamcin olone Acetonide 0.1 % Triamcinolone Acetonide 0.1 % 04/29/2020 12:00:00 AM EST 1.0 {appli cation} suspended Triamcinolone Acetonide 0 .1 % eCW1 ([facility]) Triamcinolone Acetonide 1 MG/ML Topical Cream Triamcin olone Acetonide 0.1 % Triamcinolone Acetonide 0.1 % 04/29/2020 12:00:00 AM EST 1.0 {appli cation} active Triamcinolone Acetonide 0 .1 % eCW1 ([facility]) Triamcinolone Acetonide 1 MG/ML Topical Cream Triamcin olone Acetonide 0.1 % Triamcinolone Acetonide 0.1 % 04/29/2020 12:00:00 AM EST 1.0 {appli cation} suspended Triamcinolone Acetonide 0 .1 % eCW1 ([facility]) Triamcinolone Acetonide 1 MG/ML Topical Cream Triamcin olone Acetonide 0.1 % Triamcinolone Acetonide 0.1 % 04/29/2020 12:00:00 AM EST 1.0 {appli cation} suspended Triamcinolone Acetonide 0 .1 % eCW1 ([facility]) Triamcinolone Acetonide 1 MG/ML Topical Cream Triamcin olone Acetonide 0.1 % Triamcinolone Acetonide 0.1 % 04/29/2020 12:00:00 AM EST 1.0 {appli cation} suspended Triamcinolone Acetonide 0 .1 % eCW1 ([facility]) Triamcinolone Acetonide 1 MG/ML Topical Cream Triamcin olone Acetonide 0.1 % Triamcinolone Acetonide 0.1 % 04/29/2020 12:00:00 AM EST 1.0 {appli cation} active Triamcinolone Acetonide 0 .1 % eCW1 ([facility]) Triamcinolone Acetonide 1 MG/ML Topical Cream Triamcin olone Acetonide 0.1 % Triamcinolone Acetonide 0.1 % 04/29/2020 12:00:00 AM EST 1.0 {appli cation} active Triamcinolone Acetonide 0 .1 % eCW1 ([facility]) Triamcinolone Acetonide 1 MG/ML Topical Cream Triamcin olone Acetonide 0.1 % Triamcinolone Acetonide 0.1 % 04/29/2020 12:00:00 AM EST 1.0 {appli cation} suspended Triamcinolone Acetonide 0 .1 % eCW1 ([facility]) Triamcinolone Acetonide 1 MG/ML Topical Cream Triamcin olone Acetonide 0.1 % Triamcinolone Acetonide 0.1 % 04/29/2020 12:00:00 AM EST 1.0 {appli cation} suspended Triamcinolone Acetonide 0 .1 % eCW1 ([facility]) Triamcinolone Acetonide 1 MG/ML Topical Cream Triamcin olone Acetonide 0.1 % Triamcinolone Acetonide 0.1 % 04/29/2020 12:00:00 AM EST 1.0 {appli cation} suspended Triamcinolone Acetonide 0 .1 % eCW1 ([facility]) Triamcinolone Acetonide 1 MG/ML Topical Cream Triamcin olone Acetonide 0.1 % Triamcinolone Acetonide 0.1 % 04/29/2020 12:00:00 AM EST 1.0 {appli cation} suspended Triamcinolone Acetonide 0 .1 % eCW1 ([facility]) Triamcinolone Acetonide 1 MG/ML Topical Cream Triamcin olone Acetonide 0.1 % Triamcinolone Acetonide 0.1 % 04/29/2020 12:00:00 AM EST 1.0 {appli cation} suspended Triamcinolone Acetonide 0 .1 % eCW1 ([facility]) Triamcinolone Acetonide 1 MG/ML Topical Cream Triamcin olone Acetonide 0.1 % Triamcinolone Acetonide 0.1 % 04/29/2020 12:00:00 AM EST 1.0 {appli cation} active Triamcinolone Acetonide 0 .1 % eCW1 ([facility]) Triamcinolone Acetonide 1 MG/ML Topical Cream Triamcin olone Acetonide 0.1 % Triamcinolone Acetonide 0.1 % 04/29/2020 12:00:00 AM EST 1.0 {appli cation} active Triamcinolone Acetonide 0 .1 % eCW1 ([facility]) Triamcinolone Acetonide 1 MG/ML Topical Cream Triamcin olone Acetonide 0.1 % Triamcinolone Acetonide 0.1 % 04/29/2020 12:00:00 AM EST 1.0 {appli cation} suspended Triamcinolone Acetonide 0 .1 % eCW1 ([facility]) Triamcinolone Acetonide 1 MG/ML Topical Cream Triamcin olone Acetonide 0.1 % Triamcinolone Acetonide 0.1 % 04/29/2020 12:00:00 AM EST 1.0 {appli cation} suspended Triamcinolone Acetonide 0 .1 % eCW1 ([facility]) Triamcinolone Acetonide 1 MG/ML Topical Cream Triamcin olone Acetonide 0.1 % Triamcinolone Acetonide 0.1 % 04/29/2020 12:00:00 AM EST 1.0 {appli cation} active Triamcinolone Acetonide 0 .1 % eCW1 ([facility]) Triamcinolone Acetonide 1 MG/ML Topical Cream Triamcin olone Acetonide 0.1 % Triamcinolone Acetonide 0.1 % 04/29/2020 12:00:00 AM EST 1.0 {appli cation} suspended Triamcinolone Acetonide 0 .1 % eCW1 ([facility]) Triamcinolone Acetonide 1 MG/ML Topical Cream Triamcin olone Acetonide 0.1 % Triamcinolone Acetonide 0.1 % 04/29/2020 12:00:00 AM EST 1.0 {appli cation} suspended Triamcinolone Acetonide 0 .1 % eCW1 ([facility]) Triamcinolone Acetonide 1 MG/ML Topical Cream Triamcin olone Acetonide 0.1 % Triamcinolone Acetonide 0.1 % 04/29/2020 12:00:00 AM EST 1.0 {appli cation} suspended Triamcinolone Acetonide 0 .1 % eCW1 ([facility]) Triamcinolone Acetonide 1 MG/ML Topical Cream Triamcin olone Acetonide 0.1 % Triamcinolone Acetonide 0.1 % 04/29/2020 12:00:00 AM EST 1.0 {appli cation} suspended Triamcinolone Acetonide 0 .1 % eCW1 ([facility]) Triamcinolone Acetonide 1 MG/ML Topical Cream Triamcin olone Acetonide 0.1 % Triamcinolone Acetonide 0.1 % 04/29/2020 12:00:00 AM EST 1.0 {appli cation} active Triamcinolone Acetonide 0 .1 % eCW1 ([facility]) Triamcinolone Acetonide 1 MG/ML Topical Cream Triamcin olone Acetonide 0.1 % Triamcinolone Acetonide 0.1 % 04/29/2020 12:00:00 AM EST 1.0 {appli cation} active Triamcinolone Acetonide 0 .1 % eCW1 ([facility]) Triamcinolone Acetonide 1 MG/ML Topical Cream Triamcin olone Acetonide 0.1 % Triamcinolone Acetonide 0.1 % 04/29/2020 12:00:00 AM EST 1.0 {appli cation} suspended Triamcinolone Acetonide 0 .1 % eCW1 ([facility]) Triamcinolone Acetonide 1 MG/ML Topical Cream Triamcin olone Acetonide 0.1 % Triamcinolone Acetonide 0.1 % 04/29/2020 12:00:00 AM EST 1.0 {appli cation} active Triamcinolone Acetonide 0 .1 % eCW1 ([facility]) Triamcinolone Acetonide 1 MG/ML Topical Cream Triamcin olone Acetonide 0.1 % Triamcinolone Acetonide 0.1 % 04/29/2020 12:00:00 AM EST 1.0 {appli cation} suspended Triamcinolone Acetonide 0 .1 % eCW1 ([facility]) Triamcinolone Acetonide 1 MG/ML Topical Cream Triamcin olone Acetonide 0.1 % Triamcinolone Acetonide 0.1 % 04/29/2020 12:00:00 AM EST 1.0 {appli cation} active Triamcinolone Acetonide 0 .1 % eCW1 ([facility]) Triamcinolone Acetonide 1 MG/ML Topical Cream Triamcin olone Acetonide 0.1 % Triamcinolone Acetonide 0.1 % 04/29/2020 12:00:00 AM EST 1.0 {appli cation} suspended Triamcinolone Acetonide 0 .1 % eCW1 ([facility]) Triamcinolone Acetonide 1 MG/ML Topical Cream Triamcin olone Acetonide 0.1 % Triamcinolone Acetonide 0.1 % 04/29/2020 12:00:00 AM EST 1.0 {appli cation} active Triamcinolone Acetonide 0 .1 % eCW1 ([facility]) Triamcinolone Acetonide 1 MG/ML Topical Cream Triamcin olone Acetonide 0.1 % Triamcinolone Acetonide 0.1 % 04/29/2020 12:00:00 AM EST 1.0 {appli cation} active Triamcinolone Acetonide 0 .1 % eCW1 ([facility]) Triamcinolone Acetonide 1 MG/ML Topical Cream Triamcin olone Acetonide 0.1 % Triamcinolone Acetonide 0.1 % 04/29/2020 12:00:00 AM EST 1.0 {appli cation} active Triamcinolone Acetonide 0 .1 % eCW1 ([facility]) Triamcinolone Acetonide 1 MG/ML Topical Cream Triamcin olone Acetonide 0.1 % Triamcinolone Acetonide 0.1 % 04/29/2020 12:00:00 AM EST 1.0 {appli cation} active Triamcinolone Acetonide 0 .1 % eCW1 ([facility]) Triamcinolone Acetonide 1 MG/ML Topical Cream Triamcin olone Acetonide 0.1 % Triamcinolone Acetonide 0.1 % 04/29/2020 12:00:00 AM EST 1.0 {appli cation} active Triamcinolone Acetonide 0 .1 % eCW1 ([facility]) Triamcinolone Acetonide 1 MG/ML Topical Cream Triamcin olone Acetonide 0.1 % Triamcinolone Acetonide 0.1 % 04/29/2020 12:00:00 AM EST 1.0 {appli cation} active Triamcinolone Acetonide 0 .1 % eCW1 ([facility]) Triamcinolone Acetonide 1 MG/ML Topical Cream Triamcin olone Acetonide 0.1 % Triamcinolone Acetonide 0.1 % 04/29/2020 12:00:00 AM EST 1.0 {appli cation} suspended Triamcinolone Acetonide 0 .1 % eCW1 ([facility]) 100 mg 04/17/2020 12:00:00 AM EST capsule [...] {tablet_at_bedtime} active Famotidine 4 0 MG eCW1 ([facility]) Famotidine 40 MG Oral Tablet Famotidine 40 MG 02/29/2020 12:00:00 A M EDT 1.0 {tablet_at_bedtime} active Famotidine 4 0 MG eCW1 ([facility]) Famotidine 40 MG Oral Tablet Famotidine 40 MG 02/29/2020 12:00:00 A M EDT 1.0 {tablet_at_bedtime} active Famotidine 4 0 MG eCW1 ([facility]) Famotidine 40 MG Oral Tablet Famotidine 40 MG 02/29/2020 12:00:00 A M EDT 1.0 {tablet_at_bedtime} active Famotidine 4 0 MG eCW1 ([facility]) Famotidine 40 MG Oral Tablet Famotidine 40 MG 02/29/2020 12:00:00 A M EDT 1.0 {tablet_at_bedtime} active Famotidine 4 0 MG eCW1 ([facility]) Famotidine 40 MG Oral Tablet Famotidine 40 MG 02/29/2020 12:00:00 A M EDT 1.0 {tablet_at_bedtime} active Famotidine 4 0 MG eCW1 ([facility]) Famotidine 40 MG Oral Tablet Famotidine 40 MG 02/29/2020 12:00:00 A M EDT 1.0 {tablet_at_bedtime} active Famotidine 4 0 MG eCW1 ([facility]) Famotidine 40 MG Oral Tablet Famotidine 40 MG 02/29/2020 12:00:00 A M EDT 1.0 {tablet_at_bedtime} active Famotidine 4 0 MG eCW1 ([facility]) Famotidine 40 MG Oral Tablet Famotidine 40 MG 02/29/2020 12:00:00 A M EDT 1.0 {tablet_at_bedtime} active Famotidine 4 0 MG eCW1 ([facility]) Famotidine 40 MG Oral Tablet Famotidine 40 MG 02/29/2020 12:00:00 A M EDT 1.0 {tablet_at_bedtime} active Famotidine 4 0 MG eCW1 ([facility]) Famotidine 40 MG Oral Tablet Famotidine 40 MG 02/29/2020 12:00:00 A M EDT 1.0 {tablet_at_bedtime} active Famotidine 4 0 MG eCW1 ([facility]) Famotidine 40 MG Oral Tablet Famotidine 40 MG 02/29/2020 12:00:00 A M EDT 1.0 {tablet_at_bedtime} active Famotidine 4 0 MG eCW1 ([facility]) Famotidine 40 MG Oral Tablet Famotidine 40 MG 02/29/2020 12:00:00 A M EDT 1.0 {tablet_at_bedtime} active Famotidine 4 0 MG eCW1 ([facility]) Famotidine 40 MG Oral Tablet Famotidine 40 MG 02/29/2020 12:00:00 A M EDT 1.0 {tablet_at_bedtime} active Famotidine 4 0 MG eCW1 ([facility]) Famotidine 40 MG Oral Tablet Famotidine 40 MG 02/29/2020 12:00:00 A M EDT 1.0 {tablet_at_bedtime} active Famotidine 4 0 MG eCW1 ([facility]) Famotidine 40 MG Oral Tablet Famotidine 40 MG 02/29/2020 12:00:00 A M EDT 1.0 {tablet_at_bedtime} active Famotidine 4 0 MG eCW1 ([facility]) Famotidine 40 MG Oral Tablet Famotidine 40 MG 02/29/2020 12:00:00 A M EDT 1.0 {tablet_at_bedtime} active Famotidine 4 0 MG eCW1 ([facility]) Famotidine 40 MG Oral Tablet Famotidine 40 MG 02/29/2020 12:00:00 A M EDT 1.0 {tablet_at_bedtime} active Famotidine 4 0 MG eCW1 ([facility]) Famotidine 40 MG Oral Tablet Famotidine 40 MG 02/29/2020 12:00:00 A M EDT 1.0 {tablet_at_bedtime} active Famotidine 4 0 MG eCW1 ([facility]) Famotidine 40 MG Oral Tablet Famotidine 40 MG 02/29/2020 12:00:00 A M EDT 1.0 {tablet_at_bedtime} active Famotidine 4 0 MG eCW1 ([facility]) Famotidine 40 MG Oral Tablet Famotidine 40 MG 02/29/2020 12:00:00 A M EDT 1.0 {tablet_at_bedtime} active Famotidine 4 0 MG eCW1 ([facility]) 90 mcg/actuation 02/13/2020 12:00:00 AM EDT HFA [...] type / Coverage type Policy ID Covered constitution party ID Covered constitution party's relationship to tillman Policy Tillman Plan Information [facility] [id number] SP [id number] MEDICAID GME [id number] S [id number] [facility] HEA [id number] S [id number] [facility](MCAID) O [id number] S [id number] [facility]-Medicaid [id number] [facility]-Medicaid [id number] [facility]-Medicaid [id number] [facility]-Medicaid [id number] [facility] [id number] [facility] [id number] [facility] [id number] [facility] [id number] ANSI-Medicaid [id number] ANSI-Medicaid [id number] [facility] PLAN [facility] [id number] SP [id number] [facility] [id number] SP [id number] MEDICAID [id number] SP [id number] [facility] COMM[facility] [id number] SP [id number] Problems, Conditions, and Diagnoses Code Display Name Description Problem Type Effective Dates Data Source(s) G47.33 [id number] Obstructive sleep apnea (adult) (pediatri c) Problem 11/08/2020 12:00:00 AM EDT eCW1 ([facility]) Z68.39 [id number] BMI 39.0-39.9,adult Problem 10/23/2020 12:00 :00 AM EDT eCW1 ([facility]) Z98.84 [id number] Status post bariatric surgery Problem 10/23/2020 12:00:00 AM EDT eCW1 ([facility]) Z85.820 [id number] History of malignant melanoma Problem 10/07/2020 12:00:00 AM EDT eCW1 ([facility]) G47.33 Obstructive sleep apnea syndrome Obstructive sle ep apnea syndrome Problem 05/21/2020 12:00:00 AM EST MEDENT ([facility] ) G47.30 Sleep apnea Sleep apnea Problem 03/25/2020 12:00:00 AM EDT MEDENT ([facility], ) E78.5 Hyperlipidemia Hyperlipidemia Problem 03/11/2020 12:00: 00 AM EDT MEDENT ([facility]) K21.9 [id number] Gastroesophageal reflux disease without e sophagitis Problem 03/06/2020 12:00:00 AM EDT eCW1 ([facility]) E88.81 [id number] Metabolic syndrome Problem 03/06/2020 12:00: 00 AM EDT eCW1 ([facility]) F17.210 24519694 Cigarette nicotine dependence without com plication Problem 03/06/2020 12:00:00 AM EDT eCW1 ([facility]) R73.01 [id number] Elevated fasting glucose Problem 03/06/2020 12:00:00 AM EDT eCW1 ([facility]) K76.0 [id number] Fatty liver Problem 03/06/2020 12:00:00 AM E DT eCW1 ([facility]) Z86.018 [id number] Hx of dysplastic nevus Problem 03/05/2020 12:00:00 AM EDT eCW1 ([facility]) Z85.820 201794493 History of melanoma Problem 03/05/2020 12:00 :00 AM EDT eCW1 ([facility]) Surgeries/Procedures Procedure Description Date Indications Data Source(s) OFFICE OUTPATIENT VISIT 15 MINUTES 03/19/2021 12:00:00 AM EDT MEDENT ([facility], ) OFFICE OUTPATIENT VISIT 15 MINUTES 01/20/2021 12:00:00 AM EDT MEDENT ([facility]) LAPS GSTRC RSTRICTIV PX LONGITUDINAL GASTRECTOMY 09/16 12:00:00 AM EDT MEDENT ([facility]) LAPS GSTRC RSTRICTIV PX LONGITUDINAL GASTRECTOMY 09/16 12:00:00 AM EDT MEDENT ([facility]) OFFICE OUTPATIENT VISIT 5 MINUTES 09/11/2020 12:00:00 AM EDT MEDENT ([facility]) OFFICE OUTPATIENT VISIT 25 MINUTES 09/11/2020 12:00:00 AM EDT MEDENT ([facility]) OFFICE OUTPATIENT VISIT 25 MINUTES 08/20/2020 12:00:00 AM EDT MEDENT ([facility]) UPPER NDSC BIOPSY SINGLE/MULTIPLE 03/22/2020 12:00:00 AM EDT MEDENT ([facility]) Results ID Date Data Source [id number] 02/11/2021 12:00:00 AM EDT [facility] Name Value Range Interpretation Code Description Data Tasneem rce(s) Supporting Document(s) SARS-CoV2 Rapid Antigen Negative [facility] This lab was ordered by [facility] and reported by [facility]. ID Date Data Source [id number] 01/20/2021 03:31:00 PM EDT MEDENT ([facility]) Name Value Range Interpretation Code Description Data Tasneem rce(s) Supporting Document(s) Cobalamin (Vitamin B12) [Mass/volume] in Serum or Plasma 669 pg/mL 2 11-911 MEDENT ([facility]) Vit B1 / Thiamine Vitamin D+Metabolites [Mass/volume] in Serum or Plasma 41.19 ng/mL 30 -100 MEDENT ([facility]) <content>Recommended Levels for Circulat ing 25-hydroxy Vitamin D:</content>
<content>Vitamin D Status 25-OH Vitamin D Test Result</content>
<content>Deficient <10ng/mL</content>
<content>Insufficient 10- 29ng/mL</content>
<content>Sufficient 30-100ng/mL</content>
<content>Potential Intoxication >100ng/mL</content>
<content>A pediatric reference range has not been established using this method.</content>
<content></content> Miscellaneous Laboratory test result MED ENT ([facility]) Vit B1 / Thiamine Folate [Mass/volume] in Serum or Plasma 6.18 ng/mL 1.1-20.0 MEDENT ([facility]) Vit B1 / Thiamine Ferritin [Mass/volume] in Serum or Plasma 203 ng/mL 10.0-291.0 MEDENT ([facility]) Vit B1 / Thiamine Thiamine [Mass/volume] in Blood 134 nmol/L 78-185 MEDENT ([facility]) Vitamin supplementation within 24 hours prior to blood draw may affect the accuracy of the results. This test was developed and its analytical performance characteristics have been determined by [employer] [place], [place]. It has not been cleared or approved by the U.S. Food and Drug Administration. This assay has been validated pursuant to the CLIA regulations and is used for clinical purposes. Venipuncture Laboratory test result MEDE NT ([facility]) Vit B1 / Thiamine ID Date Data Source [id number] 01/20/2021 03:31:00 PM EDT MEDENT ([facility]) Name Value Range Interpretation Code Description Data Tasneem rce(s) Supporting Document(s) Glucose [Mass/volume] in Serum or Plasma 85 mg/dL 74-106 MEDENT ([facility]) [place] Diabetes Association (ADA) Recommended Range is 65-99 mg/dL Urea nitrogen [Moles/volume] in Serum or Plasma 8 mg/dL 6-20 MEDENT ([facility]) Creatinine [Mass/volume] in Serum or Plasma 0.8 mg/dL 0.5-1.3 MEDENT ([facility]) Potassium [Moles/volume] in Serum or Plasma 4.4 mmol/L 3.5-5.3 MEDENT ([facility]) Chloride [Moles/volume] in Serum or Plasma 106 mmol/L 98-107 MEDENT ([facility]) Sodium [Moles/volume] in Serum or Plasma 143 mmol/L 136-145 MEDENT ([facility]) Anion Gap 12 mmol/L 7-16 MED[facility] ([facility]) Carbon dioxide, total [Moles/volume] in Serum or Plasma 25 meq/L 20 -31 MEDENT ([facility]) eGFR-female 78 mL/m/1.73m MEDENT ([facility]) eGFR-Aa female 94 mL/m/1.73m MEDENT ([facility]) <content>Normal Kidney Function or Mild Disease GFR >59 mL/min/1.73m2</content>
<content>Chronic Kidney Disease GFR 15-59 mL/min/1.73m2</content>
<content>Renal Failure GFR <15 mL/min/1.73m2</content>
<content></content> Alkaline phosphatase [Enzymatic activity/volume] in Serum or Plasma 89 U/L 46-116 MEDENT ([facility]) Alanine aminotransferase [Enzymatic activity/volume] in Seru m or Plasma 23 U/L 4-36 MEDENT ([facility]) Effective 11/28/2016: [employer] has indicated interference with the drugs sulfasalazine and sulfapyridine. They suggest collection should occur prior to drug administration due to falsely depressed results. Aspartate aminotransferase [Enzymatic activity/volume] in Serum or Plasma 25 U/L 8-33 [facility] Bilirubin.total [Mass/volume] in Serum or Plasma 0.6 mg/dL 0.3-1.2 MEDENT ([facility]) Albumin [Mass/volume] in Serum or Plasma 4.6 g/dL 3.6-5.1 MEDENT ([facility]) Protein [Mass/volume] in Serum or Plasma 7.3 g/dL 6.4-8.3 [facility] Results may reflect a potential interfer ence in Total Protein results in patients receiving dextran as blood volume expanders. Calcium [Mass/volume] in Serum or Plasma 10.1 mg/dL 8.9-10.5 MEDENT ([facility]) Albumin/Globulin [Mass Ratio] in Serum or Plasma 1.7 Ratio 1.0-2.0 [facility] ([facility]) Globulin [Mass/volume] in Serum by calculation 2.7 g/dL 1.9-3.7 [facility] ([facility]) ID Date Data Source [id number] 01/20/2021 03:31:00 PM EDT MEDENT ([facility]) Name Value Range Interpretation Code Description Data Tasneem rce(s) Supporting Document(s) Erythrocytes [#/volume] in Blood by Automated count 4.88 x10E6/uL 3.9 -5.4 MEDENT ([facility]) WBC. 9.12 x10E3/uL 4.2-12.0 MED[facility] ([facility]) Hemoglobin [Mass/volume] in Blood 15.6 g/dL 12.0-16.0 MEDENT ([facility]) MCV 89.8 fL 80-98 [facility]) Hematocrit [Volume Fraction] of Blood by Automated count 43.9 % 3 6-47 MEDENT ([facility]) MCHC 35.6 g/dL 32-36 MED[facility] ([facility]) MCH 31.9 pg 27-33 MED[facility]) RDW 13.4 % 11.2-15.2 MED[facility] ([facility]) MPV 7.9 fL 7.0-12.3 MED[facility]) Platelets [#/volume] in Blood by Automated count 344 x10E3/uL 135-420 MEDENT ([facility]) ID Date Data Source [id number] 01/25/2021 02:16:00 PM EDT [facility] Received: 01/21/2021 at 03:55:00 AMD : Ku6/[facility], [address], [place], [address], Bj Becerra M.D.,PhD Name Value Range Interpretation Code Description Data Tasneem rce(s) Supporting Document(s) Thiamine [Moles/volume] in Blood 134 nmol/L 78-185 [facility] Vitamin supplementation within 24 hours prior toblood draw may affect the accuracy of the results.This test was developed and its analytical performancecharacteristics have been determined by [employer] [place], [place]. It hasnot been cleared or approved by the U.S. Food and DrugAdministration. This assay has been validated pursuantto the CLIA regulations and is used for clinicalpurposes. ID Date Data Source [id number] 09/18/2020 12:55:46 PM EDT [facility] Name Value Range Interpretation Code Description Data Tasneem rce(s) Supporting Document(s) WBC 10.7 10*3/uL (4.1-11.0) [facility] RBC 4.45 10*6/uL (4.00-5.40) [facility] HGB 13.7 g/dL (12.0-16.0) [facility] HCT 39.8 % (36.0-47.0) [facility] MCV 89.2 fL (80.0-95.0) [facility] MCH 30.8 pg (27.0-32.0) [facility] MCHC 34.5 g/dL (32.0-36.0) [facility] RDW 13.3 % (10.5-14.5) [facility] PLT 309 10*3/uL (150-450) [facility] MPV 8.0 fL (7.1-10.7) [facility] ID Date Data Source [id number] 09/17/2020 10:29:08 AM EDT [facility] Name Value Range Interpretation Code Description Data Tasneem rce(s) Supporting Document(s) MAGNESIUM 2.0 mg/dL (1.7-2.4) [facility] ID Date Data Source [id number] 09/17/2020 10:29:08 AM EDT [facility] Name Value Range Interpretation Code Description Data Tasneem rce(s) Supporting Document(s) SODIUM 139 mmol/L (136-145) [facility] POTASSIUM 4.4 mmol/L (3.6-5.2) [facility] CHLORIDE 106 mmol/L (100-108) [facility] CO2 26 mmol/L (22-31) [facility] ANION GAP 7 mmol/L (7-16) [facility] UREA NITROGEN 10 mg/dL (7-24) [facility] CREATININE 0.82 mg/dL (0.60-1.00) [facility] BUN/CREAT RATIO 12.2 RATIO (10.0-20.0) [facility] GLUCOSE 107 mg/dL (70-99) H [facility] CALCIUM 8.7 mg/dL (8.4-10.2) [facility] GFR >60 ml/min/1.73m2 (>59) [facility] GFR ( AMER) >60 ml/min/1.73m2 (>59) [facility] GFR INTERPRETATION [facility] --NORMAL KIDNEY FUNCTION OR MILD DISEASE - GFR >OR= 60CHRONIC KIDNEY DISEASE - GFR 15 - 59RENAL FAILURE - GFR <15 Est. GFR calculation based on the MDRDstudy equation, which assumes a steadystate for creatinine. Est. GFR should notbe used for medication dosing. ID Date Data Source [id number] 09/17/2020 09:59:28 AM EDT [facility] Name Value Range Interpretation Code Description Data Tasneem rce(s) Supporting Document(s) WBC 13.7 10*3/uL (4.1-11.0) H [facility] RBC 4.36 10*6/uL (4.00-5.40) [facility] HGB 13.3 g/dL (12.0-16.0) [facility] HCT 39.3 % (36.0-47.0) [facility] MCV 90.2 fL (80.0-95.0) [facility] MCH 30.6 pg (27.0-32.0) [facility] MCHC 33.9 g/dL (32.0-36.0) [facility] RDW 13.3 % (10.5-14.5) [facility] PLT 315 10*3/uL (150-450) [facility] MPV 8.0 fL (7.1-10.7) [facility] ID Date Data Source [id number] 09/23/2020 03:06:00 PM EDT [facility] [id number] ROSARIO CHRISTINE [id number] NAME: RECOR, VICTORIADATE OF : 1975REPORT: OPERATIONPATIENT NUMBER: [id number] STATUS: IPMEDICAL RECORD NUMBER: [id number] OF ADMISSION: 1DATE OF DISCHARGE:ROOM: 02DATE OF PROCEDURE: 1PREOPERATIVE DIAGNOSIS: Morbid obesity.POSTOPERATIVE DIAGNOSIS: Morbid obesity.OPERATIVE PROCEDURE: Laparoscopic sleeve gastrectomy.SURGEON: ARABELLA GuevaraURGICAL CLINICAL PHARMACY MANAGER: DARON Peña. Please note there were noqualified surgical residents for this case. DARON Peña is firstassist.SURGERY RESIDENT: ALVA WebberTHESIA: General.INDICATION: The patient is a 45-year-old female with past medical historysignificant for kidney stones who has had longstanding morbid obesity. Shehas tried numerous diets in the past without any long-term success. Afterundergoing both medical and psychological evaluation in our [facility], she has been deemed appropriate candidate [...] LUCI Guevaraictated: 09/16/2020 18:02DT: 09/16/2020 18:05Job #: [id number]: [facility] computer generated reports are not confirmed orauthenticated unless they are signed by the providerElectronically Authenticated by:KATTY BRITT MD On 09/23/2020 03:06 PM EDT Name Value Range Interpretation Code Description Data Tasneem rce(s) Supporting Document(s) ID Date Data Source [id number] 09/18/2020 02:42:16 PM EDT [facility] [place], [place] [address]Uam# SURGICAL PATHOLOGY REPORTPatient Name:GERALDKelvin JAYDOB:1975Received:09/17/2020ccession #:[id number](s) [...] Out By Harpreet Suresh M.D. [facility] [place], [place] [address]Technical component performed at [facility], Histopathology, [address] [place] [address], [facility].Reported at [facility], [address] [place] [address], [facility].This report may include immunohistochemical or in-situ hybridizationresults. Testing was developed and the performance characteristicsdetermined by [facility], as required byCLIA '88. The FDA has determined that approval for specific use is notnecessary for clinical use. The quality of Hematoxylin and Eosin stainsand as applicable, for all immunohistochemical and/or special stains,including positive and negative controls, were reviewed and consideredappropriate.ICD codes: E66.01CPT4 codes: A: [id number] Name Value Range Interpretation Code Description Data Tasneem rce(s) Supporting Document(s) ID Date Data Source [id number] 09/11/2020 12:25:00 PM EDT MEDENT ([facility]) Name Value Range Interpretation Code Description Data Tasneem rce(s) Supporting Document(s) Miscellaneous Laboratory test result MED ENT ([facility]) <content>Type & Screen</content>
<co ntent></content>
<content></content> Venipuncture Laboratory test result MEDE NT ([facility]) <content>Type & Screen</content>
<co ntent></content>
<content></content> Blood type and Indirect antibody screen panel - Blood Laboratory test result MEDENT ([facility]) <content>Type & Screen</content>
<co ntent></content>
<content></content> ID Date Data Source [id number] 09/11/2020 12:25:00 PM EDT MEDENT ([facility]) Name Value Range Interpretation Code Description Data Tasneem rce(s) Supporting Document(s) Glucose [Mass/volume] in Serum or Plasma 89 mg/dL 74-106 MEDENT ([facility]) [place] Diabetes Association (ADA) Recommended Range is 65-99 mg/dL Urea nitrogen [Moles/volume] in Serum or Plasma 13 mg/dL 6-20 MEDENT ([facility]) Creatinine [Mass/volume] in Serum or Plasma 0.8 mg/dL 0.5-1.3 MEDENT ([facility]) Potassium [Moles/volume] in Serum or Plasma 4.3 mmol/L 3.5-5.3 MED[facility] ([facility]) Sodium [Moles/volume] in Serum or Plasma 138 mmol/L 136-145 MED[facility] ([facility]) Anion Gap 9 mmol/L 7-16 [facility]) Carbon dioxide, total [Moles/volume] in Serum or Plasma 24 meq/L 20 -31 MEDENT ([facility]) Chloride [Moles/volume] in Serum or Plasma 105 mmol/L 98-107 MEDENT ([facility]) eGFR-female 78 mL/m/1.73m MED[facility] ([facility]) eGFR-Aa female 95 mL/m/1.73m MEDENT ([facility]) <content>Normal Kidney Function or Mild Disease GFR >59 mL/min/1.73m2</content>
<content>Chronic Kidney Disease GFR 15-59 mL/min/1.73m2</content>
<content>Renal Failure GFR <15 mL/min/1.73m2</content>
<content></content> Calcium [Mass/volume] in Serum or Plasma 9.6 mg/dL 8.9-10.5 MEDENT ([facility]) ID Date Data Source [id number] 09/11/2020 04:33:09 PM EDT [facility] SPEC EXP DATE 09/19/2020ATI ENT ABO/Rh AB POSITIVEANTIBODY SCREEN NEGATIVETESTING SITE PERFORMED AT [address] [place] [address] Name Value Range Interpretation Code Description Data Tasneem rce(s) Supporting Document(s) TYPE AND SCREEN [facility] PATIENT ABO/Rh AB POSITIVE ID Date Data Source [id number] 09/11/2020 12:25:00 PM EDT MEDENT ([facility]) Name Value Range Interpretation Code Description Data Tasneem rce(s) Supporting Document(s) WBC. 7.05 x10E3/uL 4.2-12.0 [facility] ([facility]) Erythrocytes [#/volume] in Blood by Automated count 4.71 x10E6/uL 3.9 -5.4 MEDENT ([facility]) Hemoglobin [Mass/volume] in Blood 14.4 g/dL 12.0-16.0 MEDENT ([facility]) Hematocrit [Volume Fraction] of Blood by Automated count 43.2 % 3 6-47 MED[facility] ([facility]) MCV 91.7 fL 80-98 [facility]) MCH 30.7 pg 27-33 [facility]) MCHC 33.5 g/dL 32-36 [facility]) Platelets [#/volume] in Blood by Automated count 299 x10E3/uL 135-420 MED[facility] ([facility]) RDW 14.0 % 11.2-15.2 [facility] ([facility]) MPV 6.9 fL 7.0-12.3 Below low normal [facility] ([facility]) ID Date Data Source [id number] 09/11/2020 06:00:00 AM EDT [facility] Name Value Range Interpretation Code Description Data Tasneem rce(s) Supporting Document(s) SARS coronavirus 2 RNA [Presence] in Res piratory specimen by MARY with probe detection NOT DETECTED [facility] This lab was reported by [facility]. ID Date Data Source [id number] 09/12/2020 01:05:20 PM EDT [facility] Name Value Range Interpretation Code Description Data Tasneem rce(s) Supporting Document(s) SPECIMEN DESCRIPTION [facility] COVID 19 RESULT (NDET) [facility] NEGATIVE COVID-19 RESULTS DONOT PRECLUDE COVID-2019 INFECTION ANDSHOULD NOT BE USED THE SOLE BASISFOR PATIENT MANAGEMENT DECISIONS. COMMENT [facility] THE U.S. FDA HAS MADE THIS TEST AVAILABL EUNDER AN EMERGENCY USE AUTHORIZATION(EUA) FOR THE DETECTION AND/OR DIAGNOSISOF THE VIRUS THAT CAUSES COVID-19.THIS ASSAY AMPLIFIES AND DETECTS TARGETDNA USING EMERGENCY REGISTRAR- MEDIATEDAMPLIFICATIONTESTING PERFORMED ON [employer] FIRST TEST [facility] EMPLOYED IN HLTHCARE [facility] SYMPTOMATIC [facility] Y DATE OF SYMPT ONSET [facility] HOSPITALIZED [facility] ICU [facility] ANASTASIYA CONGREGATE CARE SET [facility] ID Date Data Source CHLAMYDIA & GC DNA AMPLIFICAT 09/10/2020 12:00:00 AM EDT eCW 1 ([facility]) Name Value Range Interpretation Code Description Data Tasneem rce(s) Supporting Document(s) NEGATIVE NEGATIVE CHLAMYDIA DNA AMPLIFICATI ON eCW1 ([facility]) CHLAMYDIA DNA AMPLIFICATION NEGATIVE NEGATIVE GC DNA AMPLIFICATION eCW1 ([facility]) GC DNA AMPLIFICATION Chlamydia trachomatis rRNA [Presence] in Unspecified specimen by Probe and target amplification method NEGATIVE NEGATIVE CHLAMYDIA DNA AMPLIFICATION eCW1 ([facility]) ID Date Data Source PLZ ABDOMEN FLAT/UPRIGHT, PA CHEST 07/30/2020 12:00:00 AM ES T eCW1 ([facility]) Name Value Range Interpretation Code Description Data Tasneem rce(s) Supporting Document(s) PLZ ABDOMEN FLAT/UPRIGHT, PA CHEST eCW1 ([facility]) ID Date Data Source VITAMIN D [id number] 07/30/2020 12:00:00 AM EST eCW1 ([facility]) Name Value Range Interpretation Code Description Data Tasneem rce(s) Supporting Document(s) 42.4 30.0-100.0 TOTAL 25(OH) VITAMIN D eC W1 ([facility]) TOTAL 25(OH) VITAMIN D ID Date Data Source [id number] 07/30/2020 12:00:00 AM EST eCW1 ([facility]) Name Value Range Interpretation Code Description Data Tasneem rce(s) Supporting Document(s) Hemoglobin A1c/Hemoglobin.total in Blood 5.2 HEMOGLOBIN A1c eCW1 ([facility]) ID Date Data Source Comprehensive Metabolic Profile (CMP) 07/30/2020 12:00:00 AM EST eCW1 ([facility]) Name Value Range Interpretation Code Description Data Tasneem rce(s) Supporting Document(s) 94 70-100 GLUCOSE, FASTING eCW1 ([facility]) 0.90 0.55-1.30 CREATININE FOR GFR eCW1 ([facility]) 14 7-18 BLOOD UREA NITROGEN eCW1 ([facility]) 139 136-145 SODIUM LEVEL eCW1 ([facility]) 4.3 3.5-5.1 POTASSIUM SERUM eCW1 ([facility]) > 60.0 >58 GLOMERULAR FILTRATION RATE eCW 1 ([facility]) 9.4 8.5-10.1 CALCIUM LEVEL eCW1 ([facility]) 104 98-107 CHLORIDE LEVEL eCW1 ([facility]) 29 21-32 CARBON DIOXIDE LEVEL eCW1 ([facility]) 95 45-117 ALKALINE PHOSPHATASE eCW1 ([facility]) 0.4 0.2-1.0 BILIRUBIN,TOTAL eCW1 ([facility]) 36 12-78 ALT/SGPT eCW1 ([facility]) 15 7-37 AST/SGOT eCW1 ([facility]) 7.4 6.4-8.2 TOTAL PROTEIN eCW1 ([facility]) 1.3 1.2-2.2 ALBUMIN/GLOBULIN RATIO eCW1 ([facility]) 4.2 3.2-5.2 ALBUMIN eCW1 ([facility]) ID Date Data Source CBC with Differential 07/30/2020 12:00:00 AM EST eCW1 ([facility]) Name Value Range Interpretation Code Description Data Tasneem rce(s) Supporting Document(s) 8.4 4.0-10.0 WHITE BLOOD COUNT eCW1 ([facility]) 13.8 12.0-15.5 HEMOGLOBIN eCW1 ([facility]) 4.66 4.00-5.40 RED BLOOD COUNT eCW1 ([facility]) 91.8 80.0-96.0 MEAN CORPUSCULAR VOLUME e CW1 ([facility]) 42.8 36.0-47.0 HEMATOCRIT eCW1 ([facility]) 29.6 27.0-33.0 MEAN CORPUSCULAR HEMOGLOB IN eCW1 ([facility]) 32.2 32.0-36.5 MEAN CORPUSCULAR HGB CONC eCW1 ([facility]) 12.9 11.5-14.5 RED CELL DISTRIBUTION WID TH eCW1 ([facility]) 66.2 36.0-66.0 NEUTROPHILS % eCW1 ([facility]) 332 150-450 PLATELET COUNT, AUTOMATED eCW1 ([facility]) 6.2 2.0-8.0 MONO % eCW1 ([facility]) 0.6 0.0-1.0 BASO % eCW1 ([facility]) 2.5 0.0-3.0 EOS % eCW1 ([facility]) 23.8 24.0-44.0 LYMPH % eCW1 ([facility]) 5.5 1.5-8.5 NEUTROPHILS # eCW1 ([facility]) 0.5 0.0-0.8 MONO # eCW1 ([facility]) 2.0 1.5-5.0 LYMPH # eCW1 ([facility]) 0.1 0.0-0.2 BASO # eCW1 ([facility]) 0.2 0.0-0.5 EOS # eCW1 ([facility]) ID Date Data Source [id number] 05/29/2020 12:00:00 AM EST [facility] Name Value Range Interpretation Code Description Data Tasneem rce(s) Supporting Document(s) SARS coronavirus 2 RNA [facility] This lab was ordered by [facility] and rep orted by [facility]. ID Date Data Source [id number] 04/17/2020 12:00:00 PM EST [facility] Name Value Range Interpretation Code Description Data Tasneem rce(s) Supporting Document(s) SARS coronavirus 2 RNA [facility] This lab was ordered by [facility] and rep orted by [facility]. ID Date Data Source [id number] 03/26/2020 08:12:56 PM EDT [facility] [address] [id number]# SURGICAL PATHOLOGY REPORTPatient Name:JAY HATFIELDDOB:1975Received:03/22/2020Accession #:[id number](s) [...] Out By Niesha Whitley D.O. [facility] [place], [place] [address]Technical component performed at [facility], Histopathology, [address] [place] [address], [id number].Reported at [facility], [address] [place] [address], [facility].This report may include immunohistochemical or in-situ hybridizationresults. Testing was developed and the performance characteristicsdetermined by [facility], as required byCLIA '88. The FDA has determined that approval for specific use is notnecessary for clinical use. The quality of Hematoxylin and Eosin stainsand as applicable, for all immunohistochemical and/or special stains,including positive and negative controls, were reviewed and consideredappropriate.ICD codes:CPT4 codes: A: 77684G Name Value Range Interpretation Code Description Data Tasneem rce(s) Supporting Document(s) ID Date Data Source [id number] 03/25/2020 10:20:00 AM EDT [place], [place] [address]PATIENT NAME: JAY HATFIELDDATE OF : 1975REPORT: OPERATIONPATIENT NUMBER: [id number] STATUS: SDMEDICAL RECORD NUMBER: [id number] OF ADMISSION: 03/22/2020DATE OF DISCHARGE:DATE OF PROCEDURE: [...] Britt MDDictated: 03/22/2020 9:31DT: 03/22/2020 9:42Job #: [id number]: [facility] computer generated reports are not confirmed orauthenticated unless they are signed by the providerElectronically Authenticated by:KATTY BRITT MD On 03/25/2020 10:20 AM EDT Name Value Range Interpretation Code Description Data Tasneem rce(s) Supporting Document(s) ID Date Data Source [id number] 03/18/2020 12:00:00 AM EDT [facility] Name Value Range Interpretation Code Description Data Tasneem rce(s) Supporting Document(s) SARS coronavirus 2 RNA [facility] This lab was ordered by [facility] and rep orted by [facility]. ID Date Data Source LIPID PANEL (CARDIAC RISK) 03/06/2020 08:42:40 AM EDT eCW1 ( [facility]) Name Value Range Interpretation Code Description Data Tasneem rce(s) Supporting Document(s) Triglyceride [Mass/volume] in Serum or Plasma by calculation 250 TRIGLYCERIDES LEVEL eCW1 ([facility]) 146 NON-HDL-C eCW1 ([facility]) Cholesterol in HDL [Moles/volume] in Serum or Plasma 33 HDL CHOLESTEROL eCW1 ([facility]) Cholesterol in LDL [Mass/volume] in Serum or Plasma by calculation 96 LDL CHOLESTEROL eCW1 ([facility]) Cholesterol [Moles/volume] in Serum or Plasma 179 CHOLESTEROL LEVEL eCW1 ([facility]) 5.424 CHOLESTEROL RISK RATIO eCW1 ([facility]) ID Date Data Source FREE T4 & TSH PANEL 03/06/2020 08:42:40 AM EDT eCW1 ([facility]) Name Value Range Interpretation Code Description Data Tasneem rce(s) Supporting Document(s) 0.932 THYROID STIMULATING HORMONE eC W1 ([facility]) THYROID STIMULATING HORMONE 1.15 FREE T4 eCW1 ([facility]) FREE T4 ID Date Data Source HEPATITIS B SURFACE ANTIGEN 03/06/2020 05:19:23 AM EDT eCW1 ([facility]) Name Value Range Interpretation Code Description Data Tasneem rce(s) Supporting Document(s) NEGATIVE eCW1 ([facility]) ID Date Data Source HEPATITIS C ANTIBODY INDEX 03/06/2020 03:48:58 AM EDT eCW1 ( [facility]) Name Value Range Interpretation Code Description Data Tasneem rce(s) Supporting Document(s) 0.3 eCW1 ([facility]) ID Date Data Source [id number] 03/06/2020 03:48:47 AM EDT eCW1 ([facility]) Name Value Range Interpretation Code Description Data Tasneem rce(s) Supporting Document(s) eCW1 ([facility]) ID Date Data Source SYPHILIS ANTIBODY (RPR SCREEN) 03/06/2020 03:48:36 AM EDT eC W1 ([facility]) Name Value Range Interpretation Code Description Data Tasneem rce(s) Supporting Document(s) NONREACTIVE eCW1 ([facility]) Procedure Social History Code Duration Value Status Description Data Source(s ) Smoking 01/22/2021 12:00:00 AM EDT Former Smoker completed Former Smoker eCW1 ([facility]) Smoking 01/22/2021 12:00:00 AM EDT Former Smoker completed Former Smoker eCW1 ([facility]) Smoking 01/22/2021 12:00:00 AM EDT Former Smoker completed Former Smoker eCW1 ([facility]) Smoking 01/22/2021 12:00:00 AM EDT Former Smoker completed Former Smoker eCW1 ([facility]) Smoking 01/22/2021 12:00:00 AM EDT Former Smoker completed Former Smoker eCW1 ([facility]) Smoking 01/22/2021 12:00:00 AM EDT Former Smoker completed Former Smoker eCW1 ([facility]) Smoking 12/11/2020 12:00:00 AM EDT Former Smoker completed Former Smoker eCW1 ([facility]) Smoking 12/11/2020 12:00:00 AM EDT Former Smoker completed Former Smoker eCW1 ([facility]) Smoking 12/11/2020 12:00:00 AM EDT Former Smoker completed Former Smoker eCW1 ([facility]) Smoking 12/11/2020 12:00:00 AM EDT Former Smoker completed Former Smoker eCW1 ([facility]) Smoking 12/11/2020 12:00:00 AM EDT Former Smoker completed Former Smoker eCW1 ([facility]) Smoking 12/11/2020 12:00:00 AM EDT Former Smoker completed Former Smoker eCW1 ([facility]) Smoking 12/06/2020 12:00:00 AM EDT Former Smoker completed Former Smoker eCW1 ([facility]) Smoking 11/29/2020 12:00:00 AM EDT Former Smoker completed Former Smoker eCW1 ([facility]) Smoking 11/29/2020 12:00:00 AM EDT Former Smoker completed Former Smoker eCW1 ([facility]) Smoking 10/23/2020 12:00:00 AM EDT Former Smoker completed Former Smoker eCW1 ([facility]) Smoking 10/23/2020 12:00:00 AM EDT Former Smoker completed Former Smoker eCW1 ([facility]) Smoking 10/23/2020 12:00:00 AM EDT Former Smoker completed Former Smoker eCW1 ([facility]) Smoking 10/23/2020 12:00:00 AM EDT Former Smoker completed Former Smoker eCW1 ([facility]) Smoking 09/13/2020 03:23:00 PM EDT Occasional Smoker completed Occasional Smoker [facility] Smoking 09/10/2020 12:00:00 AM EDT Current Smoker completed Curre nt Smoker eCW1 ([facility]) Smoking 09/10/2020 12:00:00 AM EDT Current Smoker completed Curre nt Smoker eCW1 ([facility]) Smoking 09/10/2020 12:00:00 AM EDT Current Smoker completed Curre nt Smoker eCW1 ([facility]) Smoking 09/10/2020 12:00:00 AM EDT Current Smoker completed Curre nt Smoker eCW1 ([facility]) Smoking 08/28/2020 12:00:00 AM EDT Current Smoker completed Curre nt Smoker eCW1 ([facility]) Smoking 08/28/2020 12:00:00 AM EDT Current Smoker completed Curre nt Smoker eCW1 ([facility]) Smoking 08/28/2020 12:00:00 AM EDT Current Smoker completed Curre nt Smoker eCW1 ([facility]) Smoking 08/28/2020 12:00:00 AM EDT Current Smoker completed Curre nt Smoker eCW1 ([facility]) Smoking 07/30/2020 12:00:00 AM EST Current Smoker completed Curre nt Smoker eCW1 ([facility]) Smoking 07/30/2020 12:00:00 AM EST Current Smoker completed Curre nt Smoker eCW1 ([facility]) Smoking 07/30/2020 12:00:00 AM EST Current Smoker completed Curre nt Smoker eCW1 ([facility]) Smoking 07/30/2020 12:00:00 AM EST Current Smoker completed Curre nt Smoker eCW1 ([facility]) Smoking 07/30/2020 12:00:00 AM EST Current Smoker completed Curre nt Smoker eCW1 ([facility]) Smoking 07/30/2020 12:00:00 AM EST Current Smoker completed Curre nt Smoker eCW1 ([facility]) Smoking 07/09/2020 12:00:00 AM EST Current Smoker completed Curre nt Smoker eCW1 ([facility]) Smoking 03/06/2020 12:00:00 AM EDT Current Smoker completed Curre nt Smoker eCW1 ([facility]) Smoking 03/06/2020 12:00:00 AM EDT Current Smoker completed Curre nt Smoker eCW1 ([facility]) Smoking 03/06/2020 12:00:00 AM EDT Current Smoker completed Curre nt Smoker eCW1 ([facility]) Smoking 03/06/2020 12:00:00 AM EDT Current Smoker completed Curre nt Smoker eCW1 ([facility]) Smoking 03/06/2020 12:00:00 AM EDT Current Smoker completed Curre nt Smoker eCW1 ([facility]) Vital Signs ID Date Data Source UNK Name Value Range Interpretation Code Description Data Source(s) Body weight 231.00 [lb_av] 231.00 [lb_av] MEDEN T ([facility]) Body temperature 96.5 [degF] 96.5 [degF] [facility] ([facility]) Body height 68 [in_i] 68 [in_i] [facility] ([facility]) 5'8" [place] body weight 140 [lb_av] 140 [lb_av] MEDEN T ([facility]) Body mass index (BMI) [Ratio] 35.1 kg/m2 35.1 k g/m2 [facility] ([facility]) Body weight 104.782 kg 104.782 kg [facility] ([facility]) Body surface area Derived from formula 2.17 m2 2.17 m2 [facility] ([facility]) Body height 71.00 [in_i] 71.00 [in_i] MEDENT ([facility]) 5'11" Body weight 238.00 [lb_av] 238.00 [lb_av] MEDEN T ([facility]) Body mass index (BMI) [Ratio] 33.2 kg/m2 33.2 k g/m2 [facility] ([facility]) Systolic blood pressure 107 mm[Hg] 107 mm[Hg] M EDENT ([facility]) Diastolic blood pressure 65 mm[Hg] 65 mm[Hg] MED[facility] ([facility]) Heart rate 63 /min 63 /min [facility] ([facility]) Body temperature 97.0 [degF] 97.0 [degF] MED[facility] ([facility]) Oxygen saturation in Arterial blood by Pulse oximetry 98 % 98 % [facility] ([facility]) Body temperature 36.1 Neda 36.1 Neda MED[facility] ( [facility]) Body weight 242 [lb_av] 242 [lb_av] eCW1 ([facility]) Body weight 109.77 kg 109.77 kg eCW1 ([facility]) Body height 69 [in_i] 69 [in_i] eCW1 ([facility]) Body mass index (BMI) [Ratio] 35.73 kg/m2 35.73 kg/m2 W1 ([facility]) Heart rate 66 /min 66 /min eCW1 ([facility]) Respiratory rate 18 /min 18 /min eCW1 ([facility]) Body temperature 97.1 [degF] 97.1 [degF] eCW1 ( [facility]) Systolic blood pressure 110 mm[Hg] 110 mm[Hg] e CW1 ([facility]) Diastolic blood pressure 70 mm[Hg] 70 mm[Hg] eCW1 ([facility]) Body weight 253.4 [lb_av] 253.4 [lb_av] eCW1 ([facility]) Body height 69 [in_i] 69 [in_i] eCW1 ([facility]) Body mass index (BMI) [Ratio] 37.42 kg/m2 37.42 kg/m2 eCW1 ([facility]) Systolic blood pressure 110 mm[Hg] 110 mm[Hg] e CW1 ([facility]) Diastolic blood pressure 80 mm[Hg] 80 mm[Hg] eCW1 ([facility]) Body weight 254.4 [lb_av] 254.4 [lb_av] eCW1 ([facility]) Body height 69 [in_i] 69 [in_i] eCW1 ([facility]) Body mass index (BMI) [Ratio] 37.56 kg/m2 37.56 kg/m2 eCW1 ([facility]) Heart rate 86 /min 86 /min eCW1 ([facility]) Respiratory rate 18 /min 18 /min eCW1 ([facility]) Body temperature 98.8 [degF] 98.8 [degF] eCW1 ( [facility]) Systolic blood pressure 110 mm[Hg] 110 mm[Hg] e CW1 ([facility]) Diastolic blood pressure 88 mm[Hg] 88 mm[Hg] eCW1 ([facility]) Body weight 260 [lb_av] 260 [lb_av] eCW1 ([facility]) Body height 69 [in_i] 69 [in_i] eCW1 ([facility]) Body mass index (BMI) [Ratio] 38.39 kg/m2 38.39 kg/m2 eCW1 ([facility]) Systolic blood pressure 122 mm[Hg] 122 mm[Hg] e CW1 ([facility]) Diastolic blood pressure 78 mm[Hg] 78 mm[Hg] eCW1 ([facility]) Body weight 269 [lb_av] 269 [lb_av] eCW1 ([facility]) Systolic blood pressure 120 mm[Hg] 120 mm[Hg] e CW1 ([facility]) Diastolic blood pressure 80 mm[Hg] 80 mm[Hg] eCW1 ([facility]) Body height 69 [in_i] 69 [in_i] eCW1 ([facility]) Body mass index (BMI) [Ratio] 39.72 kg/m2 39.72 kg/m2 eCW1 ([facility]) Heart rate 84 /min 84 /min eCW1 ([facility]) Respiratory rate 20 /min 20 /min eCW1 ([facility]) Body temperature 97 [degF] 97 [degF] eCW1 ([facility]) Diastolic blood pressure 70 mm[Hg] 70 mm[Hg] MEDENT ([facility]) Body temperature 98.0 [degF] 98.0 [degF] [facility] Heart rate 92 /min 92 /min [facility] ([facility]) Body height 71.00 [in_i] 71.00 [in_i] [facility] ([facility]) 5'11" Body temperature 36.7 Neda 36.7 Neda [facility] ( [facility]) Body weight 271.00 [lb_av] 271.00 [lb_av] MEDEN T ([facility]) Body mass index (BMI) [Ratio] 37.8 kg/m2 37.8 k g/m2 [facility] ([facility]) Systolic blood pressure 104 mm[Hg] 104 mm[Hg] M [facility] ([facility]) Oxygen saturation in Arterial blood by Pulse oximetry 95 % 95 % [facility] ([facility]) Body height 71.00 [in_i] 71.00 [in_i] [facility] ([facility]) 5'11" Body weight 281.38 [lb_av] 281.38 [lb_av] [facility] Body mass index (BMI) [Ratio] 39.2 kg/m2 39.2 k g/m2 [facility] ([facility]) Systolic blood pressure 124 mm[Hg] 124 mm[Hg] [facility] Diastolic blood pressure 82 mm[Hg] 82 mm[Hg] [facility] ([facility]) Heart rate 86 /min 86 /min [facility] ([facility]) Body temperature 98.4 [degF] 98.4 [degF] [facility]) Body temperature 36.9 Neda 36.9 Neda [facility] ( [facility]) Oxygen saturation in Arterial blood by Pulse oximetry 96 % 96 % [facility] ([facility]) Deprecated Oxygen saturation in Capillary blood by Oximetry 96 % Normal (applies to non-numeric results) 96 % [facility] Heart rate 108 min Normal (applies to non-numeric resul ts) 108 min [facility] Respiratory rate 20 min Normal (applies to non-numeric results) 20 min [facility] Body temperature 36.7 neda Normal (applies to non-numeric results) 36.7 neda [facility] Diastolic blood pressure 84 mm[Hg] Normal (applies to non-numeric results) 84 mm[Hg] [facility] Systolic blood pressure 141 mm[Hg] Normal (applies t o non-numeric results) 141 mm[Hg] [facility] Body mass index (BMI) [Ratio] 42.13 kg/m2 No rmal (applies to non-numeric results) 42.13 kg/m2 [facility] Body height 176.784 cm Normal (applies to non-numeric resu lts) 176.784 cm [facility] Body weight Measured 133.2 kg Normal (applies to n on-numeric results) 133.2 kg [facility] Inhaled oxygen concentration 21 % Normal (appl ies to non-numeric results) 21 % [facility] Body mass index (BMI) [Ratio] 41.7 kg/m2 41.7 k g/m2 [facility] ([facility]) Heart rate 75 /min 75 /min [facility] ([facility]) Body temperature 97.0 [degF] 97.0 [degF] [facility] ([facility]) Body temperature 36.1 Neda 36.1 Neda MED[facility] ( [facility]) Body height 71.00 [in_i] 71.00 [in_i] [facility] ([facility] 5'11" Body weight 299.38 [lb_av] 299.38 [lb_av] MEDEN T ([facility]) Systolic blood pressure 127 mm[Hg] 127 mm[Hg] M EDENT ([facility]) Diastolic blood pressure 87 mm[Hg] 87 mm[Hg] [facility] ([facility]) Oxygen saturation in Arterial blood by Pulse oximetry 99 % 99 % [facility] ([facility]) Body weight 301 [lb_av] 301 [lb_av] eCW1 ([facility]) Body weight 136.53 kg 136.53 kg W1 ([facility]) Body height 69 [in_i] 69 [in_i] eCW1 ([facility]) Body mass index (BMI) [Ratio] 44.45 kg/m2 44.45 kg/m2 W1 ([facility]) Systolic blood pressure 122 mm[Hg] 122 mm[Hg] e CW1 ([facility]) Diastolic blood pressure 78 mm[Hg] 78 mm[Hg] eCW1 ([facility]) Body weight 301.2 [lb_av] 301.2 [lb_av] eCW1 ([facility]) Body height 69 [in_i] 69 [in_i] eCW1 ([facility]) Body mass index (BMI) [Ratio] 44.47 kg/m2 44.47 kg/m2 eCW1 ([facility]) Heart rate 89 /min 89 /min eCW1 ([facility]) Respiratory rate 18 /min 18 /min eCW1 ([facility]) Body temperature 97.5 [degF] 97.5 [degF] eCW1 ( [facility]) Systolic blood pressure 132 mm[Hg] 132 mm[Hg] e CW1 ([facility]) Diastolic blood pressure 84 mm[Hg] 84 mm[Hg] eCW1 ([facility]) Body weight 301 [lb_av] 301 [lb_av] eCW1 ([facility]) Body height 69 [in_i] 69 [in_i] eCW1 ([facility]) Body mass index (BMI) [Ratio] 44.45 kg/m2 44.45 kg/m2 eCW1 ([facility]) Heart rate 90 /min 90 /min eCW1 ([facility]) Respiratory rate 18 /min 18 /min eCW1 ([facility]) Body temperature 97.3 [degF] 97.3 [degF] eCW1 ( [facility]) Body weight 298 [lb_av] 298 [lb_av] eCW1 ([facility]) Body temperature 97 [degF] 97 [degF] eCW1 ([facility]) Systolic blood pressure 130 mm[Hg] 130 mm[Hg] e CW1 ([facility]) Diastolic blood pressure 80 mm[Hg] 80 mm[Hg] eCW1 ([facility]) Body height 69 [in_i] 69 [in_i] eCW1 ([facility]) Body mass index (BMI) [Ratio] 44.00 kg/m2 44.00 kg/m2 eCW1 ([facility]) Heart rate 84 /min 84 /min eCW1 ([facility]) Respiratory rate 20 /min 20 /min eCW1 ([facility]) Body height 68 [in_i] 68 [in_i] [facility]) 5'8" Oxygen saturation in Arterial blood by Pulse oximetry 96 % 96 % [facility] ([facility]) Body temperature 96.6 [degF] 96.6 [degF] [facility] ([facility]) Body weight 300.50 [lb_av] 300.50 [lb_av] MEDEN T ([facility]) Body mass index (BMI) [Ratio] 45.7 kg/m2 45.7 k g/m2 [facility] ([facility]) [place]arden body weight 140 [lb_av] 140 [lb_av] MEDEN T ([facility]) Body weight 136.307 kg 136.307 kg [facility] ([facility]) Body surface area Derived from formula 2.43 m2 2.43 m2 [facility] ([facility]) Systolic blood pressure 122 mm[Hg] 122 mm[Hg] [facility] Heart rate 86 /min 86 /min [facility] ([facility]) Diastolic blood pressure 76 mm[Hg] 76 mm[Hg] [facility] ([facility]) Body temperature 96.6 [degF] 96.6 [degF] [facility] ([facility]) Body height 68 [in_i] 68 [in_i] [facility] ([facility]) 5'8" Oxygen saturation in Arterial blood by Pulse oximetry 96 % 96 % [facility] ([facility]) Body weight 136.307 kg 136.307 kg [facility] ([facility]) [place] body weight 140 [lb_av] 140 [lb_av] MEDEN T ([facility]) Body weight 300.50 [lb_av] 300.50 [lb_av] MEDEN T ([facility]) Body mass index (BMI) [Ratio] 45.7 kg/m2 45.7 k g/m2 [facility] ([facility]) Body surface area Derived from formula 2.43 m2 2.43 m2 [facility] ([facility]) Body weight 303.8 [lb_av] 303.8 [lb_av] eCW1 ([facility]) Body height 69 [in_i] 69 [in_i] eCW1 ([facility]) Body mass index (BMI) [Ratio] 44.86 kg/m2 44.86 kg/m2 eCW1 ([facility]) Systolic blood pressure 118 mm[Hg] 118 mm[Hg] e CW1 ([facility]) Diastolic blood pressure 82 mm[Hg] 82 mm[Hg] eCW1 ([facility]) Systolic blood pressure 118 mm[Hg] 118 mm[Hg] M EDENT ([facility]) Body temperature 96.7 [degF] 96.7 [degF] [facility] ([facility]) Heart rate 71 /min 71 /min [facility] ([facility]) Diastolic blood pressure 72 mm[Hg] 72 mm[Hg] [facility] ([facility]) Oxygen saturation in Arterial blood by Pulse oximetry 98 % 98 % [facility] ([facility]) Body weight 297.00 [lb_av] 297.00 [lb_av] MEDEN T ([facility]) Body height 68 [in_i] 68 [in_i] [facility] ([facility]) 5'8" [place] body weight 140 [lb_av] 140 [lb_av] MEDEN T ([facility]) Body surface area Derived from formula 2.42 m2 2.42 m2 [facility] ([facility]) Body mass index (BMI) [Ratio] 45.2 kg/m2 45.2 k g/m2 [facility] ([facility]) Body weight 134.719 kg 134.719 kg [facility] ([facility]) Body weight 289.50 [lb_av] 289.50 [lb_av] MEDEN T ([facility]) Body mass index (BMI) [Ratio] 40.4 kg/m2 40.4 k g/m2 [facility] ([facility]) Systolic blood pressure 145 mm[Hg] 145 mm[Hg] [facility] Body height 71.00 [in_i] 71.00 [in_i] [facility] ([facility]) 5'11" Diastolic blood pressure 86 mm[Hg] 86 mm[Hg] [facility] ([facility]) Heart rate 74 /min 74 /min [facility]) Body temperature 97.0 [degF] 97.0 [degF] [facility] [facility] Body temperature 36.1 Neda 36.1 Neda [facility] ( [facility]) Oxygen saturation in Arterial blood by Pulse oximetry 97 % 97 % [facility] ([facility]) Systolic blood pressure 120 mm[Hg] 120 mm[Hg] [facility] ([facility], ) Diastolic blood pressure 80 mm[Hg] 80 mm[Hg] [facility] ([facility]) Heart rate 79 /min 79 /min [facility] ([facility], ) Oxygen saturation in Arterial blood by Pulse oximetry 97 % 97 % [facility] ([facility]) Body temperature 97.1 [degF] 97.1 [degF] [facility] ([facility]) Body height 68 [in_i] 68 [in_i] [facility] ([facility]) 5'8" Body weight 290.00 [lb_av] 290.00 [lb_av] [facility] ([facility], ) Body mass index (BMI) [Ratio] 44.1 kg/m2 44.1 k g/m2 [facility] ([facility]) Darden body weight 140 [lb_av] 140 [lb_av] [facility] T ([facility]) Body weight 131.544 kg 131.544 kg [facility] ([facility]) Body surface area Derived from formula 2.39 m2 2.39 m2 [facility] ([facility], ) Heart rate 83 /min 83 /min [facility] ([facility]) Body temperature 97.8 [degF] 97.8 [degF] [facility] ([facility]) Systolic blood pressure 122 mm[Hg] 122 mm[Hg] M EDENT ([facility]) Body height 71.00 [in_i] 71.00 [in_i] [facility] ([facility]) 5'11" Body weight 290.50 [lb_av] 290.50 [lb_av] [facility] T ([facility]) Body mass index (BMI) [Ratio] 40.5 kg/m2 40.5 k g/m2 [facility] ([facility]) Diastolic blood pressure 78 mm[Hg] 78 mm[Hg] [facility] ([facility]) Body temperature 36.6 Neda 36.6 Neda [facility] ( [facility]) Oxygen saturation in Arterial blood by Pulse oximetry 94 % 94 % [facility] ([facility]) Body weight 295.4 [lb_av] 295.4 [lb_av] eCW1 ([facility]) Body temperature 97.3 [degF] 97.3 [degF] eCW1 ( [facility]) Systolic blood pressure 126 mm[Hg] 126 mm[Hg] e CW1 ([facility]) Diastolic blood pressure 76 mm[Hg] 76 mm[Hg] eCW1 ([facility]) Body height 69 [in_i] 69 [in_i] eCW1 ([facility]) Body mass index (BMI) [Ratio] 43.62 kg/m2 43.62 kg/m2 eCW1 ([facility]) Heart rate 90 /min 90 /min eCW1 ([facility]) Respiratory rate 18 /min 18 /min eCW1 ([facility]) Body weight 296.6 [lb_av] 296.6 [lb_av] eCW1 ([facility]) Body height 69 [in_i] 69 [in_i] eCW1 ([facility]) Body mass index (BMI) [Ratio] 43.80 kg/m2 43.80 kg/m2 eCW1 ([facility]) Systolic blood pressure 126 mm[Hg] 126 mm[Hg] e CW1 ([facility]) Diastolic blood pressure 74 mm[Hg] 74 mm[Hg] eCW1 ([facility]) Body weight 296 [lb_av] 296 [lb_av] eCW1 ([facility]) Body height 69 [in_i] 69 [in_i] eCW1 ([facility]) Body mass index (BMI) [Ratio] 43.71 kg/m2 43.71 kg/m2 eCW1 ([facility]) Patient Treatment Plan of Care Planned Activity Planned Date Details Description Data Source (s) Metronidazole 0.0075 MG/MG Vaginal Gel 12/11/2020 12:00:00 AM EDT eCW1 ([facility]) Metronidazole 0.0075 MG/MG Vaginal Gel 12/11/2020 12:00:00 AM EDT eCW1 ([facility]) Metronidazole 0.0075 MG/MG Vaginal Gel 12/11/2020 12:00:00 AM EDT eCW1 ([facility]) Metronidazole 0.0075 MG/MG Vaginal Gel 12/11/2020 12:00:00 AM EDT eCW1 ([facility]) Metronidazole 0.0075 MG/MG Vaginal Gel 12/11/2020 12:00:00 AM EDT eCW1 ([facility]) Metronidazole 0.0075 MG/MG Vaginal Gel 12/11/2020 12:00:00 AM EDT eCW1 ([facility]) Metronidazole 0.0075 MG/MG Vaginal Gel 12/11/2020 12:00:00 AM EDT eCW1 ([facility]) Metronidazole 0.0075 MG/MG Vaginal Gel 12/11/2020 12:00:00 AM EDT eCW1 ([facility]) Metronidazole 0.0075 MG/MG Vaginal Gel 12/11/2020 12:00:00 AM EDT eCW1 ([facility]) Metronidazole 0.0075 MG/MG Vaginal Gel 12/11/2020 12:00:00 AM EDT eCW1 ([facility]) Fluconazole 150 MG Oral Tablet 11/29/2020 12:00:00 AM EDT eCW1 ([facility]) Fluconazole 150 MG Oral Tablet 11/29/2020 12:00:00 AM EDT eCW1 ([facility]) Fluconazole 150 MG Oral Tablet 11/29/2020 12:00:00 AM EDT eCW1 ([facility]) Fluconazole 150 MG Oral Tablet [Diflucan] 09/10/2020 12:00:00 AM ED T eCW1 ([facility]) Fluconazole 150 MG Oral Tablet [Diflucan] 09/10/2020 12:00:00 AM ED T eCW1 ([facility]) Fluconazole 150 MG Oral Tablet [Diflucan] 09/10/2020 12:00:00 AM ED T eCW1 ([facility]) Fluconazole 150 MG Oral Tablet [Diflucan] 09/10/2020 12:00:00 AM ED T eCW1 ([facility]) Hydroxyzine Hydrochloride 25 MG Oral Tablet 08/28/2020 12:00:00 AM EDT eCW1 ([facility]) Triamcinolone Acetonide 1 MG/ML Topical Cream 08/28/2020 12:00:00 A M EDT eCW1 ([facility]) Permethrin 50 MG/ML Topical Cream [Elimite] 08/28/2020 12:00:00 AM EDT eCW1 ([facility]) Hydroxyzine Hydrochloride 25 MG Oral Tablet 08/28/2020 12:00:00 AM EDT eCW1 ([facility]) Triamcinolone Acetonide 1 MG/ML Topical Cream 08/28/2020 12:00:00 A M EDT eCW1 ([facility]) Permethrin 50 MG/ML Topical Cream [Elimite] 08/28/2020 12:00:00 AM EDT eCW1 ([facility]) Hydroxyzine Hydrochloride 25 MG Oral Tablet 08/28/2020 12:00:00 AM EDT eCW1 ([facility]) Triamcinolone Acetonide 1 MG/ML Topical Cream 08/28/2020 12:00:00 A M EDT eCW1 ([facility]) Permethrin 50 MG/ML Topical Cream [Elimite] 08/28/2020 12:00:00 AM EDT eCW1 ([facility]) Hydroxyzine Hydrochloride 25 MG Oral Tablet 08/28/2020 12:00:00 AM EDT eCW1 ([facility]) Triamcinolone Acetonide 1 MG/ML Topical Cream 08/28/2020 12:00:00 A M EDT eCW1 ([facility]) Permethrin 50 MG/ML Topical Cream [Elimite] 08/28/2020 12:00:00 AM EDT eCW1 ([facility]) Triamcinolone Acetonide 1 MG/ML Topical Cream 04/29/2020 12:00:00 A M EST eCW1 ([facility]) Triamcinolone Acetonide 1 MG/ML Topical Cream 04/29/2020 12:00:00 A M EST eCW1 ([facility]) Famotidine 40 MG Oral Tablet 02/29/2020 12:00:00 AM EDT eCW1 ([facility]) Famotidine 40 MG Oral Tablet 02/29/2020 12:00:00 AM EDT eCW1 ([facility]) Famotidine 40 MG Oral Tablet 02/29/2020 12:00:00 AM EDT eCW1 ([facility]) Famotidine 40 MG Oral Tablet 02/29/2020 12:00:00 AM EDT eCW1 ([facility]) Famotidine 40 MG Oral Tablet 02/29/2020 12:00:00 AM EDT eCW1 ([facility]) Famotidine 40 MG Oral Tablet 02/29/2020 12:00:00 AM EDT eCW1 ([facility]) Famotidine 40 MG Oral Tablet 02/29/2020 12:00:00 AM EDT eCW1 ([facility]) Famotidine 40 MG Oral Tablet 02/29/2020 12:00:00 AM EDT eCW1 ([facility]) Famotidine 40 MG Oral Tablet 02/29/2020 12:00:00 AM EDT eCW1 ([facility]) Famotidine 40 MG Oral Tablet 02/29/2020 12:00:00 AM EDT eCW1 ([facility])
[2021-04-06] MEDS ORDERED: FLEET ENEMA PR ONE
[2021-04-06] MEDS ORDERED: ACETAMINOPHEN 500 MG TAB PO ONE (00:35)
[2021-04-06] MEDS ORDERED: LIDOCAINE 4% CREAM 5GM (LMX4) TOP ONE (01:15)
[2021-04-06 01:17] VITALS: BP 129/79
[2021-04-06] MEDS ORDERED: DULC10SU2 PR (01:32)
[2021-04-06] MEDS ORDERED: MIRA3350 PO (01:32)
[2021-04-06] MEDS ORDERED: MAGNESIUM CITRATE 300 ML BTL PO ONE (01:35)
[2021-04-06] MEDS ORDERED: ANUS2.5C2 TOP (01:38)
== END 2021-04-06 01:20 | disposition home or self-care (01) ==
LOC: M ED 20:39
DX: K59.00 Constipation, unspecified (principal); Z98.84 Bariatric surgery status; F17.200 Nicotine dependence, unspecified, uncomplicated

== ENCOUNTER 2021-04-22 09:27 | Emergency (ER) | payer OTHER ==
[~2021-04-22] VITALS: Ht 180.3 cm; Wt 106.6 kg
[~2021-04-22 09:27] MED LIST changes: +ANUS2.5C2 TOP; +DULC10SU2 PR; +MIRA3350 PO; +OMEP-173 PO; -OMEP-218 PO
[2021-04-22 11:06] LABS: BASO % 0.6 % (0.0-1.0); EOS # 0.3 10^3/uL (0.0-0.5); EOS % 4.1 % (0.0-3.0); HEMOGLOBIN 13.5 g/dl (12.0-15.5); LYMPH # 1.7 10^3/uL (1.5-5.0); LYMPH % 26.1 % (24.0-44.0); MEAN CORPUSCULAR HEMOGLOBIN 30.4 pg (27.0-33.0); MEAN CORPUSCULAR HGB CONC 33.8 g/dl (32.0-36.5); MEAN CORPUSCULAR VOLUME 90.1 fl (80.0-96.0); MONO # 0.5 10^3/uL (0.0-0.8); MONO % 8.1 % (2.0-8.0); NEUTROPHILS % 60.8 % (36.0-66.0); PLATELET COUNT, AUTOMATED 256 10^3/uL (150-450); RED BLOOD COUNT 4.44 10^6/uL (4.00-5.40); WHITE BLOOD COUNT 6.5 10^3/uL (4.0-10.0)
[2021-04-22] MEDS ORDERED: KETOROLAC 30 MG/ML 1ML VIAL IV ONE (11:25)
[2021-04-22] MEDS ORDERED: NS 1,000 ML IV ONE (11:25)
[2021-04-22] MEDS ORDERED: ONDANSETRON 4MG/2ML VIAL IV ONE (11:25)
[2021-04-22 11:38] LABS: MAGNESIUM LEVEL 2.1 MG/DL (1.8-2.4); THYROID STIMULATING HORMONE 1.16 uIU/ML (0.358-3.740)
[2021-04-22] MEDS ORDERED: AUGM875T28 PO (13:05)
[2021-04-22] MEDS ORDERED: CYCL5TAB PO (13:20)
[2021-04-22] MEDS ORDERED: NAPR-837 PO (13:20)
[2021-04-22] MEDS ORDERED: MECL1TAB31 PO (13:24)
[2021-04-22 13:39] VITALS: BP 121/65
== END 2021-04-22 13:42 | disposition home or self-care (01) ==
LOC: M ED 09:27
DX: G44.209 Tension-type headache, unspecified, not intractable (principal); M50.322 Other cervical disc degeneration at C5-C6 level; R42 Dizziness and giddiness; R00.1 Bradycardia, unspecified; Z87.442 Personal history of urinary calculi; Z98.84 Bariatric surgery status
CPT/HCPCS: 70450; 72125; 80047; 83735; 84443; 85025; 93005; 96361; 96374; 99284; J1885; J2405

== ENCOUNTER → 2021-06-03 | Outpatient (CLI) | payer OTHER ==
[~2021-06-03] MED LIST changes: +**SFHN** LIDOCAINE 1% MDV 20ML VIAL ONE; +**SFHN** SODIUM BICARBONATE 8.4% 10MEQ 10ML VIAL ONE; +AUGM875T28 PO; +CYCL5TAB PO; +MECL1TAB31 PO; +NAPR-837 PO; -OMEP-173 PO; +OMEP-218 PO
[2021-06-03 11:49] VITALS: BP 114/78
--- NOTE | 2021-06-03 12:00 | REP ---
INDICATION: LEFT BREAST 3:00 LESION BX WITH CLIP AND POST BX L MAMMO. COMPARISON: 02/26/2021 as well as other prior exams. TECHNIQUE: ML and CC views left breast. FINDINGS: Following ultrasound-guided biopsy of a nodule at the 3 o'clock position of the left breast, mammographic images show the deployed biopsy clip appropriately positioned at 3 o'clock left breast. There is no mammographic target. IMPRESSION: Successful deployment of biopsy clip at the site of the ultrasound-guided biopsy 3 o'clock left breast. RECOMMENDATION: Clinical follow-up. <Electronically signed by Matthew Hernandez > 06/03/21 [id number]
--- NOTE | 2021-06-03 18:29 | REP ---
INDICATION: LEFT BREAST 3:00 LESION BX WITH CLIP AND POST BX L MAMMO. COMPARISON: None. TECHNIQUE: The procedure was performed under the general supervision of Dr. Hernandez. Patient has a history of a 6 mm nodule in the 3 o'clock position of the left breast seen on a previous ultrasound dated 02/26/2021. The risks and benefits of the procedure were explained to the patient and informed consent was obtained. The left breast nodule was localized using ultrasound guidance. The skin was prepped and draped in a sterile fashion. Seven 1% Xylocaine was used as a local anesthetic. Using ultrasound guidance a 14-gauge coaxial needle biopsy system was inserted and6 core biopsy samples were obtained. A marker clip (HydroMark shape 4) was placed at the biopsy site The patient tolerated the procedure well and there were no immediate complications. After the appropriate amount of monitored convalescence, the patient was discharged from the department. EBL: Less than 1 mL FINDINGS: None IMPRESSION: Ultrasound-guided left breast biopsy with marker clip placement (HydroMark shape 4) <Electronically signed by Balwinder Sawyer > 06/03/21 [id number] <Electronically signed by Matthew Hernandez > 06/03/21 [id number]
== END ==
LOC: M WHCPRO 10:07
PROVIDERS: ATTEND Surgery
DX: D24.2 Benign neoplasm of left breast (principal); R92.8 Other abnormal and inconclusive findings on diagnostic imaging of breast

== ENCOUNTER → 2021-11-05 | Outpatient (CLI) | payer OTHER ==
[~2021-11-05] MED LIST changes: -**SFHN** LIDOCAINE 1% MDV 20ML VIAL ONE; -**SFHN** SODIUM BICARBONATE 8.4% 10MEQ 10ML VIAL ONE; +OMEP-173 PO; -OMEP-218 PO
[2021-11-05 13:14] LABS: BASO % 0.6 % (0.0-1.0); EOS # 0.2 10^3/uL (0.0-0.5); EOS % 2.6 % (0.0-3.0); HEMATOCRIT 41.6 % (36.0-47.0); HEMOGLOBIN 14.1 g/dl (12.0-15.5); LYMPH # 1.4 10^3/uL (1.5-5.0); LYMPH % 20.5 % (24.0-44.0); MEAN CORPUSCULAR HEMOGLOBIN 30.5 pg (27.0-33.0); MEAN CORPUSCULAR HGB CONC 33.9 g/dl (32.0-36.5); MEAN CORPUSCULAR VOLUME 89.8 fl (80.0-96.0); MONO # 0.4 10^3/uL (0.0-0.8); NEUTROPHILS # 4.8 10^3/uL (1.5-8.5); PLATELET COUNT, AUTOMATED 274 10^3/uL (150-450); RED BLOOD COUNT 4.63 10^6/uL (4.00-5.40); WHITE BLOOD COUNT 6.8 10^3/uL (4.0-10.0)
[2021-11-05 13:52] LABS: ALBUMIN 3.8 GM/DL (3.2-5.2); ALT/SGPT 23 U/L (12-78); BILIRUBIN,TOTAL 0.6 MG/DL (0.2-1.0); BLOOD UREA NITROGEN 8 MG/DL (7-18); CALCIUM LEVEL 9.5 MG/DL (8.5-10.1); CARBON DIOXIDE LEVEL 28 MEQ/L (21-32); CHLORIDE LEVEL 108 MEQ/L (98-107); CHOLESTEROL LEVEL 175 MG/DL (<200); CHOLESTEROL RISK RATIO 4.487 (<5); CREATININE FOR GFR 0.78 MG/DL (0.55-1.30); FERRITIN 155 NG/ML (8-252); FREE T4 0.89 NG/DL (0.76-1.46); GLOMERULAR FILTRATION RATE > 60.0 (>58); GLUCOSE, FASTING 100 MG/DL (70-100); HDL CHOLESTEROL 39 MG/DL (>40); IRON (FE) 119 UG/DL (50-170); LDL CHOLESTEROL 108 MG/DL (<100); NON-HDL-C 136 MG/DL; POTASSIUM SERUM 4.5 MEQ/L (3.5-5.1); SODIUM LEVEL 140 MEQ/L (136-145); THYROID STIMULATING HORMONE 0.808 uIU/ML (0.358-3.740); TOTAL 25(OH) VITAMIN D 27.6 NG/ML (30.0-100.0); TOTAL PROTEIN 6.9 GM/DL (6.4-8.2); TRIGLYCERIDES LEVEL 139 MG/DL (<150); VITAMIN B12 LEVEL 376 PG/ML (247-911)
== END ==
LOC: M LAB 12:42
PROVIDERS: ATTEND Physician Assistant
DX: Z98.84 Bariatric surgery status (principal)

== ENCOUNTER → 2022-02-17 | Outpatient (CLI) | payer OTHER ==
[~2022-02-17] MED LIST changes: +GABA600T4 PO
[2022-02-17 11:33] LABS: BASO % 0.8 % (0.0-1.0); EOS # 0.2 10^3/uL (0.0-0.5); EOS % 3.4 % (0.0-3.0); HEMATOCRIT 40.7 % (36.0-47.0); HEMOGLOBIN 13.6 g/dl (12.0-15.5); LYMPH # 1.4 10^3/uL (1.5-5.0); LYMPH % 28.5 % (24.0-44.0); MEAN CORPUSCULAR HEMOGLOBIN 30.8 pg (27.0-33.0); MEAN CORPUSCULAR HGB CONC 33.4 g/dl (32.0-36.5); MEAN CORPUSCULAR VOLUME 92.3 fl (80.0-96.0); MONO # 0.4 10^3/uL (0.0-0.8); MONO % 8.1 % (2.0-8.0); NEUTROPHILS % 58.8 % (36.0-66.0); PLATELET COUNT, AUTOMATED 270 10^3/uL (150-450); RED BLOOD COUNT 4.41 10^6/uL (4.00-5.40); WHITE BLOOD COUNT 5.1 10^3/uL (4.0-10.0)
[2022-02-17 11:55] LABS: INR 1.04; PARTIAL THROMBOPLASTIN TIME 32.4 SECONDS (25.9-37.0)
[2022-02-17 12:20] LABS: ALBUMIN 3.8 GM/DL (3.2-5.2); ALT/SGPT 25 U/L (12-78); BILIRUBIN,TOTAL 0.5 MG/DL (0.2-1.0); BLOOD UREA NITROGEN 8 MG/DL (7-18); CALCIUM LEVEL 9.3 MG/DL (8.5-10.1); CARBON DIOXIDE LEVEL 30 MEQ/L (21-32); CHLORIDE LEVEL 109 MEQ/L (98-107); CREATININE FOR GFR 0.72 MG/DL (0.55-1.30); GLOMERULAR FILTRATION RATE > 60.0 (>58); GLUCOSE, FASTING 91 MG/DL (70-100); NT-PRO BNP 84 PG/ML (<125); POTASSIUM SERUM 4.6 MEQ/L (3.5-5.1); SODIUM LEVEL 141 MEQ/L (136-145); TOTAL PROTEIN 6.8 GM/DL (6.4-8.2)
[2022-02-17 12:46] LABS: HEMOGLOBIN A1c 5.5 %
== END ==
LOC: M LAB 10:56
PROVIDERS: ATTEND Family Medicine
DX: G47.33 Obstructive sleep apnea (adult) (pediatric) (principal)

== ENCOUNTER → 2022-02-19 | Outpatient (CLI) | payer OTHER | LOC: M LABSMTC 10:28 | PROVIDERS: ATTEND Anesthesiology | DX: Z01.818 Encounter for other preprocedural examination (principal); Z11.52 Encounter for screening for COVID-19 ==

== ENCOUNTER 2022-02-24 08:07 | Observation (INO) | payer OTHER ==
[2022-02-24] VITALS (7 sets, daily range): BP systolic 101–124; BP diastolic 56–77
[~2022-02-24] VITALS: Ht 177.8 cm; Wt 103.4 kg
[~2022-02-24 08:07] MED LIST changes: +HEPARIN SOD (PORCINE) 5000UNITS/ML 1ML VIAL/SYRINGE SQ ONE; +ceFAZolin SOD 2 GM in IV 1 EA IV ONE
[2022-02-24] MEDS ORDERED: LR 1,000 ML IV SCH ×2 (09:10→15:05)
[2022-02-24] MEDS ORDERED: fentaNYL 100 MCG/2 ML INJECTION As Ordered ONE (09:34)
[2022-02-24] MEDS ORDERED: ACETAMINOPHEN 1000MG 100ML IV BTL (OFIRMEV) (J0131 PER 10MG) As Ordered ONE (09:35)
[2022-02-24] MEDS ORDERED: propofoL 200 MG/20 ML VIAL As Ordered ONE (09:35)
[2022-02-24] MEDS ORDERED: MIDAZOLAM INJ 2MG/2ML VIAL (J2250 PER 1MG) As Ordered ONE (09:35)
[2022-02-24] MEDS ORDERED: LIDOCAINE 2% 100MG/5ML SDV (FOR ANES.) As Ordered ONE (09:35)
[2022-02-24] MEDS ORDERED: ONDANSETRON 4MG 2ML VIAL As Ordered ONE (09:35)
[2022-02-24] MEDS ORDERED: dexameTHASONE 4 MG/ML 1ML VIAL (J1100 PER 1MG) As Ordered ONE (09:35)
[2022-02-24] MEDS ORDERED: ROCURONIUM BROMIDE 50 MG/5 ML VIAL As Ordered ONE ×2 (09:35→11:32)
[2022-02-24] MEDS ORDERED: SUGAMMADEX SODIUM 500 MG/5 ML VIAL (BRIDION) As Ordered ONE (09:35)
[2022-02-24] MEDS ORDERED: KETAMINE HCL 200 MG/20 ML VIAL As Ordered ONE (09:38)
[2022-02-24] MEDS ORDERED: BUPIVACAINE HCL 0.25% 10ML VIAL As Ordered ONE (10:18)
[2022-02-24] MEDS ORDERED: GENTAMICIN SULF 80MG/2ML VIAL As Ordered ONE (10:18)
[2022-02-24] MEDS ORDERED: BUPIVACAINE LIPOSOME/PF 1.3% 20ML VIAL (13.3MG/ML)(EXPAREL) As Ordered ONE (10:19)
[2022-02-24] MEDS ORDERED: HYDROmorphone HCL 2MG/ML 1ML VIAL As Ordered ONE (12:30)
[2022-02-24] MEDS ORDERED: ACETAMINOPHEN TAB 650MG DOSE (2X325MG) PO PRN (14:55)
[2022-02-24] MEDS ORDERED: PERCOCET 5MG/325MG TAB PO PRN ×2 (14:55)
[2022-02-24] MEDS ORDERED: MORPHINE 2 MG/ML 1ML VIAL IV PRN (15:05)
[2022-02-24] MEDS ORDERED: ONDANSETRON 4MG 2ML VIAL IV PRN (15:05)
[2022-02-24] MEDS ORDERED: oxyCODONE 5MG TAB PO PRN (15:05)
[2022-02-24] MEDS ORDERED: fentaNYL 100 MCG/2 ML INJECTION IV PRN (15:05)
[2022-02-24] MEDS: LR 1,000 ML IV SCH (16:02)
[2022-02-24] MEDS ORDERED: ceFAZolin SOD 2 GM in IV 1 EA IV ONE (20:00)
[2022-02-24] MEDS: ONDANSETRON 4MG 2ML VIAL IV PRN (20:23)
[2022-02-24] MEDS: traMADol 50 MG TAB PO PRN (20:23)
[2022-02-24] MEDS: PERCOCET 5MG/325MG TAB PO PRN (23:16)
[2022-02-25 02:00] VITALS: BP 102/66
[2022-02-25] MEDS: PERCOCET 5MG/325MG TAB PO PRN ×3 (03:49→12:05)
[2022-02-25] MEDS: LR 1,000 ML IV SCH (05:32)
[2022-02-25] MEDS: traMADol 50 MG TAB PO PRN ×2 (05:35→13:53)
[2022-02-25 06:00] VITALS: BP 110/65
[2022-02-25] MEDS: ONDANSETRON 4MG 2ML VIAL IV PRN (08:01)
[2022-02-25] MEDS ORDERED: OMEPRAZOLE 20MG CAP PO SCH (09:00)
[2022-02-25] MEDS ORDERED: ONDA4TAB6 PO (13:22)
[2022-02-25] MEDS ORDERED: PERC5TAB12 PO (13:22)
== END 2022-02-25 15:10 | disposition home or self-care (01) ==
LOC: M SDC 08:07 → M MS5PR 08:08
PROVIDERS: ADMIT Plastic Surgery Surgery of the Hand; ATTEND Plastic Surgery Surgery of the Hand
DX: N62 Hypertrophy of breast (principal); Z98.84 Bariatric surgery status
CPT/HCPCS: 19318; 36415; 86850; 86900; 86901; 88305; 96365; 96375; 96376; C9290; J0131; J0690; J1100; J1170; J1580; J1644; J2250; J2405; J3010

== ENCOUNTER 2022-04-08 14:45 | Emergency (ER) | payer OTHER ==
[~2022-04-08] VITALS: Ht 177.8 cm; Wt 105.1 kg
[~2022-04-08 14:45] MED LIST changes: -HEPARIN SOD (PORCINE) 5000UNITS/ML 1ML VIAL/SYRINGE SQ ONE; +ONDA4TAB6 PO; -ceFAZolin SOD 2 GM in IV 1 EA IV ONE
[2022-04-08] MEDS ORDERED: MORPHINE 4 MG/ML 1ML VIAL/SYRINGE IV ONE (18:30)
[2022-04-08 19:04] LABS: BASO # 0.1 10^3/uL (0.0-0.2); BASO % 0.5 % (0.0-1.0); EOS # 0.3 10^3/uL (0.0-0.5); EOS % 2.7 % (0.0-3.0); HEMATOCRIT 42.4 % (36.0-47.0); HEMOGLOBIN 14.1 g/dl (12.0-15.5); LYMPH # 2.3 10^3/uL (1.5-5.0); LYMPH % 20.8 % (24.0-44.0); MEAN CORPUSCULAR HEMOGLOBIN 30.3 pg (27.0-33.0); MEAN CORPUSCULAR HGB CONC 33.3 g/dl (32.0-36.5); MEAN CORPUSCULAR VOLUME 91.2 fl (80.0-96.0); MONO # 0.4 10^3/uL (0.0-0.8); MONO % 3.8 % (2.0-8.0); NEUTROPHILS # 7.8 10^3/uL (1.5-8.5); NEUTROPHILS % 71.8 % (36.0-66.0); PLATELET COUNT, AUTOMATED 277 10^3/uL (150-450); RED BLOOD COUNT 4.65 10^6/uL (4.00-5.40); WHITE BLOOD COUNT 10.9 10^3/uL (4.0-10.0)
[2022-04-08 19:36] LABS: ALT/SGPT 29 U/L (12-78); BILIRUBIN,DIRECT 0.1 MG/DL (0.0-0.2); BILIRUBIN,TOTAL 0.5 MG/DL (0.2-1.0); BLOOD UREA NITROGEN 11 MG/DL (7-18); CALCIUM LEVEL 9.6 MG/DL (8.5-10.1); CARBON DIOXIDE LEVEL 27 MEQ/L (21-32); CHLORIDE LEVEL 106 MEQ/L (98-107); GLOMERULAR FILTRATION RATE > 60.0 (>58); GLUCOSE, FASTING 102 MG/DL (70-100); POTASSIUM SERUM 3.9 MEQ/L (3.5-5.1); SODIUM LEVEL 137 MEQ/L (136-145); TOTAL PROTEIN 7.4 GM/DL (6.4-8.2)
[2022-04-08 19:44] LABS: ERYTHROCYTE SEDIMENTATION RATE 11 mm/hr (0-20)
[2022-04-08] MEDS ORDERED: NAPR-837 PO (20:31)
[2022-04-08 20:40] VITALS: BP 128/75
== END 2022-04-08 20:41 | disposition home or self-care (01) ==
LOC: M ED 17:44
DX: I80.02 Phlebitis and thrombophlebitis of superficial vessels of left lower extremity (principal); F41.9 Anxiety disorder, unspecified; K21.9 Gastro-esophageal reflux disease without esophagitis; F17.200 Nicotine dependence, unspecified, uncomplicated; F12.10 Cannabis abuse, uncomplicated; Z87.442 Personal history of urinary calculi; Z41.1 Encounter for cosmetic surgery; Z98.84 Bariatric surgery status; Z79.899 Other long term (current) drug therapy
CPT/HCPCS: 80048; 80076; 83605; 85025; 85652; 86140; 87040; 93971; 96374; 99284; J2270

== ENCOUNTER → 2022-04-14 | Outpatient (CLI) | payer OTHER | LOC: M PAIN 08:30 | PROVIDERS: ATTEND Nurse Practitioner Family | DX: M54.50 Low back pain, unspecified (principal) ==

== ENCOUNTER → 2022-05-22 | Outpatient (CLI) | payer OTHER | LOC: M RAD 09:05 | PROVIDERS: ATTEND Nurse Practitioner Family | DX: M51.16 Intervertebral disc disorders with radiculopathy, lumbar region (principal) ==

== ENCOUNTER → 2022-06-30 | Outpatient (CLI) | payer OTHER | LOC: M PAIN 10:45 | PROVIDERS: ATTEND Nurse Practitioner Family | DX: M79.10 Myalgia, unspecified site (principal); G89.29 Other chronic pain; J45.20 Mild intermittent asthma, uncomplicated; F17.210 Nicotine dependence, cigarettes, uncomplicated; Z86.14 Personal history of Methicillin resistant Staphylococcus aureus infection; Z86.59 Personal history of other mental and behavioral disorders; Z79.899 Other long term (current) drug therapy ==

== ENCOUNTER → 2022-07-22 | Outpatient (REF) | payer OTHER | LOC: M SFHCDERM 16:59 | PROVIDERS: ATTEND Physician Assistant | DX: I78.1 Nevus, non-neoplastic (principal) ==

== ENCOUNTER → 2022-08-06 | Outpatient (CLI) | payer OTHER | LOC: M LABSMTC 15:09 | PROVIDERS: ATTEND Anesthesiology | DX: Z01.818 Encounter for other preprocedural examination (principal) ==

== ENCOUNTER → 2022-08-06 | Outpatient (CLI) | payer OTHER ==
[~2022-08-06] MED LIST changes: +BUPIVACAINE HCL 0.25% 10ML VIAL As Ordered ONE; +BUPIVACAINE HCL 0.25% 30ML VIAL As Ordered ONE; +NORCO, ANEXSIA 5/325MG TABLET (HYDROcodone/ACETAMINOPHEN) As Ordered ONE; +TRIAMCINOLONE ACETONIDE SUSP 40MG/ML 1ML VIAL As Ordered ONE; +diazePAM 5MG TABLET As Ordered ONE
== END ==
LOC: M PAIN 16:15
PROVIDERS: ATTEND Anesthesiology
DX: M79.18 Myalgia, other site (principal); G89.29 Other chronic pain; J45.20 Mild intermittent asthma, uncomplicated; F17.210 Nicotine dependence, cigarettes, uncomplicated; Z86.14 Personal history of Methicillin resistant Staphylococcus aureus infection; Z86.59 Personal history of other mental and behavioral disorders; Z79.899 Other long term (current) drug therapy
CPT/HCPCS: 20552; J3301; S0020

== ENCOUNTER → 2022-08-28 | Outpatient (CLI) | payer OTHER ==
[~2022-08-28] MED LIST changes: -BUPIVACAINE HCL 0.25% 10ML VIAL As Ordered ONE; -BUPIVACAINE HCL 0.25% 30ML VIAL As Ordered ONE; -NORCO, ANEXSIA 5/325MG TABLET (HYDROcodone/ACETAMINOPHEN) As Ordered ONE; -TRIAMCINOLONE ACETONIDE SUSP 40MG/ML 1ML VIAL As Ordered ONE; -diazePAM 5MG TABLET As Ordered ONE
== END ==
LOC: M PAIN 09:45
PROVIDERS: ATTEND Anesthesiology
DX: M54.6 Pain in thoracic spine (principal); M79.18 Myalgia, other site; G89.29 Other chronic pain; J45.20 Mild intermittent asthma, uncomplicated; F17.210 Nicotine dependence, cigarettes, uncomplicated; Z86.14 Personal history of Methicillin resistant Staphylococcus aureus infection; Z86.59 Personal history of other mental and behavioral disorders; Z98.84 Bariatric surgery status; Z79.899 Other long term (current) drug therapy

== ENCOUNTER → 2022-08-28 | Outpatient (CLI) | payer OTHER | LOC: M RAD 11:36 | PROVIDERS: ATTEND Anesthesiology | DX: M54.6 Pain in thoracic spine (principal) ==

== ENCOUNTER → 2022-09-01 | Outpatient (CLI) | payer OTHER | LOC: M PAIN 16:15 | PROVIDERS: ATTEND Nurse Practitioner Family | DX: M54.6 Pain in thoracic spine (principal); G89.29 Other chronic pain; J45.20 Mild intermittent asthma, uncomplicated; F17.210 Nicotine dependence, cigarettes, uncomplicated; Z86.14 Personal history of Methicillin resistant Staphylococcus aureus infection; Z86.59 Personal history of other mental and behavioral disorders; Z98.84 Bariatric surgery status; Z88.8 Allergy status to other drugs, medicaments and biological substances; Z79.899 Other long term (current) drug therapy ==

== ENCOUNTER → 2022-10-02 | Outpatient (CLI) | payer OTHER | LOC: M PLAIMG 07:13 | PROVIDERS: ATTEND Nurse Practitioner Family | DX: M54.6 Pain in thoracic spine (principal); M47.814 Spondylosis without myelopathy or radiculopathy, thoracic region ==

== ENCOUNTER → 2022-10-09 | Outpatient (CLI) | payer OTHER ==
[~2022-10-09] MED LIST changes: +BUPIVACAINE HCL 0.25% 10ML VIAL As Ordered ONE; +BUPIVACAINE HCL 0.25% 30ML VIAL As Ordered ONE; +NORCO, ANEXSIA 5/325MG TABLET (HYDROcodone/ACETAMINOPHEN) As Ordered ONE; +TRIAMCINOLONE ACETONIDE SUSP 40MG/ML 1ML VIAL As Ordered ONE; +diazePAM 5MG TABLET As Ordered ONE
== END ==
LOC: M PAIN 09:00
PROVIDERS: ATTEND Anesthesiology
DX: M79.18 Myalgia, other site (principal); G89.29 Other chronic pain; J45.20 Mild intermittent asthma, uncomplicated; F17.210 Nicotine dependence, cigarettes, uncomplicated; Z86.14 Personal history of Methicillin resistant Staphylococcus aureus infection; Z86.59 Personal history of other mental and behavioral disorders; Z98.84 Bariatric surgery status; Z88.8 Allergy status to other drugs, medicaments and biological substances; Z79.899 Other long term (current) drug therapy
CPT/HCPCS: 20552; J3301; S0020

== ENCOUNTER → 2022-11-05 | Outpatient (CLI) | payer OTHER ==
[~2022-11-05] MED LIST changes: -BUPIVACAINE HCL 0.25% 10ML VIAL As Ordered ONE; -BUPIVACAINE HCL 0.25% 30ML VIAL As Ordered ONE; -NORCO, ANEXSIA 5/325MG TABLET (HYDROcodone/ACETAMINOPHEN) As Ordered ONE; -TRIAMCINOLONE ACETONIDE SUSP 40MG/ML 1ML VIAL As Ordered ONE; -diazePAM 5MG TABLET As Ordered ONE
== END ==
LOC: M RAD 10:21
PROVIDERS: ATTEND Physician Assistant
DX: R05.1 Acute cough (principal)

== ENCOUNTER → 2022-12-30 | Outpatient (CLI) | payer OTHER | LOC: M WHC 09:51 | PROVIDERS: ATTEND Plastic Surgery Surgery of the Hand | DX: N62 Hypertrophy of breast (principal); D24.2 Benign neoplasm of left breast; N63.23 Unspecified lump in the left breast, lower outer quadrant ==

== ENCOUNTER → 2023-03-11 | Outpatient (CLI) | payer OTHER, SELFPAY ==
[~2023-03-11] MED LIST changes: +MECL-209 PO; -MECL1TAB31 PO
[2023-03-11 08:28] LABS: BASO # 0.1 10^3/uL (0.0-0.2); BASO % 0.7 % (0.0-1.0); EOS # 0.3 10^3/uL (0.0-0.5); EOS % 3.7 % (0.0-3.0); HEMATOCRIT 42.7 % (36.0-47.0); HEMOGLOBIN 14.5 g/dl (12.0-15.5); LYMPH # 1.9 10^3/uL (1.5-5.0); LYMPH % 27.2 % (24.0-44.0); MEAN CORPUSCULAR HEMOGLOBIN 30.3 pg (27.0-33.0); MEAN CORPUSCULAR VOLUME 89.3 fl (80.0-96.0); MONO # 0.4 10^3/uL (0.0-0.8); MONO % 6.3 % (2.0-8.0); NEUTROPHILS # 4.3 10^3/uL (1.5-8.5); NEUTROPHILS % 61.7 % (36.0-66.0); PLATELET COUNT, AUTOMATED 300 10^3/uL (150-450); RED BLOOD COUNT 4.78 10^6/uL (4.00-5.40)
[2023-03-11 08:42] LABS: ERYTHROCYTE SEDIMENTATION RATE 8 mm/hr (0-20)
[2023-03-11 08:58] LABS: FREE T4 0.94 NG/DL (0.89-1.76); THYROID STIMULATING HORMONE 1.214 uIU/ML (0.55-4.78)
[2023-03-11 08:59] LABS: ALKALINE PHOSPHATASE 69 U/L (46-116); ALT/SGPT 22 U/L (7.0-40); AST/SGOT 16 U/L (<34); BILIRUBIN,TOTAL 0.6 MG/DL (0.3-1.2); BLOOD UREA NITROGEN 12 MG/DL (9-23); C REACTIVE PROTEIN QUANTITATIV < 0.40 MG/DL (<1.0); CALCIUM LEVEL 9.3 MG/DL (8.5-10.1); CARBON DIOXIDE LEVEL 29 MMOL/L (20-31); CHLORIDE LEVEL 110 MMOL/L (98-107); CHOLESTEROL LEVEL 179 MG/DL (<200); CHOLESTEROL RISK RATIO 4.78 (<5); CREATININE FOR GFR 0.83 MG/DL (0.55-1.30); FERRITIN 113.5 NG/ML (7.3-270.7); GLOMERULAR FILTRATION RATE > 60.0 (>58); GLUCOSE, FASTING 96 MG/DL (60-100); HDL CHOLESTEROL 37.4 MG/DL (>40); NON-HDL-C 141.6 MG/DL; POTASSIUM SERUM 4.3 MMOL/L (3.5-5.1); SODIUM LEVEL 143 MMOL/L (136-145); TOTAL PROTEIN 6.7 G/DL (5.7-8.2); TRIGLYCERIDES LEVEL 123 MG/DL (<150)
[2023-03-11 09:00] LABS: TOTAL 25(OH) VITAMIN D 42.4 NG/ML (20.0-100.0)
[2023-03-11 09:01] LABS: FOLATE 12.8 NG/ML (>5.4); RHEUMATOID FACTOR QUANT < 3.5 IU/ML (<14)
[2023-03-11 09:23] LABS: VITAMIN B12 LEVEL 548 PG/ML (211-911)
== END ==
LOC: M LAB 07:49
PROVIDERS: ATTEND Physician Assistant
DX: M51.36 Other intervertebral disc degeneration, lumbar region (principal); R51.9 Headache, unspecified; L65.9 Nonscarring hair loss, unspecified; E66.9 Obesity, unspecified

== ENCOUNTER → 2023-06-19 | Outpatient (REF) | payer OTHER | LOC: M LAB REF 17:27 | PROVIDERS: ATTEND Physician Assistant Medical | DX: R05.9 Cough, unspecified (principal) ==

== ENCOUNTER → 2023-09-08 | Outpatient (CLI) | payer OTHER | LOC: M RAD 11:08 | PROVIDERS: ATTEND Internal Medicine Infectious Disease | DX: M79.662 Pain in left lower leg (principal) ==

== ENCOUNTER 2023-11-29 23:46 | Emergency (ER) | payer OTHER ==
[~2023-11-29] VITALS: Ht 177.8 cm; Wt 101.0 kg
[~2023-11-29 23:46] MED LIST changes: +ONDA-282 PO; -ONDA4TAB6 PO
[2023-11-30 01:10] LABS: BASO # 0.1 10^3/uL (0.0-0.2); BASO % 0.5 % (0.0-1.0); EOS # 0.2 10^3/uL (0.0-0.5); EOS % 2.4 % (0.0-3.0); HEMATOCRIT 40.7 % (36.0-47.0); HEMOGLOBIN 14.3 g/dl (12.0-15.5); LYMPH # 2.4 10^3/uL (1.5-5.0); LYMPH % 23.6 % (24.0-44.0); MEAN CORPUSCULAR HEMOGLOBIN 31.1 pg (27.0-33.0); MEAN CORPUSCULAR HGB CONC 35.1 g/dl (32.0-36.5); MEAN CORPUSCULAR VOLUME 88.5 fl (80.0-96.0); MONO # 0.5 10^3/uL (0.0-0.8); MONO % 4.6 % (2.0-8.0); NEUTROPHILS % 68.6 % (36.0-66.0); PLATELET COUNT, AUTOMATED 289 10^3/uL (150-450); WHITE BLOOD COUNT 10.2 10^3/uL (4.0-10.0)
[2023-11-30 01:21] LABS: INR 1.12; PROTHROMBIN TIME 14.1 SECONDS (12.5-14.5)
[2023-11-30 01:36] LABS: LIPASE 25 U/L (12-53)
[2023-11-30 01:37] LABS: CPK CREATINE PHOSPHOKINASE 69 U/L (34-145)
[2023-11-30 01:38] LABS: ALBUMIN 4.2 G/DL (3.2-5.2); ALKALINE PHOSPHATASE 77 U/L (46-116); ALT/SGPT 15 U/L (7.0-40); AST/SGOT 11 U/L (<34); BILIRUBIN,DIRECT 0.1 MG/DL (<0.4); BILIRUBIN,TOTAL 0.4 MG/DL (0.3-1.2); BLOOD UREA NITROGEN 8 MG/DL (9-23); CALCIUM LEVEL 9.2 MG/DL (8.5-10.1); CARBON DIOXIDE LEVEL 26 MMOL/L (20-31); CHLORIDE LEVEL 107 MMOL/L (98-107); CK-MB VALUE MASS 1.3 NG/ML (<3.6); CREATININE FOR GFR 0.69 MG/DL (0.55-1.30); GLOMERULAR FILTRATION RATE > 60.0 (>58); GLUCOSE, FASTING 98 MG/DL (60-100); MB/CK RELATIVE INDEX 1.88 (< OR =4); POTASSIUM SERUM 3.9 MMOL/L (3.5-5.1); SODIUM LEVEL 138 MMOL/L (136-145); TOTAL PROTEIN 6.7 G/DL (5.7-8.2)
[2023-11-30] MEDS ORDERED: ISOVUE-370 76% 100ML VIAL As Ordered ONE (06:52)
[2023-11-30] MEDS: CYCLOBENZAPRINE 10MG TABLET PO ONE (07:28)
[2023-11-30 07:39] LABS: CK-MB VALUE MASS < 1.0 NG/ML (<3.6)
[2023-11-30 07:44] LABS: CPK CREATINE PHOSPHOKINASE 58 U/L (34-145); MB/CK RELATIVE INDEX 1.72 (< OR =4)
[2023-11-30 11:00] VITALS: BP 115/69; O2SAT 96
[2023-11-30] MEDS ORDERED: ASPI81TA26 PO (11:05)
[2023-11-30 11:18] VITALS: TEMP 96.9
== END 2023-11-30 11:18 | disposition home or self-care (01) ==
LOC: M ED 23:46
DX: R07.9 Chest pain, unspecified (principal); M54.50 Low back pain, unspecified; M47.812 Spondylosis without myelopathy or radiculopathy, cervical region; M50.122 Cervical disc disorder at C5-C6 level with radiculopathy; M50.123 Cervical disc disorder at C6-C7 level with radiculopathy; F17.200 Nicotine dependence, unspecified, uncomplicated; F10.10 Alcohol abuse, uncomplicated; Z79.1 Long term (current) use of non-steroidal anti-inflammatories (NSAID); Z79.82 Long term (current) use of aspirin; Z79.83 Long term (current) use of bisphosphonates; Z79.899 Other long term (current) drug therapy; Z98.84 Bariatric surgery status
CPT/HCPCS: 36415; 70450; 71045; 71275; 72125; 80048; 80076; 82550; 82553; 83690; 84484; 85025; 85610; 87486; 87581; 87633; 87798; 93005; 93970; 99284; Q9967

== ENCOUNTER → 2024-04-12 | Outpatient (REF) | payer OTHER ==
[~2024-04-12] MED LIST changes: +ASPI81TA26 PO; -CYCL5TAB PO; +CYCL5TAB4 PO; +GABA-1172 PO; +GABA-1490 PO; -GABA-282 PO; -GABA600T4 PO
== END ==
LOC: M LAB REF 21:08
PROVIDERS: ATTEND Physician Assistant Medical
DX: B34.9 Viral infection, unspecified (principal)

== ENCOUNTER → 2024-04-17 | Outpatient (REF) | payer OTHER | LOC: M SFHCDERM 07:48 | PROVIDERS: ATTEND Physician Assistant | DX: D23.71 Other benign neoplasm of skin of right lower limb, including hip (principal) ==

== ENCOUNTER → 2024-09-05 | Outpatient (REF) | payer OTHER ==
[~2024-09-05] MED LIST changes: +ALBU8.5H INH; +ALPR0.5T3 PO; +FAMO40TA3 PO; +HYDR-3713 PO; +LEXA1TAB PO; +ROSU10TA61 PO; +TRAZ-252 PO
[2024-09-05 11:58] LABS: Trichomonas vaginalis (AMP) NOT DETECTED (NEGATIVE)
[2024-09-05 12:21] LABS: GC DNA AMPLIFICATION NEGATIVE (NEGATIVE)
== END ==
LOC: M SFHCWAGY 10:11
PROVIDERS: ATTEND Nurse Practitioner Family
DX: Z12.72 Encounter for screening for malignant neoplasm of vagina (principal); Z11.51 Encounter for screening for human papillomavirus (HPV); Z11.3 Encounter for screening for infections with a predominantly sexual mode of transmission

== ENCOUNTER → 2024-09-05 | Outpatient (CLI) | payer MEDICAID, OTHER | LOC: M WHC 08:24 | PROVIDERS: ATTEND Nurse Practitioner Family | DX: Z12.31 Encounter for screening mammogram for malignant neoplasm of breast (principal) ==

== ENCOUNTER → 2024-09-20 | Outpatient (CLI) | payer OTHER | LOC: M WHC 10:04 | PROVIDERS: ATTEND Nurse Practitioner Family | DX: N64.4 Mastodynia (principal); N63.20 Unspecified lump in the left breast, unspecified quadrant ==

== ENCOUNTER → 2025-03-07 | Outpatient (CLI) | payer OTHER ==
[~2025-03-07] MED LIST changes: +ACYC-438; -ACYC1TAB; -FLOM0.4C39 PO; -ROSU10TA61 PO; +ROSU10TA90 PO; +TAMS-18 PO
[2025-03-07 15:35] LABS: PLATELET COUNT, AUTOMATED 286 10^3/uL (150-450)
[2025-03-07 15:40] LABS: ALT/SGPT 17 U/L (7.0-40); AST/SGOT 19 U/L (<34); CALCIUM LEVEL 9.4 MG/DL (8.5-10.1); CARBON DIOXIDE LEVEL 30 MMOL/L (20-31); CHLORIDE LEVEL 104 MMOL/L (98-107); CHOLESTEROL LEVEL 187 MG/DL (<200); CHOLESTEROL RISK RATIO 5.26 (<5); CREATININE FOR GFR 0.80 MG/DL (0.55-1.30); GLOMERULAR FILTRATION RATE > 90.0 (>58); LDL CHOLESTEROL 120.7 MG/DL (<100); NON-HDL-C 151.5 MG/DL; POTASSIUM SERUM 5.0 MMOL/L (3.5-5.1); SODIUM LEVEL 140 MMOL/L (136-145); TRIGLYCERIDES LEVEL 154 MG/DL (<150)
[2025-03-07 15:42] LABS: FREE T4 1.11 NG/DL (0.89-1.76)
[2025-03-07 16:10] LABS: ESTIMATED AVERAGE GLUCOSE 114.0 MG/DL (60-110)
== END ==
LOC: M PLALAB 12:09
PROVIDERS: ATTEND Family Medicine
DX: Z13.1 Encounter for screening for diabetes mellitus (principal); Z98.84 Bariatric surgery status; Z13.29 Encounter for screening for other suspected endocrine disorder; Z13.6 Encounter for screening for cardiovascular disorders

== ENCOUNTER → 2025-03-07 | Outpatient (REF) | payer OTHER ==
[~2025-03-07] MED LIST changes: +ROSU10TA61 PO; -ROSU10TA90 PO
== END ==
LOC: M SFHCPLAZ 11:30
PROVIDERS: ATTEND Family Medicine
DX: Z98.84 Bariatric surgery status (principal); Z13.29 Encounter for screening for other suspected endocrine disorder; Z13.1 Encounter for screening for diabetes mellitus; Z13.6 Encounter for screening for cardiovascular disorders

== ENCOUNTER → 2025-04-02 | Outpatient (REF) ==
[~2025-04-02] MED LIST changes: -ROSU10TA61 PO; +ROSU10TA90 PO
== END ==
LOC: M LAB 12:17
PROVIDERS: ATTEND Family Medicine
DX: Z02.89 Encounter for other administrative examinations (principal)

== ENCOUNTER → 2025-05-25 | Outpatient (REF) | payer OTHER | LOC: M LAB REF 16:51 | PROVIDERS: ATTEND Physician Assistant | DX: B34.9 Viral infection, unspecified (principal) ==